=== PATIENT | female | born 1955 | race Caucasian/White ===

== ENCOUNTER 2016-10-23 13:17 | Emergency (ER) | payer BC ==
[~2016-10-23] VITALS: Ht 162.6 cm; Wt 80.7 kg
[~2016-10-23 13:17] MED LIST: /ESOM40CA OR; ADVIL PM PO; ALEV220C2 PO; ANAS1TAB PO; ATEN25TA OR; CALC-204 PO; CLAR5CHW OR; COLA50CA PO; FLEC1.3D TD; FLECTOR1.3 TOP; HERBAL SUPPLEMENT PO; ICY HOT TOP; LIDO2JELLY TOP; MULTCAP PO; NEUR600T OR; OMEG100011 PO; OMEPPOW18 PO; OXYC1TAB30 PO; PENN1.5S2 TD; PENNSAID EXT; SOMA350T PO; SYNT175T OR; TRAM50TA2 OR; TRAZ50TA OR; ULTRTA PO; VIT D 2000 PO; VITA100L PO; VITACAP8 PO; VITAD1000T PO; [UNRECOGNIZED DRUG - OTHER] TOP; compound cream EXT
[2016-10-23] MEDS ORDERED: ESCI10TA2 PO (13:39)
[2016-10-23] MEDS ORDERED: AMOX-CLAV (13:39)
[2016-10-23] MEDS ORDERED: PRED20TA PO (13:39)
[2016-10-23] MEDS ORDERED: ASPIRIN 81 MG CHEW TABLET PO ONE (14:00)
[2016-10-23] MEDS ORDERED: IPRATROPIUM 0.5MG/ALBUTEROL 2.5MG INH SOL UD 3ML (DUONEB)(J7620) NEB ONE (14:15)
[2016-10-23] MEDS ORDERED: ALBUTEROL SULFATE 2.5 MG/0.5 ML INH NEB SOLN INH ONE (14:15)
[2016-10-23 14:19] LABS: BASO % 0.3 % (0.0-1.0); EOS # 0.1 K/mm3 (0.0-0.50); EOS % 0.7 % (0.0-3.0); LARGE UNSTAINED CELL # 0.2 K/mm3 (0.0-0.4); LARGE UNSTAINED CELL % 1.5 % (0.0-4.0); LYMPH # 2.8 K/mm3 (1.5-4.5); LYMPH % 22.6 % (24.0-44.0); MEAN CORPUSCULAR HEMOGLOBIN 29.5 pg (27.0-33.0); MEAN CORPUSCULAR HGB CONC 33.3 g/dl (32.0-36.5); MEAN CORPUSCULAR VOLUME 88.6 fl (80.0-96.0); MONO # 0.6 K/mm3 (0.0-0.8); MONO % 4.8 % (0.0-5.0); NEUTROPHILS # 8.1 K/mm3 (1.8-7.7); NEUTROPHILS % 70.1 % (36.0-66.0); PLATELET COUNT, AUTOMATED 329 k/mm3 (150-450); RED CELL DISTRIBUTION WIDTH 13.2 % (11.5-14.5); WHITE BLOOD COUNT 11.5 K/mm3 (4.0-10.0)
--- NOTE | 2016-10-23 14:30 | REP ---
Chest two views HISTORY: Chest pain Comparison: 01/10/2014 The lungs are clear. The heart is normal in size. The pulmonary vasculature is normal in appearance. The bony structure is intact. IMPRESSION: No acute disease. Signed by Armando Salgado MD 10/23/2016 02:21 P
[2016-10-23 14:36] LABS: ALBUMIN 3.9 GM/DL (3.2-5.2); ALBUMIN/GLOBULIN RATIO 1.15 (1.00-1.93); ALKALINE PHOSPHATASE 53 U/L (45-117); ALT/SGPT 25 U/L (12-78); ANION GAP 7 MEQ/L (8-16); AST/SGOT 4 U/L (15-37); BILIRUBIN,DIRECT 0.1 MG/DL (0.0-0.2); BILIRUBIN,TOTAL 0.4 MG/DL (0.2-1.0); BLOOD UREA NITROGEN 15 MG/DL (7-18); CALCIUM LEVEL 9.9 MG/DL (8.5-10.1); CARBON DIOXIDE LEVEL 28 MEQ/L (21-32); CHLORIDE LEVEL 104 MEQ/L (98-107); CREATININE FOR GFR 0.73 MG/DL (0.55-1.02); GLOMERULAR FILTRATION RATE > 60.0 (>51); GLUCOSE, FASTING 139 MG/DL (70-105); POTASSIUM SERUM 3.4 MEQ/L (3.5-5.1); SODIUM LEVEL 139 MEQ/L (136-145); TOTAL PROTEIN 7.3 GM/DL (6.4-8.2)
[2016-10-23 14:41] LABS: VENOUS BASE EXCESS 3.3 (-2.0-2.0); VENOUS O2 SATURATION 65.8 % (60.0-80.0); VENOUS PARTIAL PRESSURE O2 30.6 mmHg (30.0-50.0); VENOUS STANDARD HCO3 26.7 MEQ/L; VENOUS TOTAL CO2 29.3 MEQ/L (24.0-28.0)
[2016-10-23] MEDS ORDERED: NS 1,000 ML IV ONE (14:45)
[2016-10-23] MEDS ORDERED: ISOVUE-370 76% 100ML VIAL (Q9967) As Ordered ONE (16:01)
--- NOTE | 2016-10-23 16:31 | REP ---
Clinical: Wheezing and shortness of breath. Technique: Axial contrast enhanced images from the thoracic inlet to the upper abdomen using 100 ml Isovue 370 intravenous contrast material with coronal and sagittal re-formations. Findings: Bilateral lung sam are well-aerated and clear. No consolidation, nodule or mass lesion. No pleural effusion/reaction or pneumothorax. Tracheobronchial tree is patent. Mediastinum demonstrates normal thoracic aorta and heart/pericardium. No axillary, hilar, or mediastinal adenopathy. Status post bilateral mammoplasty. Limited upper abdomen is unremarkable. Incidental note is made of a 9 mm left renal cyst. Impression: No acute mediastinal or pleuroparenchymal process. Signed by Anish Serrato MD 10/23/2016 04:23 P
[2016-10-23 17:18] VITALS: BP 128/63
[2016-10-23] MEDS ORDERED: COMBAER6 INH (17:35)
--- NOTE | 2016-10-24 20:50 | ECGEPIP ---
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
== END 2016-10-23 17:43 | disposition home or self-care (01) ==
LOC: M ED 14:53
DX: J20.8 Acute bronchitis due to other specified organisms (principal); E03.9 Hypothyroidism, unspecified; M54.9 Dorsalgia, unspecified; G89.29 Other chronic pain; F17.210 Nicotine dependence, cigarettes, uncomplicated; Z88.5 Allergy status to narcotic agent; Z88.2 Allergy status to sulfonamides; Z91.048 Other nonmedicinal substance allergy status; Z79.899 Other long term (current) drug therapy; Z79.52 Long term (current) use of systemic steroids
CPT/HCPCS: 71020; 71260; 80048; 80076; 82550; 82553; 82803; 83690; 85025; 85379; 87040; 87486; 87581; 87633; 87798; 93005; 93041; 94640; 99285; Q9967

== ENCOUNTER → 2016-11-06 | Outpatient (CLI) | payer BC ==
[~2016-11-06] MED LIST changes: +AMOX-CLAV; +BUPIVACAINE HCL 0.25% 10 ML VIAL As Ordered ONE; +BUPIVACAINE HCL 0.25% 30 ML VIAL As Ordered ONE; +COMBAER6 INH; +ESCI10TA2 PO; +PRED20TA PO; +TRIAMCINOLONE ACETONIDE SUSP 40 MG/ML VIAL (J3301) As Ordered ONE; +diazePAM 5 MG TAB As Ordered ONE; +oxyCODONE 5MG TAB As Ordered ONE
--- NOTE | 2016-11-10 23:23 | ECWPNPC ---
PATIENT NAME: TERESE DAMON : 1955 GENDER: FEMALE VISIT DATE: 11/06/2016 DISCHARGE DATE: 11/06/16 1434 VISIT LOCKED DATE TIME: PHYSICIAN: SVITLANA MEDRANO RESOURCE: SVITLANA MEDRANO REASON FOR APPOINTMENT 1. TPI HISTORY OF PRESENT ILLNESS HISTORY OF PRESENT ILLNESS: PAIN THE PATIENT DESCRIBES THE PAIN... FALL RISK SCREENING: SCREENING :NO FALLS IN THE PAST YEAR CURRENT MEDICATIONS TAKING CLONAZEPAM 0.25 MG TABLET DISPERSIBLE 1 TABLET ON THE TONGUE AND ALLOW TO DISSOLVE ORALLY EVERY 12 HOURS NEEDED FOR ANXIETY, NOTES: 2 WEEKS AGO TAKING KETOCONAZOLE 2 % CREAM 1 APPLICATION TO FEET EXTERNALLY TWICE A DAY NEEDED, NOTES: 10/06 9AM TAKING SOMA 350 MG TABLET 1 TABLET NEEDED FOR SPASMS AND PAIN ORALLY BEFORE BEDTIME, NOTES: 2 WEEKS TAKING TRAZODONE HCL 50 MG TABLET 1 TABLET AT BEDTIME NEEDED ORALLY ONCE A DAY, NOTES: 11/05 10PM TAKING VENTOLIN HFA 90 MCG/ACT AEROSOL SOLUTION 2 PUFFS INHALATION EVERY 4 HRS NEEDED SHORTNESS OF BREATH, NOTES: 11/05 10PM TAKING VITAMIN B-12 1000 MCG TABLET 4 TABLETS ORALLY ONCE A DAY, NOTES: 11/06 9AM TAKING CLARITIN 10 MG TABLET 1 TABLET ORALLY DAILY NEEDED, NOTES: 11/06 9AM TAKING MULTIVITAMINS OTC TABLET 1 ORALLY ONCE A DAY, NOTES: 11/06 9AM TAKING VITAMIN D HIGH POTENCY 5000 _ 5000UNITS ORALLY ONCE A DAY, NOTES: 11/06 9AM TAKING OXYCODONE HCL 5 MG TABLET 1 ORALLY DAILY NEEDED MDD1, NOTES: 2 WEEKS TAKING TRAMADOL HCL 50 MG TABLET 1 TABLET NEEDED ORALLY EVERY 6 HRS, NOTES: 2 WEEKS TAKING LEVOTHYROXINE SODIUM 175 MG TABLET 1 TABLET ORALLY ONCE A DAY, NOTES: 11/06 9AM TAKING LIDOCAINE 5 % GEL 1 INCH EXTERNALLY THREE TIMES A DAY PRN FOR PAIN AT LOWER BACK AREA, NOTES: 11/06 9AM TAKING GABAPENTIN 300 MG CAPSULE 2 CAPSULE ORALLY THREE TIMES A DAY, NOTES: 11/06 9AM TAKING EXEMESTANE 25 MG TABLET 1 TABLET WITH A MEAL ORALLY ONCE A DAY, NOTES: 11/06 9AM TAKING OMEPRAZOLE 40 MG CAPSULE DELAYED RELEASE 1 CAPSULE ORALLY ONCE A DAY, NOTES: 11/06 9AM TAKING NEBULIZER - DEVICE DIRECTED DX: J45.909 DIRECTED, NOTES: 11/06 9AM TAKING MAY HAVE - - NEBULIZER TUBING DX: J45.909 DIRECTED WITH NEBULIZER TAKING ALBUTEROL SULFATE (2.5 MG/3ML) 0.083% NEBULIZATION SOLUTION 3 ML INHALATION EVERY 4 HOURS NEEDED FOR SOB, NOTES: 11/06 9AM NOT-TAKING CICLOPIROX OLAMINE 0.77 % CREAM 1 APPLICATION EXTERNALLY TWICE A DAY TO FEET NOT-TAKING PREDNISONE 20 MG TABLET 2 TABLET ORALLY ONCE A DAY NOT-TAKING COQ10 30 MG CAPSULE 1 ORALLY ONCE A DAY MEDICATION LIST REVIEWED AND RECONCILED WITH THE PATIENT PAST MEDICAL HISTORY FX 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 OF HYPERLIPIDEMIA FIBROCYSTIC BREAST DISEASE DDD/DD MVP CHRONIC BACK DISCOM'T LEFT BREAST CANCER 10/11/14 EYE INJECTIONS ALLERGIES SULFA (FOR ALLERGY USE ONLY): NAUSEA/VOMITING: SIDE EFFECTS CODEINE PHOSPHATE: NAUSEA/VOMITING: SIDE EFFECTS LATEX: RASH: ALLERGY RUBBER: RASH: ALLERGY MELOXICAM: HEADACHE: SIDE EFFECTS ANASTROZOLE: WEAKNESS, SCHES, DRY COUGH : SIDE EFFECTS SOCIAL HISTORY GENERAL: PAIN CLINIC PFS, CLERGY, PUBLIC HEALTH REFERRALS CLERGY REFERRAL NEEDED?NO WAS THE PROVIDER NOTIFIED OF ANY PERTINENT INFO?NO PFS REFERRAL NEEDED?NO PUBLIC HEALTH REFERRAL NEEDED?NO PATIENT: ____. REVIEW OF SYSTEMS CONSTITUTIONAL: ANY CHANGE IN YOUR MEDICAL CONDITION? NO . CHILLS NO . FEVER NO . INFECTION: DO YOU HAVE NEW INFECTIONS? NO . DO YOU HAVE HISTORY OF MRSA? NO . MUSCULOSKELETAL: ANY NEW PATTERNS OF PAIN OR NUMBNESS? NO . GASTROENTEROLOGY: ANY NEW CHANGE IN BOWEL CONTROL? NO . GENITOURINARY: ANY NEW CHANGE IN BLADDER CONTROL? NO . IS THERE A CHANCE YOU COULD BE ? NO . HEMATOLOGY/LYMPH: DO YOU TAKE ANY BLOOD THINNERS? (FOR EXAMPLE- COUMADIN, PLAVIX, AGGRENOX, PLATEL, PRADAXA, OR XARELTO) NO . WHEN WAS YOUR LAST DOSE? DATE: TIME: . NEUROLOGY: HAVE YOU FALLEN IN THE PAST 6 MONTHS? NO . ANY NEW EXTREMITY NUMBNESS OR WEAKNESS? NO . CARDIOLOGY: DO YOU HAVE A PACEMAKER OR DEFIBRILLATOR? NO . RESPIRATORY: HAVE YOU BEEN SICK IN THE PAST WEEK? NO . FEVER NO . FLU LIKE SYMPTOMS? NO . COUGH NO . INTEGUMENTARY: DO YOU HAVE ANY RASHES OR OPEN SORES? NO . ALLERGIC/IMMUNO: ARE YOU ALLERGIC TO SHELLFISH OR IV DYE? NO . ANY NEW ALLERGIES? NO . PSYCHIATRIC: DO YOU HAVE THOUGHTS OF HURTING YOURSELF OR SOMEONE ELSE? NO . ARE YOU ABUSED, NEGLECTED, OR IN AN UNSAFE ENVIRONMENT? NO . ENDOCRINOLOGY: ARE YOU DIABETIC? NO . OTHER: DO YOU NEED ANY PRESCRIPTIONS? NO . IF YES, PLEASE LIST: ____ . ANY NEW PROBLEMS WITH YOUR MEDICATIONS? NO . WHEN DID YOU LAST EAT? 6AM . WHEN DID YOU LAST DRINK? 10AM . WHAT DID YOU LAST DRINK? WATER . NAME OF PERSON DRIVING YOU HOME? WM DAMON . DO YOU HAVE ANY OTHER QUESTIONS OR CONCERNS PT STATES THAT SHE IS A CURRENT SMOKER, REFUSING ANY SMOKING CESSATION COUNSELING AT THIS TIME. ELISA . REVIEWED BY: PROVIDER: . VITAL SIGNS WT 178 LBS, HT 64.5 IN, BMI 30.08 INDEX, BP 119/62 MM HG, HR 99 /MIN, RR 16 /MIN, TEMP 97.6 F, OXYGEN SAT % 97%, SAFE IN ENV? (Y/N) Y, NA INITIALS SC 13:20, REVIEWED BY: ELISA. ASSESSMENTS MYALGIA - M79.1 (PRIMARY) PROCEDURES PN TRIGGER POINT INJECTION WITH STEROIDS PRE PROCEDURE DIAGNOSIS 1. MYALGIA 2. PAIN AT BILATERAL LOWER BACK AREA POST PROCEDURE DIAGNOSIS 1. MYALGIA 2. PAIN AT BILATERAL LOWER BACK AREA PROCEDURE TRIGGER POINT INJECTION AT BILATERAL LOWER BACK AREA SURGEON DR. SVITLANA MEDRANO CAPSULE FILLING MACHINE OPERATOR NONE ANESTHESIA LOCAL PRE PROCEDURE NOTE THE PATIENT HAS A HISTORY OF CHRONIC PAIN AT THE RIGHT AND LEFT LOWER BACK AREA. I EVALUATE THE PATIENT AND REVIEWED THE CHART. THERE IS EVIDENCE OF BANDS OF TISSUE WITH RESTRICTION OF MOVEMENT AND PRESENCE OF TRIGGER POINT AT THE AFFECTED AREA. I WENT OVER THE RISKS, ALTERNATIVES, AND BENEFITS ASSOCIATED WITH THIS PROCEDURE. THE PATIENT WOULD LIKE TO PROCEED AND GIVE CONSENT TO PERFORMED THE PROCEDURE. THE PATIENT DENIES UNEXPLAINABLE WEIGHT LOSS, FEVER, CHILLS, OR NEW CHANGES IN URINARY OR BOWEL CONTROL DESCRIPTION OF PROCEDURE THE PATIENT WAS BROUGHT TO THE PROCEDURE ROOM AND PLACED IN THE SITTING POSITION. THE AREA WAS CLEANED WITH ALCOHOL. THE PROCEDURE WAS DONE USING ASEPTIC STERILE TECHNIQUE. I CHECKED LATERALITY AND THE LEVEL WHERE THE PROCEDURE WAS GOING TO BE PERFORMED WITH THE PATIENT AND THE SUPPORTING STAFF AT THE MOMENT OF THE TIME OUT IN THE PROCEDURE ROOM. USING A 25-GAUGE NEEDLE, TRIGGER POINTS WERE INJECTED AT THE RIGHT AND LEFT LOWER BACK AREA WITH A TOTAL OF 40 ML OF BUPIVACAINE 0.25% AND KENALOG 40 MG. THERE WAS NO EVIDENCE OF BLOOD, PARESTHESIA OR CEREBROSPINAL FLUID DURING THE PROCEDURE. THE PATIENT WAS SENT TO THE RECOVERY ROOM. THE PATIENT WAS MOVING THE EXTREMITIES AND DOING WELL. THERE WAS NO COMPLICATION DURING THE PROCEDURE POST PROCEDURE NOTE THE PATIENT WILL BE SEEN IN A FOLLOW UP IN THE NEXT FEW WEEKS. INSTRUCTIONS WERE GIVEN, QUESTIONS WERE ANSWERED, AND THE PATIENT EXPRESSED UNDERSTANDING AND AGREES WITH THE PLAN. I, JAVY HERRERA, DOCUMENTED THE ABOVE INFORMATION ACTING A SCRIBE FOR DR. MEDRANO. I, DR. MEDRANO, HAVE REVIEWED THE ABOVE DOCUMENT, SCRIBED BY JAVY HERRERA, AND I VERIFY THAT IT IS ACCURATE PROCEDURE CODES 78777 INJ TRIGGER POINT 08/05 [facility] [place] DISPOSITION & COMMUNICATION FOLLOW UP 3 WEEKS ELECTRONICALLY SIGNED BY SVITLANA MEDRANO MD ON 11/10/2016 AT 09:07 PM EDT DISCLAIMER : THIS IS A VISIT SUMMARY EXTRACTED FROM THE [employer] CHART. IT IS NOT A COPY OF THE [employer] PROGRESS NOTE. MIKE
== END ==
LOC: M PAIN 13:00
PROVIDERS: ATTEND Anesthesiology
DX: G89.29 Other chronic pain (principal); M54.5 Low back pain; M79.1 Myalgia; Z79.891 Long term (current) use of opiate analgesic; Z79.899 Other long term (current) drug therapy; Z88.2 Allergy status to sulfonamides; Z88.5 Allergy status to narcotic agent; Z88.8 Allergy status to other drugs, medicaments and biological substances; Z91.040 Latex allergy status; Z91.048 Other nonmedicinal substance allergy status; E78.5 Hyperlipidemia, unspecified; E03.9 Hypothyroidism, unspecified; F17.200 Nicotine dependence, unspecified, uncomplicated; E55.9 Vitamin D deficiency, unspecified; F41.9 Anxiety disorder, unspecified
CPT/HCPCS: 20552; J3301

== ENCOUNTER → 2016-11-28 | Outpatient (CLI) | payer BC ==
[~2016-11-28] MED LIST changes: -diazePAM 5 MG TAB As Ordered ONE; -oxyCODONE 5MG TAB As Ordered ONE
--- NOTE | 2016-12-01 23:37 | ECWPNPC ---
PATIENT NAME: TERESE DAMON : 1955 GENDER: FEMALE VISIT DATE: 11/28/2016 DISCHARGE DATE: 11/28/16 1100 VISIT LOCKED DATE TIME: PHYSICIAN: SVITLANA MEDRANO RESOURCE: SVITLANA MEDRANO REASON FOR APPOINTMENT 1. TRIGGER POINT INJECTION HISTORY OF PRESENT ILLNESS HISTORY OF PRESENT ILLNESS: PAIN THE PATIENT DESCRIBES THE PAIN... FALL RISK SCREENING: SCREENING :NO FALLS IN THE PAST YEAR CURRENT MEDICATIONS TAKING CLONAZEPAM 0.25 MG TABLET DISPERSIBLE 1 TABLET ON THE TONGUE AND ALLOW TO DISSOLVE ORALLY EVERY 12 HOURS NEEDED FOR ANXIETY, NOTES: NONE YET TAKING KETOCONAZOLE 2 % CREAM 1 APPLICATION TO FEET EXTERNALLY TWICE A DAY NEEDED, NOTES: 11/28 7AM TAKING SOMA 350 MG TABLET 1 TABLET NEEDED FOR SPASMS AND PAIN ORALLY BEFORE BEDTIME, NOTES: 3 DAYS TAKING TRAZODONE HCL 50 MG TABLET 1 TABLET AT BEDTIME NEEDED ORALLY ONCE A DAY, NOTES: 11/27 9PM TAKING VENTOLIN HFA 90 MCG/ACT AEROSOL SOLUTION 2 PUFFS INHALATION EVERY 4 HRS NEEDED SHORTNESS OF BREATH, NOTES: 11/28 9AM TAKING VITAMIN B-12 1000 MCG TABLET 4 TABLETS ORALLY ONCE A DAY, NOTES: 11/28 7AM TAKING CLARITIN 10 MG TABLET 1 TABLET ORALLY DAILY NEEDED, NOTES: 11/28 7AM TAKING MULTIVITAMINS OTC TABLET 1 ORALLY ONCE A DAY, NOTES: 11/27 7AM TAKING OXYCODONE HCL 5 MG TABLET 1 ORALLY DAILY NEEDED MDD1, NOTES: 2 DAYS AGO TAKING TRAMADOL HCL 50 MG TABLET 1 TABLET NEEDED ORALLY EVERY 6 HRS, NOTES: 1 MONTH AGO TAKING LEVOTHYROXINE SODIUM 175 MG TABLET 1 TABLET ORALLY ONCE A DAY, NOTES: 11/28 7AM TAKING LIDOCAINE 5 % GEL 1 INCH EXTERNALLY THREE TIMES A DAY PRN FOR PAIN AT LOWER BACK AREA, NOTES: 2 DAYS AGO TAKING GABAPENTIN 300 MG CAPSULE 2 CAPSULE ORALLY THREE TIMES A DAY, NOTES: 11/28 7AM TAKING EXEMESTANE 25 MG TABLET 1 TABLET WITH A MEAL ORALLY ONCE A DAY, NOTES: 11/28 7AM TAKING OMEPRAZOLE 40 MG CAPSULE DELAYED RELEASE 1 CAPSULE ORALLY ONCE A DAY, NOTES: 11/28 7AM TAKING NEBULIZER - DEVICE DIRECTED DX: J45.909 DIRECTED, NOTES: 11/28 7AM TAKING MAY HAVE - - NEBULIZER TUBING DX: J45.909 DIRECTED WITH NEBULIZER TAKING ALBUTEROL SULFATE (2.5 MG/3ML) 0.083% NEBULIZATION SOLUTION 3 ML INHALATION EVERY 4 HOURS NEEDED FOR SOB, NOTES: 11/28 7AM NOT-TAKING VITAMIN D HIGH POTENCY 5000 _ 5000UNITS ORALLY ONCE A DAY NOT-TAKING CICLOPIROX OLAMINE 0.77 % CREAM 1 APPLICATION EXTERNALLY TWICE A DAY TO FEET NOT-TAKING PREDNISONE 20 MG TABLET 2 TABLET ORALLY ONCE A DAY NOT-TAKING COQ10 30 MG CAPSULE 1 ORALLY ONCE A DAY MEDICATION LIST REVIEWED AND RECONCILED WITH THE PATIENT PAST MEDICAL HISTORY FX 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 OF HYPERLIPIDEMIA FIBROCYSTIC BREAST DISEASE DDD/DD MVP CHRONIC BACK DISCOM'T LEFT BREAST CANCER 10/11/14 EYE INJECTIONS ALLERGIES SULFA (FOR ALLERGY USE ONLY): NAUSEA/VOMITING: SIDE EFFECTS CODEINE PHOSPHATE: NAUSEA/VOMITING: SIDE EFFECTS LATEX: RASH: ALLERGY RUBBER: RASH: ALLERGY MELOXICAM: HEADACHE: SIDE EFFECTS ANASTROZOLE: WEAKNESS, SCHES, DRY COUGH : SIDE EFFECTS SOCIAL HISTORY GENERAL: PAIN CLINIC PFS, CLERGY, PUBLIC HEALTH REFERRALS PFS REFERRAL NEEDED?NO CLERGY REFERRAL NEEDED?NO PUBLIC HEALTH REFERRAL NEEDED?NO WAS THE PROVIDER NOTIFIED OF ANY PERTINENT INFO?YES PATIENT: ____. REVIEW OF SYSTEMS CONSTITUTIONAL: ANY CHANGE IN YOUR MEDICAL CONDITION? NO . CHILLS NO . FEVER NO . INFECTION: DO YOU HAVE NEW INFECTIONS? NO . DO YOU HAVE HISTORY OF MRSA? NO . MUSCULOSKELETAL: ANY NEW PATTERNS OF PAIN OR NUMBNESS? NO . GASTROENTEROLOGY: ANY NEW CHANGE IN BOWEL CONTROL? NO . GENITOURINARY: ANY NEW CHANGE IN BLADDER CONTROL? NO . IS THERE A CHANCE YOU COULD BE ? NO . HEMATOLOGY/LYMPH: DO YOU TAKE ANY BLOOD THINNERS? (FOR EXAMPLE- COUMADIN, PLAVIX, AGGRENOX, PLATEL, PRADAXA, OR XARELTO) NO . WHEN WAS YOUR LAST DOSE? DATE: TIME: . NEUROLOGY: HAVE YOU FALLEN IN THE PAST 6 MONTHS? NO . ANY NEW EXTREMITY NUMBNESS OR WEAKNESS? NO . CARDIOLOGY: DO YOU HAVE A PACEMAKER OR DEFIBRILLATOR? NO . RESPIRATORY: HAVE YOU BEEN SICK IN THE PAST WEEK? NO . FEVER NO . FLU LIKE SYMPTOMS? NO . COUGH NO . INTEGUMENTARY: DO YOU HAVE ANY RASHES OR OPEN SORES? NO . ALLERGIC/IMMUNO: ARE YOU ALLERGIC TO SHELLFISH OR IV DYE? NO . ANY NEW ALLERGIES? NO . PSYCHIATRIC: DO YOU HAVE THOUGHTS OF HURTING YOURSELF OR SOMEONE ELSE? NO . ARE YOU ABUSED, NEGLECTED, OR IN AN UNSAFE ENVIRONMENT? NO . ENDOCRINOLOGY: ARE YOU DIABETIC? NO . OTHER: DO YOU NEED ANY PRESCRIPTIONS? NO . IF YES, PLEASE LIST: ____ . ANY NEW PROBLEMS WITH YOUR MEDICATIONS? NO . WHEN DID YOU LAST EAT? 11/27 8PM . WHEN DID YOU LAST DRINK? 11/28 7:30AM . WHAT DID YOU LAST DRINK? WATER . NAME OF PERSON DRIVING YOU HOME? MW DAMON . DO YOU HAVE ANY OTHER QUESTIONS OR CONCERNS PT STATES THAT SHE IS A CURRENT SMOKER AND REFUSING ANY SMOKING CESSATION COUSELING AT THIS TIME . REVIEWED BY: PROVIDER: . VITAL SIGNS WT 179.0 LBS, HT 64.5 IN, BMI 30.25 INDEX, BP 141/80 MM HG, HR 89 /MIN, RR 16 /MIN, TEMP 97.8 F, OXYGEN SAT % 98%, NA INITIALS TL 0949. ASSESSMENTS MYALGIA - M79.1 (PRIMARY) PROCEDURES PN TRIGGER POINT INJECTION WITH STEROIDS PRE PROCEDURE DIAGNOSIS 1. MYALGIA 2. PAIN AT RIGHT LOW BACK AREA POST PROCEDURE DIAGNOSIS 1. MYALGIA 2. PAIN AT RIGHT LOW BACK AREA PROCEDURE TRIGGER POINT INJECTION AT RIGHT LOW BACK AREA SURGEON DR. SVITLANA MEDRANO CAREER ADVISOR NONE ANESTHESIA LOCAL PRE PROCEDURE NOTE THE PATIENT HAS A HISTORY OF CHRONIC PAIN AT THE RIGHT LOW BACK AREA. I EVALUATE THE PATIENT AND REVIEWED THE CHART. THERE IS EVIDENCE OF BANDS OF TISSUE WITH RESTRICTION OF MOVEMENT AND PRESENCE OF TRIGGER POINT AT THE AFFECTED AREA. I WENT OVER THE RISKS, ALTERNATIVES, AND BENEFITS ASSOCIATED WITH THIS PROCEDURE. THE PATIENT WOULD LIKE TO PROCEED AND GIVE CONSENT TO PERFORMED THE PROCEDURE. THE PATIENT DENIES UNEXPLAINABLE WEIGHT LOSS, FEVER, CHILLS, OR NEW CHANGES IN URINARY OR BOWEL CONTROL DESCRIPTION OF PROCEDURE THE PATIENT WAS BROUGHT TO THE PROCEDURE ROOM AND PLACED IN THE SITTING POSITION. THE AREA WAS CLEANED WITH ALCOHOL. THE PROCEDURE WAS DONE USING ASEPTIC STERILE TECHNIQUE. I CHECKED LATERALITY AND THE LEVEL WHERE THE PROCEDURE WAS GOING TO BE PERFORMED WITH THE PATIENT AND THE SUPPORTING STAFF AT THE MOMENT OF THE TIME OUT IN THE PROCEDURE ROOM. USING A 25-GAUGE NEEDLE, TRIGGER POINTS WERE INJECTED AT THE RIGHT LOW BACK AREA WITH A TOTAL OF 40 ML OF BUPIVACAINE 0.25% AND KENALOG 40 MG. THERE WAS NO EVIDENCE OF BLOOD, PARESTHESIA OR CEREBROSPINAL FLUID DURING THE PROCEDURE. THE PATIENT WAS SENT TO THE RECOVERY ROOM. THE PATIENT WAS MOVING THE EXTREMITIES AND DOING WELL. THERE WAS NO COMPLICATION DURING THE PROCEDURE POST PROCEDURE NOTE THE PATIENT WILL BE SEEN IN A FOLLOW UP IN THE NEXT FEW WEEKS. INSTRUCTIONS WERE GIVEN, QUESTIONS WERE ANSWERED, AND THE PATIENT EXPRESSED UNDERSTANDING AND AGREES WITH THE PLAN. I, YUMIKO CHERY, DOCUMENTED THE ABOVE INFORMATION ACTING A SCRIBE FOR DR. MEDRANO. I HAVE REVIEWED THE ABOVE DOCUMENT, WRITTEN BY YUMIKO CHERY SCRIBE AND I VERIFY THAT IT IS ACCURATE. PROCEDURE CODES 23181 INJ TRIGGER POINT / [facility] [place]UN[place] FOLLOW UP 3 WEEKS ELECTRONICALLY SIGNED BY SVITLANA MEDRANO MD ON 12/01/2016 AT 12:58 PM EDT DISCLAIMER : THIS IS A VISIT SUMMARY EXTRACTED FROM THE [employer] CHART. IT IS NOT A COPY OF THE [employer] PROGRESS NOTE. MIKE
== END ==
LOC: M PAIN 09:10
PROVIDERS: ATTEND Anesthesiology
DX: G89.29 Other chronic pain (principal); M79.1 Myalgia; E78.5 Hyperlipidemia, unspecified; E03.9 Hypothyroidism, unspecified; E55.9 Vitamin D deficiency, unspecified; E05.00 Thyrotoxicosis with diffuse goiter without thyrotoxic crisis or storm; F41.9 Anxiety disorder, unspecified; M85.80 Other specified disorders of bone density and structure, unspecified site; Z79.891 Long term (current) use of opiate analgesic; Z79.899 Other long term (current) drug therapy; Z88.2 Allergy status to sulfonamides; Z88.5 Allergy status to narcotic agent; Z91.040 Latex allergy status; Z91.048 Other nonmedicinal substance allergy status; Z88.8 Allergy status to other drugs, medicaments and biological substances
CPT/HCPCS: 20552; J3301

== ENCOUNTER → 2016-12-03 | Outpatient (CLI) | payer BC ==
[~2016-12-03] MED LIST changes: -BUPIVACAINE HCL 0.25% 10 ML VIAL As Ordered ONE; -BUPIVACAINE HCL 0.25% 30 ML VIAL As Ordered ONE; -TRIAMCINOLONE ACETONIDE SUSP 40 MG/ML VIAL (J3301) As Ordered ONE
--- NOTE | 2016-12-10 00:19 | ECWPNPC ---
PATIENT NAME: TERESE DAMON : 1955 GENDER: FEMALE VISIT DATE: 12/03/2016 DISCHARGE DATE: 12/03/16 1720 VISIT LOCKED DATE TIME: PHYSICIAN: SVITLANA MEDRANO RESOURCE: SVITLANA MEDRANO REASON FOR APPOINTMENT 1. POST TPI HISTORY OF PRESENT ILLNESS HISTORY OF PRESENT ILLNESS: PAIN THE PATIENT DESCRIBES THE PAIN... 60 YEAR OLD FEMALE PATIENT WITH HISTORY OF CHRONIC BACK PAIN. PATIENT DESCRIBES THE PAIN ACHING, SHARP, STABBING, AND IT COMES AND GOES WITH A PAIN SCORE OF 2/10 ON THE LOW BACK AND A 6/10 ON THE MID BACK ON TODAY'S VISIT. PATIENT RECEIVED A TPI IN THE LOW BACK ON 11/28/2016 AND STATES THAT THE INJECTION HAS GREATLY DECREASED HER PAIN LEVELS AND INCREASED HER MOBILITY AND FUNCTIONALITY. PATIENT REPORTS THAT HER MID BACK HURTS THE MOST TODAY. PATIENT DENIES UNEXPLAINABLE WEIGHT LOSS, FEVER, CHILLS, NEW CHANGES ON HER URINARY OR BOWEL CONTROL. FALL RISK SCREENING: SCREENING :NO FALLS IN THE PAST YEAR CURRENT MEDICATIONS TAKING CLONAZEPAM 0.25 MG TABLET DISPERSIBLE 1 TABLET ON THE TONGUE AND ALLOW TO DISSOLVE ORALLY EVERY 12 HOURS NEEDED FOR ANXIETY TAKING KETOCONAZOLE 2 % CREAM 1 APPLICATION TO FEET EXTERNALLY TWICE A DAY NEEDED TAKING SOMA 350 MG TABLET 1 TABLET NEEDED FOR SPASMS AND PAIN ORALLY BEFORE BEDTIME TAKING TRAZODONE HCL 50 MG TABLET 1 TABLET AT BEDTIME NEEDED ORALLY ONCE A DAY TAKING VENTOLIN HFA 90 MCG/ACT AEROSOL SOLUTION 2 PUFFS INHALATION EVERY 4 HRS NEEDED SHORTNESS OF BREATH TAKING VITAMIN B-12 1000 MCG TABLET 4 TABLETS ORALLY ONCE A DAY TAKING CLARITIN 10 MG TABLET 1 TABLET ORALLY DAILY NEEDED TAKING MULTIVITAMINS OTC TABLET 1 ORALLY ONCE A DAY TAKING OXYCODONE HCL 5 MG TABLET 1 ORALLY DAILY NEEDED MDD1 TAKING TRAMADOL HCL 50 MG TABLET 1 TABLET NEEDED ORALLY EVERY 6 HRS TAKING LEVOTHYROXINE SODIUM 175 MG TABLET 1 TABLET ORALLY ONCE A DAY TAKING LIDOCAINE 5 % GEL 1 INCH EXTERNALLY THREE TIMES A DAY PRN FOR PAIN AT LOWER BACK AREA TAKING GABAPENTIN 300 MG CAPSULE 2 CAPSULE ORALLY THREE TIMES A DAY TAKING EXEMESTANE 25 MG TABLET 1 TABLET WITH A MEAL ORALLY ONCE A DAY TAKING OMEPRAZOLE 40 MG CAPSULE DELAYED RELEASE 1 CAPSULE ORALLY ONCE A DAY TAKING NEBULIZER - DEVICE DIRECTED DX: J45.909 DIRECTED TAKING MAY HAVE - - NEBULIZER TUBING DX: J45.909 DIRECTED WITH NEBULIZER TAKING ALBUTEROL SULFATE (2.5 MG/3ML) 0.083% NEBULIZATION SOLUTION 3 ML INHALATION EVERY 4 HOURS NEEDED FOR SOB NOT-TAKING VITAMIN D HIGH POTENCY 5000 _ 5000UNITS ORALLY ONCE A DAY NOT-TAKING CICLOPIROX OLAMINE 0.77 % CREAM 1 APPLICATION EXTERNALLY TWICE A DAY TO FEET NOT-TAKING PREDNISONE 20 MG TABLET 2 TABLET ORALLY ONCE A DAY NOT-TAKING COQ10 30 MG CAPSULE 1 ORALLY ONCE A DAY MEDICATION LIST REVIEWED AND RECONCILED WITH THE PATIENT PAST MEDICAL HISTORY FX 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 OF HYPERLIPIDEMIA FIBROCYSTIC BREAST DISEASE DDD/DD MVP CHRONIC BACK DISCOM'T LEFT BREAST CANCER 10/11/14 EYE INJECTIONS ALLERGIES SULFA (FOR ALLERGY USE ONLY): NAUSEA/VOMITING: SIDE EFFECTS CODEINE PHOSPHATE: NAUSEA/VOMITING: SIDE EFFECTS LATEX: RASH: ALLERGY RUBBER: RASH: ALLERGY MELOXICAM: HEADACHE: SIDE EFFECTS ANASTROZOLE: WEAKNESS, SCHES, DRY COUGH : SIDE EFFECTS SURGICAL HISTORY APPENDECTOMY 1978 1985 BREAST SURGERY/CYST ASP. X 2 /LEFT EYES FOR GRAVES DISEASE HYSTERECTOMY PARTIAL 1994 LEFT FT. SURGERY 2003 RIGHT WRIST SURGERY 07/09 AND 01/02 COLONOSCOPY 2010 LUMPECTOMY 10/16 BILATERAL MASTECTOMY WITH SILICONE IMPLANTS 12/16 BREAST RECONSTRUCTION 07/18 BILATERAL BREAST IMPLANT REPLACEMENTS 12/17 FAMILY HISTORY FATHER AGE 87 IN 07/2016 OF HEART DISEASE AFTER A NECK FRACTURE AND SURGERY. MOTHER IS ELDERLY AND HAS SLE. 2 SISTERS--ONE HAS BREAST CANCER AND ANOTHER IS MENTALLY ILL. 2 BROTHERS --ONE AN AND ONE IN AN MVA. G1--P1 WITH HEALTHY DAUGHTER. SOCIAL HISTORY GENERAL: TOBACCO USE ARE YOU A:CURRENT SMOKER HOW MANY CIGARETTES A DAY DO YOU SMOKE?11-20 HOW SOON AFTER YOU WAKE UP DO YOU SMOKE YOUR FIRST CIGARETTE?6-30 MIN HOW OFTEN DO YOU SMOKE CIGARETTES?EVERY DAY PATIENT COUNSELED ON THE DANGERS OF TOBACCO USE AND URGED TO QUIT:12/03/2016 ARE YOU INTERESTED IN QUITTING?NOT READY TO QUIT COUNSELED THE PATIENT ON SMOKING EFFECTS, EDUCATION [id number]/02/2017 PAIN CLINIC PFS, CLERGY, PUBLIC HEALTH REFERRALS CLERGY REFERRAL NEEDED?NO WAS THE PROVIDER NOTIFIED OF ANY PERTINENT INFO?YES PFS REFERRAL NEEDED?NO PUBLIC HEALTH REFERRAL NEEDED?NO PATIENT: ____. HOSPITALIZATION/MAJOR DIAGNOSTIC PROCEDURE FOR ABOVE REASONS REVIEW OF SYSTEMS CONSTITUTIONAL: ANY CHANGE IN YOUR MEDICAL CONDITION? NO . CHILLS NO . FEVER NO . INFECTION: DO YOU HAVE NEW INFECTIONS? NO . DO YOU HAVE HISTORY OF MRSA? NO . MUSCULOSKELETAL: ANY NEW PATTERNS OF PAIN OR NUMBNESS? NO . GASTROENTEROLOGY: ANY NEW CHANGE IN BOWEL CONTROL? NO . GENITOURINARY: ANY NEW CHANGE IN BLADDER CONTROL? NO . IS THERE A CHANCE YOU COULD BE ? NO . HEMATOLOGY/LYMPH: DO YOU TAKE ANY BLOOD THINNERS? (FOR EXAMPLE- COUMADIN, PLAVIX, AGGRENOX, PLATEL, PRADAXA, OR XARELTO) NO . WHEN WAS YOUR LAST DOSE? DATE: TIME: . NEUROLOGY: HAVE YOU FALLEN IN THE PAST 6 MONTHS? NO . ANY NEW EXTREMITY NUMBNESS OR WEAKNESS? NO . CARDIOLOGY: DO YOU HAVE A PACEMAKER OR DEFIBRILLATOR? NO . RESPIRATORY: HAVE YOU BEEN SICK IN THE PAST WEEK? NO . FEVER NO . FLU LIKE SYMPTOMS? NO . COUGH NO . INTEGUMENTARY: DO YOU HAVE ANY RASHES OR OPEN SORES? NO . ALLERGIC/IMMUNO: ARE YOU ALLERGIC TO SHELLFISH OR IV DYE? NO . ANY NEW ALLERGIES? NO . PSYCHIATRIC: DO YOU HAVE THOUGHTS OF HURTING YOURSELF OR SOMEONE ELSE? NO . ARE YOU ABUSED, NEGLECTED, OR IN AN UNSAFE ENVIRONMENT? NO . ENDOCRINOLOGY: ARE YOU DIABETIC? NO . OTHER: DO YOU NEED ANY PRESCRIPTIONS? NO . IF YES, PLEASE LIST: ____ . ANY NEW PROBLEMS WITH YOUR MEDICATIONS? NO . WHEN DID YOU LAST EAT? ____ . WHEN DID YOU LAST DRINK? ____ . WHAT DID YOU LAST DRINK? ____ . NAME OF PERSON DRIVING YOU HOME? ____ . DO YOU HAVE ANY OTHER QUESTIONS OR CONCERNS NO . REVIEWED BY: PROVIDER: SVITLANA MEDRANO MD . VITAL SIGNS WT 172 LBS, HT 64.5 IN, BMI 29.06 INDEX, BP 127/77 MM HG, HR 105 /MIN, RR 16 /MIN, TEMP 97.2 F, OXYGEN SAT % 93%, NA INITIALS AW 1615, REVIEWED BY: AD. EXAMINATION : PATIENT IS ALERT O X 3 AND COOPERATIVE. THERE IS TENDERNESS IN THE MID BACK AREA WITH BANDS OF TISSUES, RESTRICTION OF MOVEMENT, AND PRESENCE OF TRIGGER POINTS. THERE IS TENDERNESS IN THE LOW BACK PARASPINAL MUSCLE GROUP. MRI OF THE THORACIC SPINE DONE ON 01/17/2014 SHOWS A SMALL DISC PROTRUSION AT T4-T5 AND T8-T9. MRI OF THE LUMBAR SPINE DONE ON 01/20/2013 SHOWS DISC BULGES AT L2-L3, L3-L4, AND L5-S1, AND A DISC BULGE AND A DISC PROTRUSION AT L4-L5. ASSESSMENTS MYALGIA - M79.1 (PRIMARY) SPONDYLOSIS WITHOUT MYELOPATHY OR RADICULOPATHY, LUMBAR REGION - M47.816 SPONDYLOSIS WITHOUT MYELOPATHY OR RADICULOPATHY, LUMBOSACRAL REGION - M47.817 TREATMENT MYALGIA NOTES: WE DISCUSSED SEVERAL ISSUES WITH MS. DAMON PAIN MANAGEMENT CASE. PATIENT BROUGHT HER MEDICATION ON TODAY'S VISIT. AFTER EXAMINING THE PATIENT AND REVIEWING THE MRI, PATIENT IS A GOOD CANDIDATE FOR A THORACIC TPI AND A LUMBAR FACET BLOCK DIAGNOSTIC TO DETERMINE IF A RADIOFREQUENCY WOULD BENEFIT HER. DUE TO THE THORACIC BACK HURTING THE MOST TODAY, WE WILL FIRST PROCEED WITH A TPI IN THE THORACIC BACK. WE DISCUSSED THE RISK, BENEFITS, AND ALTERNATIVES AND THE PATIENT WOULD LIKE TO PROCEED. PATIENT WILL BE BOOKED PENDING APPROVAL FOR THE TPI AND THE LFBD, PATIENT WILL CALL US TO SCHEDULE HER IN FOR THE LFBD. INSTRUCTIONS WERE GIVEN, QUESTIONS WERE ANSWERED, PATIENT REPORTS UNDERSTANDING AND AGREES WITH THE PLAN. I, YUMIKO CHERY, DOCUMENTED THE ABOVE INFORMATION ACTING A SCRIBE FOR DR. MEDRANO. I HAVE REVIEWED THE ABOVE DOCUMENT, WRITTEN BY YUMIKO GIANG AND I VERIFY THAT IT IS ACCURATE. PROCEDURE CODES FA211 ESTABILISHED PATIENT [facility] FACILITY CHARGE G8730 PAIN ASSESS POS TOOL F/U PLAN DOC G8427 DOC MEDS VERIFIED W/PT OR RE DISPOSITION & COMMUNICATION FOLLOW UP TPI PENDING APPROVAL ELECTRONICALLY SIGNED BY SVITLANA MEDRANO MD ON 12/09/2016 AT 08:29 PM EDT DISCLAIMER : THIS IS A VISIT SUMMARY EXTRACTED FROM THE [employer] CHART. IT IS NOT A COPY OF THE [employer] PROGRESS NOTE. MTDD
== END ==
LOC: M PAIN 16:00
PROVIDERS: ATTEND Anesthesiology
DX: M79.1 Myalgia (principal); M47.816 Spondylosis without myelopathy or radiculopathy, lumbar region; M47.817 Spondylosis without myelopathy or radiculopathy, lumbosacral region; G89.29 Other chronic pain; F17.210 Nicotine dependence, cigarettes, uncomplicated; E78.5 Hyperlipidemia, unspecified; E03.9 Hypothyroidism, unspecified; E55.9 Vitamin D deficiency, unspecified; M85.80 Other specified disorders of bone density and structure, unspecified site; F41.9 Anxiety disorder, unspecified; Z79.899 Other long term (current) drug therapy; Z88.2 Allergy status to sulfonamides; Z88.5 Allergy status to narcotic agent; Z88.8 Allergy status to other drugs, medicaments and biological substances; Z91.09 Other allergy status, other than to drugs and biological substances

== ENCOUNTER → 2016-12-06 | Outpatient (CLI) | payer BC ==
[~2016-12-06] MED LIST changes: +BUPIVACAINE HCL 0.25% 10 ML VIAL As Ordered ONE; +BUPIVACAINE HCL 0.25% 30 ML VIAL As Ordered ONE; +TRIAMCINOLONE ACETONIDE SUSP 40 MG/ML VIAL (J3301) As Ordered ONE
--- NOTE | 2016-12-09 23:43 | ECWPNPC ---
PATIENT NAME: TERESE DAMON : 1955 GENDER: FEMALE VISIT DATE: 12/06/2016 DISCHARGE DATE: 12/06/16958 VISIT LOCKED DATE TIME: PHYSICIAN: SVITLANA MEDRANO RESOURCE: SVITLANA MEDRANO REASON FOR APPOINTMENT 1. THORACIC TPI HISTORY OF PRESENT ILLNESS HISTORY OF PRESENT ILLNESS: PAIN THE PATIENT DESCRIBES THE PAIN... FALL RISK SCREENING: SCREENING :NO FALLS IN THE PAST YEAR CURRENT MEDICATIONS TAKING KETOCONAZOLE 2 % CREAM 1 APPLICATION TO FEET EXTERNALLY TWICE A DAY NEEDED, NOTES: NONE TAKING SOMA 350 MG TABLET 1 TABLET NEEDED FOR SPASMS AND PAIN ORALLY BEFORE BEDTIME, NOTES: COUPLE WEEKS TAKING TRAZODONE HCL 50 MG TABLET 1 TABLET AT BEDTIME NEEDED ORALLY ONCE A DAY, NOTES: 12-05-162099 TAKING VENTOLIN HFA 90 MCG/ACT AEROSOL SOLUTION 2 PUFFS INHALATION EVERY 4 HRS NEEDED SHORTNESS OF BREATH, NOTES: 12-06-16799 TAKING VITAMIN B-12 1000 MCG TABLET 4 TABLETS ORALLY ONCE A DAY, NOTES: 12-06-16699 TAKING CLARITIN 10 MG TABLET 1 TABLET ORALLY DAILY NEEDED, NOTES: 12-06-16799 TAKING MULTIVITAMINS OTC TABLET 1 ORALLY ONCE A DAY, NOTES: 12-06-16799 TAKING OXYCODONE HCL 5 MG TABLET 1 ORALLY DAILY NEEDED MDD1, NOTES: WEEK TAKING LEVOTHYROXINE SODIUM 175 MG TABLET 1 TABLET ORALLY ONCE A DAY, NOTES: 12-06-16799 TAKING LIDOCAINE 5 % GEL 1 INCH EXTERNALLY THREE TIMES A DAY PRN FOR PAIN AT LOWER BACK AREA, NOTES: NONE TAKING GABAPENTIN 300 MG CAPSULE 2 CAPSULE ORALLY THREE TIMES A DAY, NOTES: 799 TAKING EXEMESTANE 25 MG TABLET 1 TABLET WITH A MEAL ORALLY ONCE A DAY, NOTES: NONE COUPLE DAYS TAKING OMEPRAZOLE 40 MG CAPSULE DELAYED RELEASE 1 CAPSULE ORALLY ONCE A DAY, NOTES: 12-06-16799 TAKING NEBULIZER - DEVICE DIRECTED DX: J45.909 DIRECTED, NOTES: 2 DAYS AGO TAKING MAY HAVE - - NEBULIZER TUBING DX: J45.909 DIRECTED WITH NEBULIZER TAKING ALBUTEROL SULFATE (2.5 MG/3ML) 0.083% NEBULIZATION SOLUTION 3 ML INHALATION EVERY 4 HOURS NEEDED FOR SOB NOT-TAKING TRAMADOL HCL 50 MG TABLET 1 TABLET NEEDED ORALLY EVERY 6 HRS NOT-TAKING VITAMIN D HIGH POTENCY 5000 _ 5000UNITS ORALLY ONCE A DAY NOT-TAKING CICLOPIROX OLAMINE 0.77 % CREAM 1 APPLICATION EXTERNALLY TWICE A DAY TO FEET NOT-TAKING PREDNISONE 20 MG TABLET 2 TABLET ORALLY ONCE A DAY NOT-TAKING COQ10 30 MG CAPSULE 1 ORALLY ONCE A DAY DISCONTINUED CLONAZEPAM 0.25 MG TABLET DISPERSIBLE 1 TABLET ON THE TONGUE AND ALLOW TO DISSOLVE ORALLY EVERY 12 HOURS NEEDED FOR ANXIETY MEDICATION LIST REVIEWED AND RECONCILED WITH THE PATIENT PAST MEDICAL HISTORY FX 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 OF HYPERLIPIDEMIA FIBROCYSTIC BREAST DISEASE DDD/DD MVP CHRONIC BACK DISCOM'T LEFT BREAST CANCER 10/11/14 EYE INJECTIONS ALLERGIES SULFA (FOR ALLERGY USE ONLY): NAUSEA/VOMITING: SIDE EFFECTS CODEINE PHOSPHATE: NAUSEA/VOMITING: SIDE EFFECTS LATEX: RASH: ALLERGY RUBBER: RASH: ALLERGY MELOXICAM: HEADACHE: SIDE EFFECTS ANASTROZOLE: WEAKNESS, SCHES, DRY COUGH : SIDE EFFECTS REVIEW OF SYSTEMS CONSTITUTIONAL: ANY CHANGE IN YOUR MEDICAL CONDITION? NO . CHILLS NO . FEVER NO . INFECTION: DO YOU HAVE NEW INFECTIONS? NO . DO YOU HAVE HISTORY OF MRSA? NO . MUSCULOSKELETAL: ANY NEW PATTERNS OF PAIN OR NUMBNESS? NO . GASTROENTEROLOGY: ANY NEW CHANGE IN BOWEL CONTROL? NO . GENITOURINARY: ANY NEW CHANGE IN BLADDER CONTROL? NO . IS THERE A CHANCE YOU COULD BE ? NO . HEMATOLOGY/LYMPH: DO YOU TAKE ANY BLOOD THINNERS? (FOR EXAMPLE- COUMADIN, PLAVIX, AGGRENOX, PLATEL, PRADAXA, OR XARELTO) NO . WHEN WAS YOUR LAST DOSE? DATE: TIME: . NEUROLOGY: HAVE YOU FALLEN IN THE PAST 6 MONTHS? NO . ANY NEW EXTREMITY NUMBNESS OR WEAKNESS? NO . CARDIOLOGY: DO YOU HAVE A PACEMAKER OR DEFIBRILLATOR? NO . RESPIRATORY: HAVE YOU BEEN SICK IN THE PAST WEEK? NO . FEVER NO . FLU LIKE SYMPTOMS? NO . COUGH NO . INTEGUMENTARY: DO YOU HAVE ANY RASHES OR OPEN SORES? NO . ALLERGIC/IMMUNO: ARE YOU ALLERGIC TO SHELLFISH OR IV DYE? NO . ANY NEW ALLERGIES? NO . PSYCHIATRIC: DO YOU HAVE THOUGHTS OF HURTING YOURSELF OR SOMEONE ELSE? NO . ARE YOU ABUSED, NEGLECTED, OR IN AN UNSAFE ENVIRONMENT? NO . ENDOCRINOLOGY: ARE YOU DIABETIC? NO . OTHER: DO YOU NEED ANY PRESCRIPTIONS? NO . IF YES, PLEASE LIST: ____ . ANY NEW PROBLEMS WITH YOUR MEDICATIONS? NO . WHEN DID YOU LAST EAT? 12-05-16 8PM . WHEN DID YOU LAST DRINK? 12-06-16 7AM . WHAT DID YOU LAST DRINK? WATER . NAME OF PERSON DRIVING YOU HOME? WM . DO YOU HAVE ANY OTHER QUESTIONS OR CONCERNS NO . REVIEWED BY: PROVIDER: . VITAL SIGNS WT 172.0 LBS, HT 64.5 IN, BMI 29.06 INDEX, BP 135/85 MM HG, HR 86 /MIN, RR 16 /MIN, TEMP 97.4 F, OXYGEN SAT % 97%, NA INITIALS TL 0920. ASSESSMENTS MYALGIA - M79.1 (PRIMARY) PROCEDURES PN TRIGGER POINT INJECTION WITH STEROIDS PRE PROCEDURE DIAGNOSIS 1. MYALGIA 2. PAIN AT BILATERAL THORACIC AREA POST PROCEDURE DIAGNOSIS 1. MYALGIA 2. PAIN AT BILATERAL THORACIC AREA PROCEDURE TRIGGER POINT INJECTION AT BILATERAL THORACIC AREA SURGEON DR. SVITLANA MEDRANO PAINT BOOTH OPERATOR NONE ANESTHESIA LOCAL PRE PROCEDURE NOTE THE PATIENT HAS A HISTORY OF CHRONIC PAIN AT THE RIGHT AND LEFT THORACIC AREA. I EVALUATE THE PATIENT AND REVIEWED THE CHART. THERE IS EVIDENCE OF BANDS OF TISSUE WITH RESTRICTION OF MOVEMENT AND PRESENCE OF TRIGGER POINT AT THE AFFECTED AREA. I WENT OVER THE RISKS, ALTERNATIVES, AND BENEFITS ASSOCIATED WITH THIS PROCEDURE. THE PATIENT WOULD LIKE TO PROCEED AND GIVE CONSENT TO PERFORMED THE PROCEDURE. THE PATIENT DENIES UNEXPLAINABLE WEIGHT LOSS, FEVER, CHILLS, OR NEW CHANGES IN URINARY OR BOWEL CONTROL DESCRIPTION OF PROCEDURE THE PATIENT WAS BROUGHT TO THE PROCEDURE ROOM AND PLACED IN THE SITTING POSITION. THE AREA WAS CLEANED WITH ALCOHOL. THE PROCEDURE WAS DONE USING ASEPTIC STERILE TECHNIQUE. I CHECKED LATERALITY AND THE LEVEL WHERE THE PROCEDURE WAS GOING TO BE PERFORMED WITH THE PATIENT AND THE SUPPORTING STAFF AT THE MOMENT OF THE TIME OUT IN THE PROCEDURE ROOM. USING A 25-GAUGE NEEDLE, TRIGGER POINTS WERE INJECTED AT THE RIGHT AND LEFT THORACIC AREA WITH A TOTAL OF 40 ML OF BUPIVACAINE 0.25% AND KENALOG 40 MG. THERE WAS NO EVIDENCE OF BLOOD, PARESTHESIA OR CEREBROSPINAL FLUID DURING THE PROCEDURE. THE PATIENT WAS SENT TO THE RECOVERY ROOM. THE PATIENT WAS MOVING THE EXTREMITIES AND DOING WELL. THERE WAS NO COMPLICATION DURING THE PROCEDURE POST PROCEDURE NOTE THE PATIENT WILL BE SEEN IN A FOLLOW UP IN THE NEXT FEW WEEKS. INSTRUCTIONS WERE GIVEN, QUESTIONS WERE ANSWERED, AND THE PATIENT EXPRESSED UNDERSTANDING AND AGREES WITH THE PLAN. I, YUMIKO CHERY, DOCUMENTED THE ABOVE INFORMATION ACTING A SCRIBE FOR DR. MEDRANO. I HAVE REVIEWED THE ABOVE DOCUMENT, WRITTEN BY YUMIKO CHERY SCRIBE AND I VERIFY THAT IT IS ACCURATE. PROCEDURE CODES 99385 [facility] / [facility] COMMUNICATION FOLLOW UP 3 WEEKS ELECTRONICALLY SIGNED BY SVITLANA MEDRANO MD ON 12/09/2016 AT 08:09 PM EDT DISCLAIMER : THIS IS A VISIT SUMMARY EXTRACTED FROM THE [employer] CHART. IT IS NOT A COPY OF THE [employer] PROGRESS NOTE. MIKE
== END ==
LOC: M PAIN 08:50
PROVIDERS: ATTEND Anesthesiology
DX: G89.29 Other chronic pain (principal); M54.6 Pain in thoracic spine; M79.1 Myalgia; Z79.891 Long term (current) use of opiate analgesic; Z79.899 Other long term (current) drug therapy; Z88.2 Allergy status to sulfonamides; Z88.5 Allergy status to narcotic agent; Z88.8 Allergy status to other drugs, medicaments and biological substances; Z91.040 Latex allergy status; Z91.09 Other allergy status, other than to drugs and biological substances
CPT/HCPCS: 20552; J3301

== ENCOUNTER → 2017-01-07 | Outpatient (CLI) | payer BC ==
[~2017-01-07] MED LIST changes: -BUPIVACAINE HCL 0.25% 10 ML VIAL As Ordered ONE; -BUPIVACAINE HCL 0.25% 30 ML VIAL As Ordered ONE; -TRIAMCINOLONE ACETONIDE SUSP 40 MG/ML VIAL (J3301) As Ordered ONE
--- NOTE | 2017-01-21 00:50 | ECWPNPC ---
PATIENT NAME: TERESE DAMON : 1955 GENDER: FEMALE VISIT DATE: 01/07/2017 DISCHARGE DATE: 01/07/17 1530 VISIT LOCKED DATE TIME: PHYSICIAN: SVITLANA MEDRANO RESOURCE: SVITLANA MEDRANO REASON FOR APPOINTMENT 1. POST INJ HISTORY OF PRESENT ILLNESS HISTORY OF PRESENT ILLNESS: PAIN THE PATIENT DESCRIBES THE PAIN... 61 YEAR OLD FEMALE PATIENT WITH HISTORY OF CHRONIC BACK PAIN. PATIENT DESCRIBES THE PAIN ACHING, BURNING, SHARP, STABBING, TENDER, THROBBING, SORE, SHOOTING, IT COMES AND GOES, AND HAVING IT ALL THE TIME WITH A PAIN SCORE OF 3/10 ON TODAY'S VISIT. PATIENT RECEIVED A TPI ON 12/06/2016 AND STATES THAT IT IS PROVIDING PAIN RELIEF FOR HER. PATIENT STATES THAT SHE IS DOING GOOD AT THIS TIME. PATIENT INQUIRED WHETHER SOMETHING MORE PERMANENT CAN BE DONE TO HELP WITH HER PAIN AND MENTIONED A PROCEDURE INVOLVING CEMENT BEING INJECTED INTO THE SPINE. PATIENT DENIES UNEXPLAINABLE WEIGHT LOSS, FEVER, CHILLS, NEW CHANGES ON HER URINARY OR BOWEL CONTROL. FALL RISK SCREENING: SCREENING :NO FALLS IN THE PAST YEAR CURRENT MEDICATIONS TAKING KETOCONAZOLE 2 % CREAM 1 APPLICATION TO FEET EXTERNALLY TWICE A DAY NEEDED TAKING SOMA 350 MG TABLET 1 TABLET NEEDED FOR SPASMS AND PAIN ORALLY BEFORE BEDTIME TAKING TRAZODONE HCL 50 MG TABLET 1 TABLET AT BEDTIME NEEDED ORALLY ONCE A DAY TAKING VENTOLIN HFA 90 MCG/ACT AEROSOL SOLUTION 2 PUFFS INHALATION EVERY 4 HRS NEEDED SHORTNESS OF BREATH TAKING VITAMIN B-12 1000 MCG TABLET 4 TABLETS ORALLY ONCE A DAY TAKING CLARITIN 10 MG TABLET 1 TABLET ORALLY DAILY NEEDED TAKING MULTIVITAMINS OTC TABLET 1 ORALLY ONCE A DAY TAKING OXYCODONE HCL 5 MG TABLET 1 ORALLY DAILY NEEDED MDD1 TAKING LEVOTHYROXINE SODIUM 175 MG TABLET 1 TABLET ORALLY ONCE A DAY TAKING LIDOCAINE 5 % GEL 1 INCH EXTERNALLY THREE TIMES A DAY PRN FOR PAIN AT LOWER BACK AREA, NOTES: NONE TAKING GABAPENTIN 300 MG CAPSULE 2 CAPSULE ORALLY THREE TIMES A DAY TAKING EXEMESTANE 25 MG TABLET 1 TABLET WITH A MEAL ORALLY ONCE A DAY TAKING NEBULIZER - DEVICE DIRECTED DX: J45.909 DIRECTED TAKING MAY HAVE - - NEBULIZER TUBING DX: J45.909 DIRECTED WITH NEBULIZER TAKING ALBUTEROL SULFATE (2.5 MG/3ML) 0.083% NEBULIZATION SOLUTION 3 ML INHALATION EVERY 4 HOURS NEEDED FOR SOB TAKING OMEPRAZOLE 40 MG CAPSULE DELAYED RELEASE 1 CAPSULE ORALLY ONCE A DAY NOT-TAKING TRAMADOL HCL 50 MG TABLET 1 TABLET NEEDED ORALLY EVERY 6 HRS NOT-TAKING VITAMIN D HIGH POTENCY 5000 _ 5000UNITS ORALLY ONCE A DAY NOT-TAKING CICLOPIROX OLAMINE 0.77 % CREAM 1 APPLICATION EXTERNALLY TWICE A DAY TO FEET NOT-TAKING PREDNISONE 20 MG TABLET 2 TABLET ORALLY ONCE A DAY NOT-TAKING COQ10 30 MG CAPSULE 1 ORALLY ONCE A DAY MEDICATION LIST REVIEWED AND RECONCILED WITH THE PATIENT PAST MEDICAL HISTORY FX 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 OF HYPERLIPIDEMIA FIBROCYSTIC BREAST DISEASE DDD/DD MVP CHRONIC BACK DISCOM'T LEFT BREAST CANCER 10/11/14 EYE INJECTIONS ALLERGIES SULFA (FOR ALLERGY USE ONLY): NAUSEA/VOMITING: SIDE EFFECTS CODEINE PHOSPHATE: NAUSEA/VOMITING: SIDE EFFECTS LATEX: RASH: ALLERGY RUBBER: RASH: ALLERGY MELOXICAM: HEADACHE: SIDE EFFECTS ANASTROZOLE: WEAKNESS, SCHES, DRY COUGH : SIDE EFFECTS SURGICAL HISTORY APPENDECTOMY 1978 1985 BREAST SURGERY/CYST ASP. X 2 /LEFT EYES FOR GRAVES DISEASE HYSTERECTOMY PARTIAL 1994 LEFT FT. SURGERY 2003 RIGHT WRIST SURGERY 07/09 AND 01/02 COLONOSCOPY 2010 LUMPECTOMY 10/16 BILATERAL MASTECTOMY WITH SILICONE IMPLANTS 12/16 BREAST RECONSTRUCTION 07/18 BILATERAL BREAST IMPLANT REPLACEMENTS 12/17 FAMILY HISTORY FATHER AGE 87 IN 07/2016 OF HEART DISEASE AFTER A NECK FRACTURE AND SURGERY. MOTHER IS ELDERLY AND HAS SLE. 2 SISTERS--ONE HAS BREAST CANCER AND ANOTHER IS MENTALLY ILL. 2 BROTHERS --ONE AN INFANT AND ONE IN AN MVA. G1--P1 WITH HEALTHY DAUGHTER. SOCIAL HISTORY GENERAL: TOBACCO USE ARE YOU A:CURRENT SMOKER HOW MANY CIGARETTES A DAY DO YOU SMOKE?11-20 HOW SOON AFTER YOU WAKE UP DO YOU SMOKE YOUR FIRST CIGARETTE?6-30 MIN HOW OFTEN DO YOU SMOKE CIGARETTES?EVERY DAY PATIENT COUNSELED ON THE DANGERS OF TOBACCO USE AND URGED TO QUIT:12/03/2016 ARE YOU INTERESTED IN QUITTING?NOT READY TO QUIT COUNSELED THE PATIENT ON SMOKING EFFECTS, EDUCATION [id number]/02/2017 PAIN CLINIC PFS, CLERGY, PUBLIC HEALTH REFERRALS CLERGY REFERRAL NEEDED?NO WAS THE PROVIDER NOTIFIED OF ANY PERTINENT INFO?YES PFS REFERRAL NEEDED?NO PUBLIC HEALTH REFERRAL NEEDED?NO PATIENT: ____. HOSPITALIZATION/MAJOR DIAGNOSTIC PROCEDURE FOR ABOVE REASONS REVIEW OF SYSTEMS CONSTITUTIONAL: ANY CHANGE IN YOUR MEDICAL CONDITION? NO . CHILLS NO . FEVER NO . INFECTION: DO YOU HAVE NEW INFECTIONS? NO . DO YOU HAVE HISTORY OF MRSA? NO . MUSCULOSKELETAL: ANY NEW PATTERNS OF PAIN OR NUMBNESS? NO . GASTROENTEROLOGY: ANY NEW CHANGE IN BOWEL CONTROL? NO . GENITOURINARY: ANY NEW CHANGE IN BLADDER CONTROL? NO . IS THERE A CHANCE YOU COULD BE ? NO . HEMATOLOGY/LYMPH: DO YOU TAKE ANY BLOOD THINNERS? (FOR EXAMPLE- COUMADIN, PLAVIX, AGGRENOX, PLATEL, PRADAXA, OR XARELTO) NO . WHEN WAS YOUR LAST DOSE? DATE: TIME: . NEUROLOGY: HAVE YOU FALLEN IN THE PAST 6 MONTHS? YES, LEG FELL ASLEEP AND SHE FELL WHEN SHE STOOD UP. SPRINED HER LEFT ANKLE. . ANY NEW EXTREMITY NUMBNESS OR WEAKNESS? NO . CARDIOLOGY: DO YOU HAVE A PACEMAKER OR DEFIBRILLATOR? NO . RESPIRATORY: HAVE YOU BEEN SICK IN THE PAST WEEK? NO . FEVER NO . FLU LIKE SYMPTOMS? NO . COUGH NO . INTEGUMENTARY: DO YOU HAVE ANY RASHES OR OPEN SORES? NO . ALLERGIC/IMMUNO: ARE YOU ALLERGIC TO SHELLFISH OR IV DYE? NO . ANY NEW ALLERGIES? NO . PSYCHIATRIC: DO YOU HAVE THOUGHTS OF HURTING YOURSELF OR SOMEONE ELSE? NO . ARE YOU ABUSED, NEGLECTED, OR IN AN UNSAFE ENVIRONMENT? NO . ENDOCRINOLOGY: ARE YOU DIABETIC? NO . OTHER: DO YOU NEED ANY PRESCRIPTIONS? NO . IF YES, PLEASE LIST: ____ . ANY NEW PROBLEMS WITH YOUR MEDICATIONS? NO . WHEN DID YOU LAST EAT? ____ . WHEN DID YOU LAST DRINK? ____ . WHAT DID YOU LAST DRINK? ____ . NAME OF PERSON DRIVING YOU HOME? ____ . DO YOU HAVE ANY OTHER QUESTIONS OR CONCERNS NO . REVIEWED BY: PROVIDER: SVITLANA MEDRANO MD . VITAL SIGNS WT 178.0 LBS, HT 64.5 IN, BMI 30.08 INDEX, BP 148/83 MM HG, HR 106 /MIN, RR 16 /MIN, TEMP 97.4 F, OXYGEN SAT % 98%, NA INITIALS TL 1416, REVIEWED BY: CM. EXAMINATION : PATIENT IS ALERT O X 3 AND COOPERATIVE. THERE IS TENDERNESS IN THE MID BACK AREA WITH BANDS OF TISSUES, RESTRICTION OF MOVEMENT, AND PRESENCE OF TRIGGER POINTS. THERE IS TENDERNESS IN THE LOW BACK PARASPINAL MUSCLE GROUP. MRI OF THE THORACIC SPINE DONE ON 01/17/2014 SHOWS A SMALL DISC PROTRUSION AT T4-T5 AND T8-T9. MRI OF THE LUMBAR SPINE DONE ON 01/20/2013 SHOWS DISC BULGES AT L2-L3, L3-L4, AND L5-S1, AND A DISC BULGE AND A DISC PROTRUSION AT L4-L5. ASSESSMENTS MYALGIA - M79.1 (PRIMARY) TREATMENT MYALGIA NOTES: WE DISCUSSED SEVERAL ISSUES WITH MS. DAMON PAIN MANAGEMENT CASE. AT THIS TIME THE PATIENT WILL CONTINUE ON THE SAME MEDICATION REGIMEN BEFORE. IN REGARDS TO HER INQUIRY I DISCUSSED WITH THE PATIENT THAT I CAN REFER HER DOWN TO [facility] FOR AN OPINION ON WHETHER SHE IS A CANDIDATE FOR EITHER A VERTEBROPLASTY OR A KYPHOPLASTY, PATIENT EXPRESSED THAT SHE WOULD LIKE AN OPINION, PATIENT WILL BE REFERRED TO [facility]. MS. DAMON WILL FOLLOW UP WITH ME IN 2 MONTHS. INSTRUCTIONS WERE GIVEN, QUESTIONS WERE ANSWERED, PATIENT REPORTS UNDERSTANDING AND AGREES WITH THE PLAN. I, YUMIKO CHERY, DOCUMENTED THE ABOVE INFORMATION ACTING A SCRIBE FOR DR. MEDRANO. I HAVE REVIEWED THE ABOVE DOCUMENT, WRITTEN BY YUMIKO CHERY SCRIBE AND I VERIFY THAT IT IS ACCURATE. PROCEDURE CODES FA211 ESTABILISHED PATIENT [facility] FACILITY CHARGE G8730 PAIN ASSESS POS TOOL F/U PLAN DOC G8427 DOC MEDS VERIFIED W/PT OR RE DISPOSITION & COMMUNICATION FOLLOW UP 2 MONTHS ELECTRONICALLY SIGNED BY SVITLANA MEDRANO MD ON 01/20/2017 AT 03:05 PM EDT DISCLAIMER : THIS IS A VISIT SUMMARY EXTRACTED FROM THE [employer] CHART. IT IS NOT A COPY OF THE [employer] PROGRESS NOTE. MTDD
== END ==
LOC: M PAIN 14:00
PROVIDERS: ATTEND Anesthesiology
DX: M79.1 Myalgia (principal); Z79.891 Long term (current) use of opiate analgesic; Z79.899 Other long term (current) drug therapy; F17.210 Nicotine dependence, cigarettes, uncomplicated; Z88.2 Allergy status to sulfonamides; Z88.5 Allergy status to narcotic agent; Z91.040 Latex allergy status; Z88.8 Allergy status to other drugs, medicaments and biological substances; Z91.048 Other nonmedicinal substance allergy status; E78.5 Hyperlipidemia, unspecified; E03.9 Hypothyroidism, unspecified; M79.7 Fibromyalgia; E55.9 Vitamin D deficiency, unspecified; E05.00 Thyrotoxicosis with diffuse goiter without thyrotoxic crisis or storm; M85.80 Other specified disorders of bone density and structure, unspecified site; F41.9 Anxiety disorder, unspecified

== ENCOUNTER → 2017-01-07 | Outpatient (CLI) | payer BC | LOC: M LAB 15:59 | PROVIDERS: ATTEND Internal Medicine Endocrinology, Diabetes & Metabolism | DX: E03.9 Hypothyroidism, unspecified (principal) ==

== ENCOUNTER → 2017-02-17 | Outpatient (CLI) | payer BC ==
[~2017-02-17] MED LIST changes: +BUPIVACAINE HCL 0.25% 10 ML VIAL As Ordered ONE; +BUPIVACAINE HCL 0.25% 30 ML VIAL As Ordered ONE; +TRIAMCINOLONE ACETONIDE SUSP 40 MG/ML VIAL (J3301) As Ordered ONE; +diazePAM 5 MG TAB As Ordered ONE; +oxyCODONE 5MG TAB As Ordered ONE
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
== END ==
LOC: M PAIN 11:00
PROVIDERS: ATTEND Anesthesiology
DX: G89.29 Other chronic pain (principal); M79.1 Myalgia; Z79.891 Long term (current) use of opiate analgesic; Z79.899 Other long term (current) drug therapy; F17.210 Nicotine dependence, cigarettes, uncomplicated; Z88.2 Allergy status to sulfonamides; Z88.5 Allergy status to narcotic agent; Z88.8 Allergy status to other drugs, medicaments and biological substances; Z88.3 Allergy status to other anti-infective agents; Z91.040 Latex allergy status; Z91.09 Other allergy status, other than to drugs and biological substances
CPT/HCPCS: 20552; J3301

== ENCOUNTER → 2017-02-25 | Outpatient (CLI) | payer BC ==
[~2017-02-25] MED LIST changes: -BUPIVACAINE HCL 0.25% 10 ML VIAL As Ordered ONE; -BUPIVACAINE HCL 0.25% 30 ML VIAL As Ordered ONE; -TRIAMCINOLONE ACETONIDE SUSP 40 MG/ML VIAL (J3301) As Ordered ONE; -diazePAM 5 MG TAB As Ordered ONE; -oxyCODONE 5MG TAB As Ordered ONE
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
== END ==
LOC: M PAIN 15:40
PROVIDERS: ATTEND Anesthesiology
DX: G89.29 Other chronic pain (principal); M47.816 Spondylosis without myelopathy or radiculopathy, lumbar region; M47.817 Spondylosis without myelopathy or radiculopathy, lumbosacral region; M51.16 Intervertebral disc disorders with radiculopathy, lumbar region; M51.17 Intervertebral disc disorders with radiculopathy, lumbosacral region; M79.1 Myalgia; E03.9 Hypothyroidism, unspecified; K21.9 Gastro-esophageal reflux disease without esophagitis; F17.210 Nicotine dependence, cigarettes, uncomplicated; Z88.2 Allergy status to sulfonamides; Z88.5 Allergy status to narcotic agent; Z88.8 Allergy status to other drugs, medicaments and biological substances; Z91.040 Latex allergy status; Z79.899 Other long term (current) drug therapy

== ENCOUNTER → 2017-02-28 | Outpatient (CLI) | payer BC ==
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
== END ==
LOC: M PAIN 13:00
PROVIDERS: ATTEND Anesthesiology
DX: G89.29 Other chronic pain (principal); M47.816 Spondylosis without myelopathy or radiculopathy, lumbar region; M47.817 Spondylosis without myelopathy or radiculopathy, lumbosacral region; E03.9 Hypothyroidism, unspecified; K21.9 Gastro-esophageal reflux disease without esophagitis; Z88.2 Allergy status to sulfonamides; Z88.5 Allergy status to narcotic agent; Z88.8 Allergy status to other drugs, medicaments and biological substances; Z91.040 Latex allergy status; Z72.0 Tobacco use; E78.5 Hyperlipidemia, unspecified; E55.9 Vitamin D deficiency, unspecified; F41.9 Anxiety disorder, unspecified; Z79.899 Other long term (current) drug therapy

== ENCOUNTER → 2017-02-28 | Outpatient (CLI) | payer BC ==
--- NOTE | 2017-02-28 17:35 | REP ---
MRI LUMBAR SPINE: HISTORY: Low back pain. History of lumbar compression fracture. COMPARISON: 01/20/2013, the latest prior. Prior lumbar CT showed a grade 1 superior endplate concave compression deformity of L1. Note is made of an old grade 1 superior endplate concave deformity involving L1. There is universal L4-5 disc space narrowing and loss of hydrational signal in conjunction with Modic type 2 endplate changes. This represents a change from the prior MRI. Loss of disc hydrational signal is seen at all levels with loss of posterior disc space height. No abnormal signal has developed in the imaged portion of the spinal cord. At the T12-L1 level, there is a mild broad-based annular bulge. There is no disc herniation, foraminal narrowing or central canal stenosis. At the L1-2 level, there is a minimal broad-based annular bulge. There is no disc herniation, foraminal narrowing or central canal stenosis. At the L2-3 level, there is a minimal broad-based annular bulge. There is no disc herniation, foraminal narrowing or central canal stenosis. At the L3-4 level, there is a mild broad-based annular bulge. There is no disc herniation, foraminal narrowing or central canal stenosis. The broad-based bulge does minimally compress the anterior thecal sac. At the L4-5 level, there is a large asymmetric broad-based annular bulge seen in conjunction with a small right paracentral disc extrusion. The extruded disc material causes mild compression on the right L4 nerve and mild compression of the right intrathecal L5 nerve. Degenerative facet joint changes seen bilaterally with thickening of the ligamentum flava. There is no foraminal stenosis. There is mild central canal stenosis causes by the aforementioned discogenic changes and degenerative facet joint changes. There is no evidence of migration of the extruded disc material. At the L5-S1 level, there is a mild to moderate broad-based annular bulge which contacts and minimally compresses the anterior thecal sac. Degenerative facet joint changes are seen and minimally compresses the anterior thecal sac. Degenerative facet joint changes are seen bilaterally with mild thickening of the ligamentum flava. There is no foraminal stenosis or central canal stenosis. There is no evidence of an acute disc extrusion. IMPRESSION: 1. Old L1 compression fracture as described above. 2. Multilevel discogenic changes as described above. 3. Small right paracentral disc extrusion at L4-5 with related findings as described above. Signed by Miki Quezada DO 02/28/2017 05:57 P
== END ==
LOC: M PLARAD 15:17
PROVIDERS: ATTEND Anesthesiology
DX: M51.25 Other intervertebral disc displacement, thoracolumbar region (principal); M51.26 Other intervertebral disc displacement, lumbar region; M51.27 Other intervertebral disc displacement, lumbosacral region

== ENCOUNTER → 2017-03-04 | Outpatient (CLI) | payer BC ==
--- NOTE | 2017-03-17 23:48 | ECWPNPC ---
PATIENT NAME: TERESE DAMON : 1955 GENDER: FEMALE VISIT DATE: 03/04/2017 DISCHARGE DATE: 03/04/17 0000 VISIT LOCKED DATE TIME: PHYSICIAN: SVITLANA MEDRANO RESOURCE: SVITLANA MEDRANO REASON FOR APPOINTMENT 1. BACK PAIN HISTORY OF PRESENT ILLNESS HISTORY OF PRESENT ILLNESS: PAIN THE PATIENT DESCRIBES THE PAIN... 61 YEAR OLD FEMALE PATENT WITH HISTORY OF CHRONIC LOW BACK PAIN. PATIENT DESCRIBES THE PAIN ACHING, BURNING, SHARP, STABBING, TENDER, THROBBING, SORE, SHOOTING, AND SORE WITH HAVING THE PAIN ALL THE TIME AND A CURRENTLY PAIN SCORE OF 9.5/10. PATIENT HAD A NEW PATTERN OF PAIN THAT IS MORE THEN SEVERE THEN WHAT SHE USUALLY FEELS. MRS. DAMON STATES SHE NEEDS TO CONSTANTLY MOVE AROUND OR HER PAIN IS INCREASED. CURRENTLY THE PATIENT IS USING OXYCODONE, GABAPENTIN AND IBUPROFEN TO AID IN PAIN RELIEF. PATIENT DENIES UNEXPLAINABLE WEIGHT LOSS, FEVER, CHILLS, NEW CHANGES ON HER URINARY OR BOWEL CONTROL. FALL RISK SCREENING: SCREENING :NO FALLS IN THE PAST YEAR CURRENT MEDICATIONS TAKING TRAZODONE HCL 50 MG TABLET 1 TABLET AT BEDTIME NEEDED ORALLY ONCE A DAY TAKING VENTOLIN HFA 90 MCG/ACT AEROSOL SOLUTION 2 PUFFS INHALATION EVERY 4 HRS NEEDED SHORTNESS OF BREATH TAKING VITAMIN B-12 5000 MCG TABLET DISPERSIBLE 1 TABLET ORALLY ONCE A DAY TAKING CLARITIN 10 MG TABLET 1 TABLET ORALLY DAILY NEEDED TAKING MULTIVITAMINS OTC TABLET 1 ORALLY ONCE A DAY TAKING LEVOTHYROXINE SODIUM 175 MG TABLET 1 TABLET ORALLY ONCE A DAY TAKING EXEMESTANE 25 MG TABLET 1 TABLET WITH A MEAL ORALLY ONCE A DAY TAKING NEBULIZER - DEVICE DIRECTED DX: J45.909 DIRECTED TAKING MAY HAVE - - NEBULIZER TUBING DX: J45.909 DIRECTED WITH NEBULIZER TAKING ALBUTEROL SULFATE (2.5 MG/3ML) 0.083% NEBULIZATION SOLUTION 3 ML INHALATION EVERY 4 HOURS NEEDED FOR SOB TAKING OMEPRAZOLE 40 MG CAPSULE DELAYED RELEASE 1 CAPSULE ORALLY ONCE A DAY TAKING KETOCONAZOLE 2 % CREAM 1 APPLICATION TO FEET EXTERNALLY TWICE A DAY NEEDED TAKING FLUCONAZOLE 200 MG TABLET 1 TABLET ORALLY ONCE A MONTH TAKING VOLTAREN 1 % GEL DIRECTED TRANSDERMAL FOR PAIN AT AFFECTED AREA FOUR TIMES DAILY NEEDED TAKING KETOROLAC TROMETHAMINE 10 MG TABLET 1 TABLET WITH FOOD OR MILK NEEDED ORALLY EVERY 6 HRS PRN FOR PAIN MDD3 TAKING SOMA 350 MG TABLET 1 TABLET NEEDED FOR SPASMS AND PAIN ORALLY BEFORE BEDTIME MDD1 TAKING OXYCODONE HCL 5 MG TABLET 1 ORALLY EVERY 8 HOURS NEEDED FOR PAIN MDD2 TAKING GABAPENTIN 300 MG CAPSULE 2 CAPSULE ORALLY THREE TIMES A DAY MDD6 TAKING IBUPROFEN 800 MG TABLET 1 TABLET WITH FOOD OR MILK ORALLY THREE TIMES A DAY NEEDED FOR PAIN MDD3 NOT-TAKING LIDOCAINE 5 % GEL 1 INCH EXTERNALLY THREE TIMES A DAY PRN FOR PAIN AT LOWER BACK AREA, NOTES: NONE NOT-TAKING TRAMADOL HCL 50 MG TABLET 1 TABLET NEEDED ORALLY EVERY 6 HRS NOT-TAKING VITAMIN D HIGH POTENCY 5000 _ 5000UNITS ORALLY ONCE A DAY NOT-TAKING CICLOPIROX OLAMINE 0.77 % CREAM 1 APPLICATION EXTERNALLY TWICE A DAY TO FEET NOT-TAKING PREDNISONE 20 MG TABLET 2 TABLET ORALLY ONCE A DAY NOT-TAKING COQ10 30 MG CAPSULE 1 ORALLY ONCE A DAY MEDICATION LIST REVIEWED AND RECONCILED WITH THE PATIENT PAST MEDICAL HISTORY FX 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 OF HYPERLIPIDEMIA FIBROCYSTIC BREAST DISEASE DDD/DD MVP CHRONIC BACK DISCOM'T LEFT BREAST CANCER 10/11/14 EYE INJECTIONS ALLERGIES SULFA (FOR ALLERGY USE ONLY): NAUSEA/VOMITING: SIDE EFFECTS CODEINE PHOSPHATE: NAUSEA/VOMITING: SIDE EFFECTS LATEX: RASH: ALLERGY RUBBER: RASH: ALLERGY MELOXICAM: HEADACHE: SIDE EFFECTS ANASTROZOLE: WEAKNESS, SCHES, DRY COUGH : SIDE EFFECTS SOCIAL HISTORY GENERAL: TOBACCO USE ARE YOU A:CURRENT SMOKER HOW MANY CIGARETTES A DAY DO YOU SMOKE?11-20 HOW SOON AFTER YOU WAKE UP DO YOU SMOKE YOUR FIRST CIGARETTE?6-30 MIN HOW OFTEN DO YOU SMOKE CIGARETTES?EVERY DAY PATIENT COUNSELED ON THE DANGERS OF TOBACCO USE AND URGED TO QUIT:03/04/2017 ARE YOU INTERESTED IN QUITTING?NOT READY TO QUIT COUNSELED THE PATIENT ON SMOKING EFFECTS, EDUCATION [id number]/01/2017 BUDDHIST [id number] RELIGION LEARNING BARRIERS / SPECIAL NEEDS CHANGE FROM LAST VISIT?NO BARRIERS TO LEARNING?NO HEARING IMPAIRED?NO VISION IMPAIRED?YES :CORRECTIVE LENSES COGNITIVELY IMPAIRED?NO READINESS TO LEARN?YES LEARNING PREFERENCES?NO LEARNING CAPABILITIES PRESENT?YES EMOTIONAL BARRIERS?NO SPECIAL DEVICES?NO PAIN CLINIC PFS, CLERGY, PUBLIC HEALTH REFERRALS HAS THE PATIENT BEEN EDUCATED REGARDING HIS/HER PLAN OF CARE?YES HAS THE PATIENT BEEN EDUCATED REGARDING PAIN, THE RISK FOR PAIN, THE IMPORTANCE OF EFFECTIVE PAIN MANAGEMENT, AND THE PAIN ASSESSMENT PROCESS?YES PATIENT: ____. [facility]VANCE DIRECTIVES HEALTH CARE PROXY?YES CONTACT # FOR HCP [phone] OR [phone] () [place] [phone] EDMAR [phone] DO YOU HAVE A COPY WITH YOU?NO POWER OF HAND WOOD SANDER?YES NAME OF POA? WM DAMON EMPLOYED - SELF EMPLOYED--PRESIDENT OF [employer] AND LIVING WITH SPOUSE. REVIEW OF SYSTEMS REVIEWED BY: PROVIDER: SVITLANA MEDRANO MD . CONSTITUTIONAL: ANY CHANGE IN YOUR MEDICAL CONDITION? NO . CHILLS NO . FEVER NO . INFECTION: DO YOU HAVE NEW INFECTIONS? NO . DO YOU HAVE HISTORY OF MRSA? NO . MUSCULOSKELETAL: ANY NEW PATTERNS OF PAIN OR NUMBNESS? YES, BURNING SENSATION AND STABBING PAIN DOWN FRONT AND BACK OF LEGS AND RIGHT ANKLE, AND STRAIGHT UP HER BACK. THIS HAS BEEN GOING ON FOR THE PAST 2 WEEKS AND HAS PROGRESSIVELY GOTTEN WORSE. . GASTROENTEROLOGY: ANY NEW CHANGE IN BOWEL CONTROL? NO . GENITOURINARY: ANY NEW CHANGE IN BLADDER CONTROL? NO . IS THERE A CHANCE YOU COULD BE ? NO . HEMATOLOGY/LYMPH: DO YOU TAKE ANY BLOOD THINNERS? (FOR EXAMPLE- COUMADIN, PLAVIX, AGGRENOX, PLATEL, PRADAXA, OR XARELTO) NO . WHEN WAS YOUR LAST DOSE? DATE: TIME: . NEUROLOGY: HAVE YOU FALLEN IN THE PAST 6 MONTHS? YES . ANY NEW EXTREMITY NUMBNESS OR WEAKNESS? NO . CARDIOLOGY: DO YOU HAVE A PACEMAKER OR DEFIBRILLATOR? NO . RESPIRATORY: HAVE YOU BEEN SICK IN THE PAST WEEK? NO . FEVER NO . FLU LIKE SYMPTOMS? NO . COUGH NO . INTEGUMENTARY: DO YOU HAVE ANY RASHES OR OPEN SORES? NO . ALLERGIC/IMMUNO: ARE YOU ALLERGIC TO SHELLFISH OR IV DYE? NO . ANY NEW ALLERGIES? NO . PSYCHIATRIC: DO YOU HAVE THOUGHTS OF HURTING YOURSELF OR SOMEONE ELSE? NO . ARE YOU ABUSED, NEGLECTED, OR IN AN UNSAFE ENVIRONMENT? NO . ENDOCRINOLOGY: ARE YOU DIABETIC? NO . OTHER: DO YOU NEED ANY PRESCRIPTIONS? NO . IF YES, PLEASE LIST: ____ . ANY NEW PROBLEMS WITH YOUR MEDICATIONS? NO . WHEN DID YOU LAST EAT? ____ . WHEN DID YOU LAST DRINK? ____ . WHAT DID YOU LAST DRINK? ____ . NAME OF PERSON DRIVING YOU HOME? ____ . DO YOU HAVE ANY OTHER QUESTIONS OR CONCERNS NO . VITAL SIGNS WT 180 LBS, HT 64.5 IN, BMI 30.42 INDEX, BP 140/76 MM HG, HR 75 /MIN, RR 16 /MIN, TEMP 97.9 F, OXYGEN SAT % 97, NA INITIALS SC 1640, REVIEWED BY: AD. EXAMINATION : PATIENT IS ALERT O X 3 AND COOPERATIVE. THERE IS TENDERNESS IN THE MID BACK AREA WITH BANDS OF TISSUES, RESTRICTION OF MOVEMENT, AND PRESENCE OF TRIGGER POINTS. THERE IS TENDERNESS IN THE LOW BACK PARASPINAL MUSCLE GROUP. MRI OF THE THORACIC SPINE DONE ON 01/17/2014 SHOWS A SMALL DISC PROTRUSION AT T4-T5 AND T8-T9. MRI OF THE LUMBAR SPINE DONE ON 02/28/17 SHOWS MULTIPLE DISC BULGES FROM L1-L2 TO L5-S1 AND AN OLD L1 COMPRESSION. ASSESSMENTS SPONDYLOSIS WITHOUT MYELOPATHY OR RADICULOPATHY, LUMBAR REGION - M47.816 (PRIMARY) SPONDYLOSIS WITHOUT MYELOPATHY OR RADICULOPATHY, LUMBOSACRAL REGION - M47.817 INTERVERTEBRAL DISC DISORDERS WITH RADICULOPATHY, LUMBAR REGION - M51.16 INTERVERTEBRAL DISC DISORDERS WITH RADICULOPATHY, LUMBOSACRAL REGION - M51.17 TREATMENT SPONDYLOSIS WITHOUT MYELOPATHY OR RADICULOPATHY, LUMBAR REGION NOTES: WE DISCUSSED SEVERAL ISSUES WITH MRS. DAMON'S PAIN MANAGEMENT CASE. PATIENT WILL CONTINUE TO USE OXYCODONE FOR THE SOMATIC PAIN AND GABAPENTIN FOR THE NEUROPATHIC PAIN. PATIENT REPORTS THE IBUPROFEN HELPING THROUGHOUT THE DAY BUT SHE STILL HAS SEVERE PAIN. PATIENT DENIES ABUSE OF ANY MEDICATION, DENIES USE OF ILLEGAL SUBSTANCES, AND STATES SHE IS ONLY USING THE MEDICATION FOR PAIN MANAGEMENT. AFTER THE MRI WAS REVIEWED I WOULD LIKE TO MOVE FORWARD WITH A LUMBAR EPIDURAL. URINE TOXICOLOGY DONE ON 11/29/16 SHOWS CONSISTENT RESULTS WITH THE PATIENT'S MEDICATION LIST. WE DISCUSSED THE RISKS, BENENFITS, AND ALTNERATIVES OF THE EPIDURAL AND THE PATIENT WOULD LIKE TO PROCEED. INSTRUCTIONS WERE GIVEN, QUESTIONS WERE ANSWERED, PATIENT REPORTS UNDERSTANDING AND AGREES WITH THE PLAN. I, JAVY HERRERA, DOCUMENTED THE ABOVE INFORMATION ACTING A SCRIBE FOR DR. MEDRANO. I HAVE REVIEWED THE ABOVE DOCUMENT, WRITTEN BY JAVY GIANG AND I VERIFY THAT IT IS ACCURATE. PREVENTIVE MEDICINE PAIN CLINIC TEACHING: PROCEDURE TEACHING PATIENT DECLINED PRINTED INFORMATION ON LEST STATING SHE WAS FAMILIAR WITH IT, PRE-PROCEDURE INSTRUCTIONS REVIEWED WITH PT. AND SHE VERBALIZED UNDERSTANDING.. PROCEDURE CODES G8427 DOC MEDS VERIFIED W/PT OR RE G8730 PAIN ASSESS POS TOOL F/U PLAN DOC FA211 ESTABILISHED PATIENT [facility] CHARGE DISPOSITION & COMMUNICATION FOLLOW UP LESI AFTER APPROVAL ELECTRONICALLY SIGNED BY SVITLANA MEDRANO MD ON 03/17/2017 AT 08:31 PM EDT DISCLAIMER : THIS IS A VISIT SUMMARY EXTRACTED FROM THE [facility] CHART. IT IS NOT A COPY OF THE [facility] PROGRESS NOTE. MIKE
== END ==
LOC: M PAIN 16:30
PROVIDERS: ATTEND Anesthesiology
DX: G89.29 Other chronic pain (principal); M47.816 Spondylosis without myelopathy or radiculopathy, lumbar region; M47.817 Spondylosis without myelopathy or radiculopathy, lumbosacral region; M51.16 Intervertebral disc disorders with radiculopathy, lumbar region; M51.17 Intervertebral disc disorders with radiculopathy, lumbosacral region; E03.9 Hypothyroidism, unspecified; K21.9 Gastro-esophageal reflux disease without esophagitis; F17.210 Nicotine dependence, cigarettes, uncomplicated; Z88.2 Allergy status to sulfonamides; Z88.5 Allergy status to narcotic agent; Z91.040 Latex allergy status; Z88.8 Allergy status to other drugs, medicaments and biological substances; Z79.899 Other long term (current) drug therapy

== ENCOUNTER → 2017-03-05 | Outpatient (CLI) | payer BC ==
[~2017-03-05] MED LIST changes: +ISOVUE-M 300 61% 15ML VIAL (Q9967) As Ordered ONE; +LIDOCAINE 1% SDV INJ 30 ML VIAL As Ordered ONE; +diazePAM 5 MG TAB As Ordered ONE; +methylPREDNISolone SUSP 40 MG/ML (DEPO-medrol) VIAL (J1030) As Ordered ONE; +oxyCODONE 5MG TAB As Ordered ONE
--- NOTE | 2017-03-05 17:14 | REP ---
FLUOROSCOPIC GUIDED SPINAL INJECTION: The films were reviewed with Dr. Tirado. The patient has a history of low back pain. The portable C-ARM was provided in the OR by Dr. Sams for fluoroscopic guidance. 3 intraoperative fluoroscopic spot films were obtained using last image hold technology for needle placement verification for lumbar epidural injection. The films are on the PACS system and are available for review. 19 seconds of fluoroscopic time was utilized for this procedure. Reviewed by ADALBERTO Bo 03/06/2017 05:45 PEdited and Signed by Nando Tirado MD 03/06/2017 06:49 P
--- NOTE | 2017-03-17 23:37 | ECWPNPC ---
PATIENT NAME: TERESE DAMON : 1955 GENDER: FEMALE VISIT DATE: 03/05/2017 DISCHARGE DATE: 03/05/171652 VISIT LOCKED DATE TIME: PHYSICIAN: SVITLANA MEDRANO RESOURCE: SVITLANA MEDRANO REASON FOR APPOINTMENT 1. LESI HISTORY OF PRESENT ILLNESS HISTORY OF PRESENT ILLNESS: PAIN THE PATIENT DESCRIBES THE PAIN... FALL RISK SCREENING: SCREENING :NO FALLS IN THE PAST YEAR CURRENT MEDICATIONS TAKING TRAZODONE HCL 50 MG TABLET 1 TABLET AT BEDTIME NEEDED ORALLY ONCE A DAY, NOTES: 03-04-172099 TAKING VENTOLIN HFA 90 MCG/ACT AEROSOL SOLUTION 2 PUFFS INHALATION EVERY 4 HRS NEEDED SHORTNESS OF BREATH, NOTES: NOT LATELY TAKING VITAMIN B-12 5000 MCG TABLET DISPERSIBLE 1 TABLET ORALLY ONCE A DAY, NOTES: 03-05-17899 TAKING CLARITIN 10 MG TABLET 1 TABLET ORALLY DAILY NEEDED, NOTES: 03-05-17899 TAKING MULTIVITAMINS OTC TABLET 1 ORALLY ONCE A DAY, NOTES: 03-05-17899 TAKING LEVOTHYROXINE SODIUM 175 MG TABLET 1 TABLET ORALLY ONCE A DAY, NOTES: 03-05-17899 TAKING EXEMESTANE 25 MG TABLET 1 TABLET WITH A MEAL ORALLY ONCE A DAY, NOTES: 03-05-17899 TAKING NEBULIZER - DEVICE DIRECTED DX: J45.909 DIRECTED, NOTES: NOT LATELY TAKING MAY HAVE - - NEBULIZER TUBING DX: J45.909 DIRECTED WITH NEBULIZER TAKING ALBUTEROL SULFATE (2.5 MG/3ML) 0.083% NEBULIZATION SOLUTION 3 ML INHALATION EVERY 4 HOURS NEEDED FOR SOB TAKING OMEPRAZOLE 40 MG CAPSULE DELAYED RELEASE 1 CAPSULE ORALLY ONCE A DAY, NOTES: 03-05-17899 TAKING KETOCONAZOLE 2 % CREAM 1 APPLICATION TO FEET EXTERNALLY TWICE A DAY NEEDED, NOTES: 03-05-17899 TAKING FLUCONAZOLE 200 MG TABLET 1 TABLET ORALLY ONCE A MONTH, NOTES: 02-07-17899 TAKING VOLTAREN 1 % GEL DIRECTED TRANSDERMAL FOR PAIN AT AFFECTED AREA FOUR TIMES DAILY NEEDED TAKING KETOROLAC TROMETHAMINE 10 MG TABLET 1 TABLET WITH FOOD OR MILK NEEDED ORALLY EVERY 6 HRS PRN FOR PAIN MDD3, NOTES: 899 TAKING SOMA 350 MG TABLET 1 TABLET NEEDED FOR SPASMS AND PAIN ORALLY BEFORE BEDTIME MDD1, NOTES: 03-04-172099 TAKING OXYCODONE HCL 5 MG TABLET 1 ORALLY EVERY 8 HOURS NEEDED FOR PAIN MDD2, NOTES: 03-04-17 0900 TAKING GABAPENTIN 300 MG CAPSULE 2 CAPSULE ORALLY THREE TIMES A DAY MDD6, NOTES: 03-05-172099 TAKING IBUPROFEN 800 MG TABLET 1 TABLET WITH FOOD OR MILK ORALLY THREE TIMES A DAY NEEDED FOR PAIN MDD3, NOTES: 03-04-17 09 NOT-TAKING LIDOCAINE 5 % GEL 1 INCH EXTERNALLY THREE TIMES A DAY PRN FOR PAIN AT LOWER BACK AREA, NOTES: NONE NOT-TAKING TRAMADOL HCL 50 MG TABLET 1 TABLET NEEDED ORALLY EVERY 6 HRS NOT-TAKING VITAMIN D HIGH POTENCY 5000 _ 5000UNITS ORALLY ONCE A DAY NOT-TAKING CICLOPIROX OLAMINE 0.77 % CREAM 1 APPLICATION EXTERNALLY TWICE A DAY TO FEET NOT-TAKING PREDNISONE 20 MG TABLET 2 TABLET ORALLY ONCE A DAY NOT-TAKING COQ10 30 MG CAPSULE 1 ORALLY ONCE A DAY MEDICATION LIST REVIEWED AND RECONCILED WITH THE PATIENT PAST MEDICAL HISTORY FX 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 OF HYPERLIPIDEMIA FIBROCYSTIC BREAST DISEASE DDD/DD MVP CHRONIC BACK DISCOM'T LEFT BREAST CANCER 10/11/14 EYE INJECTIONS ALLERGIES SULFA (FOR ALLERGY USE ONLY): NAUSEA/VOMITING: SIDE EFFECTS CODEINE PHOSPHATE: NAUSEA/VOMITING: SIDE EFFECTS LATEX: RASH: ALLERGY RUBBER: RASH: ALLERGY MELOXICAM: HEADACHE: SIDE EFFECTS ANASTROZOLE: WEAKNESS, SCHES, DRY COUGH : SIDE EFFECTS SOCIAL HISTORY GENERAL: TOBACCO USE ARE YOU A:CURRENT SMOKER HOW MANY CIGARETTES A DAY DO YOU SMOKE?11-20 HOW SOON AFTER YOU WAKE UP DO YOU SMOKE YOUR FIRST CIGARETTE?6-30 MIN HOW OFTEN DO YOU SMOKE CIGARETTES?EVERY DAY PATIENT COUNSELED ON THE DANGERS OF TOBACCO USE AND URGED TO QUIT:03/04/2017 ARE YOU INTERESTED IN QUITTING?NOT READY TO QUIT COUNSELED THE PATIENT ON SMOKING EFFECTS, EDUCATION [id number]/01/2017 SMOKING CESSATION INFORMATION GIVEN03/05/2017 CHRISTIANITY [id number] YAZIDISM LEARNING BARRIERS / SPECIAL NEEDS CHANGE FROM LAST VISIT?NO BARRIERS TO LEARNING?NO HEARING IMPAIRED?NO VISION IMPAIRED?YES :CORRECTIVE LENSES COGNITIVELY IMPAIRED?NO READINESS TO LEARN?YES LEARNING PREFERENCES?NO LEARNING CAPABILITIES PRESENT?YES EMOTIONAL BARRIERS?NO SPECIAL DEVICES?NO PAIN CLINIC PFS, CLERGY, PUBLIC HEALTH REFERRALS HAS THE PATIENT BEEN EDUCATED REGARDING HIS/HER PLAN OF CARE?YES HAS THE PATIENT BEEN EDUCATED REGARDING PAIN, THE RISK FOR PAIN, THE IMPORTANCE OF EFFECTIVE PAIN MANAGEMENT, AND THE PAIN ASSESSMENT PROCESS?YES PATIENT: ____. ADVANCE DIRECTIVES HEALTH CARE PROXY?YES CONTACT # FOR HCP [phone] OR [phone] () [place] [phone] EDMAR [phone] DO YOU HAVE A COPY WITH YOU?NO POWER OF FOOD QUALITY TECHNICIAN?YES NAME OF POA? WM DAMON EMPLOYED - SELF EMPLOYED--PRESIDENT OF [employer]. AND LIVING WITH SPOUSE. REVIEW OF SYSTEMS REVIEWED BY: PROVIDER: . CONSTITUTIONAL: ANY CHANGE IN YOUR MEDICAL CONDITION? NO . CHILLS NO . FEVER NO . INFECTION: DO YOU HAVE NEW INFECTIONS? NO . DO YOU HAVE HISTORY OF MRSA? NO . MUSCULOSKELETAL: ANY NEW PATTERNS OF PAIN OR NUMBNESS? NO . GASTROENTEROLOGY: ANY NEW CHANGE IN BOWEL CONTROL? NO . GENITOURINARY: ANY NEW CHANGE IN BLADDER CONTROL? NO . IS THERE A CHANCE YOU COULD BE ? NO . HEMATOLOGY/LYMPH: DO YOU TAKE ANY BLOOD THINNERS? (FOR EXAMPLE- COUMADIN, PLAVIX, AGGRENOX, PLATEL, PRADAXA, OR XARELTO) NO . WHEN WAS YOUR LAST DOSE? DATE: TIME: . NEUROLOGY: HAVE YOU FALLEN IN THE PAST 6 MONTHS? NO . ANY NEW EXTREMITY NUMBNESS OR WEAKNESS? NO . CARDIOLOGY: DO YOU HAVE A PACEMAKER OR DEFIBRILLATOR? NO . RESPIRATORY: HAVE YOU BEEN SICK IN THE PAST WEEK? NO . FEVER NO . FLU LIKE SYMPTOMS? NO . COUGH NO . INTEGUMENTARY: DO YOU HAVE ANY RASHES OR OPEN SORES? NO . ALLERGIC/IMMUNO: ARE YOU ALLERGIC TO SHELLFISH OR IV DYE? NO . ANY NEW ALLERGIES? NO . PSYCHIATRIC: DO YOU HAVE THOUGHTS OF HURTING YOURSELF OR SOMEONE ELSE? NO . ARE YOU ABUSED, NEGLECTED, OR IN AN UNSAFE ENVIRONMENT? NO . ENDOCRINOLOGY: ARE YOU DIABETIC? NO . OTHER: DO YOU NEED ANY PRESCRIPTIONS? NO . IF YES, PLEASE LIST: ____ . ANY NEW PROBLEMS WITH YOUR MEDICATIONS? NO . WHEN DID YOU LAST EAT? ____ . WHEN DID YOU LAST DRINK? ____ . WHAT DID YOU LAST DRINK? ____ . NAME OF PERSON DRIVING YOU HOME? ____ . DO YOU HAVE ANY OTHER QUESTIONS OR CONCERNS NO . ASSESSMENTS INTERVERTEBRAL DISC DISORDERS WITH RADICULOPATHY, LUMBAR REGION - M51.16 (PRIMARY) PROCEDURES PRE PROCEDURE DIAGNOSIS LUMBAR DISC DISORDER WITH RADICULOPATHY POST PROCEDURE DIAGNOSIS LUMBAR DISC DISORDER WITH RADICULOPATHY PROCEDURE LUMBAR EPIDURAL STEROID INJECTION UNDER FLUOROSCOPIC GUIDANCE SURGEON DR. SVITLANA MEDRANO BRASS WIND INSTRUMENT MAKER NONE ANESTHESIA LOCAL PRE PROCEDURE NOTE THE PATIENT HAS A HISTORY OF CHRONIC LOW BACK PAIN. I EVALUATE THE PATIENT AND REVIEWED THE CHART. I WENT OVER THE RISKS, ALTERNATIVES, AND BENEFITS ASSOCIATED WITH THIS PROCEDURE. THE PATIENT WOULD LIKE TO PROCEED AND GIVE CONSENT TO PERFORMED THE PROCEDURE. THE PATIENT DENIES UNEXPLAINABLE WEIGHT LOSS, FEVER, CHILLS, OR NEW CHANGES IN URINARY OR BOWEL CONTROL. DESCRIPTION OF PROCEDURE THE PATIENT WAS BROUGHT TO THE PROCEDURE ROOM AND PLACED IN THE PRONE POSITION. THE LUMBOSACRAL AREA WAS CLEANED WITH BETADINE SOLUTION AND DRAPED ASEPTICALLY. THE PROCEDURE WAS DONE UNDER STERILE CONDITIONS. I CHECKED LATERALITY AND THE LEVEL WHERE THE PROCEDURE WAS GOING TO BE PERFORMED WITH THE PATIENT AND THE SUPPORTING STAFF AT THE MOMENT OF THE TIME OUT IN THE PROCEDURE ROOM. UNDER FLUOROSCOPIC GUIDANCE, THE TARGET POINT WAS SELECTED AT THE INTERLAMINAR LEVEL OF L4-L5. LIDOCAINE WAS USED TO NUMB THE SKIN AND THE SUBCUTANEOUS TISSUE BELOW IT. EPIDURAL TUOHY NEEDLE, 17-GAUGE, WAS ADVANCED UNDER FLUOROSCOPIC GUIDANCE AND FOLLOWING PATIENT FEEDBACK UNTIL THE EPIDURAL SPACE WAS REACHED, 7 CM DEEP INTO THE SKIN BY THE LOSS OF RESISTANCE TECHNIQUE. ISOVUE M DYE 30%, 0.25 ML, WAS INJECTED SHOWING ADEQUATE SPREAD OF THE DYE. THEN, A SOLUTION OF 3 ML OF NORMAL SALINE WITH DEPO-MEDROL 60 MG WAS INJECTED SLOWLY FOLLOWING PATIENT FEEDBACK. THERE WAS NO EVIDENCE OF BLOOD, PARESTHESIA OR CEREBROSPINAL FLUID DURING THE PROCEDURE. THE PATIENT WAS SENT TO THE RECOVERY ROOM. THE PATIENT WAS MOVING THE EXTREMITIES AND DOING WELL. THERE WAS NO COMPLICATION DURING THE PROCEDURE. FLUOROSCOPY TIME WAS 19 SECONDS. POST PROCEDURE NOTE THE PATIENT WILL BE SEEN IN A FOLLOW UP IN THE NEXT FEW WEEKS. INSTRUCTIONS WERE GIVEN, QUESTIONS WERE ANSWERED, AND THE PATIENT EXPRESSED UNDERSTANDING AND AGREES WITH THE PLAN. I, JAVY HERRERA, DOCUMENTED THE ABOVE INFORMATION ACTING A SCRIBE FOR DR. MEDRANO. I HAVE REVIEWED THE ABOVE DOCUMENT, WRITTEN BY JAVY GIANG AND I VERIFY THAT IT IS ACCURATE DIAGNOSTIC IMAGING [facility] FLUORO GUIDE SPINE INJECTION (PAIN)[id number] PROCEDURE CODES 17223 LUMBAR/SACRAL W/ IMAGING 6045F RADXPS IN END [id number] PXD DISPOSITION & COMMUNICATION FOLLOW UP 3 WEEKS ELECTRONICALLY SIGNED BY SVITLANA MEDRANO MD ON 03/17/2017 AT 08:27 PM EDT DISCLAIMER : THIS IS A VISIT SUMMARY EXTRACTED FROM THE [facility] CHART. IT IS NOT A COPY OF THE [facility] PROGRESS NOTE. MTDD
== END ==
LOC: M PAIN 15:15
PROVIDERS: ATTEND Anesthesiology
DX: G89.29 Other chronic pain (principal); M51.16 Intervertebral disc disorders with radiculopathy, lumbar region; M54.5 Low back pain; F17.210 Nicotine dependence, cigarettes, uncomplicated; F41.9 Anxiety disorder, unspecified; M85.80 Other specified disorders of bone density and structure, unspecified site; E55.9 Vitamin D deficiency, unspecified; E03.9 Hypothyroidism, unspecified; C50.919 Malignant neoplasm of unspecified site of unspecified female breast; E78.5 Hyperlipidemia, unspecified; E05.00 Thyrotoxicosis with diffuse goiter without thyrotoxic crisis or storm; Z79.891 Long term (current) use of opiate analgesic; Z79.899 Other long term (current) drug therapy; Z88.2 Allergy status to sulfonamides; Z88.5 Allergy status to narcotic agent; Z91.040 Latex allergy status; Z91.09 Other allergy status, other than to drugs and biological substances; Z88.8 Allergy status to other drugs, medicaments and biological substances
CPT/HCPCS: 62323; J1030; Q9967

== ENCOUNTER → 2017-03-12 | Outpatient (CLI) | payer BC ==
[~2017-03-12] MED LIST changes: -ISOVUE-M 300 61% 15ML VIAL (Q9967) As Ordered ONE; -LIDOCAINE 1% SDV INJ 30 ML VIAL As Ordered ONE; -diazePAM 5 MG TAB As Ordered ONE; -methylPREDNISolone SUSP 40 MG/ML (DEPO-medrol) VIAL (J1030) As Ordered ONE; -oxyCODONE 5MG TAB As Ordered ONE
--- NOTE | 2017-04-02 01:54 | ECWPNPC ---
PATIENT NAME: TERESE DAMON : 1955 GENDER: FEMALE VISIT DATE: 03/12/2017 DISCHARGE DATE: 03/12/17 1611 VISIT LOCKED DATE TIME: PHYSICIAN: SVITLANA MEDRANO RESOURCE: SVITLANA MEDRANO REASON FOR APPOINTMENT 1. BACK PAIN HISTORY OF PRESENT ILLNESS GENERAL: 61 YEAR OLD FEMALE PATIENT WITH HISTORY OF CHRONIC LOW BACK PAIN. PATIENT DESCRIBES THE PAIN ACHING, SORE, BURNING, THROBBING, AND HAVING IT ALL THE TIME WITH A PAIN SCORE OF 4/10. PATIENT RECEIVED A LUMBAR EPIDURAL ON 03/05/17 AND STATES THAT SHE IS DOING MUCH BETTER SINCE THE INJECTION EVEN THOUGH SHE STILL HAS PAIN. PATIENT REPORTS OVER 50% RELIEF FROM THE PAIN WITH INCREASED MOBILITY AND FUNCTIONALITY. CURRENTLY THE PATIENT IS USING SOMA, TORADOL, AND OXYCODONE TO AID IN PAIN RELIEF. PATIENT STATES SHE HAS TO KEEP MOVING OR THE PAIN GETS WORSE. PATIENT DENIES UNEXPLAINABLE WEIGHT LOSS, FEVER, CHILLS, NEW CHANGES ON HER URINARY OR BOWEL CONTROL. CURRENT MEDICATIONS TAKING TRAZODONE HCL 50 MG TABLET 1 TABLET AT BEDTIME NEEDED ORALLY ONCE A DAY TAKING VENTOLIN HFA 90 MCG/ACT AEROSOL SOLUTION 2 PUFFS INHALATION EVERY 4 HRS NEEDED SHORTNESS OF BREATH TAKING VITAMIN B-12 5000 MCG TABLET DISPERSIBLE 1 TABLET ORALLY ONCE A DAY TAKING CLARITIN 10 MG TABLET 1 TABLET ORALLY DAILY NEEDED TAKING MULTIVITAMINS OTC TABLET 1 ORALLY ONCE A DAY TAKING LEVOTHYROXINE SODIUM 175 MG TABLET 1 TABLET ORALLY ONCE A DAY TAKING EXEMESTANE 25 MG TABLET 1 TABLET WITH A MEAL ORALLY ONCE A DAY TAKING NEBULIZER - DEVICE DIRECTED DX: J45.909 DIRECTED TAKING MAY HAVE - - NEBULIZER TUBING DX: J45.909 DIRECTED WITH NEBULIZER TAKING ALBUTEROL SULFATE (2.5 MG/3ML) 0.083% NEBULIZATION SOLUTION 3 ML INHALATION EVERY 4 HOURS NEEDED FOR SOB TAKING OMEPRAZOLE 40 MG CAPSULE DELAYED RELEASE 1 CAPSULE ORALLY ONCE A DAY TAKING KETOCONAZOLE 2 % CREAM 1 APPLICATION TO FEET EXTERNALLY TWICE A DAY NEEDED TAKING FLUCONAZOLE 200 MG TABLET 1 TABLET ORALLY ONCE A MONTH TAKING VOLTAREN 1 % GEL DIRECTED TRANSDERMAL FOR PAIN AT AFFECTED AREA FOUR TIMES DAILY NEEDED TAKING KETOROLAC TROMETHAMINE 10 MG TABLET 1 TABLET WITH FOOD OR MILK NEEDED ORALLY EVERY 6 HRS PRN FOR PAIN MDD3 TAKING SOMA 350 MG TABLET 1 TABLET NEEDED FOR SPASMS AND PAIN ORALLY BEFORE BEDTIME MDD1 TAKING OXYCODONE HCL 5 MG TABLET 1 ORALLY EVERY 8 HOURS NEEDED FOR PAIN MDD2 TAKING GABAPENTIN 300 MG CAPSULE 2 CAPSULE ORALLY THREE TIMES A DAY MDD6 TAKING IBUPROFEN 800 MG TABLET 1 TABLET WITH FOOD OR MILK ORALLY THREE TIMES A DAY NEEDED FOR PAIN MDD3 NOT-TAKING LIDOCAINE 5 % GEL 1 INCH EXTERNALLY THREE TIMES A DAY PRN FOR PAIN AT LOWER BACK AREA, NOTES: NONE NOT-TAKING TRAMADOL HCL 50 MG TABLET 1 TABLET NEEDED ORALLY EVERY 6 HRS NOT-TAKING VITAMIN D HIGH POTENCY 5000 _ 5000UNITS ORALLY ONCE A DAY NOT-TAKING CICLOPIROX OLAMINE 0.77 % CREAM 1 APPLICATION EXTERNALLY TWICE A DAY TO FEET NOT-TAKING PREDNISONE 20 MG TABLET 2 TABLET ORALLY ONCE A DAY NOT-TAKING COQ10 30 MG CAPSULE 1 ORALLY ONCE A DAY MEDICATION LIST REVIEWED AND RECONCILED WITH THE PATIENT PAST MEDICAL HISTORY FX 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 OF HYPERLIPIDEMIA FIBROCYSTIC BREAST DISEASE DDD/DD MVP CHRONIC BACK DISCOM'T LEFT BREAST CANCER 10/11/14 EYE INJECTIONS ALLERGIES SULFA (FOR ALLERGY USE ONLY): NAUSEA/VOMITING: SIDE EFFECTS CODEINE PHOSPHATE: NAUSEA/VOMITING: SIDE EFFECTS LATEX: RASH: ALLERGY RUBBER: RASH: ALLERGY MELOXICAM: HEADACHE: SIDE EFFECTS ANASTROZOLE: WEAKNESS, SCHES, DRY COUGH : SIDE EFFECTS VITAL SIGNS WT 180 LBS, HT 64.5 IN, BMI 30.42 INDEX, BP 121/71 MM HG, HR 119 /MIN, RR 16 /MIN, TEMP 98.7 F, OXYGEN SAT % 94%, NA INITIALS AW 1447, REVIEWED BY: DYLAN. EXAMINATION GENERAL: PATIENT IS ALERT O X 3 AND COOPERATIVE. THERE IS TENDERNESS IN THE MID BACK AREA WITH BANDS OF TISSUES, RESTRICTION OF MOVEMENT, AND PRESENCE OF TRIGGER POINTS. THERE IS TENDERNESS IN THE LOW BACK PARASPINAL MUSCLE GROUP. MRI OF THE THORACIC SPINE DONE ON 01/17/2014 SHOWS A SMALL DISC PROTRUSION AT T4-T5 AND T8-T9. MRI OF THE LUMBAR SPINE DONE ON 02/28/17 SHOWS MULTIPLE DISC BULGES FROM L1-L2 TO L5-S1 AND AN OLD L1 COMPRESSION. 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 DAMON'S PAIN MANAGEMENT CASE. PATIENT WILL CONTINUE TO USE OXYCODONE FOR THE SOMATIC PAIN, SOMA FOR THE MUSCLE SPASMS, AND GABAPENTIN FOR THE NEUROPATHIC PAIN. PATIENT DENIES ABUSE OF ANY MEDICATION, DENIES USE OF ILLEGAL SUBSTANCES, AND STATES SHE IS ONLY USING THE MEDICATION FOR PAIN MANAGEMENT. DUE TO THE PATIENT RECEIVING A LUMBAR EPIDURAL AND HAVING GOOD PAIN RELIEF I WOULD LIKE TO MOVE FORWARD WITH ANOTHER EPIDURAL. URINE TOXICOLOGY DONE ON 11/29/16 SHOWS CONSISTENT RESULTS WITH THE PATIENT'S MEDICATION LIST. WE DISCUSSED THE RISKS, BENENFITS, AND ALTNERATIVES OF THE EPIDURAL AND THE PATIENT WOULD LIKE TO PROCEED. INSTRUCTIONS WERE GIVEN, QUESTIONS WERE ANSWERED, PATIENT REPORTS UNDERSTANDING AND AGREES WITH THE PLAN. I, JAVY HERRERA, DOCUMENTED THE ABOVE INFORMATION ACTING A SCRIBE FOR DR. MEDRANO. I HAVE REVIEWED THE ABOVE DOCUMENT, WRITTEN BY JAVY GIANG AND I VERIFY THAT IT IS ACCURATE. PROCEDURE CODES FA211 ESTABILISHED PATIENT [facility] FACILITY CHARGE G8427 DOC MEDS VERIFIED W/PT OR RE G8730 PAIN ASSESS POS TOOL F/U PLAN DOC DISPOSITION & COMMUNICATION FOLLOW UP LESI AFTER ELECTRONICALLY SIGNED BY SVITLANA MEDRANO MD ON 03/31/2017 AT 11:47 AM EDT DISCLAIMER : THIS IS A VISIT SUMMARY EXTRACTED FROM THE [employer] CHART. IT IS NOT A COPY OF THE [employer] PROGRESS NOTE. MTDD
== END ==
LOC: M PAIN 14:20
PROVIDERS: ATTEND Anesthesiology
DX: M51.16 Intervertebral disc disorders with radiculopathy, lumbar region (principal); M51.17 Intervertebral disc disorders with radiculopathy, lumbosacral region; M47.816 Spondylosis without myelopathy or radiculopathy, lumbar region; M47.817 Spondylosis without myelopathy or radiculopathy, lumbosacral region; M54.5 Low back pain; G89.29 Other chronic pain; Z79.891 Long term (current) use of opiate analgesic; Z79.899 Other long term (current) drug therapy; Z88.2 Allergy status to sulfonamides; Z88.5 Allergy status to narcotic agent; Z88.8 Allergy status to other drugs, medicaments and biological substances; Z91.040 Latex allergy status; Z91.048 Other nonmedicinal substance allergy status

== ENCOUNTER → 2017-03-20 | Outpatient (CLI) | payer BC ==
[~2017-03-20] MED LIST changes: +ISOVUE-M 300 61% 15ML VIAL (Q9967) As Ordered ONE; +LIDOCAINE 1% SDV INJ 30 ML VIAL As Ordered ONE; +diazePAM 5 MG TAB As Ordered ONE; +methylPREDNISolone SUSP 40 MG/ML (DEPO-medrol) VIAL (J1030) As Ordered ONE; +oxyCODONE 5MG TAB As Ordered ONE
--- NOTE | 2017-03-20 16:22 | REP ---
Partial lumbar spine series: Four views . History: Injection procedure for pain. Nine seconds of fluoroscopy time is reported. Findings: A sequence of four fluoroscopically obtained last image hold procedural spot radiographs of the lumbar spine document needle position and contrast injection associated with injection procedure. Signed by Porfirio Liao MD 03/20/2017 04:14 P
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
== END ==
LOC: M PAIN 13:15
PROVIDERS: ATTEND Anesthesiology
DX: G89.29 Other chronic pain (principal); M51.16 Intervertebral disc disorders with radiculopathy, lumbar region; Z79.891 Long term (current) use of opiate analgesic; Z79.899 Other long term (current) drug therapy; Z88.2 Allergy status to sulfonamides; Z88.5 Allergy status to narcotic agent; Z91.040 Latex allergy status; Z88.8 Allergy status to other drugs, medicaments and biological substances; Z91.09 Other allergy status, other than to drugs and biological substances
CPT/HCPCS: 62323; J1030; Q9967

== ENCOUNTER → 2017-04-23 | Outpatient (REF) | payer BC ==
[~2017-04-23] MED LIST changes: -ISOVUE-M 300 61% 15ML VIAL (Q9967) As Ordered ONE; -LIDOCAINE 1% SDV INJ 30 ML VIAL As Ordered ONE; -diazePAM 5 MG TAB As Ordered ONE; -methylPREDNISolone SUSP 40 MG/ML (DEPO-medrol) VIAL (J1030) As Ordered ONE; -oxyCODONE 5MG TAB As Ordered ONE
[2017-04-23 14:38] LABS: FREE T4 1.51 NG/DL (0.76-1.46)
== END ==
LOC: M LAB REF 09:52
PROVIDERS: ATTEND Internal Medicine Medical Oncology
DX: C50.919 Malignant neoplasm of unspecified site of unspecified female breast (principal)

== ENCOUNTER → 2017-06-24 | Outpatient (REF) | payer BC ==
[2017-06-24 20:48] LABS: ALBUMIN 3.6 GM/DL (3.2-5.2); ALBUMIN/GLOBULIN RATIO 1.33 (1.00-1.93); ALKALINE PHOSPHATASE 51 U/L (45-117); ALT/SGPT 28 U/L (12-78); ANION GAP 7 MEQ/L (8-16); AST/SGOT 12 U/L (7-37); BILIRUBIN,TOTAL 0.2 MG/DL (0.2-1.0); BLOOD UREA NITROGEN 17 MG/DL (7-18); CALCIUM LEVEL 9.1 MG/DL (8.8-10.2); CARBON DIOXIDE LEVEL 28 MEQ/L (21-32); CHLORIDE LEVEL 105 MEQ/L (98-107); CREATININE FOR GFR 0.64 MG/DL (0.55-1.02); FREE T4 1.17 NG/DL (0.76-1.46); GLOMERULAR FILTRATION RATE > 60.0 (>45); POTASSIUM SERUM 4.2 MEQ/L (3.5-5.1); SODIUM LEVEL 140 MEQ/L (136-145); TOTAL PROTEIN 6.3 GM/DL (6.4-8.2)
[2017-06-24 20:58] LABS: GLUCOSE, FASTING 105 MG/DL (80-110)
[2017-06-28 00:06] LABS: Lyme Disease IgG/IgM Antibodie <0.91 ISR (0.00-0.90); Lyme Disease IgM Ab Quantitati <0.80 index (0.00-0.79)
== END ==
LOC: M SFHCPLAZ 15:22
PROVIDERS: ATTEND Nurse Practitioner Adult Health
DX: E03.9 Hypothyroidism, unspecified (principal); W57.XXXA Bitten or stung by nonvenomous insect and other nonvenomous arthropods, initial encounter; C50.919 Malignant neoplasm of unspecified site of unspecified female breast; E55.9 Vitamin D deficiency, unspecified; Y99.8 Other external cause status

== ENCOUNTER → 2017-07-02 | Outpatient (CLI) | payer BC, OTHER ==
[2017-07-02 17:36] LABS: FREE T4 1.32 NG/DL (0.76-1.46)
== END ==
LOC: M WUC 13:25
PROVIDERS: ATTEND Internal Medicine Endocrinology, Diabetes & Metabolism
DX: E03.9 Hypothyroidism, unspecified (principal)

== ENCOUNTER → 2017-07-02 | Outpatient (CLI) | payer OTHER, BC ==
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
== END ==
LOC: M WUC 13:29
PROVIDERS: ATTEND Nurse Practitioner Adult Health
DX: M54.5 Low back pain (principal)

== ENCOUNTER → 2017-10-21 | Outpatient (REF) | payer BC ==
[2017-10-21 18:24] LABS: TOTAL 25(OH) VITAMIN D 55.8 NG/ML (30.0-100.0)
== END ==
LOC: M LAB REF 17:18
DX: C50.919 Malignant neoplasm of unspecified site of unspecified female breast (principal)
CPT/HCPCS: 82306

== ENCOUNTER → 2017-12-16 | Outpatient (CLI) | payer BC ==
[~2017-12-16] MED LIST changes: -/ESOM40CA OR; -ADVIL PM PO; -ALEV220C2 PO; -AMOX-CLAV; -ANAS1TAB PO; -ATEN25TA OR; +BUPIVACAINE HCL 0.25% 10 ML VIAL As Ordered; +BUPIVACAINE HCL 0.25% 30 ML VIAL As Ordered; -CALC-204 PO; -CLAR5CHW OR; -COLA50CA PO; -COMBAER6 INH; -ESCI10TA2 PO; -FLEC1.3D TD; -FLECTOR1.3 TOP; -HERBAL SUPPLEMENT PO; -ICY HOT TOP; -LIDO2JELLY TOP; -MULTCAP PO; -NEUR600T OR; -OMEG100011 PO; -OMEPPOW18 PO; -OXYC1TAB30 PO; -PENN1.5S2 TD; -PENNSAID EXT; -PRED20TA PO; -SOMA350T PO; -SYNT175T OR; -TRAM50TA2 OR; -TRAZ50TA OR; +TRIAMCINOLONE ACETONIDE SUSP 40 MG/ML VIAL (J3301) As Ordered; -ULTRTA PO; -VIT D 2000 PO; -VITA100L PO; -VITACAP8 PO; -VITAD1000T PO; -[UNRECOGNIZED DRUG - OTHER] TOP; -compound cream EXT; +diazePAM 5 MG TAB As Ordered; +oxyCODONE 5MG TAB As Ordered
== END ==
LOC: M PAIN 14:00
DX: G89.29 Other chronic pain (principal); M79.1 Myalgia; M54.5 Low back pain; E03.9 Hypothyroidism, unspecified; K21.9 Gastro-esophageal reflux disease without esophagitis; E78.5 Hyperlipidemia, unspecified; F17.210 Nicotine dependence, cigarettes, uncomplicated; Z79.891 Long term (current) use of opiate analgesic; Z79.899 Other long term (current) drug therapy; Z88.2 Allergy status to sulfonamides; Z88.5 Allergy status to narcotic agent; Z88.8 Allergy status to other drugs, medicaments and biological substances; Z91.040 Latex allergy status
CPT/HCPCS: J3301

== ENCOUNTER → 2017-12-25 | Outpatient (CLI) | payer BC ==
[~2017-12-25] MED LIST changes: -BUPIVACAINE HCL 0.25% 10 ML VIAL As Ordered; +ISOVUE-M 300 61% 15ML VIAL (Q9967) As Ordered; +LIDOCAINE 1% SDV INJ 30 ML VIAL As Ordered
== END ==
LOC: M PAIN 13:20
DX: G89.29 Other chronic pain (principal); M47.816 Spondylosis without myelopathy or radiculopathy, lumbar region; M47.817 Spondylosis without myelopathy or radiculopathy, lumbosacral region; E03.9 Hypothyroidism, unspecified; M79.7 Fibromyalgia; E78.5 Hyperlipidemia, unspecified; F17.210 Nicotine dependence, cigarettes, uncomplicated; Z79.51 Long term (current) use of inhaled steroids; Z79.899 Other long term (current) drug therapy; Z88.2 Allergy status to sulfonamides; Z88.5 Allergy status to narcotic agent; Z88.8 Allergy status to other drugs, medicaments and biological substances; Z91.040 Latex allergy status; Z90.13 Acquired absence of bilateral breasts and nipples; Z98.82 Breast implant status
CPT/HCPCS: J3301

== ENCOUNTER → 2018-01-01 | Outpatient (CLI) | payer BC | LOC: M PAIN 10:15 | DX: M47.816 Spondylosis without myelopathy or radiculopathy, lumbar region (principal); E03.9 Hypothyroidism, unspecified; M79.7 Fibromyalgia; K21.9 Gastro-esophageal reflux disease without esophagitis; E78.5 Hyperlipidemia, unspecified; Z79.51 Long term (current) use of inhaled steroids; Z79.899 Other long term (current) drug therapy; Z88.2 Allergy status to sulfonamides; Z88.5 Allergy status to narcotic agent; Z88.8 Allergy status to other drugs, medicaments and biological substances; Z91.040 Latex allergy status; Z80.3 Family history of malignant neoplasm of breast | CPT/HCPCS: G0463 ==

== ENCOUNTER → 2018-01-01 | Outpatient (CLI) | payer BC | LOC: M WUC 15:19 | DX: R07.9 Chest pain, unspecified (principal) | CPT/HCPCS: 71046 ==

== ENCOUNTER → 2018-01-12 | Outpatient (CLI) | payer BC ==
[2018-01-12 14:08] LABS: THYROID STIMULATING HORMONE 0.997 uIU/ML (0.358-3.740)
[2018-01-12 14:08] LABS: FREE T4 1.28 NG/DL (0.76-1.46)
== END ==
LOC: M LAB 12:31
DX: E03.9 Hypothyroidism, unspecified (principal)
CPT/HCPCS: 84443

== ENCOUNTER → 2018-01-12 | Outpatient (CLI) | payer BC ==
[~2018-01-12] MED LIST changes: -TRIAMCINOLONE ACETONIDE SUSP 40 MG/ML VIAL (J3301) As Ordered; -diazePAM 5 MG TAB As Ordered; -oxyCODONE 5MG TAB As Ordered
== END ==
LOC: M PAIN 08:45
DX: M47.816 Spondylosis without myelopathy or radiculopathy, lumbar region (principal); M47.817 Spondylosis without myelopathy or radiculopathy, lumbosacral region; E89.0 Postprocedural hypothyroidism; M79.7 Fibromyalgia; F17.210 Nicotine dependence, cigarettes, uncomplicated; K21.9 Gastro-esophageal reflux disease without esophagitis; Z85.3 Personal history of malignant neoplasm of breast; Z88.2 Allergy status to sulfonamides; Z88.5 Allergy status to narcotic agent; Z88.8 Allergy status to other drugs, medicaments and biological substances; Z91.040 Latex allergy status
CPT/HCPCS: Q9967

== ENCOUNTER → 2018-01-16 | Outpatient (CLI) | payer BC | LOC: M PAIN 09:00 | DX: G89.29 Other chronic pain (principal); S29.012A Strain of muscle and tendon of back wall of thorax, initial encounter; M47.816 Spondylosis without myelopathy or radiculopathy, lumbar region; M47.817 Spondylosis without myelopathy or radiculopathy, lumbosacral region; S39.012S Strain of muscle, fascia and tendon of lower back, sequela; E03.9 Hypothyroidism, unspecified; M79.7 Fibromyalgia; K21.9 Gastro-esophageal reflux disease without esophagitis; Z85.3 Personal history of malignant neoplasm of breast; F17.210 Nicotine dependence, cigarettes, uncomplicated; Z88.2 Allergy status to sulfonamides; Z88.5 Allergy status to narcotic agent; Z91.040 Latex allergy status; Z88.8 Allergy status to other drugs, medicaments and biological substances; X58.XXXS Exposure to other specified factors, sequela; Y92.9 Unspecified place or not applicable | CPT/HCPCS: G0463 ==

== ENCOUNTER → 2018-01-22 | Outpatient (CLI) | payer BC | LOC: M PAIN 10:00 | DX: M54.5 Low back pain (principal); E03.9 Hypothyroidism, unspecified; M79.7 Fibromyalgia; K21.9 Gastro-esophageal reflux disease without esophagitis; E78.5 Hyperlipidemia, unspecified; F17.210 Nicotine dependence, cigarettes, uncomplicated; Z79.51 Long term (current) use of inhaled steroids; Z79.899 Other long term (current) drug therapy; Z88.2 Allergy status to sulfonamides; Z88.5 Allergy status to narcotic agent; Z88.8 Allergy status to other drugs, medicaments and biological substances; Z91.040 Latex allergy status; Z85.3 Personal history of malignant neoplasm of breast; Z90.13 Acquired absence of bilateral breasts and nipples; Z98.82 Breast implant status | CPT/HCPCS: G0463 ==

== ENCOUNTER → 2018-01-27 | Outpatient (CLI) | payer BC ==
[~2018-01-27] MED LIST changes: -ISOVUE-M 300 61% 15ML VIAL (Q9967) As Ordered; +TRIAMCINOLONE ACETONIDE SUSP 40 MG/ML VIAL (J3301) As Ordered
== END ==
LOC: M PAIN 10:30
DX: G89.29 Other chronic pain (principal); M47.816 Spondylosis without myelopathy or radiculopathy, lumbar region; M47.817 Spondylosis without myelopathy or radiculopathy, lumbosacral region; E03.9 Hypothyroidism, unspecified; M79.7 Fibromyalgia; K21.9 Gastro-esophageal reflux disease without esophagitis; E78.5 Hyperlipidemia, unspecified; F17.210 Nicotine dependence, cigarettes, uncomplicated; Z79.51 Long term (current) use of inhaled steroids; Z79.899 Other long term (current) drug therapy; Z88.2 Allergy status to sulfonamides; Z88.5 Allergy status to narcotic agent; Z88.8 Allergy status to other drugs, medicaments and biological substances; Z91.040 Latex allergy status; Z85.3 Personal history of malignant neoplasm of breast
CPT/HCPCS: J3301

== ENCOUNTER → 2018-02-05 | Outpatient (CLI) | payer BC | LOC: M PAIN 09:30 | DX: M47.816 Spondylosis without myelopathy or radiculopathy, lumbar region (principal); E03.9 Hypothyroidism, unspecified; M79.7 Fibromyalgia; K21.9 Gastro-esophageal reflux disease without esophagitis; F17.210 Nicotine dependence, cigarettes, uncomplicated; Z79.51 Long term (current) use of inhaled steroids; Z79.899 Other long term (current) drug therapy; Z88.2 Allergy status to sulfonamides; Z88.5 Allergy status to narcotic agent; Z88.8 Allergy status to other drugs, medicaments and biological substances; Z91.030 Bee allergy status; Z86.39 Personal history of other endocrine, nutritional and metabolic disease; Z85.3 Personal history of malignant neoplasm of breast; Z90.13 Acquired absence of bilateral breasts and nipples; Z98.82 Breast implant status | CPT/HCPCS: G0463 ==

== ENCOUNTER → 2018-02-10 | Outpatient (CLI) | payer BC | LOC: M PAIN 13:00 | DX: G89.29 Other chronic pain (principal); M47.816 Spondylosis without myelopathy or radiculopathy, lumbar region; M47.817 Spondylosis without myelopathy or radiculopathy, lumbosacral region; E03.9 Hypothyroidism, unspecified; M79.7 Fibromyalgia; K21.9 Gastro-esophageal reflux disease without esophagitis; Z79.51 Long term (current) use of inhaled steroids; Z79.899 Other long term (current) drug therapy; Z88.2 Allergy status to sulfonamides; Z88.5 Allergy status to narcotic agent; Z88.8 Allergy status to other drugs, medicaments and biological substances; Z91.040 Latex allergy status; Z85.3 Personal history of malignant neoplasm of breast | CPT/HCPCS: J3301 ==

== ENCOUNTER → 2018-04-08 | Outpatient (CLI) | payer BC | LOC: M WUC 14:37 | DX: S20.211A Contusion of right front wall of thorax, initial encounter (principal); X58.XXXA Exposure to other specified factors, initial encounter; Y92.9 Unspecified place or not applicable | CPT/HCPCS: 71101 ==

== ENCOUNTER → 2018-05-19 | Outpatient (CLI) | payer BC ==
[2018-05-19 13:56] LABS: FREE T4 1.36 NG/DL (0.76-1.46); THYROID STIMULATING HORMONE 0.306 uIU/ML (0.358-3.740)
== END ==
LOC: M LAB 12:10
DX: E03.9 Hypothyroidism, unspecified (principal)
CPT/HCPCS: 84443

== ENCOUNTER → 2018-05-27 | Outpatient (CLI) | payer BC | LOC: M PAIN 14:30 | DX: M47.816 Spondylosis without myelopathy or radiculopathy, lumbar region (principal); G89.29 Other chronic pain; E03.9 Hypothyroidism, unspecified; M79.7 Fibromyalgia; K21.9 Gastro-esophageal reflux disease without esophagitis; F17.210 Nicotine dependence, cigarettes, uncomplicated; Z79.899 Other long term (current) drug therapy; Z88.2 Allergy status to sulfonamides; Z88.5 Allergy status to narcotic agent; Z88.8 Allergy status to other drugs, medicaments and biological substances; Z91.09 Other allergy status, other than to drugs and biological substances; Z91.040 Latex allergy status; Z90.13 Acquired absence of bilateral breasts and nipples; Z98.82 Breast implant status; Z85.3 Personal history of malignant neoplasm of breast | CPT/HCPCS: G0463 ==

== ENCOUNTER → 2018-06-18 | Outpatient (CLI) | payer BC | LOC: M PAIN 14:00 | DX: M25.561 Pain in right knee (principal); M25.562 Pain in left knee; S29.012A Strain of muscle and tendon of back wall of thorax, initial encounter; E03.9 Hypothyroidism, unspecified; M79.7 Fibromyalgia; K21.9 Gastro-esophageal reflux disease without esophagitis; F17.210 Nicotine dependence, cigarettes, uncomplicated; Z79.899 Other long term (current) drug therapy; Z88.2 Allergy status to sulfonamides; Z88.5 Allergy status to narcotic agent; Z88.8 Allergy status to other drugs, medicaments and biological substances; Z91.040 Latex allergy status; Z90.13 Acquired absence of bilateral breasts and nipples; Z98.82 Breast implant status; Z85.3 Personal history of malignant neoplasm of breast; X58.XXXA Exposure to other specified factors, initial encounter; Y92.9 Unspecified place or not applicable | CPT/HCPCS: G0463 ==

== ENCOUNTER → 2018-07-01 | Outpatient (REF) | payer BC ==
[2018-07-01 18:15] LABS: BASO % 0.4 % (0.0-1.0); EOS # 0.1 10^3/uL (0.0-0.50); EOS % 2.2 % (0.0-3.0); HEMATOCRIT 42.5 % (36.0-47.0); IMMATURE GRANULOCYTE % 0.4 % (0-3.0); LYMPH # 1.4 10^3/uL (1.5-4.5); MEAN CORPUSCULAR HEMOGLOBIN 29.5 pg (27.0-33.0); MEAN CORPUSCULAR HGB CONC 32.9 g/dl (32.0-36.5); MEAN CORPUSCULAR VOLUME 89.7 fl (80.0-96.0); MONO # 0.3 10^3/uL (0.0-0.8); MONO % 6.4 % (0.0-5.0); NEUTROPHILS # 3.1 10^3/uL (1.8-7.7); NEUTROPHILS % 62.6 % (36.0-66.0); PLATELET COUNT, AUTOMATED 267 10^3/uL (150-450); RED BLOOD COUNT 4.74 10^6/uL (4.00-5.40)
[2018-07-01 18:20] LABS: C REACTIVE PROTEIN QUANTITATIV < 0.30 MG/DL (0.00-0.30)
[2018-07-01 18:20] LABS: RHEUMATOID FACTOR QUANT < 10.0 IU/ML (<15.0)
[2018-07-01 19:25] LABS: ERYTHROCYTE SEDIMENTATION RATE 7 mm/hr (0-30)
[2018-07-04 00:57] LABS: ANTINUCLEAR ANTIBODIES DIRECT Negative (Negative); Lyme Disease IgG/IgM Antibodie <0.91 ISR (0.00-0.90); Lyme Disease IgM Ab Quantitati <0.80 index (0.00-0.79)
== END ==
LOC: M LABDRAW1 17:19
DX: M25.562 Pain in left knee (principal)
CPT/HCPCS: 86140

== ENCOUNTER → 2018-07-08 | Outpatient (REF) | payer BC ==
[2018-07-08 12:12] LABS: URIC ACID 4.4 MG/DL (2.6-6.0)
[2018-07-16 00:06] LABS: HLA-B27 Positive (.)
[2018-07-16 00:06] LABS: CYCLIC CITRULLINATED PEPTIDE 13 units (0-19)
== END ==
LOC: M SFHCPLAZ 09:06
DX: M19.90 Unspecified osteoarthritis, unspecified site (principal)

== ENCOUNTER → 2018-07-20 | Outpatient (CLI) | payer BC, SELFPAY ==
[~2018-07-20] MED LIST changes: +/ESOM40CA OR; +ADVIL PM PO; +ALEV220C2 PO; +AMOX-CLAV; +ANAS1TAB2 PO; +ATEN25TA OR; -BUPIVACAINE HCL 0.25% 30 ML VIAL As Ordered; +CALC-204 PO; +CLAR5CHW OR; +COLA50CA PO; +COMBAER6 INH; +ESCI10TA2 PO; +FLEC1.3D TD; +FLECTOR1.3 TOP; +HERBAL SUPPLEMENT PO; +ICY HOT TOP; +LIDO2JELLY TOP; -LIDOCAINE 1% SDV INJ 30 ML VIAL As Ordered; +MULTCAP PO; +NEUR600T OR; +OMEG100011 PO; +OMEPPOW18 PO; +OXYC1TAB30 PO; +PENN1.5S2 TD; +PENNSAID EXT; +PRED20TA PO; +SOMA350T PO; +SYNT175T OR; +TRAM50TA2 OR; +TRAZ50TA OR; -TRIAMCINOLONE ACETONIDE SUSP 40 MG/ML VIAL (J3301) As Ordered; +ULTRTA PO; +VIT D 2000 PO; +VITA100L PO; +VITACAP8 PO; +VITAD1000T PO; +[UNRECOGNIZED DRUG - OTHER] TOP; +compound cream EXT
--- NOTE | 2018-07-21 03:07 | REP ---
Clinical: Pain. Arthritis. Technique: AP, AP angled, and bilateral oblique views of the sacroiliac joints. Findings: Four total views for comparison demonstrates symmetric age appropriate appearance to the bilateral sacroiliac joints. Impression: Symmetric normal age appropriate appearance to the bilateral sacroiliac joints. Electronically Signed by Anish Serrato MD 07/21/2018 02:59 A
--- NOTE | 2018-07-21 03:08 | REP ---
Clinical: Arthritis. Technique: Single AP weightbearing view bilateral knees. Findings: Osseous structures, joint spaces, and surrounding soft tissues are essentially symmetric and age appropriate. No overt osteoarthritic degenerative changes are appreciated. No significant joint space narrowing noted. Impression: Symmetric, age-appropriate examination. Electronically Signed by Anish Serrato MD 07/21/2018 03:00 A
--- NOTE | 2018-07-21 03:13 | REP ---
Clinical: Arthritis. Technique: AP, lateral, bilateral oblique views of the right and left hand. Findings: Left hand demonstrate mild subchondral sclerosis, joint space narrowing and early spurring primarily involving the interphalangeal joints as well as moderate subchondral sclerosis/heterogeneity, joint space narrowing and spurring involving the first interphalangeal joint. No periarticular erosive changes or significant focal swelling noted. No acute fracture or dislocation. Right hand demonstrates advanced osteoarthritic degenerative changes involving the third and second distal interphalangeal joints with subchondral heterogeneity, joint space narrowing, marginal spurring and gull-wing deformities. Early moderate arthritic changes including subchondral sclerosis and joint space narrowing noted involving the remainder of the interphalangeal joints as well as the first metacarpophalangeal joint. No significant periarticular erosive changes or focal swelling. No acute fracture or dislocation. Impression: Overall moderate osteoarthritic degenerative changes appreciated as described above. Electronically Signed by Anish Serrato MD 07/21/2018 03:05 A
--- NOTE | 2018-07-21 03:25 | REP ---
Clinical: Arthritis. Pain. Technique: AP, lateral, bilateral oblique and sunrise views of the right knee. Findings: Five total views of the right knee demonstrates generalized age-related changes. No significant subchondral sclerosis/heterogeneity, cystic changes, significant joint space narrowing, or osteophytosis noted. No obvious effusion. No acute fracture or dislocation. Impression: Generalized age-related changes. Electronically Signed by Anish Serrato MD 07/21/2018 03:16 A
== END ==
LOC: M LAB 17:13 → M RAD 17:13
PROVIDERS: ATTEND Internal Medicine Rheumatology
DX: M19.90 Unspecified osteoarthritis, unspecified site (principal)

== ENCOUNTER → 2018-10-22 | Outpatient (CLI) | payer BC ==
[~2018-10-22] MED LIST changes: -/ESOM40CA OR; +NEXI1CAP3 OR
--- NOTE | 2018-11-06 00:53 | ECWPNPC ---
PATIENT NAME: TERESE DAMON : 1955 GENDER: FEMALE VISIT DATE: 10/22/2018 DISCHARGE DATE: 10/22/18 1125 VISIT LOCKED DATE TIME: PHYSICIAN: DARIUS SMITH RESOURCE: DARIUS SMITH HISTORY OF PRESENT ILLNESS HISTORY OF PRESENT ILLNESS: HERE FOR F/U OF CHRONIC GENERALIZED BACK PAIN.WORSE AREA OF PAIN IS MID THORACIC.LOW BACK IS DOING OK. RATING MID BACK PAIN 5/10 VAS. PAIN THE PATIENT DESCRIBES THE PAIN... FALL RISK SCREENING: SCREENING : NO FALLS IN THE PAST YEAR. CURRENT MEDICATIONS TAKING FLECTOR 1.3 % PATCH 1 PATCH TO SKIN TRANSDERMAL FOR PAIN TWICE A DAY, NOTES: USES NEEDED TAKING CLARITIN 10 MG TABLET 1 TABLET ORALLY DAILY NEEDED TAKING MULTIVITAMINS OTC TABLET 1 ORALLY ONCE A DAY TAKING LEVOTHYROXINE SODIUM 112 MCG TABLET 1 1/2 TABLET ORALLY ONCE A DAY TAKING NEBULIZER - DEVICE DIRECTED DX: J45.909 DIRECTED TAKING OMEPRAZOLE 40 MG CAPSULE DELAYED RELEASE 1 CAPSULE ORALLY ONCE A DAY TAKING VITAMIN D 1000 UNIT TABLET 1 TABLET ORALLY ONCE A DAY TAKING DRISDOL 97040 UNIT CAPSULE 1 CAPSULE ORALLY ONCE A WEEK TAKING SOMA 350 MG TABLET 1 TABLET NEEDED FOR SPASMS AND PAIN ORALLY BEFORE BEDTIME. USE VERY SPARINGLY. MDD1 TAKING RESTASIS 0.05 % EMULSION 1 DROP INTO AFFECTED EYE OPHTHALMIC TWICE A DAY TAKING TRAZODONE HCL 50 MG TABLET 1 TABLET AT BEDTIME NEEDED ORALLY ONCE A DAY TAKING COMBIVENT RESPIMAT 20-100 MCG/ACT AEROSOL SOLUTION 1 PUFF INHALATION FOUR TIMES A DAY TAKING KETOCONAZOLE 2 % CREAM 1 APPLICATION TO FEET EXTERNALLY TWICE A DAY NEEDED TAKING GABAPENTIN 300 MG CAPSULE 2 CAPSULE ORALLY THREE TIMES A DAY TAKING VOLTAREN 1 % GEL DIRECTED TRANSDERMAL FOR PAIN AT AFFECTED AREA FOUR TIMES DAILY NEEDED TAKING SULFASALAZINE 500 MG TABLET 1 TABLET ORALLY BID TAKING DICLOFENAC SODIUM 1 % GEL APPLY TO AFFECTED AREA(S) FOUR TIMES A DAY FOR PAIN NOT-TAKING VITAMIN B-12 5000 MCG TABLET DISPERSIBLE 1 TABLET ORALLY ONCE A DAY NOT-TAKING BREO ELLIPTA 100-25 MCG/INH AEROSOL POWDER BREATH ACTIVATED 1 PUFF INHALATION ONCE A DAY NOT-TAKING ALBUTEROL SULFATE (2.5 MG/3ML) 0.083% NEBULIZATION SOLUTION 3 ML INHALATION EVERY 4 HOURS NEEDED FOR SOB NOT-TAKING DULOXETINE HCL 30 MG CAPSULE DELAYED RELEASE PARTICLES 1 CAPSULE ORALLY ONCE A DAY NOT-TAKING OXYCODONE HCL 5 MG TABLET 1 TABLET NEEDED ORALLY BEFORE BEDTIME NOT-TAKING MAY HAVE - - NEBULIZER TUBING DX: J45.909 DIRECTED WITH NEBULIZER NOT-TAKING OXYCODONE HCL 5 MG TABLET 1 TABLET NEEDED ORALLY NEEDED DAILY, NOTES: 01/25 11PM MEDICATION LIST REVIEWED AND RECONCILED WITH THE PATIENT PAST MEDICAL HISTORY FX 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 OF HYPERLIPIDEMIA FIBROCYSTIC BREAST DISEASE DDD/DD MVP CHRONIC BACK DISCOM'T LEFT BREAST CANCER 10/11/14 EYE INJECTIONS ALLERGIES SULFA (FOR ALLERGY USE ONLY): NAUSEA/VOMITING - SIDE EFFECTS CODEINE PHOSPHATE: NAUSEA/VOMITING - SIDE EFFECTS LATEX: RASH - ALLERGY RUBBER: RASH - ALLERGY MELOXICAM: HEADACHE - SIDE EFFECTS ANASTROZOLE: WEAKNESS, ACHES, DRY COUGH - SIDE EFFECTS SURGICAL HISTORY APPENDECTOMY 1978 1985 BREAST SURGERY/CYST ASP. X 2 /LEFT EYES FOR GRAVES DISEASE HYSTERECTOMY PARTIAL 1994 LEFT FT. SURGERY 2003 RIGHT WRIST SURGERY 07/09 AND 01/02 COLONOSCOPY 2009 LUMPECTOMY 10/16 BILATERAL MASTECTOMY WITH SILICONE IMPLANTS 12/16 BREAST RECONSTRUCTION 07/18 BILATERAL BREAST IMPLANT REPLACEMENTS 12/17 FAT GRAFT FROM ABDOMEN TO RIGHT BREAST 09/2017 FAMILY HISTORY MOTHER: LUPUS (UNKNOWN WHAT TYPE), HYPERTENSION MATERNAL GRAND MOTHER: RHEUMATOID FATHER: DIAGNOSED WITH HEART DISEASE, CANCER PATERNAL AUNT- RA\NSISTER () BREAST CANCER. SOCIAL HISTORY GENERAL: TOBACCO USE ARE YOU A:CURRENT SMOKER ARE YOU INTERESTED IN QUITTING?THINKING ABOUT QUITTING PREVIOUS QUIT ATTEMPTS?YES, MORE THAN 6 MONTHS AGO. COUNSELED THE PATIENT ON SMOKING CESSATION, EDUCATION [id number]/05/2018 HOW MANY CIGARETTES A DAY DO YOU SMOKE?11-20 HOW SOON AFTER YOU WAKE UP DO YOU SMOKE YOUR FIRST CIGARETTE?6-30 MIN HOW OFTEN DO YOU SMOKE CIGARETTES?EVERY DAY PATIENT COUNSELED ON THE DANGERS OF TOBACCO USE AND URGED TO QUIT:06/18/2018 GOING TO HYPNOTIST SMOKING CESSATION INFORMATION GIVEN10/22/2018 LATEX QUESTIONNAIRE LATEX ALLERGY : HAVE YOU EVER DEVELOPED ANY TYPE OF REACTION AFTER HANDLING LATEX PRODUCTS SUCH RUBBER GLOVES, CONDOMS, DIAPHRAGMS, BALLOONS, SOCKS, OR UNDERWEAR?YES - PLEASE INDICATE :RUBBER GLOVES, OTHER (DOCUMENT IN NOTES) BANDAIDS LATEX ALLERGY : HAVE YOU EVER DEVELOPED ANY TYPE OF REACTION DURING OR AFTER DENTAL APPOINTMENT, VAGINAL/RECTAL EXAMINATION, SURGICAL PROCEDURE, OR ANY OTHER EXPOSURE?NO LATEX RISK : HAVE YOU EVER HAD ANY DIFFICULTY BREATHING OR HIVES AFTER EATING OR HANDLING ANY FRUITS, OR VEGETABLES; SUCH KIWI, BANANAS, STONE FRUITS, OR CHESTNUTSNO LATEX RISK : DO YOU HAVE A PREVIOUS PERSONAL HISTORY OF MORE THAN NINE SURGERIES, SPINA BIFIDA, OR REPEATED CATHERTIZATIONS? NO LATEX RISK : ARE YOU FREQUENTLY EXPOSED TO LATEX PRODUCTS IN YOUR OCCUPATION?NO DATE ASKED : 10/22/2018 ALCOHOL SCREENING DID YOU HAVE A DRINK CONTAINING ALCOHOL IN THE PAST YEAR?YES HOW OFTEN DID YOU HAVE SIX OR MORE DRINKS ON ONE OCCASION IN THE PAST YEAR?NEVER (0 POINTS) HOW MANY DRINKS DID YOU HAVE ON A TYPICAL DAY WHEN YOU WERE DRINKING IN THE PAST YEAR?1 OR 2 (0 POINTS) HOW OFTEN DID YOU HAVE A DRINK CONTAINING ALCOHOL IN THE PAST YEAR?MONTHLY OR LESS (1 POINT) POINTS1 INTERPRETATIONNEGATIVE RECREATIONAL DRUG USE DRUG USE?NO CAFFEINE CAFFEINE USE?NO SEXUAL HX HAD SEX IN THE LAST 12 MONTHS (VAGINAL, ORAL, OR ANAL)?YES WITHMEN ONLY PREVENTION STRATEGIES DISCUSSED:OTHER USE PROTECTION?NO HAVE YOU EVER HAD AN STD?NO HIV / HEP-C SCREENING HIV TEST OFFERED TO PATIENT:YES DATE OFFERED:06/24/2017 TEST ACCEPTED:YES HEP-C TEST OFFERED TO PATIENT:YES DATE OFFERED:06/24/2017 TEST ACCEPTED:NO REASON:PATIENT DECLINED BROCHURE PROVIDED TO PATIENTYES JAIN [id number] [employer] LANGUAGES SPOKEN:[place]ALL[place] EDUCATION LEVEL OF EDUCATION:HIGH SCHOOL COLLEGE CLASSES LEARNING BARRIERS / SPECIAL NEEDS CHANGE FROM LAST VISIT?NO BARRIERS TO LEARNING?NO HEARING IMPAIRED?NO VISION IMPAIRED?YES COGNITIVELY IMPAIRED?NO :CORRECTIVE LENSES READINESS TO LEARN?YES LEARNING PREFERENCES?NO LEARNING CAPABILITIES PRESENT?YES EMOTIONAL BARRIERS?NO SPECIAL DEVICES?NO DOMESTIC VIOLENCE DO YOU FEEL SAFE IN YOUR ENVIRONMENT?YES 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 DIET: REGULAR. EXERCISE: DAILY. MARITAL STATUS: . PAIN CLINIC PFS, CLERGY, PUBLIC HEALTH REFERRALS WAS THE PROVIDER NOTIFIED OF ANY PERTINENT INFO?YES HAS THE PATIENT BEEN EDUCATED REGARDING HIS/HER PLAN OF CARE?YES HAS THE PATIENT BEEN EDUCATED REGARDING PAIN, THE RISK FOR PAIN, THE IMPORTANCE OF EFFECTIVE PAIN MANAGEMENT, AND THE PAIN ASSESSMENT PROCESS?YES HOUSING: OWNS HOME. ADVANCE DIRECTIVE ADVANCE DIRECTIVE DISCUSSED WITH PATIENT:YES STATES SHE HAS HCP -WM [id number](C), (W) , (H) PT ASKED TO BRING A COPY IN FOR OUR FILES AD 12/16/17 1440 REVIEWED WITH PT. 12/25/17 1520 REVIEWED WITH PT. AD01/22/18 1034 REVIEWED WITH PT. ADREVIEWED WITH PT 05/27/18 1503 BV. HOSPITALIZATION/MAJOR DIAGNOSTIC PROCEDURE FOR ABOVE REASONS LEGIONAIRRE'S DISEASE 1994 REVIEW OF SYSTEMS REVIEWED BY: PROVIDER: DARIUS SIERRA . CONSTITUTIONAL: ANY CHANGE IN YOUR MEDICAL CONDITION? NO . CHILLS NO . FEVER NO . INFECTION: DO YOU HAVE NEW INFECTIONS? NO . DO YOU HAVE HISTORY OF MRSA? NO . MUSCULOSKELETAL: ANY NEW PATTERNS OF PAIN OR NUMBNESS? NO . GASTROENTEROLOGY: ANY NEW CHANGE IN BOWEL CONTROL? NO . GENITOURINARY: ANY NEW CHANGE IN BLADDER CONTROL? NO . IS THERE A CHANCE YOU COULD BE ? NO . HEMATOLOGY/LYMPH: DO YOU TAKE ANY BLOOD THINNERS? (FOR EXAMPLE- COUMADIN, PLAVIX, AGGRENOX, PLATEL, PRADAXA, OR XARELTO) NO . WHEN WAS YOUR LAST DOSE? DATE: TIME: . NEUROLOGY: HAVE YOU FALLEN IN THE PAST 12 MONTHS? NO . ANY NEW EXTREMITY NUMBNESS OR WEAKNESS? NO . CARDIOLOGY: DO YOU HAVE A PACEMAKER OR DEFIBRILLATOR? NO . RESPIRATORY: HAVE YOU BEEN SICK IN THE PAST WEEK? NO . FEVER NO . FLU LIKE SYMPTOMS? NO . COUGH NO . INTEGUMENTARY: DO YOU HAVE ANY RASHES OR OPEN SORES? NO . ALLERGIC/IMMUNO: ARE YOU ALLERGIC TO IV DYE? NO . ANY NEW ALLERGIES? NO . PSYCHIATRIC: DO YOU HAVE THOUGHTS OF HURTING YOURSELF OR SOMEONE ELSE? NO . ARE YOU ABUSED, NEGLECTED, OR IN AN UNSAFE ENVIRONMENT? NO . ENDOCRINOLOGY: ARE YOU DIABETIC? NO . OTHER: DO YOU NEED ANY PRESCRIPTIONS? PATCHES . IF YES, PLEASE LIST: ____ . ANY NEW PROBLEMS WITH YOUR MEDICATIONS? NO . WHEN DID YOU LAST EAT? ____ . WHEN DID YOU LAST DRINK? ____ . WHAT DID YOU LAST DRINK? ____ . NAME OF PERSON DRIVING YOU HOME? ____ . DO YOU HAVE ANY OTHER QUESTIONS OR CONCERNS SHINGLES VACCINATION 10/15/18 . VITAL SIGNS WT 174.6 LBS, HT 64.5 IN, BMI 29.50 INDEX, BP 152/75 MM HG, HR 105 /MIN, RR 18 /MIN, TEMP 96.2 F, OXYGEN SAT % 97%, SAFE IN ENV? (Y/N) Y, NA INITIALS AW 1050, REVIEWED BY: ELISA. EXAMINATION GENERAL EXAMINATION: GENERAL APPEARANCE: COMFORTABLE . PSYCH AFFECT NORMAL. LUNGS: LUNG CARTWRIGHT ARE CLEAR TO AUSCULTATION BILATERALLY. GOOD MOVEMENT OF AIR. HEART: S1, S2 IN A REGULAR RATE AND RHYTHM. NO SIGNIFICANT MURMURS, RUBS OR GALLOPS NOTED. THORACIC SPINE TENDER WITH PALPATION OVER MID THORACIC FACETS BILAT. DIAGNOSTIC TESTS REVIEWED MRI THORACIC SPINE 14. ASSESSMENTS FACET ARTHROPATHY, THORACIC - M47.814 (PRIMARY) TREATMENT FACET ARTHROPATHY, THORACIC REFILL FLECTOR PATCH, 1.3 %, 1 PATCH TO SKIN, TRANSDERMAL FOR PAIN, TWICE A DAY, 15 DAYS, 30, REFILLS 0, NOTES: USES NEEDED NOTES: T6/7-T8/9 THERAPEUTIC FACET BLOCK BILAT. PREVENTIVE MEDICINE PAIN CLINIC TEACHING: PROCEDURE TEACHING REVIEWED FACET BLOCK PROCEDURE INFORMATION WITH PATIENT. PATIENT DECLINED PRINTED MATERIAL SHE HAS HAD THE PROCEDURE IN THE PAST. ALSO REVIEWED PRE-PROCEDURE INSTRUCTIONS. PATIENT VERBALIZED AN UNDERSTANDING. MELBA DUNHAM 10/22/2018 11:29:35 AM > . PROCEDURE CODES FA211 ESTABILISHED PATIENT [facility] CHARGE DISPOSITION & COMMUNICATION FOLLOW UP POST (REASON: T6/7-T8/9 THERAPEUTIC FACET BLOCK BILAT.) ELECTRONICALLY SIGNED BY MARIELA CLINTON ON 11/05/2018 AT 02:26 PM EDT DISCLAIMER : THIS IS A VISIT SUMMARY EXTRACTED FROM THE [employer] CHART. IT IS NOT A COPY OF THE [employer] PROGRESS NOTE. MIKE
== END ==
LOC: M PAIN 10:30
PROVIDERS: ATTEND Nurse Practitioner Family
DX: M47.814 Spondylosis without myelopathy or radiculopathy, thoracic region (principal); G89.29 Other chronic pain; E03.9 Hypothyroidism, unspecified; M79.7 Fibromyalgia; K21.9 Gastro-esophageal reflux disease without esophagitis; Z86.39 Personal history of other endocrine, nutritional and metabolic disease; Z85.3 Personal history of malignant neoplasm of breast; F17.210 Nicotine dependence, cigarettes, uncomplicated; Z88.2 Allergy status to sulfonamides; Z88.5 Allergy status to narcotic agent; Z88.6 Allergy status to analgesic agent; Z88.8 Allergy status to other drugs, medicaments and biological substances; Z91.040 Latex allergy status; Z79.899 Other long term (current) drug therapy

== ENCOUNTER → 2018-11-09 | Outpatient (CLI) | payer BC ==
--- NOTE | 2018-11-10 09:30 | REP ---
Clinical: Abdominal pain. Technique: Two supine views of the abdomen and pelvis. Findings: Bowel gas pattern is nonspecific although mild fecal stasis and constipation cannot be excluded. No organomegaly. No abnormal calcifications. Skeletal structures are intact. Phleboliths noted in the pelvis. Impression: Nonspecific bowel gas pattern. Mild fecal stasis cannot be excluded. Electronically Signed by Anish Serrato MD 11/10/2018 09:21 A
--- NOTE | 2018-11-10 09:32 | REP ---
Clinical: Left-sided rib pain without trauma. Technique: Frontal view of the chest with for views of the left hemithorax. Findings: Frontal view of the chest demonstrates no acute cardiopulmonary process. Multiple views of the left hemithorax demonstrates no obvious acute rib fracture or pathology. Impression: Normal left rib series Electronically Signed by Anish Serrato MD 11/10/2018 09:23 A
== END ==
LOC: M WUC 12:42
PROVIDERS: ATTEND Physician Assistant
DX: R14.3 Flatulence (principal)

== ENCOUNTER → 2018-11-17 | Outpatient (CLI) | payer BC ==
[2018-11-17 15:30] LABS: FREE T4 1.56 NG/DL (0.76-1.46); THYROID STIMULATING HORMONE 0.376 uIU/ML (0.358-3.740)
== END ==
LOC: M WUC 11:39
PROVIDERS: ATTEND Internal Medicine Endocrinology, Diabetes & Metabolism
DX: E03.9 Hypothyroidism, unspecified (principal)

== ENCOUNTER → 2018-11-20 | Outpatient (REF) | payer BC | LOC: M SFHCPLAZ 09:45 | PROVIDERS: ATTEND Dermatology | DX: R21 Rash and other nonspecific skin eruption (principal) ==

== ENCOUNTER → 2018-11-24 | Outpatient (CLI) | payer BC ==
[~2018-11-24] MED LIST changes: +BUPIVACAINE HCL 0.25% 30 ML VIAL As Ordered ONE; +ISOVUE-M 300 61% 15ML VIAL (Q9967) As Ordered ONE; +LIDOCAINE 1% SDV INJ 30 ML VIAL As Ordered ONE; +TRIAMCINOLONE ACETONIDE SUSP 40 MG/ML VIAL (J3301) As Ordered ONE; +diazePAM 5 MG TAB As Ordered ONE; +oxyCODONE 5MG TAB As Ordered ONE
--- NOTE | 2018-11-25 07:29 | REP ---
Chest x-ray: Three views. History: Rule out pneumothorax. The patient is status post bilateral thoracic facet block. Comparison study: November 09, 2018. Findings: Inspiration, expiration PA and lateral views are obtained. These show no evidence of pneumothorax on either side. No hydrothorax is seen. No infiltrate is noted. Cardiomediastinal silhouette is unremarkable. No bony abnormality is appreciated. Impression: No active disease. No pneumothorax seen. Electronically Signed by Porfirio Liao MD 11/25/2018 09:09 A
--- NOTE | 2018-11-25 07:59 | REP ---
Partial thoracic spine series: Two views. History: Bilateral thoracic facet block for pain. 68 seconds of fluoroscopy time is reported. Findings: A sequence of two last image hold fluoroscopically obtained spot radiographs of the thoracic spine document needle positions and contrast injections associated with injection procedure. Electronically Signed by Porfirio Liao MD 11/25/2018 09:10 A
--- NOTE | 2018-12-08 01:13 | ECWPNPC ---
PATIENT NAME: TERESE DAMON : 1955 GENDER: FEMALE VISIT DATE: 11/24/2018 DISCHARGE DATE: 11/24/181650 VISIT LOCKED DATE TIME: PHYSICIAN: SVITLANA MEDRANO MD RESOURCE: SVITLANA MEDRANO MD REASON FOR APPOINTMENT 1. T6/7-T8/9 THERAPEUTIC FACET BLOCK BILAT. HISTORY OF PRESENT ILLNESS HISTORY OF PRESENT ILLNESS: PAIN THE PATIENT DESCRIBES THE PAIN... THE PATIENT DESCRIBES THE PAIN... PAIN THE PATIENT DESCRIBES THE PAIN... THE PATIENT DESCRIBES THE PAIN... FALL RISK SCREENING: SCREENING :NO FALLS REPORTED IN THE LAST YEAR :NO FALLS REPORTED IN THE LAST YEAR SCREENING :NO FALLS REPORTED IN THE LAST YEAR :NO FALLS REPORTED IN THE LAST YEAR CURRENT MEDICATIONS TAKING CLARITIN 10 MG TABLET 1 TABLET ORALLY DAILY NEEDED, NOTES: 11-24-18899 TAKING MULTIVITAMINS OTC TABLET 1 ORALLY ONCE A DAY, NOTES: 11-24-18899 TAKING LEVOTHYROXINE SODIUM 112 MCG TABLET 1 1/2 TABLET ORALLY ONCE A DAY, NOTES: 11-24-18899 TAKING NEBULIZER - DEVICE DIRECTED DX: J45.909 DIRECTED, NOTES: NOT LATELY TAKING VITAMIN D 1000 UNIT TABLET 1 TABLET ORALLY ONCE A DAY TAKING RESTASIS 0.05 % EMULSION 1 DROP INTO AFFECTED EYE OPHTHALMIC TWICE A DAY, NOTES: 11-23-182099 TAKING TRAZODONE HCL 50 MG TABLET 1 TABLET AT BEDTIME NEEDED ORALLY ONCE A DAY, NOTES: 11-23-182099 TAKING COMBIVENT RESPIMAT 20-100 MCG/ACT AEROSOL SOLUTION 1 PUFF INHALATION FOUR TIMES A DAY, NOTES: NOT LATELY TAKING KETOCONAZOLE 2 % CREAM 1 APPLICATION TO FEET EXTERNALLY TWICE A DAY NEEDED, NOTES: 11-24-18 TAKING GABAPENTIN 300 MG CAPSULE 2 CAPSULE ORALLY THREE TIMES A DAY, NOTES: 11-24-18899 TAKING SULFASALAZINE 500 MG TABLET 1 TABLET ORALLY BID, NOTES: 11-24-18899 TAKING FLECTOR 1.3 % PATCH 1 PATCH TO SKIN TRANSDERMAL FOR PAIN TWICE A DAY, NOTES: 11-22-182099 TAKING OMEPRAZOLE 40 MG CAPSULE DELAYED RELEASE 1 CAPSULE ORALLY ONCE A DAY, NOTES: 11-24-18799 TAKING DRISDOL 29665 UNIT CAPSULE 1 CAPSULE ORALLY ONCE A WEEK, NOTES: FRIDAY TAKING EVISTA 60 MG TABLET 1 TABLET ORALLY ONCE A DAY, NOTES: 11-24-18 TAKING MIRALAX - PACKET 1 PACKET MIXED WITH 8 OUNCES OF FLUID ORALLY ONCE A DAY, NOTES: 11-16-18 2100 NOT-TAKING SOMA 350 MG TABLET 1 TABLET NEEDED FOR SPASMS AND PAIN ORALLY BEFORE BEDTIME. USE VERY SPARINGLY. MDD1, NOTES: NOT LATELY NOT-TAKING VOLTAREN 1 % GEL DIRECTED TRANSDERMAL FOR PAIN AT AFFECTED AREA FOUR TIMES DAILY NEEDED NOT-TAKING DICLOFENAC SODIUM 1 % GEL APPLY TO AFFECTED AREA(S) FOUR TIMES A DAY FOR PAIN NOT-TAKING VITAMIN B-12 5000 MCG TABLET DISPERSIBLE 1 TABLET ORALLY ONCE A DAY NOT-TAKING BREO ELLIPTA 100-25 MCG/INH AEROSOL POWDER BREATH ACTIVATED 1 PUFF INHALATION ONCE A DAY NOT-TAKING ALBUTEROL SULFATE (2.5 MG/3ML) 0.083% NEBULIZATION SOLUTION 3 ML INHALATION EVERY 4 HOURS NEEDED FOR SOB NOT-TAKING DULOXETINE HCL 30 MG CAPSULE DELAYED RELEASE PARTICLES 1 CAPSULE ORALLY ONCE A DAY NOT-TAKING OXYCODONE HCL 5 MG TABLET 1 TABLET NEEDED ORALLY BEFORE BEDTIME NOT-TAKING MAY HAVE - - NEBULIZER TUBING DX: J45.909 DIRECTED WITH NEBULIZER NOT-TAKING OXYCODONE HCL 5 MG TABLET 1 TABLET NEEDED ORALLY NEEDED DAILY, NOTES: 01/25 11PM MEDICATION LIST REVIEWED AND RECONCILED WITH THE PATIENT PAST MEDICAL HISTORY FX 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 OF HYPERLIPIDEMIA FIBROCYSTIC BREAST DISEASE DDD/DD MVP CHRONIC BACK DISCOM'T LEFT BREAST CANCER 10/11/14 EYE INJECTIONS ALLERGIES SULFA (FOR ALLERGY USE ONLY): NAUSEA/VOMITING - SIDE EFFECTS CODEINE PHOSPHATE: NAUSEA/VOMITING - SIDE EFFECTS LATEX: RASH - ALLERGY RUBBER: RASH - ALLERGY MELOXICAM: HEADACHE - SIDE EFFECTS ANASTROZOLE: WEAKNESS, ACHES, DRY COUGH - SIDE EFFECTS SURGICAL HISTORY APPENDECTOMY 1978 1985 BREAST SURGERY/CYST ASP. X 2 /LEFT EYES FOR GRAVES DISEASE HYSTERECTOMY PARTIAL 1994 LEFT FT. SURGERY 2003 RIGHT WRIST SURGERY 07/09 AND 01/02 COLONOSCOPY 2009 LUMPECTOMY 10/16 BILATERAL MASTECTOMY WITH SILICONE IMPLANTS 12/16 BREAST RECONSTRUCTION 07/18 BILATERAL BREAST IMPLANT REPLACEMENTS 12/17 FAT GRAFT FROM ABDOMEN TO RIGHT BREAST 09/2017 PUNCH BIOPSY RIGHT HEEL FAMILY HISTORY MOTHER: LUPUS (UNKNOWN WHAT TYPE), HYPERTENSION MATERNAL GRAND MOTHER: RHEUMATOID FATHER: DIAGNOSED WITH HEART DISEASE, CANCER PATERNAL AUNT- RA\\\\\\\\NSISTER () BREAST CANCER\\NDENIES FAMILY HX OF PANCREATIC CANCER OR MELANOMA. SOCIAL HISTORY GENERAL: TOBACCO USE ARE YOU A:CURRENT SMOKER ARE YOU INTERESTED IN QUITTING?THINKING ABOUT QUITTING PREVIOUS QUIT ATTEMPTS?YES, MORE THAN 6 MONTHS AGO. COUNSELED THE PATIENT ON SMOKING CESSATION, EDUCATION [id number]/05/2018 HOW MANY CIGARETTES A DAY DO YOU SMOKE?11-20 HOW SOON AFTER YOU WAKE UP DO YOU SMOKE YOUR FIRST CIGARETTE?6-30 MIN HOW OFTEN DO YOU SMOKE CIGARETTES?EVERY DAY PATIENT COUNSELED ON THE DANGERS OF TOBACCO USE AND URGED TO QUIT:11/24/2018 GOING TO HYPNOTIST SMOKING CESSATION INFORMATION GIVEN10/22/2018 LATEX QUESTIONNAIRE LATEX ALLERGY : HAVE YOU EVER DEVELOPED ANY TYPE OF REACTION AFTER HANDLING LATEX PRODUCTS SUCH RUBBER GLOVES, CONDOMS, DIAPHRAGMS, BALLOONS, SOCKS, OR UNDERWEAR?YES LATEX ALLERGY : HAVE YOU EVER DEVELOPED ANY TYPE OF REACTION DURING OR AFTER DENTAL APPOINTMENT, VAGINAL/RECTAL EXAMINATION, SURGICAL PROCEDURE, OR ANY OTHER EXPOSURE?NO - PLEASE INDICATE :RUBBER GLOVES, OTHER (DOCUMENT IN NOTES) BANDAIDS DATE ASKED : 10/22/2018 LATEX RISK : HAVE YOU EVER HAD ANY DIFFICULTY BREATHING OR HIVES AFTER EATING OR HANDLING ANY FRUITS, OR VEGETABLES; SUCH KIWI, BANANAS, STONE FRUITS, OR CHESTNUTSNO LATEX RISK : DO YOU HAVE A PREVIOUS PERSONAL HISTORY OF MORE THAN NINE SURGERIES, SPINA BIFIDA, OR REPEATED CATHERTIZATIONS? NO LATEX RISK : ARE YOU FREQUENTLY EXPOSED TO LATEX PRODUCTS IN YOUR OCCUPATION?NO ALCOHOL SCREENING DID YOU HAVE A DRINK CONTAINING ALCOHOL IN THE PAST YEAR?YES HOW OFTEN DID YOU HAVE SIX OR MORE DRINKS ON ONE OCCASION IN THE PAST YEAR?NEVER (0 POINTS) HOW MANY DRINKS DID YOU HAVE ON A TYPICAL DAY WHEN YOU WERE DRINKING IN THE PAST YEAR?1 OR 2 (0 POINTS) HOW OFTEN DID YOU HAVE A DRINK CONTAINING ALCOHOL IN THE PAST YEAR?MONTHLY OR LESS (1 POINT) POINTS1 INTERPRETATIONNEGATIVE RECREATIONAL DRUG USE DRUG USE?NO CAFFEINE CAFFEINE USE?NO SEXUAL HX HAD SEX IN THE LAST 12 MONTHS (VAGINAL, ORAL, OR ANAL)?YES WITHMEN ONLY PREVENTION STRATEGIES DISCUSSED:OTHER USE PROTECTION?NO HAVE YOU EVER HAD AN STD?NO HIV / HEP-C SCREENING HIV TEST OFFERED TO PATIENT:YES DATE OFFERED:06/24/2017 TEST ACCEPTED:YES HEP-C TEST OFFERED TO PATIENT:YES DATE OFFERED:06/24/2017 TEST ACCEPTED:NO REASON:PATIENT DECLINED BROCHURE PROVIDED TO PATIENTYES BUDDHISM [id number] CHEONDOISM LANGUAGE LANGUAGES SPOKEN:SETSWANA EDUCATION LEVEL OF EDUCATION:HIGH SCHOOL COLLEGE CLASSES LEARNING BARRIERS / SPECIAL NEEDS CHANGE FROM LAST VISIT?NO BARRIERS TO LEARNING?NO HEARING IMPAIRED?NO VISION IMPAIRED?YES COGNITIVELY IMPAIRED?NO :CORRECTIVE LENSES READINESS TO LEARN?YES LEARNING PREFERENCES?NO LEARNING CAPABILITIES PRESENT?YES EMOTIONAL BARRIERS?NO SPECIAL DEVICES?NO DOMESTIC VIOLENCE DO YOU FEEL SAFE IN YOUR ENVIRONMENT?YES 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 DIET: REGULAR. EXERCISE: DAILY. MARITAL STATUS: . PAIN CLINIC PFS, CLERGY, PUBLIC HEALTH REFERRALS WAS THE PROVIDER NOTIFIED OF ANY PERTINENT INFO?YES HAS THE PATIENT BEEN EDUCATED REGARDING HIS/HER PLAN OF CARE?YES HAS THE PATIENT BEEN EDUCATED REGARDING PAIN, THE RISK FOR PAIN, THE IMPORTANCE OF EFFECTIVE PAIN MANAGEMENT, AND THE PAIN ASSESSMENT PROCESS?YES HOUSING: OWNS HOME. ADVANCE DIRECTIVE ADVANCE DIRECTIVE DISCUSSED WITH PATIENT:YES STATES SHE HAS HCP -WM [phone](C), (W) , (H) PT ASKED TO BRING A COPY IN FOR OUR FILES AD 12/16/17 1440 REVIEWED WITH PT. 12/25/17 1520 REVIEWED WITH PT. AD01/22/18 1034 REVIEWED WITH PT. ADREVIEWED WITH PT 05/27/18 1503 BV. HOSPITALIZATION/MAJOR DIAGNOSTIC PROCEDURE FOR ABOVE REASONS [facility]IONAIRRE'S DISEASE 1994 REVIEW OF SYSTEMS REVIEWED BY: PROVIDER: , . CONSTITUTIONAL: ANY CHANGE IN YOUR MEDICAL CONDITION? NO, NO . CHILLS NO, NO . FEVER NO, NO . INFECTION: DO YOU HAVE NEW INFECTIONS? NO, NO . DO YOU HAVE HISTORY OF MRSA? NO, NO . MUSCULOSKELETAL: ANY NEW PATTERNS OF PAIN OR NUMBNESS? NO, NO . GASTROENTEROLOGY: ANY NEW CHANGE IN BOWEL CONTROL? NO, NO . GENITOURINARY: ANY NEW CHANGE IN BLADDER CONTROL? NO, NO . IS THERE A CHANCE YOU COULD BE ? NO, NO . HEMATOLOGY/LYMPH: DO YOU TAKE ANY BLOOD THINNERS? (FOR EXAMPLE- COUMADIN, PLAVIX, AGGRENOX, PLATEL, PRADAXA, OR XARELTO) NO, NO . WHEN WAS YOUR LAST DOSE? DATE: TIME: , DATE: TIME: . NEUROLOGY: HAVE YOU FALLEN IN THE PAST 12 MONTHS? NO, NO . ANY NEW EXTREMITY NUMBNESS OR WEAKNESS? NO, NO . CARDIOLOGY: DO YOU HAVE A PACEMAKER OR DEFIBRILLATOR? NO, NO . RESPIRATORY: HAVE YOU BEEN SICK IN THE PAST WEEK? NO, NO . FEVER NO, NO . FLU LIKE SYMPTOMS? NO, NO . COUGH NO, NO . INTEGUMENTARY: DO YOU HAVE ANY RASHES OR OPEN SORES? NO, NO . ALLERGIC/IMMUNO: ARE YOU ALLERGIC TO IV DYE? NO, NO . ANY NEW ALLERGIES? NO, NO . PSYCHIATRIC: DO YOU HAVE THOUGHTS OF HURTING YOURSELF OR SOMEONE ELSE? NO, NO . ARE YOU ABUSED, NEGLECTED, OR IN AN UNSAFE ENVIRONMENT? NO, NO . ENDOCRINOLOGY: ARE YOU DIABETIC? NO, NO . OTHER: DO YOU NEED ANY PRESCRIPTIONS? NO, NO . IF YES, PLEASE LIST: ____, ____ . ANY NEW PROBLEMS WITH YOUR MEDICATIONS? NO, NO . WHEN DID YOU LAST EAT? ____, ____9 PM LAST NIGHT . WHEN DID YOU LAST DRINK? ____, ____THIS MORNING 8 AM . WHAT DID YOU LAST DRINK? ____, ____WATER . NAME OF PERSON DRIVING YOU HOME? ____, ____ . DO YOU HAVE ANY OTHER QUESTIONS OR CONCERNS NO, NO . VITAL SIGNS WT 172.4 LBS, HT 64.5 IN, BMI 29.13 INDEX, BP 138/77 MM HG, HR 94 /MIN, RR 16 /MIN, TEMP 98.8 F, REVIEWED BY: DIOR. ASSESSMENTS SPONDYLOSIS OF THORACIC REGION WITHOUT MYELOPATHY OR RADICULOPATHY - M47.814 (PRIMARY) TREATMENT SPONDYLOSIS OF THORACIC REGION WITHOUT MYELOPATHY OR RADICULOPATHY [facility] FACET BLOCK (PAIN)[id number] PROCEDURES PN LUMBAR FACET BLOCK THERAPEUTIC PRE PROCEDURE DIAGNOSIS THORACIC SPONDYLOSIS. POST PROCEDURE DIAGNOSIS THORACIC SPONDYLOSIS. PROCEDURE BILATERAL T5-T6, BILATERAL T6-T7, AND BILATERAL T7-T8 THERAPEUTIC FACET BLOCK. SURGEON DR. SVITLANA MEDRANO RESEARCH ANIMAL FACILITY SUPERVISOR NONE ANESTHESIA LOCAL PRE PROCEDURE NOTE THE PATIENT HAS A HISTORY OF CHRONIC LOW BACK PAIN. I EVALUATED THE PATIENT AND REVIEWED THE CHART. I WENT OVER THE RISKS, ALTERNATIVES, AND BENEFITS ASSOCIATED WITH THIS PROCEDURE. THE PATIENT WOULD LIKE TO PROCEED AND GIVE CONSENT TO PERFORMED THE PROCEDURE. THE PATIENT DENIES UNEXPLAINABLE WEIGHT LOSS, FEVER, CHILLS, OR NEW CHANGES IN URINARY OR BOWEL CONTROL DESCRIPTION OF PROCEDURE THE PATIENT WAS BROUGHT TO THE PROCEDURE ROOM AND PLACED IN THE PRONE POSITION. THE LUMBOSACRAL AREA WAS CLEANED WITH CHLORAPREP SOLUTION AND DRAPED ASEPTICALLY. THE PROCEDURE WAS DONE UNDER STERILE CONDITIONS. I CHECKED LATERALITY AND THE LEVEL WHERE THE PROCEDURE WAS GOING TO BE PERFORMED WITH THE PATIENT AND THE SUPPORTING STAFF AT THE MOMENT OF THE TIME OUT IN THE PROCEDURE ROOM. UNDER FLUOROSCOPIC GUIDANCE, THE TARGET POINT WAS SELECTED AT THE RIGHT AND LEFT T5-T6, RIGHT AND LEFT T6-T7, AND RIGHT AND LEFT T7-T8 FACET JOINTS. TARGET POINT WAS SELECTED AFTER LATERAL ROTATION AND TILT OF THE MAGNIFIER OF THE C-ARM. LIDOCAINE 0.5% WAS USED TO NUMB THE SKIN AND THE SUBCUTANEOUS TISSUE BELOW IT. SPINAL NEEDLES, 22-GAUGE, WERE ADVANCED UNDER FLUOROSCOPIC GUIDANCE AND FOLLOWING PATIENT FEEDBACK UNTIL THE TARGETS WERE TOUCHED. THE POSITION OF THE NEEDLES WAS VERIFIED WITH AP AND LATERAL VIEWS. AFTER PROPER POSITION OF THE NEEDLES WAS ACHIEVED, ISOVUE-M DYE 30% 0.1 ML WAS INJECTED SHOWING ADEQUATE SPREAD OF THE DYE. THEN A SOLUTION OF 1.9 ML OF BUPIVACAINE 0.125% OF KENALOG 10 MG WAS INJECTED AT EACH SITE. THERE WAS NO EVIDENCE OF BLOOD, PARESTHESIA OR CEREBROSPINAL FLUID DURING THE PROCEDURE. THE PATIENT WAS SENT TO THE RECOVERY ROOM. THE PATIENT WAS MOVING THE EXTREMITIES AND DOING WELL. THERE WAS NO COMPLICATION DURING THE PROCEDURE. FLUOROSCOPY TIME WAS 68 SECONDS. POST PROCEDURE NOTE THE PATIENT WILL BE SEEN IN A FOLLOW UP IN THE NEXT FEW WEEKS. INSTRUCTIONS WERE GIVEN, QUESTIONS WERE ANSWERED, AND THE PATIENT EXPRESSED UNDERSTANDING AND AGREES WITH THE PLAN. I, ROSA M ATWOOD, DOCUMENTED THE ABOVE INFORMATION ACTING A SCRIBE FOR DR. MEDRANO. I HAVE REVIEWED THE ABOVE DOCUMENT, WRITTEN BY ROSA M ATWOOD SCRIBDiego AND I VERIFY THAT IT IS ACCURATE. PROCEDURE CODES 15228 INJ PARAVERT F JNT C/T 1 LEV, MODIFIERS: 50 21779 INJ PARAVERT F JNT C/T 2 LEV, MODIFIERS: 50 39167 INJ PARAVERT F JNT C/T 3 LEV, MODIFIERS: 50 [id number] RADXPS IN END [id number] PXD DISPOSITION & COMMUNICATION FOLLOW UP 3 WEEKS ELECTRONICALLY SIGNED BY SVITLANA MEDRANO MD, MD ON 12/07/2018 AT 07:02 PM EDT DISCLAIMER : THIS IS A VISIT SUMMARY EXTRACTED FROM THE [employer] CHART. IT IS NOT A COPY OF THE [employer] PROGRESS NOTE. MIKE
== END ==
LOC: M PAIN 12:45
PROVIDERS: ATTEND Anesthesiology
DX: G89.29 Other chronic pain (principal); M47.814 Spondylosis without myelopathy or radiculopathy, thoracic region; E03.9 Hypothyroidism, unspecified; M79.7 Fibromyalgia; K21.9 Gastro-esophageal reflux disease without esophagitis; F17.210 Nicotine dependence, cigarettes, uncomplicated; Z79.899 Other long term (current) drug therapy; Z88.2 Allergy status to sulfonamides; Z88.5 Allergy status to narcotic agent; Z88.8 Allergy status to other drugs, medicaments and biological substances; Z91.040 Latex allergy status; Z91.09 Other allergy status, other than to drugs and biological substances; Z85.3 Personal history of malignant neoplasm of breast; Z86.19 Personal history of other infectious and parasitic diseases
CPT/HCPCS: 64490; 64491; 64492; 71046; J3301; Q9967

== ENCOUNTER → 2018-12-04 | Outpatient (REF) | payer BC ==
[~2018-12-04] MED LIST changes: -BUPIVACAINE HCL 0.25% 30 ML VIAL As Ordered ONE; -ISOVUE-M 300 61% 15ML VIAL (Q9967) As Ordered ONE; -LIDOCAINE 1% SDV INJ 30 ML VIAL As Ordered ONE; -TRIAMCINOLONE ACETONIDE SUSP 40 MG/ML VIAL (J3301) As Ordered ONE; -diazePAM 5 MG TAB As Ordered ONE; -oxyCODONE 5MG TAB As Ordered ONE
[2018-12-04 16:32] LABS: HEMOGLOBIN 14.5 g/dl (12.0-15.5); MEAN CORPUSCULAR HEMOGLOBIN 29.5 pg (27.0-33.0); MEAN CORPUSCULAR VOLUME 89.6 fl (80.0-96.0); PLATELET COUNT, AUTOMATED 343 10^3/uL (150-450); RED BLOOD COUNT 4.91 10^6/uL (4.00-5.40); WHITE BLOOD COUNT 12.2 10^3/uL (4.0-10.0)
[2018-12-04 16:34] LABS: ALBUMIN 4.2 GM/DL (3.2-5.2); ALT/SGPT 20 U/L (12-78); BILIRUBIN,TOTAL 0.7 MG/DL (0.2-1.0); BLOOD UREA NITROGEN 22 MG/DL (7-18); CALCIUM LEVEL 9.5 MG/DL (8.8-10.2); CARBON DIOXIDE LEVEL 26 MEQ/L (21-32); CHLORIDE LEVEL 106 MEQ/L (98-107); CHOLESTEROL LEVEL 210 MG/DL (<200); CHOLESTEROL RISK RATIO 5.121 (<5); CREATININE FOR GFR 0.68 MG/DL (0.55-1.30); GLOMERULAR FILTRATION RATE > 60.0 (>45); GLUCOSE, FASTING 86 MG/DL (70-100); HDL CHOLESTEROL 41 MG/DL (>40); LDL CHOLESTEROL 121 MG/DL (<100); NON-HDL-C 169 MG/DL; POTASSIUM SERUM 3.9 MEQ/L (3.5-5.1); SODIUM LEVEL 138 MEQ/L (136-145); THYROID STIMULATING HORMONE 0.086 uIU/ML (0.358-3.740); TRIGLYCERIDES LEVEL 241 MG/DL (<150)
[2018-12-04 16:36] LABS: TOTAL 25(OH) VITAMIN D 58.7 NG/ML (30.0-100.0)
== END ==
LOC: M SFHCPLAZ 15:34
PROVIDERS: ATTEND Internal Medicine
DX: C50.919 Malignant neoplasm of unspecified site of unspecified female breast (principal); E78.5 Hyperlipidemia, unspecified; E03.9 Hypothyroidism, unspecified; M85.50 Aneurysmal bone cyst, unspecified site

== ENCOUNTER → 2018-12-16 | Outpatient (CLI) | payer BC ==
[~2018-12-16] MED LIST changes: +GASTROGRAFIN SOLUTION 30ML (Q9963) As Ordered ONE; +ISOVUE-370 76% 100ML VIAL (Q9967) As Ordered ONE
--- NOTE | 2018-12-17 05:33 | REP ---
Clinical: Left upper quadrant pain. Technique: Axial contrast enhanced images from the lung bases to the pubic symphysis using oral (per protocol) and 100 ml Isovue 370 intravenous contrast material with coronal and sagittal re-formations. Findings: Liver includes subcentimeter hypodensity in the left lobe (image 21) which may represent small hemangioma. Spleen, pancreas, gallbladder, bilateral adrenal glands and kidneys are normal. Small incidental simple renal cysts are identified measuring up to 1 cm in left kidney. Evaluation of the visualized enteric system including stomach, small, and large bowel is relatively normal. Colonic diverticulosis noted without acute diverticulitis. No ascites. No free air. No obvious adenopathy. Abdominal aorta demonstrates atherosclerotic changes without aneurysm or dissection. Surrounding musculoskeletal structures are intact and without focal osseous abnormality. Lung bases are relatively clear. Impression: No acute abdominal pathology appreciated. Suspected subcentimeter left hepatic hemangioma. Small simple appearing renal cysts. Colonic diverticulosis without acute diverticulitis. Electronically Signed by Anish Serrato MD 12/17/2018 05:24 A
== END ==
LOC: M RAD 14:57
PROVIDERS: ATTEND Internal Medicine
DX: N28.1 Cyst of kidney, acquired (principal); K57.30 Diverticulosis of large intestine without perforation or abscess without bleeding
CPT/HCPCS: 74160; Q9963; Q9967

== ENCOUNTER → 2019-01-25 | Outpatient (CLI) | payer BC ==
[~2019-01-25] MED LIST changes: +ASPI81TA85 PO; +COQ-100C5 PO; +DICL13PA TD; +GABA-843 PO; -GASTROGRAFIN SOLUTION 30ML (Q9963) As Ordered ONE; +ICAPTAB PO; -ISOVUE-370 76% 100ML VIAL (Q9967) As Ordered ONE; +LEVO112T2 PO; +NAPR220C14 PO; +OMEP40CA2 PO; +SULF500T2 PO; +TRAZ-252 PO; +evista PO; +tylenol pm PO
--- NOTE | 2019-01-28 01:08 | ECWPNPC ---
PATIENT NAME: TERESE DAMON : 1955 GENDER: FEMALE VISIT DATE: 01/25/2019 DISCHARGE DATE: 01/25/19 1131 VISIT LOCKED DATE TIME: PHYSICIAN: DARIUS SMITH RESOURCE: DARIUS SMITH REASON FOR APPOINTMENT 1. POST PROC HISTORY OF PRESENT ILLNESS HISTORY OF PRESENT ILLNESS: HERE FOR F/U OF CHRONIC LBP.PAIN HAS ESCALATED OVER THE PAST MONTH.REPORTING CONSTANT AND SOMETIMES INCAPACITATING LBP R>L.SHE IS STATUS POST BILAT. THORACIC FACET BLOCK ON 11/24/18.RATING PAIN VAS 6-9/10.USES FLECTOR PATCH X7 DAYS TO LOW BACK FOR SEVERE FLARE UPS X7 DAYS WITH GOOD EFFECT. PAIN THE PATIENT DESCRIBES THE PAIN... FALL RISK SCREENING: SCREENING :NO FALLS REPORTED IN THE LAST YEAR CURRENT MEDICATIONS TAKING CLARITIN 10 MG TABLET 1 TABLET ORALLY DAILY NEEDED TAKING MULTIVITAMINS OTC TABLET 1 ORALLY ONCE A DAY TAKING LEVOTHYROXINE SODIUM 112 MCG TABLET 1 1/2 TABLET ORALLY ONCE A DAY TAKING NEBULIZER - DEVICE DIRECTED DX: J45.909 DIRECTED TAKING RESTASIS 0.05 % EMULSION 1 DROP INTO AFFECTED EYE OPHTHALMIC TWICE A DAY TAKING TRAZODONE HCL 50 MG TABLET 1 TABLET AT BEDTIME NEEDED ORALLY ONCE A DAY TAKING COMBIVENT RESPIMAT 20-100 MCG/ACT AEROSOL SOLUTION 1 PUFF INHALATION FOUR TIMES A DAY TAKING SULFASALAZINE 500 MG TABLET 1 TABLET ORALLY BID TAKING FLECTOR 1.3 % PATCH 1 PATCH TO SKIN TRANSDERMAL FOR PAIN TWICE A DAY TAKING OMEPRAZOLE 40 MG CAPSULE DELAYED RELEASE 1 CAPSULE ORALLY ONCE A DAY TAKING DRISDOL 23827 UNIT CAPSULE 1 CAPSULE ORALLY ONCE A WEEK TAKING EVISTA 60 MG TABLET 1 TABLET ORALLY ONCE A DAY TAKING MIRALAX - PACKET 1 PACKET MIXED WITH 8 OUNCES OF FLUID ORALLY ONCE A DAY TAKING CICLOPIROX 0.77 % GEL 1 APPLICATION TO AFFECTED AREA EXTERNALLY TWICE A DAY TO FEET TAKING SULFASALAZINE 500 MG TABLET 1 TABLET ORALLY BID TAKING GABAPENTIN 300 MG CAPSULE 2 CAPSULE ORALLY THREE TIMES A DAY NOT-TAKING VITAMIN D 1000 UNIT TABLET 1 TABLET ORALLY ONCE A DAY NOT-TAKING TERBINAFINE HCL 250 MG TABLET 1 TABLET ORALLY ONCE A DAY X 7 DAYS THEN STOP X 7 DAYS THEN REPEAT FOR 7 MORE DAYS THEN NO MORE MEDICATION NOT-TAKING VITAMIN B-12 5000 MCG TABLET DISPERSIBLE 1 TABLET ORALLY ONCE A DAY NOT-TAKING BREO ELLIPTA 100-25 MCG/INH AEROSOL POWDER BREATH ACTIVATED 1 PUFF INHALATION ONCE A DAY NOT-TAKING ALBUTEROL SULFATE (2.5 MG/3ML) 0.083% NEBULIZATION SOLUTION 3 ML INHALATION EVERY 4 HOURS NEEDED FOR SOB NOT-TAKING DULOXETINE HCL 30 MG CAPSULE DELAYED RELEASE PARTICLES 1 CAPSULE ORALLY ONCE A DAY MEDICATION LIST REVIEWED AND RECONCILED WITH THE PATIENT PAST MEDICAL HISTORY HYPERLIPIDEMIA TOBACCO ABUSE BREAST CANCER HYPOTHYROIDISM FIBROMYALGIA VITAMIN D DEFICIENCY GRAVES DISEASE OSTEOPENIA BACK PAIN ALLERGIES SULFA (FOR ALLERGY USE ONLY): NAUSEA/VOMITING - SIDE EFFECTS CODEINE PHOSPHATE: NAUSEA/VOMITING - SIDE EFFECTS LATEX: RASH - ALLERGY RUBBER: RASH - ALLERGY MELOXICAM: HEADACHE - SIDE EFFECTS ANASTROZOLE: WEAKNESS, ACHES, DRY COUGH - SIDE EFFECTS SURGICAL HISTORY APPENDECTOMY 1978 1985 BREAST SURGERY/CYST ASP. X 2 /LEFT EYES FOR GRAVES DISEASE HYSTERECTOMY PARTIAL 1994 LEFT FT. SURGERY 2003 RIGHT WRIST SURGERY 07/09 AND 01/02 COLONOSCOPY 2009 LUMPECTOMY 10/16 BILATERAL MASTECTOMY WITH SILICONE IMPLANTS 12/16 BREAST RECONSTRUCTION 07/18 BILATERAL BREAST IMPLANT REPLACEMENTS 12/17 FAT GRAFT FROM ABDOMEN TO RIGHT BREAST 09/2017 PUNCH BIOPSY RIGHT HEEL FAMILY HISTORY MOTHER: LUPUS (UNKNOWN WHAT TYPE), HYPERTENSION MATERNAL GRAND MOTHER: RHEUMATOID FATHER: DIAGNOSED WITH HEART DISEASE, CANCER PATERNAL AUNT- RA SISTER () BREAST CANCER DENIES FAMILY HX OF PANCREATIC CANCER OR MELANOMA. SOCIAL HISTORY GENERAL: TOBACCO USE ARE YOU A:CURRENT SMOKER ARE YOU INTERESTED IN QUITTING?THINKING ABOUT QUITTING PREVIOUS QUIT ATTEMPTS?YES, MORE THAN 6 MONTHS AGO. COUNSELED THE PATIENT ON SMOKING CESSATION, EDUCATION COOXQFII10/24/2019 HOW MANY CIGARETTES A DAY DO YOU SMOKE?11-20 HOW SOON AFTER YOU WAKE UP DO YOU SMOKE YOUR FIRST CIGARETTE?6-30 MIN HOW OFTEN DO YOU SMOKE CIGARETTES?EVERY DAY PATIENT COUNSELED ON THE DANGERS OF TOBACCO USE AND URGED TO QUIT:01/25/2019 GOING TO HYPNOTIST SMOKING CESSATION INFORMATION GIVEN10/22/2018 HIV / HEP-C SCREENING HIV TEST OFFERED TO PATIENT:YES DATE OFFERED:06/24/2017 TEST ACCEPTED:YES HEP-C TEST OFFERED TO PATIENT:YES DATE OFFERED:06/24/2017 TEST ACCEPTED:NO REASON:PATIENT DECLINED BROCHURE PROVIDED TO PATIENTYES HOUSING: OWNS HOME. 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 LANGUAGE LANGUAGES SPOKEN:URDU DOMESTIC VIOLENCE DO YOU FEEL SAFE IN YOUR ENVIRONMENT?YES RECREATIONAL DRUG USE DRUG USE?NO EXERCISE: DAILY. LEARNING BARRIERS / SPECIAL NEEDS CHANGE FROM LAST VISIT?NO BARRIERS TO LEARNING?NO HEARING IMPAIRED?NO VISION IMPAIRED?YES COGNITIVELY IMPAIRED?NO :CORRECTIVE LENSES READINESS TO LEARN?YES LEARNING PREFERENCES?NO LEARNING CAPABILITIES PRESENT?YES EMOTIONAL BARRIERS?NO SPECIAL DEVICES?NO PAIN CLINIC PFS, CLERGY, PUBLIC HEALTH REFERRALS WAS THE PROVIDER NOTIFIED OF ANY PERTINENT INFO?YES HAS THE PATIENT BEEN EDUCATED REGARDING HIS/HER PLAN OF CARE?YES HAS THE PATIENT BEEN EDUCATED REGARDING PAIN, THE RISK FOR PAIN, THE IMPORTANCE OF EFFECTIVE PAIN MANAGEMENT, AND THE PAIN ASSESSMENT PROCESS?YES LATEX QUESTIONNAIRE LATEX ALLERGY : HAVE YOU EVER DEVELOPED ANY TYPE OF REACTION AFTER HANDLING LATEX PRODUCTS SUCH RUBBER GLOVES, CONDOMS, DIAPHRAGMS, BALLOONS, SOCKS, OR UNDERWEAR?YES - PLEASE INDICATE :RUBBER GLOVES, OTHER (DOCUMENT IN NOTES) BANDAIDS LATEX ALLERGY : HAVE YOU EVER DEVELOPED ANY TYPE OF REACTION DURING OR AFTER DENTAL APPOINTMENT, VAGINAL/RECTAL EXAMINATION, SURGICAL PROCEDURE, OR ANY OTHER EXPOSURE?NO LATEX RISK : HAVE YOU EVER HAD ANY DIFFICULTY BREATHING OR HIVES AFTER EATING OR HANDLING ANY FRUITS, OR VEGETABLES; SUCH KIWI, BANANAS, STONE FRUITS, OR CHESTNUTSNO LATEX RISK : DO YOU HAVE A PREVIOUS PERSONAL HISTORY OF MORE THAN NINE SURGERIES, SPINA BIFIDA, OR REPEATED CATHERTIZATIONS? NO LATEX RISK : ARE YOU FREQUENTLY EXPOSED TO LATEX PRODUCTS IN YOUR OCCUPATION?NO DATE ASKED : 01/25/2019 LATEX ALLERGY CAFFEINE CAFFEINE USE?NO ADVANCE DIRECTIVE ADVANCE DIRECTIVE DISCUSSED WITH PATIENT:YES STATES SHE HAS HCP -WM [phone](C), (W) , (H) PT ASKED TO BRING A COPY IN FOR OUR FILES RASTAFARIAN [id number] CONFUCIANISM MARITAL STATUS: . 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 SEXUAL HX HAD SEX IN THE LAST 12 MONTHS (VAGINAL, ORAL, OR ANAL)?YES WITHMEN ONLY PREVENTION STRATEGIES DISCUSSED:OTHER USE PROTECTION?NO HAVE YOU EVER HAD AN STD?NO 12/16/17 1440 REVIEWED WITH PT. 12/25/17 1520 REVIEWED WITH PT. AD01/22/18 1034 REVIEWED WITH PT. ADREVIEWED WITH PT 05/27/18 1503 BVREVIEWED WITH PATIENT 01/25/19 1110 JS. HOSPITALIZATION/MAJOR DIAGNOSTIC PROCEDURE FOR ABOVE REASONS LEGIONAIRRE'S DISEASE 1994 REVIEW OF SYSTEMS REVIEWED BY: PROVIDER: DARIUS SIERRA . CONSTITUTIONAL: ANY CHANGE IN YOUR MEDICAL CONDITION? NO . CHILLS NO . FEVER NO . INFECTION: DO YOU HAVE NEW INFECTIONS? NO . DO YOU HAVE HISTORY OF MRSA? NO . MUSCULOSKELETAL: ANY NEW PATTERNS OF PAIN OR NUMBNESS? NO . GASTROENTEROLOGY: ANY NEW CHANGE IN BOWEL CONTROL? NO . GENITOURINARY: ANY NEW CHANGE IN BLADDER CONTROL? NO . IS THERE A CHANCE YOU COULD BE ? NO . HEMATOLOGY/LYMPH: DO YOU TAKE ANY BLOOD THINNERS? (FOR EXAMPLE- COUMADIN, PLAVIX, AGGRENOX, PLATEL, PRADAXA, OR XARELTO) NO . WHEN WAS YOUR LAST DOSE? DATE: TIME: . NEUROLOGY: HAVE YOU FALLEN IN THE PAST 12 MONTHS? YES, STATES SHE TRIPS AND FALLS OFTEN. STATES NO INJURIED, NO ED VISITS . ANY NEW EXTREMITY NUMBNESS OR WEAKNESS? NO . CARDIOLOGY: DO YOU HAVE A PACEMAKER OR DEFIBRILLATOR? NO . RESPIRATORY: HAVE YOU BEEN SICK IN THE PAST WEEK? YES, STATES NAUSEA AND FEVER FOR A DAY - RESOLVED ON ITS OWN . FEVER YES . FLU LIKE SYMPTOMS? NO . COUGH NO . INTEGUMENTARY: DO YOU HAVE ANY RASHES OR OPEN SORES? NO . ALLERGIC/IMMUNO: ARE YOU ALLERGIC TO IV DYE? NO . ANY NEW ALLERGIES? NO . PSYCHIATRIC: DO YOU HAVE THOUGHTS OF HURTING YOURSELF OR SOMEONE ELSE? NO . ARE YOU ABUSED, NEGLECTED, OR IN AN UNSAFE ENVIRONMENT? NO . ENDOCRINOLOGY: ARE YOU DIABETIC? NO . OTHER: IF YES, PLEASE LIST: ____FLECTOR PATCH . ANY NEW PROBLEMS WITH YOUR MEDICATIONS? NO . WHEN DID YOU LAST EAT? ____ . WHEN DID YOU LAST DRINK? ____ . WHAT DID YOU LAST DRINK? ____ . NAME OF PERSON DRIVING YOU HOME? ____ . DO YOU HAVE ANY OTHER QUESTIONS OR CONCERNS NO . VITAL SIGNS WT 160.8 LBS, HT 64.5 IN, BMI 27.17 INDEX, BP 143/89 MM HG, REPEAT BP 130/84 MANUAL, HR 94 /MIN, RR 18 /MIN, TEMP 97.8 F, OXYGEN SAT % 96%, SAFE IN ENV? (Y/N) YES, NA INITIALS WA 10:54, REVIEWED BY: ARY. EXAMINATION GENERAL EXAMINATION: GENERAL APPEARANCE: ALERT,NO DISTRESS . PSYCH AFFECT NORMAL . LUNGS: LUNG SOUNDS ARE CLEAR . HEART: HEART RATE REGULAR . MUSCULOSKELETAL: MST 5/5 BILAT. LOWER EXTREMITIES . LUMBAR SACRAL SPINETENDERNESS BILAT. SIJ R>L.POSITIVE BETTY TEST -RIGHT LEG. DIAGNOSTIC TESTS REVIEWED L/S [id number] . ASSESSMENTS SACROILIITIS - M46.1 (PRIMARY) BACK STRAIN, SUBSEQUENT ENCOUNTER - S39.012D TREATMENT SACROILIITIS REFILL FLECTOR PATCH, 1.3 %, 1 PATCH TO SKIN, TRANSDERMAL FOR PAIN, TWICE A DAY, 15 DAYS, 30, REFILLS 2 NOTES: RIGHT SIJWE ARE RECOMMENDING CONTINUED,INTERMITTENT USE OF FLECTOR PATCH X7 DAYS FOR SEVERE LBP EPISODES. PROCEDURE CODES FA211 ESTABILISHED PATIENT [facility] FACILITY CHARGE DISPOSITION & COMMUNICATION FOLLOW UP POST (REASON: RIGHT SIJ) ELECTRONICALLY SIGNED BY MARIELA CLINTON ON 01/27/2019 AT 10:44 AM EDT DISCLAIMER : THIS IS A VISIT SUMMARY EXTRACTED FROM THE [employer] CHART. IT IS NOT A COPY OF THE [employer] PROGRESS NOTE. MIKE
== END ==
LOC: M PAIN 10:45
PROVIDERS: ATTEND Nurse Practitioner Family
DX: M46.1 Sacroiliitis, not elsewhere classified (principal); S39.012D Strain of muscle, fascia and tendon of lower back, subsequent encounter; E78.5 Hyperlipidemia, unspecified; E03.9 Hypothyroidism, unspecified; M79.7 Fibromyalgia; E55.9 Vitamin D deficiency, unspecified; E05.00 Thyrotoxicosis with diffuse goiter without thyrotoxic crisis or storm; M85.80 Other specified disorders of bone density and structure, unspecified site; F17.210 Nicotine dependence, cigarettes, uncomplicated; Z79.899 Other long term (current) drug therapy; Z90.13 Acquired absence of bilateral breasts and nipples; Z98.82 Breast implant status; Z88.2 Allergy status to sulfonamides; Z88.5 Allergy status to narcotic agent; Z88.6 Allergy status to analgesic agent; Z91.040 Latex allergy status; Z91.048 Other nonmedicinal substance allergy status; X58.XXXD Exposure to other specified factors, subsequent encounter; Y92.9 Unspecified place or not applicable

== ENCOUNTER 2019-02-15 06:46 | Day surgery (SDC) | payer BC ==
[~2019-02-15] VITALS: Ht 162.6 cm; Wt 73.0 kg
[2019-02-15] MEDS ORDERED: PROPOFOL 200 MG/20 ML VIAL As Ordered ONE (07:00)
[2019-02-15] MEDS ORDERED: LIDOCAINE 2% INJ 100 MG/5 ML SDV (FOR ANES.) As Ordered ONE ×2 (07:01→07:02)
[2019-02-15] MEDS ORDERED: NS 1,000 ML IV ONE (07:15)
--- NOTE | 2019-02-15 08:05 | ROOR ---
Patient Name: Jalen Wynn Procedure Date: 02/15/2019 7:37 AM Date of : 1955 Age: 63 Room: [facility] Gender: Female Note Status: Finalized Procedure: Colonoscopy Indications: Abdominal pain in the left upper quadrant, Constipation Providers: Marquise SANTANA MD Referring MD: Jorge Shore MD Requesting Provider: Medicines: Monitored Anesthesia Care Complications: No immediate complications. Procedure: Pre-Anesthesia Assessment: - The heart rate, respiratory rate, oxygen saturations, blood pressure, adequacy of pulmonary ventilation, and response to care were monitored throughout the procedure. The Colonoscope was introduced through the anus and advanced to the cecum, identified by appendiceal orifice and ileocecal valve. The colonoscopy was performed without difficulty. The patient tolerated the procedure well. The quality of the bowel preparation was fair. Findings: The perianal and digital rectal examinations were normal. Three sessile polyps were found in the sigmoid colon, ascending colon and cecum. The polyps were 4 to 8 mm in size. These polyps were removed with a hot snare. Resection and retrieval were complete. Mild sigmoid diverticulosis and small internal hemorrhoids. The exam was otherwise without abnormality on direct and retroflexion views. (EXAM: Complete, PREP: Suboptimal) Impression: - (EXAM: Complete, PREP: Suboptimal) - Three 4 to 8 mm polyps in the sigmoid colon, in the ascending colon and in the cecum, removed with a hot snare. Resected and retrieved. - Mild sigmoid diverticulosis and small internal hemorrhoids. - The examination was otherwise normal on direct and retroflexion views. Recommendation: - Repeat colonoscopy in 2 years because the bowel preparation was suboptimal and for surveillance. - Telephone endoscopist for pathology results in 2 weeks. - Miralax 1 capful (17 grams) in 8 ounces of water daily. Marquise Santana MD Marquise SANTANA MD 02/15/2019 8:05:03 AM Electronically signed by Marquise SANTANA MD Number of Addenda: 0 Note Initiated On: 02/15/2019 7:37 AM Estimated Blood Loss: Estimated blood loss: none.
[2019-02-15 08:30] VITALS: BP 136/81
== END 2019-02-15 08:30 | disposition home or self-care (01) ==
LOC: M OPP 06:46
PROVIDERS: ATTEND Internal Medicine Gastroenterology
DX: K59.00 Constipation, unspecified (principal); D12.5 Benign neoplasm of sigmoid colon; D12.2 Benign neoplasm of ascending colon; D12.0 Benign neoplasm of cecum; R10.12 Left upper quadrant pain; K57.30 Diverticulosis of large intestine without perforation or abscess without bleeding; K64.9 Unspecified hemorrhoids; F17.210 Nicotine dependence, cigarettes, uncomplicated; Z79.899 Other long term (current) drug therapy; Z88.2 Allergy status to sulfonamides; Z88.5 Allergy status to narcotic agent; Z91.040 Latex allergy status

== ENCOUNTER → 2019-04-13 | Outpatient (CLI) | payer BC ==
--- NOTE | 2019-04-29 01:41 | ECWPNPC ---
PATIENT NAME: TERESE DAMON : 1955 GENDER: FEMALE VISIT DATE: 04/13/2019 DISCHARGE DATE: 04/13/19 1151 VISIT LOCKED DATE TIME: PHYSICIAN: DARIUS SMITH RESOURCE: DARIUS SMITH REASON FOR APPOINTMENT 1. DISCUSS PROC HISTORY OF PRESENT ILLNESS HISTORY OF PRESENT ILLNESS: BEING SEEN ON AN URGENT BASIS.LAST VISIT WAS IN JANUARY.WE HAD PLANNED ON SEEING HER BACK IN FOR RIGHT SIJ STEROID INJECTION.SHE FEELS THAT AREA OF PAIN HAS RESOLVED AND WOULD LIKE TO BE CONSIDERED FOR RADIOFREQUENCY.RATING PAIN VAS 7.5/10. PAIN THE PATIENT DESCRIBES THE PAIN... FALL RISK SCREENING: SCREENING :NO FALLS REPORTED IN THE LAST YEAR CURRENT MEDICATIONS TAKING CLARITIN 10 MG TABLET 1 TABLET ORALLY DAILY NEEDED TAKING MULTIVITAMINS OTC TABLET 1 ORALLY ONCE A DAY TAKING LEVOTHYROXINE SODIUM 112 MCG TABLET 1 1/2 TABLET ORALLY ONCE A DAY TAKING NEBULIZER - DEVICE DIRECTED DX: J45.909 DIRECTED TAKING RESTASIS 0.05 % EMULSION 1 DROP INTO AFFECTED EYE OPHTHALMIC TWICE A DAY TAKING TRAZODONE HCL 50 MG TABLET 1 TABLET AT BEDTIME NEEDED ORALLY ONCE A DAY TAKING COMBIVENT RESPIMAT 20-100 MCG/ACT AEROSOL SOLUTION 1 PUFF INHALATION FOUR TIMES A DAY TAKING OMEPRAZOLE 40 MG CAPSULE DELAYED RELEASE 1 CAPSULE ORALLY ONCE A DAY TAKING DRISDOL 59549 UNIT CAPSULE 1 CAPSULE ORALLY ONCE A WEEK TAKING EVISTA 60 MG TABLET 1 TABLET ORALLY ONCE A DAY TAKING MIRALAX - PACKET 1 PACKET MIXED WITH 8 OUNCES OF FLUID ORALLY ONCE A DAY TAKING CICLOPIROX 0.77 % GEL 1 APPLICATION TO AFFECTED AREA EXTERNALLY TWICE A DAY TO FEET TAKING SULFASALAZINE 500 MG TABLET 1 TABLET ORALLY BID TAKING GABAPENTIN 300 MG CAPSULE 2 CAPSULE ORALLY THREE TIMES A DAY TAKING FLECTOR 1.3 % PATCH 1 PATCH TO SKIN TRANSDERMAL FOR PAIN TWICE A DAY NOT-TAKING VITAMIN D 1000 UNIT TABLET 1 TABLET ORALLY ONCE A DAY NOT-TAKING VITAMIN B-12 5000 MCG TABLET DISPERSIBLE 1 TABLET ORALLY ONCE A DAY NOT-TAKING ALBUTEROL SULFATE (2.5 MG/3ML) 0.083% NEBULIZATION SOLUTION 3 ML INHALATION EVERY 4 HOURS NEEDED FOR SOB MEDICATION LIST REVIEWED AND RECONCILED WITH THE PATIENT PAST MEDICAL HISTORY HYPERLIPIDEMIA TOBACCO ABUSE BREAST CANCER HYPOTHYROIDISM FIBROMYALGIA VITAMIN D DEFICIENCY GRAVES DISEASE OSTEOPENIA BACK PAIN ALLERGIES SULFA (FOR ALLERGY USE ONLY): NAUSEA/VOMITING - SIDE EFFECTS CODEINE PHOSPHATE: NAUSEA/VOMITING - SIDE EFFECTS LATEX: RASH - ALLERGY RUBBER: RASH - ALLERGY MELOXICAM: HEADACHE - SIDE EFFECTS ANASTROZOLE: WEAKNESS, ACHES, DRY COUGH - SIDE EFFECTS SURGICAL HISTORY APPENDECTOMY 1978 1985 BREAST SURGERY/CYST ASP. X 2 /LEFT EYES FOR GRAVES DISEASE HYSTERECTOMY PARTIAL 1994 LEFT FT. SURGERY 2003 RIGHT WRIST SURGERY 07/09 AND 01/02 COLONOSCOPY 2009 LUMPECTOMY 10/16 BILATERAL MASTECTOMY WITH SILICONE IMPLANTS 12/16 BREAST RECONSTRUCTION 07/18 BILATERAL BREAST IMPLANT REPLACEMENTS 12/17 FAT GRAFT FROM ABDOMEN TO RIGHT BREAST 09/2017 PUNCH BIOPSY RIGHT HEEL TORN MANISCUS REPAIR RIGHT KNEE 03/2019 FAMILY HISTORY MOTHER: LUPUS (UNKNOWN WHAT TYPE), HYPERTENSION MATERNAL GRAND MOTHER: RHEUMATOID FATHER: DIAGNOSED WITH UNSPECIFIED HEART DISEASE, OTHER MALIGNANT NEOPLASM OF UNSPECIFIED SITE PATERNAL AUNT- RA SISTER () BREAST CANCER DENIES FAMILY HX OF PANCREATIC CANCER OR MELANOMA. SOCIAL HISTORY GENERAL: TOBACCO USE ARE YOU A:CURRENT SMOKER ARE YOU INTERESTED IN QUITTING?THINKING ABOUT QUITTING PREVIOUS QUIT ATTEMPTS?YES, MORE THAN 6 MONTHS AGO. COUNSELED THE PATIENT ON SMOKING CESSATION, EDUCATION [id number]/24/2019 HOW MANY CIGARETTES A DAY DO YOU SMOKE?11-20 HOW SOON AFTER YOU WAKE UP DO YOU SMOKE YOUR FIRST CIGARETTE?6-30 MIN HOW OFTEN DO YOU SMOKE CIGARETTES?EVERY DAY PATIENT COUNSELED ON THE DANGERS OF TOBACCO USE AND URGED TO QUIT:04/13/2019 GOING TO HYPNOTIST SMOKING CESSATION INFORMATION GIVEN10/22/2018 HIV / HEP-C SCREENING HIV TEST OFFERED TO PATIENT:YES DATE OFFERED:06/24/2017 TEST ACCEPTED:YES HEP-C TEST OFFERED TO PATIENT:YES DATE OFFERED:06/24/2017 TEST ACCEPTED:NO REASON:PATIENT DECLINED BROCHURE PROVIDED TO PATIENTYES HOUSING: OWNS HOME. 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 LANGUAGE LANGUAGES SPOKEN:BRITISH DOMESTIC VIOLENCE DO YOU FEEL SAFE IN YOUR ENVIRONMENT?YES RECREATIONAL DRUG USE DRUG USE?NO EXERCISE: DAILY. LEARNING BARRIERS / SPECIAL NEEDS CHANGE FROM LAST VISIT?NO BARRIERS TO LEARNING?NO HEARING IMPAIRED?NO VISION IMPAIRED?YES COGNITIVELY IMPAIRED?NO :CORRECTIVE LENSES READINESS TO LEARN?YES LEARNING PREFERENCES?NO LEARNING CAPABILITIES PRESENT?YES EMOTIONAL BARRIERS?NO SPECIAL DEVICES?NO PAIN CLINIC PFS, CLERGY, PUBLIC HEALTH REFERRALS WAS THE PROVIDER NOTIFIED OF ANY PERTINENT INFO?YES HAS THE PATIENT BEEN EDUCATED REGARDING HIS/HER PLAN OF CARE?YES HAS THE PATIENT BEEN EDUCATED REGARDING PAIN, THE RISK FOR PAIN, THE IMPORTANCE OF EFFECTIVE PAIN MANAGEMENT, AND THE PAIN ASSESSMENT PROCESS?YES LATEX QUESTIONNAIRE LATEX ALLERGY : HAVE YOU EVER DEVELOPED ANY TYPE OF REACTION AFTER HANDLING LATEX PRODUCTS SUCH RUBBER GLOVES, CONDOMS, DIAPHRAGMS, BALLOONS, SOCKS, OR UNDERWEAR?YES - PLEASE INDICATE :RUBBER GLOVES, OTHER (DOCUMENT IN NOTES) BANDAIDS LATEX ALLERGY : HAVE YOU EVER DEVELOPED ANY TYPE OF REACTION DURING OR AFTER DENTAL APPOINTMENT, VAGINAL/RECTAL EXAMINATION, SURGICAL PROCEDURE, OR ANY OTHER EXPOSURE?NO LATEX RISK : HAVE YOU EVER HAD ANY DIFFICULTY BREATHING OR HIVES AFTER EATING OR HANDLING ANY FRUITS, OR VEGETABLES; SUCH KIWI, BANANAS, STONE FRUITS, OR CHESTNUTSNO LATEX RISK : DO YOU HAVE A PREVIOUS PERSONAL HISTORY OF MORE THAN NINE SURGERIES, SPINA BIFIDA, OR REPEATED CATHERIZATIONS? YES - PLEASE INDICATE : > 9 SURGERIES LATEX RISK : ARE YOU FREQUENTLY EXPOSED TO LATEX PRODUCTS IN YOUR OCCUPATION?NO DATE ASKED : 04/13/2019 LATEX ALLERGY CAFFEINE CAFFEINE USE?NO ADVANCE DIRECTIVE ADVANCE DIRECTIVE DISCUSSED WITH PATIENT:YES STATES SHE HAS HCP -WM [phone](C), (W) , (H) PT ASKED TO BRING A COPY IN FOR OUR FILES ALEVISM [id number] PROTESTANT MARITAL STATUS: . 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 SEXUAL HX HAD SEX IN THE LAST 12 MONTHS (VAGINAL, ORAL, OR ANAL)?YES WITHMEN ONLY PREVENTION STRATEGIES DISCUSSED:OTHER USE PROTECTION?NO HAVE YOU EVER HAD AN STD?NO 12/16/17 1440 REVIEWED WITH PT. 12/25/17 1520 REVIEWED WITH PT. AD01/22/18 1034 REVIEWED WITH PT. ADREVIEWED WITH PT 05/27/18 1503 BVREVIEWED WITH PATIENT 01/25/19 1110 JS. HOSPITALIZATION/MAJOR DIAGNOSTIC PROCEDURE FOR ABOVE REASONS LEGIONAIRRE'S DISEASE 1994 REVIEW OF SYSTEMS REVIEWED BY: PROVIDER: DARIUS SIERRA . CONSTITUTIONAL: ANY CHANGE IN YOUR MEDICAL CONDITION? NO . CHILLS NO . FEVER NO . INFECTION: DO YOU HAVE NEW INFECTIONS? NO . DO YOU HAVE HISTORY OF MRSA? NO . MUSCULOSKELETAL: ANY NEW PATTERNS OF PAIN OR NUMBNESS? PT STATES THAT PAIN IN LUMBAR AREA HAS RETURNED, WOULD LIKE TO HAVE RADIOFREQUENCY SCHEDULED AGAIN . GASTROENTEROLOGY: ANY NEW CHANGE IN BOWEL CONTROL? NO . GENITOURINARY: ANY NEW CHANGE IN BLADDER CONTROL? NO . IS THERE A CHANCE YOU COULD BE ? NO . HEMATOLOGY/LYMPH: DO YOU TAKE ANY BLOOD THINNERS? (FOR EXAMPLE- COUMADIN, PLAVIX, AGGRENOX, PLATEL, PRADAXA, OR XARELTO) NO . WHEN WAS YOUR LAST DOSE? DATE: TIME: . NEUROLOGY: HAVE YOU FALLEN IN THE PAST 12 MONTHS? YES, PT STATES THAT SHE FELL POST KNEE SURGERY WHILE ON CRUTCHES. NO INJURY, NO REPORT TO ED . ANY NEW EXTREMITY NUMBNESS OR WEAKNESS? NO . CARDIOLOGY: DO YOU HAVE A PACEMAKER OR DEFIBRILLATOR? NO . RESPIRATORY: HAVE YOU BEEN SICK IN THE PAST WEEK? NO . FEVER NO . FLU LIKE SYMPTOMS? NO . COUGH NO . INTEGUMENTARY: DO YOU HAVE ANY RASHES OR OPEN SORES? NO . ALLERGIC/IMMUNO: ARE YOU ALLERGIC TO IV DYE? NO . ANY NEW ALLERGIES? NO . PSYCHIATRIC: DO YOU HAVE THOUGHTS OF HURTING YOURSELF OR SOMEONE ELSE? NO . ARE YOU ABUSED, NEGLECTED, OR IN AN UNSAFE ENVIRONMENT? NO . ENDOCRINOLOGY: ARE YOU DIABETIC? NO . OTHER: DO YOU NEED ANY PRESCRIPTIONS? NO . IF YES, PLEASE LIST: ____ . ANY NEW PROBLEMS WITH YOUR MEDICATIONS? NO . WHEN DID YOU LAST EAT? ____ . WHEN DID YOU LAST DRINK? ____ . WHAT DID YOU LAST DRINK? ____ . NAME OF PERSON DRIVING YOU HOME? ____ . DO YOU HAVE ANY OTHER QUESTIONS OR CONCERNS PT WOULD LIKE RADIOFREQUENCY SOON POSSIBLE . VITAL SIGNS WT 159 LBS, HT 64.5 IN, BMI 26.87 INDEX, BP 148/81 MM HG, HR 78 /MIN, RR 18 /MIN, TEMP 97.4 F, OXYGEN SAT % 97%, SAFE IN ENV? (Y/N) Y, NA INITIALS [place] 11:20, REVIEWED BY: ELISA. EXAMINATION GENERAL EXAMINATION: GENERAL AWAKE,ALERT ,PLEAASANT . PSYCH AFFECT NORMAL . LUNGS: LUNG CARTWRIGHT ARE CLEAR TO AUSCULTATION BILATERALLY. GOOD MOVEMENT OF AIR . HEART: S1, S2 IN A REGULAR RATE AND RHYTHM. NO SIGNIFICANT MURMURS, RUBS OR GALLOPS NOTED . LUMBAR SACRAL SPINEPALPATION:TENDER OVER BILAT. L4/5-L5/S1 LUMBAR FACETS WITH FACET LOADING.. DIAGNOSTIC TESTS REVIEWED MRI L/S SPINE-02/28/17. ASSESSMENTS SPONDYLOSIS OF LUMBAR REGION WITHOUT MYELOPATHY OR RADICULOPATHY - M47.816 (PRIMARY) TREATMENT SPONDYLOSIS OF LUMBAR REGION WITHOUT MYELOPATHY OR RADICULOPATHY NOTES: BILAT L4/5-L5/S1 LFB DX . PROCEDURE CODES FA211 ESTABILISHED PATIENT [facility] FACILITY CHARGE DISPOSITION & COMMUNICATION FOLLOW UP CHANGE 04/15 PROCEDURE TO KARLEY LFB DX (REASON: BILAT L4/5-L5/S1 LFB DX) ELECTRONICALLY SIGNED BY MARIELA CLINTON ON 04/28/2019 AT 01:32 PM EDT DISCLAIMER : THIS IS A VISIT SUMMARY EXTRACTED FROM THE [employer] CHART. IT IS NOT A COPY OF THE [employer] PROGRESS NOTE. MIKE
== END ==
LOC: M PAIN 10:45
PROVIDERS: ATTEND Nurse Practitioner Family
DX: M47.816 Spondylosis without myelopathy or radiculopathy, lumbar region (principal); E78.5 Hyperlipidemia, unspecified; E03.9 Hypothyroidism, unspecified; M79.7 Fibromyalgia; E55.9 Vitamin D deficiency, unspecified; E05.00 Thyrotoxicosis with diffuse goiter without thyrotoxic crisis or storm; M85.88 Other specified disorders of bone density and structure, other site; F17.210 Nicotine dependence, cigarettes, uncomplicated; Z88.2 Allergy status to sulfonamides; Z88.5 Allergy status to narcotic agent; Z88.8 Allergy status to other drugs, medicaments and biological substances; Z91.040 Latex allergy status; Z91.09 Other allergy status, other than to drugs and biological substances; Z79.899 Other long term (current) drug therapy

== ENCOUNTER → 2019-04-15 | Outpatient (CLI) | payer BC ==
[~2019-04-15] MED LIST changes: +BUPIVACAINE HCL 0.25% 30 ML VIAL As Ordered ONE; +ISOVUE-M 300 61% 15ML VIAL (Q9967) As Ordered ONE; +LIDOCAINE 1% SDV INJ 30 ML VIAL As Ordered ONE; -OMEP40CA2 PO; +OMEP40CA97 PO
--- NOTE | 2019-04-15 14:10 | REP ---
Partial lumbar spine series: Two views . History: Injection procedure for pain. 33 seconds of fluoroscopy time is reported. Findings: A sequence of two fluoroscopically obtained last image hold procedural spot radiographs of the lumbar spine document needle position and contrast injection associated with injection procedure. Electronically Signed by Porfirio Liao MD 04/15/2019 02:02 P
--- NOTE | 2019-04-24 01:14 | ECWPNPC ---
PATIENT NAME: TERESE DAMON : 1955 GENDER: FEMALE VISIT DATE: 04/15/2019 DISCHARGE DATE: 04/15/19 1400 VISIT LOCKED DATE TIME: PHYSICIAN: SVITLANA MEDRANO MD RESOURCE: SVITLANA MEDRANO MD REASON FOR APPOINTMENT 1. BILAT L4/5-L5/S1 LFB DX HISTORY OF PRESENT ILLNESS HISTORY OF PRESENT ILLNESS: PAIN THE PATIENT DESCRIBES THE PAIN... FALL RISK SCREENING: SCREENING :NO FALLS REPORTED IN THE LAST YEAR CURRENT MEDICATIONS TAKING CLARITIN 10 MG TABLET 1 TABLET ORALLY DAILY NEEDED TAKING MULTIVITAMINS OTC TABLET 1 ORALLY ONCE A DAY TAKING LEVOTHYROXINE SODIUM 112 MCG TABLET 1 1/2 TABLET ORALLY ONCE A DAY TAKING NEBULIZER - DEVICE DIRECTED DX: J45.909 DIRECTED TAKING RESTASIS 0.05 % EMULSION 1 DROP INTO AFFECTED EYE OPHTHALMIC TWICE A DAY TAKING TRAZODONE HCL 50 MG TABLET 1 TABLET AT BEDTIME NEEDED ORALLY ONCE A DAY, NOTES: 04/14/19 1900 TAKING COMBIVENT RESPIMAT 20-100 MCG/ACT AEROSOL SOLUTION 1 PUFF INHALATION FOUR TIMES A DAY TAKING OMEPRAZOLE 40 MG CAPSULE DELAYED RELEASE 1 CAPSULE ORALLY ONCE A DAY TAKING DRISDOL 67680 UNIT CAPSULE 1 CAPSULE ORALLY ONCE A WEEK TAKING EVISTA 60 MG TABLET 1 TABLET ORALLY ONCE A DAY TAKING MIRALAX - PACKET 1 PACKET MIXED WITH 8 OUNCES OF FLUID ORALLY ONCE A DAY TAKING CICLOPIROX 0.77 % GEL 1 APPLICATION TO AFFECTED AREA EXTERNALLY TWICE A DAY TO FEET TAKING SULFASALAZINE 500 MG TABLET 1 TABLET ORALLY BID TAKING GABAPENTIN 300 MG CAPSULE 2 CAPSULE ORALLY THREE TIMES A DAY TAKING FLECTOR 1.3 % PATCH 1 PATCH TO SKIN TRANSDERMAL FOR PAIN TWICE A DAY, NOTES: NEEDED NOT-TAKING VITAMIN D 1000 UNIT TABLET 1 TABLET ORALLY ONCE A DAY NOT-TAKING VITAMIN B-12 5000 MCG TABLET DISPERSIBLE 1 TABLET ORALLY ONCE A DAY NOT-TAKING ALBUTEROL SULFATE (2.5 MG/3ML) 0.083% NEBULIZATION SOLUTION 3 ML INHALATION EVERY 4 HOURS NEEDED FOR SOB MEDICATION LIST REVIEWED AND RECONCILED WITH THE PATIENT PAST MEDICAL HISTORY HYPERLIPIDEMIA TOBACCO ABUSE BREAST CANCER HYPOTHYROIDISM FIBROMYALGIA VITAMIN D DEFICIENCY GRAVES DISEASE OSTEOPENIA BACK PAIN ALLERGIES SULFA (FOR ALLERGY USE ONLY): NAUSEA/VOMITING - SIDE EFFECTS CODEINE PHOSPHATE: NAUSEA/VOMITING - SIDE EFFECTS LATEX: RASH - ALLERGY RUBBER: RASH - ALLERGY MELOXICAM: HEADACHE - SIDE EFFECTS ANASTROZOLE: WEAKNESS, ACHES, DRY COUGH - SIDE EFFECTS SURGICAL HISTORY APPENDECTOMY 1978 1985 BREAST SURGERY/CYST ASP. X 2 /LEFT EYES FOR GRAVES DISEASE HYSTERECTOMY PARTIAL 1994 LEFT FT. SURGERY 2003 RIGHT WRIST SURGERY 07/09 AND 01/02 COLONOSCOPY 2010 LUMPECTOMY 10/16 BILATERAL MASTECTOMY WITH SILICONE IMPLANTS 12/16 BREAST RECONSTRUCTION 07/18 BILATERAL BREAST IMPLANT REPLACEMENTS 12/17 FAT GRAFT FROM ABDOMEN TO RIGHT BREAST 09/2017 PUNCH BIOPSY RIGHT HEEL TORN MANISCUS REPAIR RIGHT KNEE 03/2019 FAMILY HISTORY MOTHER: LUPUS (UNKNOWN WHAT TYPE), HYPERTENSION MATERNAL GRAND MOTHER: RHEUMATOID FATHER: DIAGNOSED WITH UNSPECIFIED HEART DISEASE, OTHER MALIGNANT NEOPLASM OF UNSPECIFIED SITE PATERNAL AUNT- RA SISTER () BREAST CANCER DENIES FAMILY HX OF PANCREATIC CANCER OR MELANOMA. SOCIAL HISTORY GENERAL: TOBACCO USE ARE YOU A:CURRENT SMOKER HOW OFTEN DO YOU SMOKE CIGARETTES?EVERY DAY HOW SOON AFTER YOU WAKE UP DO YOU SMOKE YOUR FIRST CIGARETTE?6-30 MIN HOW MANY CIGARETTES A DAY DO YOU SMOKE?11-20 ARE YOU INTERESTED IN QUITTING?THINKING ABOUT QUITTING PATIENT COUNSELED ON THE DANGERS OF TOBACCO USE AND URGED TO QUIT:04/13/2019 GOING TO HYPNOTIST COUNSELED THE PATIENT ON SMOKING CESSATION, EDUCATION [id number]/24/2019 SMOKING CESSATION INFORMATION GIVEN10/22/2018 PREVIOUS QUIT ATTEMPTS?YES, MORE THAN 6 MONTHS AGO. HIV / HEP-C SCREENING HIV TEST OFFERED TO PATIENT:YES DATE OFFERED:06/24/2017 TEST ACCEPTED:YES HEP-C TEST OFFERED TO PATIENT:YES DATE OFFERED:06/24/2017 TEST ACCEPTED:NO REASON:PATIENT DECLINED BROCHURE PROVIDED TO PATIENTYES HOUSING: OWNS HOME. 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 LANGUAGE LANGUAGES SPOKEN:ITALIAN DOMESTIC VIOLENCE DO YOU FEEL SAFE IN YOUR ENVIRONMENT?YES RECREATIONAL DRUG USE DRUG USE?NO EXERCISE: DAILY. LEARNING BARRIERS / SPECIAL NEEDS CHANGE FROM LAST VISIT?NO BARRIERS TO LEARNING?NO HEARING IMPAIRED?NO VISION IMPAIRED?YES COGNITIVELY IMPAIRED?NO :CORRECTIVE LENSES READINESS TO LEARN?YES LEARNING PREFERENCES?NO LEARNING CAPABILITIES PRESENT?YES EMOTIONAL BARRIERS?NO SPECIAL DEVICES?NO PAIN CLINIC PFS, CLERGY, PUBLIC HEALTH REFERRALS WAS THE PROVIDER NOTIFIED OF ANY PERTINENT INFO?YES HAS THE PATIENT BEEN EDUCATED REGARDING HIS/HER PLAN OF CARE?YES HAS THE PATIENT BEEN EDUCATED REGARDING PAIN, THE RISK FOR PAIN, THE IMPORTANCE OF EFFECTIVE PAIN MANAGEMENT, AND THE PAIN ASSESSMENT PROCESS?YES LATEX QUESTIONNAIRE LATEX ALLERGY : HAVE YOU EVER DEVELOPED ANY TYPE OF REACTION AFTER HANDLING LATEX PRODUCTS SUCH RUBBER GLOVES, CONDOMS, DIAPHRAGMS, BALLOONS, SOCKS, OR UNDERWEAR?YES LATEX ALLERGY : HAVE YOU EVER DEVELOPED ANY TYPE OF REACTION DURING OR AFTER DENTAL APPOINTMENT, VAGINAL/RECTAL EXAMINATION, SURGICAL PROCEDURE, OR ANY OTHER EXPOSURE?NO - PLEASE INDICATE :RUBBER GLOVES, OTHER (DOCUMENT IN NOTES) BANDAIDS DATE ASKED : 04/13/2019 LATEX ALLERGY LATEX RISK : HAVE YOU EVER HAD ANY DIFFICULTY BREATHING OR HIVES AFTER EATING OR HANDLING ANY FRUITS, OR VEGETABLES; SUCH KIWI, BANANAS, STONE FRUITS, OR CHESTNUTSNO LATEX RISK : DO YOU HAVE A PREVIOUS PERSONAL HISTORY OF MORE THAN NINE SURGERIES, SPINA BIFIDA, OR REPEATED CATHERIZATIONS? YES - PLEASE INDICATE : > 9 SURGERIES LATEX RISK : ARE YOU FREQUENTLY EXPOSED TO LATEX PRODUCTS IN YOUR OCCUPATION?NO CAFFEINE CAFFEINE USE?NO ADVANCE DIRECTIVE ADVANCE DIRECTIVE DISCUSSED WITH PATIENT:YES STATES SHE HAS HCP -WM [phone](C), (W) , (H) PT ASKED TO BRING A COPY IN FOR OUR FILES VOODOO [id number] BUDDHIST MARITAL STATUS: . 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 SEXUAL HX HAD SEX IN THE LAST 12 MONTHS (VAGINAL, ORAL, OR ANAL)?YES WITHMEN ONLY PREVENTION STRATEGIES DISCUSSED:OTHER USE PROTECTION?NO HAVE YOU EVER HAD AN STD?NO 12/16/17 1440 REVIEWED WITH PT. 12/25/17 1520 REVIEWED WITH PT. AD01/22/18 1034 REVIEWED WITH PT. ADREVIEWED WITH PT 05/27/18 1503 BVREVIEWED WITH PATIENT 01/25/19 1110 JSREVIEWED WITH PATIENT 04/15/19 1253 BV. HOSPITALIZATION/MAJOR DIAGNOSTIC PROCEDURE FOR ABOVE REASONS LEGIONAIRRE'S DISEASE 1994 REVIEW OF SYSTEMS REVIEWED BY: PROVIDER: . CONSTITUTIONAL: ANY CHANGE IN YOUR MEDICAL CONDITION? NO . CHILLS NO . FEVER NO . INFECTION: DO YOU HAVE NEW INFECTIONS? NO . DO YOU HAVE HISTORY OF MRSA? NO . MUSCULOSKELETAL: ANY NEW PATTERNS OF PAIN OR NUMBNESS? NO . GASTROENTEROLOGY: ANY NEW CHANGE IN BOWEL CONTROL? NO . GENITOURINARY: ANY NEW CHANGE IN BLADDER CONTROL? NO . IS THERE A CHANCE YOU COULD BE ? NO . HEMATOLOGY/LYMPH: DO YOU TAKE ANY BLOOD THINNERS? (FOR EXAMPLE- COUMADIN, PLAVIX, AGGRENOX, PLATEL, PRADAXA, OR XARELTO) NO . WHEN WAS YOUR LAST DOSE? DATE: TIME: . NEUROLOGY: HAVE YOU FALLEN IN THE PAST 12 MONTHS? PT HAS NOT HAD ANY FALLS SINCE LAST VISIT. STATES PREVIOUS FALLS HAVE BEEN DOCUMENTED AT PREVIOUS VISIT. . ANY NEW EXTREMITY NUMBNESS OR WEAKNESS? NO . CARDIOLOGY: DO YOU HAVE A PACEMAKER OR DEFIBRILLATOR? NO . RESPIRATORY: HAVE YOU BEEN SICK IN THE PAST WEEK? NO . FEVER NO . FLU LIKE SYMPTOMS? NO . COUGH NO . INTEGUMENTARY: DO YOU HAVE ANY RASHES OR OPEN SORES? NO . ALLERGIC/IMMUNO: ARE YOU ALLERGIC TO IV DYE? NO . ANY NEW ALLERGIES? NO . PSYCHIATRIC: DO YOU HAVE THOUGHTS OF HURTING YOURSELF OR SOMEONE ELSE? NO . ARE YOU ABUSED, NEGLECTED, OR IN AN UNSAFE ENVIRONMENT? NO . ENDOCRINOLOGY: ARE YOU DIABETIC? NO . OTHER: DO YOU NEED ANY PRESCRIPTIONS? NO . IF YES, PLEASE LIST: ____ . ANY NEW PROBLEMS WITH YOUR MEDICATIONS? NO . WHEN DID YOU LAST EAT? 04/14/19 2200 . WHEN DID YOU LAST DRINK? 04/15/19 0730 . WHAT DID YOU LAST DRINK? WATER . NAME OF PERSON DRIVING YOU HOME? WM- . DO YOU HAVE ANY OTHER QUESTIONS OR CONCERNS NO . VITAL SIGNS WT 159 LBS, HT 64.5 IN, BMI 26.87 INDEX, BP 133/84 MM HG, HR 84 /MIN, RR 18 /MIN, TEMP 97.3 F, OXYGEN SAT % 98%, NA INITIALS SC 11:59, REVIEWED BY: BV. ASSESSMENTS SPONDYLOSIS OF LUMBAR REGION WITHOUT MYELOPATHY OR RADICULOPATHY - M47.816 (PRIMARY) SPONDYLOSIS OF LUMBOSACRAL REGION WITHOUT MYELOPATHY OR RADICULOPATHY - M47.817 TREATMENT SPONDYLOSIS OF LUMBAR REGION WITHOUT MYELOPATHY OR RADICULOPATHY SMC FACET BLOCK (PAIN)[id number] PROCEDURES PN LUMBAR FACET BLOCK DIAGNOSTIC PRE PROCEDURE DIAGNOSIS LUMBAR SPONDYLOSIS, LUMBOSACRAL SPONDYLOSIS POST PROCEDURE DIAGNOSIS LUMBAR SPONDYLOSIS, LUMBOSACRAL SPONDYLOSIS PROCEDURE BILATERAL L4-L5 AND L5-S1 LUMBAR FACET BLOCK DIAGNOSTIC NUMBER [address] SVITLANA MEDRAN[address] PACKER OPERATOR NONE ANESTHESIA LOCAL PRE PROCEDURE NOTE THE PATIENT WITH HISTORY OF CHRONIC LOW BACK PAIN. I EVALUATED THE PATIENT AND REVIEWED THE CHART. I WENT OVER THE RISKS, ALTERNATIVES, AND BENEFITS ASSOCIATED WITH THIS PROCEDURE. THE PATIENT WOULD LIKE TO PROCEED AND GAVE CONSENT TO PERFORM THE PROCEDURE. AGREED WITH THE PATIENT WE ARE DOING THIS PROCEDURE TO DETERMINE IF THE PATIENT IS A CANDIDATE FOR A RADIOFREQUENCY ABLATION OF THE FACETS JOINTS. THE PATIENT DENIES UNEXPLAINABLE WEIGHT LOSS, FEVER, CHILLS, OR NEW CHANGES IN URINARY OR BOWEL CONTROL DESCRIPTION OF PROCEDURE THE PATIENT WAS BROUGHT TO THE PROCEDURE ROOM AND PLACED IN THE PRONE POSITION. THE LUMBOSACRAL AREA WAS CLEANED WITH CHLORAPREP SOLUTION AND DRAPED ASEPTICALLY. THE PROCEDURE WAS DONE UNDER STERILE CONDITIONS. I CHECKED LATERALITY AND THE LEVEL WHERE THE PROCEDURE WAS GOING TO BE PERFORMED WITH THE PATIENT AND THE SUPPORTING STAFF AT THE MOMENT OF THE TIME OUT IN THE PROCEDURE ROOM. UNDER FLUOROSCOPIC GUIDANCE, TARGETS WERE SELECTED AT THE INTERSECTION OF THE RIGHT AND LEFT TRANSVERSE PROCESS OF L4, L5 AND ALA OF S1 WITH ITS RESPECTIVE SUPERIOR ARTICULAR PROCESS. LIDOCAINE WAS USED TO NUMB THE SKIN AND THE SUBCUTANEOUS TISSUE BELOW IT. SPINAL NEEDLE, 22-GAUGE WAS ADVANCED UNDER FLUOROSCOPIC GUIDANCE AND FOLLOWING PATIENT FEEDBACK UNTIL THE TARGETS WERE REACHED. POSITION OF THE NEEDLES WAS VERIFIED WITH AP AND LATERAL VIEWS. AFTER PROPER POSITION OF THE NEEDLES WAS ACHIEVED, ISOVUE-M DYE 30% 0.1 ML WAS INJECTED AT EACH SITE SHOWING ADEQUATE SPREAD OF THE DYE. THEN A SOLUTION OF 0.4 ML OF BUPIVACAINE 0.25% WAS INJECTED AT EACH SITE. THERE WAS NO EVIDENCE OF BLOOD, PARESTHESIA OR CEREBROSPINAL FLUID DURING THE PROCEDURE. THE PATIENT WAS SENT TO THE RECOVERY ROOM. THE PATIENT WAS MOVING THE EXTREMITIES AND DOING WELL. THERE WAS NO COMPLICATION DURING THE PROCEDURE. FLUOROSCOPY TIME WAS 33 SECONDS POST PROCEDURE NOTE THE PATIENT WILL DOCUMENT HIS PAIN LEVEL AND RESPONSE TO THIS PROCEDURE EVERY 30 MINUTES. THE PATIENT WILL BE SEEN IN A FOLLOW UP IN THE NEXT FEW WEEKS. FURTHER DETERMINATION FOR HIS CASE WILL BE DONE AT THE NEXT VISIT. INSTRUCTIONS WERE GIVEN, QUESTIONS WERE ANSWERED, AND THE PATIENT EXPRESSED UNDERSTANDING AND AGREED WITH THE PLAN. I, ROSA M ATWOOD, DOCUMENTED THE ABOVE INFORMATION ACTING A SCRIBE FOR DR. MEDRANO. I HAVE REVIEWED THE ABOVE DOCUMENT, WRITTEN BY ROSA M HEMRIC SCRIBE AND I VERIFY THAT IT IS ACCURATE. PROCEDURE CODES 30737 INJ PARAVERT F JNT L/S 1 LEV, MODIFIERS: 50 [id number] INJ PARAVERT F JNT L/S 2 LEV, MODIFIERS: 50 [id number] RADXPS IN END [id number] PXD DISPOSITION & COMMUNICATION FOLLOW UP 3 WEEKS ELECTRONICALLY SIGNED BY SVITLANA MEDRANO MD, MD ON 04/23/2019 AT 05:22 PM EDT DISCLAIMER : THIS IS A VISIT SUMMARY EXTRACTED FROM THE [employer] CHART. IT IS NOT A COPY OF THE [employer] [facility] PROGRESS NOTE. MTDD
== END ==
LOC: M PAIN 11:45
PROVIDERS: ATTEND Anesthesiology
DX: M47.816 Spondylosis without myelopathy or radiculopathy, lumbar region (principal); M47.817 Spondylosis without myelopathy or radiculopathy, lumbosacral region; E78.5 Hyperlipidemia, unspecified; E03.9 Hypothyroidism, unspecified; M79.7 Fibromyalgia; E55.9 Vitamin D deficiency, unspecified; M85.80 Other specified disorders of bone density and structure, unspecified site; F17.210 Nicotine dependence, cigarettes, uncomplicated; Z90.13 Acquired absence of bilateral breasts and nipples; E05.00 Thyrotoxicosis with diffuse goiter without thyrotoxic crisis or storm; Z79.899 Other long term (current) drug therapy; Z88.2 Allergy status to sulfonamides; Z88.5 Allergy status to narcotic agent; Z88.6 Allergy status to analgesic agent; Z88.8 Allergy status to other drugs, medicaments and biological substances; Z91.040 Latex allergy status; Z91.048 Other nonmedicinal substance allergy status
CPT/HCPCS: 64493; 64494; Q9967

== ENCOUNTER → 2019-04-21 | Outpatient (CLI) | payer BC ==
[~2019-04-21] MED LIST changes: -BUPIVACAINE HCL 0.25% 30 ML VIAL As Ordered ONE; -ISOVUE-M 300 61% 15ML VIAL (Q9967) As Ordered ONE; -LIDOCAINE 1% SDV INJ 30 ML VIAL As Ordered ONE; +OMEP40CA2 PO; -OMEP40CA97 PO
== END ==
LOC: M PAIN 11:45
PROVIDERS: ATTEND Nurse Practitioner Family
DX: M47.816 Spondylosis without myelopathy or radiculopathy, lumbar region (principal); M47.817 Spondylosis without myelopathy or radiculopathy, lumbosacral region; E78.5 Hyperlipidemia, unspecified; E03.9 Hypothyroidism, unspecified; M79.7 Fibromyalgia; E55.9 Vitamin D deficiency, unspecified; M85.88 Other specified disorders of bone density and structure, other site; F17.210 Nicotine dependence, cigarettes, uncomplicated; Z88.2 Allergy status to sulfonamides; Z88.5 Allergy status to narcotic agent; Z88.8 Allergy status to other drugs, medicaments and biological substances; Z91.040 Latex allergy status; Z91.09 Other allergy status, other than to drugs and biological substances; Z79.899 Other long term (current) drug therapy

== ENCOUNTER → 2019-05-05 | Outpatient (CLI) | payer BC ==
[~2019-05-05] MED LIST changes: +BUPIVACAINE HCL 0.25% 30 ML VIAL As Ordered ONE; +ISOVUE-M 300 61% 15ML VIAL (Q9967) As Ordered ONE; +LIDOCAINE 1% SDV INJ 30 ML VIAL As Ordered ONE; +TRIAMCINOLONE ACETONIDE SUSP 40 MG/ML VIAL (J3301) As Ordered ONE
--- NOTE | 2019-05-05 16:46 | REP ---
Partial lumbar spine series: Three views . History: Injection procedure for pain. 56 seconds of fluoroscopy time is reported. Findings: A sequence of three fluoroscopically obtained last image hold procedural spot radiographs of the lumbar spine document needle position and contrast injection associated with injection procedure. Electronically Signed by Porfirio Liao MD 05/05/2019 04:38 P
== END ==
LOC: M PAIN 14:15
PROVIDERS: ATTEND Anesthesiology
DX: M47.816 Spondylosis without myelopathy or radiculopathy, lumbar region (principal); M47.817 Spondylosis without myelopathy or radiculopathy, lumbosacral region; E78.5 Hyperlipidemia, unspecified; F17.210 Nicotine dependence, cigarettes, uncomplicated; E03.9 Hypothyroidism, unspecified; M79.7 Fibromyalgia; E55.9 Vitamin D deficiency, unspecified; M85.80 Other specified disorders of bone density and structure, unspecified site; E05.00 Thyrotoxicosis with diffuse goiter without thyrotoxic crisis or storm; Z90.13 Acquired absence of bilateral breasts and nipples; Z98.82 Breast implant status; Z85.3 Personal history of malignant neoplasm of breast; Z79.899 Other long term (current) drug therapy; Z88.2 Allergy status to sulfonamides; Z88.5 Allergy status to narcotic agent; Z88.6 Allergy status to analgesic agent; Z91.040 Latex allergy status; Z88.8 Allergy status to other drugs, medicaments and biological substances; Z91.048 Other nonmedicinal substance allergy status
CPT/HCPCS: 64635; 64636; J3301; Q9967

== ENCOUNTER → 2019-05-21 | Outpatient (REF) | payer BC ==
[~2019-05-21] MED LIST changes: -BUPIVACAINE HCL 0.25% 30 ML VIAL As Ordered ONE; -ISOVUE-M 300 61% 15ML VIAL (Q9967) As Ordered ONE; -LIDOCAINE 1% SDV INJ 30 ML VIAL As Ordered ONE; -OMEP40CA2 PO; +OMEP40CA97 PO; -TRIAMCINOLONE ACETONIDE SUSP 40 MG/ML VIAL (J3301) As Ordered ONE
[2019-05-21 18:49] LABS: FREE T4 1.09 NG/DL (0.76-1.46); THYROID STIMULATING HORMONE 2.22 uIU/ML (0.358-3.740)
== END ==
LOC: M LABDRAW1 16:45
PROVIDERS: ATTEND Internal Medicine Endocrinology, Diabetes & Metabolism
DX: E03.9 Hypothyroidism, unspecified (principal)

== ENCOUNTER → 2019-05-26 | Outpatient (CLI) | payer BC ==
[~2019-05-26] MED LIST changes: +BUPIVACAINE HCL 0.25% 30 ML VIAL As Ordered ONE; +ISOVUE-M 300 61% 15ML VIAL (Q9967) As Ordered ONE; +LIDOCAINE 1% SDV INJ 30 ML VIAL As Ordered ONE; +TRIAMCINOLONE ACETONIDE SUSP 40 MG/ML VIAL (J3301) As Ordered ONE
--- NOTE | 2019-05-27 09:28 | REP ---
C-ARM VIEWS LUMBAR SPINE: Three C-arm views lumbar spine performed during injection by Dr. Sams. [place] are seen along the lower lumbar spine region. 44 seconds fluoroscopy time utilized. Electronically Signed by Sae Lanza MD 05/29/2019 10:17 A
--- NOTE | 2019-05-29 23:09 | ECWPNPC ---
PATIENT NAME: TERESE DAMON : 1955 GENDER: FEMALE VISIT DATE: 05/26/2019 DISCHARGE DATE: 05/26/19 1332 VISIT LOCKED DATE TIME: PHYSICIAN: SVITLANA MEDRANO MD RESOURCE: SVITLANA MEDRANO MD REASON FOR APPOINTMENT 1. LEFT LUMBAR RADIOFREQUENCY FACET BLOCK PER CLAIRE HISTORY OF PRESENT ILLNESS HISTORY OF PRESENT ILLNESS: PAIN THE PATIENT DESCRIBES THE PAIN... FALL RISK SCREENING: SCREENING :NO FALLS REPORTED IN THE LAST YEAR CURRENT MEDICATIONS TAKING CLARITIN 10 MG TABLET 1 TABLET ORALLY DAILY NEEDED, NOTES: 05/26 800 TAKING MULTIVITAMINS OTC TABLET 1 ORALLY ONCE A DAY, NOTES: 05/25 900 TAKING LEVOTHYROXINE SODIUM 112 MCG TABLET 1 1/2 TABLET ORALLY ONCE A DAY, NOTES: 05/26 700 TAKING NEBULIZER - DEVICE DIRECTED DX: J45.909 DIRECTED TAKING RESTASIS 0.05 % EMULSION 1 DROP INTO AFFECTED EYE OPHTHALMIC TWICE A DAY, NOTES: 05/25 900 TAKING TRAZODONE HCL 50 MG TABLET 1 TABLET AT BEDTIME NEEDED ORALLY ONCE A DAY, NOTES: 05/25 2300 TAKING COMBIVENT RESPIMAT 20-100 MCG/ACT AEROSOL SOLUTION 1 PUFF INHALATION FOUR TIMES A DAY, NOTES: 05/26 1117 TAKING OMEPRAZOLE 40 MG CAPSULE DELAYED RELEASE 1 CAPSULE ORALLY ONCE A DAY, NOTES: 05/26 800 TAKING DRISDOL 83937 UNIT CAPSULE 1 CAPSULE ORALLY ONCE A WEEK, NOTES: 05/24 TAKING MIRALAX - PACKET 1 PACKET MIXED WITH 8 OUNCES OF FLUID ORALLY ONCE A DAY, NOTES: WEEKS AGO TAKING SULFASALAZINE 500 MG TABLET 1 TABLET ORALLY BID, NOTES: 05/26 800 TAKING GABAPENTIN 300 MG CAPSULE 2 CAPSULE ORALLY THREE TIMES A DAY, NOTES: 05/26 800 TAKING FLECTOR 1.3 % PATCH 1 PATCH TO SKIN TRANSDERMAL FOR PAIN TWICE A DAY, NOTES: 05/25 OFF NOW TAKING TYLENOL PM EXTRA STRENGTH 500-25 MG TABLET 1 TABLET AT BEDTIME NEEDED ORALLY ONCE A DAY, NOTES: 05/25 2300 TAKING ALEVE 220 MG TABLET 1 TABLET WITH FOOD OR MILK NEEDED ORALLY EVERY 12 HRS, NOTES: 05/25 NOT-TAKING EVISTA 60 MG TABLET 1 TABLET ORALLY ONCE A DAY NOT-TAKING CICLOPIROX 0.77 % GEL 1 APPLICATION TO AFFECTED AREA EXTERNALLY TWICE A DAY TO FEET NOT-TAKING VITAMIN D 1000 UNIT TABLET 1 TABLET ORALLY ONCE A DAY NOT-TAKING VITAMIN B-12 5000 MCG TABLET DISPERSIBLE 1 TABLET ORALLY ONCE A DAY NOT-TAKING ALBUTEROL SULFATE (2.5 MG/3ML) 0.083% NEBULIZATION SOLUTION 3 ML INHALATION EVERY 4 HOURS NEEDED FOR SOB MEDICATION LIST REVIEWED AND RECONCILED WITH THE PATIENT PAST MEDICAL HISTORY HYPERLIPIDEMIA TOBACCO ABUSE BREAST CANCER HYPOTHYROIDISM FIBROMYALGIA VITAMIN D DEFICIENCY GRAVES DISEASE OSTEOPENIA BACK PAIN FACET ARTHROPATHY, THORACIC SACROILIITIS LEFT UPPER QUAD PAIN ALLERGIES SULFA (FOR ALLERGY USE ONLY): NAUSEA/VOMITING - SIDE EFFECTS CODEINE PHOSPHATE: NAUSEA/VOMITING - SIDE EFFECTS LATEX: RASH - ALLERGY RUBBER: RASH - ALLERGY MELOXICAM: HEADACHE - SIDE EFFECTS ANASTROZOLE: WEAKNESS, ACHES, DRY COUGH - SIDE EFFECTS SURGICAL HISTORY APPENDECTOMY 1978 1985 BREAST SURGERY/CYST ASP. X 2 /LEFT EYES FOR GRAVES DISEASE HYSTERECTOMY PARTIAL 1994 LEFT FT. SURGERY 2003 RIGHT WRIST SURGERY 07/09 AND 01/02 COLONOSCOPY 2009 LUMPECTOMY 10/16 BILATERAL MASTECTOMY WITH SILICONE IMPLANTS 12/16 BREAST RECONSTRUCTION 07/18 BILATERAL BREAST IMPLANT REPLACEMENTS 12/17 FAT GRAFT FROM ABDOMEN TO RIGHT BREAST 09/2017 PUNCH BIOPSY RIGHT HEEL TORN MANISCUS REPAIR RIGHT KNEE 02/2019 FAMILY HISTORY MOTHER: LUPUS (UNKNOWN WHAT TYPE), HYPERTENSION MATERNAL GRAND MOTHER: RHEUMATOID FATHER: DIAGNOSED WITH UNSPECIFIED HEART DISEASE, OTHER MALIGNANT NEOPLASM OF UNSPECIFIED SITE PATERNAL AUNT- RA SISTER () BREAST CANCER DENIES FAMILY HX OF PANCREATIC CANCER OR MELANOMA. SOCIAL HISTORY GENERAL: TOBACCO USE ARE YOU A:CURRENT SMOKER ARE YOU INTERESTED IN QUITTING?THINKING ABOUT QUITTING PREVIOUS QUIT ATTEMPTS?YES, MORE THAN 6 MONTHS AGO. COUNSELED THE PATIENT ON SMOKING CESSATION, EDUCATION [id number]/23/2019 HOW MANY CIGARETTES A DAY DO YOU SMOKE?11-20 HOW SOON AFTER YOU WAKE UP DO YOU SMOKE YOUR FIRST CIGARETTE?6-30 MIN HOW OFTEN DO YOU SMOKE CIGARETTES?EVERY DAY PATIENT COUNSELED ON THE DANGERS OF TOBACCO USE AND URGED TO QUIT:05/26/2019 GOING TO HYPNOTIST SMOKING CESSATION INFORMATION GIVEN10/22/2018 HIV / HEP-C SCREENING HIV TEST OFFERED TO PATIENT:YES DATE OFFERED:06/24/2017 TEST ACCEPTED:YES HEP-C TEST OFFERED TO PATIENT:YES DATE OFFERED:06/24/2017 TEST ACCEPTED:NO REASON:PATIENT DECLINED BROCHURE PROVIDED TO PATIENTYES HOUSING: OWNS HOME. 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 LANGUAGE LANGUAGES SPOKEN:TURKISH DOMESTIC VIOLENCE DO YOU FEEL SAFE IN YOUR ENVIRONMENT?YES RECREATIONAL DRUG USE DRUG USE?NO EXERCISE: DAILY. LEARNING BARRIERS / SPECIAL NEEDS CHANGE FROM LAST VISIT?NO BARRIERS TO LEARNING?NO HEARING IMPAIRED?NO VISION IMPAIRED?YES :CORRECTIVE LENSES COGNITIVELY IMPAIRED?NO READINESS TO LEARN?YES LEARNING PREFERENCES?NO LEARNING CAPABILITIES PRESENT?YES EMOTIONAL BARRIERS?NO SPECIAL DEVICES?NO REPORT CLERK NEEDED?NO PAIN CLINIC PFS, CLERGY, PUBLIC HEALTH REFERRALS WAS THE PROVIDER NOTIFIED OF ANY PERTINENT INFO? N/A HAS THE PATIENT BEEN EDUCATED REGARDING HIS/HER PLAN OF CARE?YES HAS THE PATIENT BEEN EDUCATED REGARDING PAIN, THE RISK FOR PAIN, THE IMPORTANCE OF EFFECTIVE PAIN MANAGEMENT, AND THE PAIN ASSESSMENT PROCESS?YES LATEX QUESTIONNAIRE LATEX ALLERGY : HAVE YOU EVER DEVELOPED ANY TYPE OF REACTION AFTER HANDLING LATEX PRODUCTS SUCH RUBBER GLOVES, CONDOMS, DIAPHRAGMS, BALLOONS, SOCKS, OR UNDERWEAR?YES - PLEASE INDICATE :RUBBER GLOVES, OTHER (DOCUMENT IN NOTES) BANDAIDS LATEX ALLERGY : HAVE YOU EVER DEVELOPED ANY TYPE OF REACTION DURING OR AFTER DENTAL APPOINTMENT, VAGINAL/RECTAL EXAMINATION, SURGICAL PROCEDURE, OR ANY OTHER EXPOSURE?NO LATEX RISK : HAVE YOU EVER HAD ANY DIFFICULTY BREATHING OR HIVES AFTER EATING OR HANDLING ANY FRUITS, OR VEGETABLES; SUCH KIWI, BANANAS, STONE FRUITS, OR CHESTNUTSNO LATEX RISK : DO YOU HAVE A PREVIOUS PERSONAL HISTORY OF MORE THAN NINE SURGERIES, SPINA BIFIDA, OR REPEATED CATHERIZATIONS? YES - PLEASE INDICATE : > 9 SURGERIES LATEX RISK : ARE YOU FREQUENTLY EXPOSED TO LATEX PRODUCTS IN YOUR OCCUPATION?NO DATE ASKED : 05/26/2019 LATEX ALLERGY CAFFEINE CAFFEINE USE?NO ADVANCE DIRECTIVE ADVANCE DIRECTIVE DISCUSSED WITH PATIENT:YES 05/26/19 STATES SHE HAS HCP -WM [phone](C), (W) , (H) ALSO HAS POA AND LIVING WILL. PT ASKED TO BRING A COPY IN FOR OUR FILES. AD HOLINESS [id number] MANDAEISM MARITAL STATUS: . 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 SEXUAL HX HAD SEX IN THE LAST 12 MONTHS (VAGINAL, ORAL, OR ANAL)?YES WITHMEN ONLY PREVENTION STRATEGIES DISCUSSED:OTHER USE PROTECTION?NO HAVE YOU EVER HAD AN STD?NO 12/16/17 1440 REVIEWED WITH PT. 12/25/17 1520 REVIEWED WITH PT. AD01/22/18 1034 REVIEWED WITH PT. ADREVIEWED WITH PT 05/27/18 1503 BVREVIEWED WITH PATIENT 01/25/19 1110 JSREVIEWED WITH PATIENT 04/15/19 1253 BVREVIEWED WITH PT 04/21/19 1207 BV. HOSPITALIZATION/MAJOR DIAGNOSTIC PROCEDURE FOR ABOVE REASONS LEGIONAIRRE'S DISEASE 1995 STATES MANY HOSPITALIZATIONS REVIEW OF SYSTEMS REVIEWED BY: PROVIDER: . CONSTITUTIONAL: ANY CHANGE IN YOUR MEDICAL CONDITION? NO . CHILLS NO . FEVER NO . INFECTION: DO YOU HAVE NEW INFECTIONS? NO . DO YOU HAVE HISTORY OF MRSA? NO . MUSCULOSKELETAL: ANY NEW PATTERNS OF PAIN OR NUMBNESS? NO . GASTROENTEROLOGY: ANY NEW CHANGE IN BOWEL CONTROL? NO . GENITOURINARY: ANY NEW CHANGE IN BLADDER CONTROL? NO . IS THERE A CHANCE YOU COULD BE ? NO . HEMATOLOGY/LYMPH: DO YOU TAKE ANY BLOOD THINNERS? (FOR EXAMPLE- COUMADIN, PLAVIX, AGGRENOX, PLATEL, PRADAXA, OR XARELTO) NO . WHEN WAS YOUR LAST DOSE? DATE: TIME: . NEUROLOGY: HAVE YOU FALLEN IN THE PAST 12 MONTHS? YES, AFTER KNEE SURG HER CRUTCHES GOT CAUGHT CAUSING HER TO LOSE HER BALANCE AND FALL. NO INJURY AND NOTED BEFORE. . ANY NEW EXTREMITY NUMBNESS OR WEAKNESS? NO . CARDIOLOGY: DO YOU HAVE A PACEMAKER OR DEFIBRILLATOR? NO . RESPIRATORY: HAVE YOU BEEN SICK IN THE PAST WEEK? NO . FEVER NO . FLU LIKE SYMPTOMS? NO . COUGH NO . INTEGUMENTARY: DO YOU HAVE ANY RASHES OR OPEN SORES? NO . ALLERGIC/IMMUNO: ARE YOU ALLERGIC TO IV DYE? NO . ANY NEW ALLERGIES? NO . PSYCHIATRIC: DO YOU HAVE THOUGHTS OF HURTING YOURSELF OR SOMEONE ELSE? NO . ARE YOU ABUSED, NEGLECTED, OR IN AN UNSAFE ENVIRONMENT? NO . ENDOCRINOLOGY: ARE YOU DIABETIC? NO . OTHER: DO YOU NEED ANY PRESCRIPTIONS? NO . IF YES, PLEASE LIST: ____ . ANY NEW PROBLEMS WITH YOUR MEDICATIONS? NO . WHEN DID YOU LAST EAT? 05/25 1830 . WHEN DID YOU LAST DRINK? 05/26 730 . WHAT DID YOU LAST DRINK? WATER . NAME OF PERSON DRIVING YOU HOME? ____ . DO YOU HAVE ANY OTHER QUESTIONS OR CONCERNS YES, HOW DOES THIS PROCEDURE AFFECT ME CARE HOME AND ALSO STEROID- HOW LANGE IT AFFECT ME CARE HOME? DR. MEDRANO ANSWERED THESE QUESTIONS FOR HER. SHE PLANS ON GETTING THE FLU VACCINE AND SHINGLES VACCINE WHEN WE TELL HER IT IS OKAY. THE TIMING WAS DISCUSSED WITH PT. IN RELATIONSHIP TO WHEN SHE RECIEVES THE STEROIDS. SHE VERBALIZED UNDERSTANDING. . VITAL SIGNS WT 159.0 LBS, HT 64.5 IN, BMI 26.87 INDEX, BP 153/72 MM HG, HR 83 /MIN, RR 18 /MIN, TEMP 96.6 F, OXYGEN SAT % 96%, SAFE IN ENV? (Y/N) Y, NA INITIALS AW 1100, REVIEWED BY: AD. ASSESSMENTS SPONDYLOSIS OF LUMBAR REGION WITHOUT MYELOPATHY OR RADICULOPATHY - M47.816 (PRIMARY) SPONDYLOSIS WITHOUT MYELOPATHY OR RADICULOPATHY, LUMBOSACRAL REGION - M47.817 TREATMENT SPONDYLOSIS OF LUMBAR REGION WITHOUT MYELOPATHY OR RADICULOPATHY SMC FACET BLOCK (PAIN)[id number] PROCEDURES PN RADIOFREQUENCY PRE PROCEDURE DIAGNOSES 1. LUMBAR SPONDYLOSIS. 2. LUMBOSACRAL SPONDYLOSIS POST PROCEDURE DIAGNOSES 1. LUMBAR SPONDYLOSIS. 2. LUMBOSACRAL SPONDYLOSIS PROCEDURE LEFT L4-L5 AND LEFT L5-S1 LUMBAR FACET RADIOFREQUENCY SURGEON DR. SVITLANA MEDRANO END MATCHER NONE ANESTHESIA LOCAL PRE PROCEDURE REPORT THE PATIENT HAS HISTORY OF CHRONIC LOW BACK PAIN. I EVALUATED THE PATIENT AND REVIEWED THE CHART. I WENT OVER THE RISKS, ALTERNATIVES, AND BENEFITS ASSOCIATED WITH THIS PROCEDURE. THE PATIENT WOULD LIKE TO PROCEED AND GIVES CONSENT TO PERFORM THE PROCEDURE. THE PATIENT DENIES UNEXPLAINABLE WEIGHT LOSS, FEVER, CHILLS, OR NEW CHANGES IN URINARY OR BOWEL CONTROL DESCRIPTION OF PROCEDURE THE PATIENT WAS BROUGHT TO THE PROCEDURE ROOM AND PLACED IN THE PRONE POSITION. THE LUMBOSACRAL AREA WAS CLEANED WITH CHLORAPREP SOLUTION AND DRAPED ASEPTICALLY. THE PROCEDURE WAS DONE UNDER STERILE CONDITIONS. I CHECKED LATERALITY AND THE LEVEL WHERE THE PROCEDURE WAS GOING TO BE PERFORMED WITH THE PATIENT AND THE SUPPORTING STAFF AT THE MOMENT OF THE TIME OUT IN THE PROCEDURE ROOM. UNDER FLUOROSCOPIC GUIDANCE, TARGETS WERE SELECTED AT THE INTERSECTION OF THE LEFT TRANSVERSE PROCESS OF L4, L5 AND ALA OF S1 WITH ITS RESPECTIVE SUPERIOR ARTICULAR PROCESS. LIDOCAINE WAS USED TO NUMB THE SKIN AND THE SUBCUTANEOUS TISSUE BELOW IT. RADIOFREQUENCY NEEDLES 22-GAUGE 15 CM LONG WITH 10 MM ACTIVE CURVE TIP WERE ADVANCED UNDER FLUOROSCOPIC GUIDANCE AND FOLLOWING PATIENT FEEDBACK UNTIL THE TARGET AREA WAS REACHED. POSITION OF THE NEEDLES WAS VERIFIED WITH AP AND LATERAL VIEWS. AFTER PROPER POSITION OF THE NEEDLE WAS ACHIEVED, WE WORKED WITH THE LEFT SELECTED MEDIAN BRANCHES OF L3, L4 AND THE DORSAL RAMI OF L5. WE MEASURED THE CORRESPONDING IMPEDANCES, SENSORY STIMULATION AND MOTOR RESPONSES INDICATED IN THE RADIOFREQUENCY WORKSHEET. POSITION OF THE NEEDLES WAS VERIFIED AGAIN WITH AP AND LATERAL VIEWS. LIDOCAINE 1%, 2 ML, WAS INJECTED AT EACH LEVEL. RADIOFREQUENCY WAS DONE AT EACH LEVEL AT 80 DEGREES FOR 90 SECONDS. AFTER RADIOFREQUENCY WAS DONE, THE PATIENT RECEIVED BUPIVACAINE 0.125% 1 CC WITH KENALOG 5 MG AT EACH SITE. THERE WAS NO EVIDENCE OF BLOOD, PARESTHESIA OR CEREBROSPINAL FLUID DURING THE PROCEDURE. THE PATIENT WAS SENT TO THE RECOVERY ROOM. THE PATIENT WAS MOVING THE EXTREMITIES AND DOING WELL. THERE WAS NO COMPLICATION DURING THE PROCEDURE. FLUOROSCOPY TIME WAS 44 SECONDS POST PROCEDURE NOTE THE PATIENT WILL BE SEEN IN A FOLLOW UP IN THE NEXT FEW WEEKS. INSTRUCTIONS WERE GIVEN, QUESTIONS WERE ANSWERED, AND THE PATIENT EXPRESSED UNDERSTANDING AND AGREES WITH THE PLAN. I, ROSA M ATWOOD, DOCUMENTED THE ABOVE INFORMATION ACTING A SCRIBE FOR DR. MEDRANO. I HAVE REVIEWED THE ABOVE DOCUMENT, WRITTEN BY ROSA M GIANG AND I VERIFY THAT IT IS ACCURATE. PROCEDURE CODES 05866 DESTROY LUMB/SAC FACET JNT, [place]: [place] [address] DESTROY L/S FACET JNT ADDL, MODIFIERS: LT 6045F RADXPS IN END [id number] PXD DISPOSITION & COMMUNICATION FOLLOW UP 3 WEEKS ELECTRONICALLY SIGNED BY SVITLANA MEDRANO MD, MD ON 05/29/2019 AT 03:50 PM EDT DISCLAIMER : THIS IS A VISIT SUMMARY EXTRACTED FROM THE [employer] CHART. IT IS NOT A COPY OF THE [employer] PROGRESS NOTE. MTDD
== END ==
LOC: M PAIN 10:30
PROVIDERS: ATTEND Anesthesiology
DX: M47.816 Spondylosis without myelopathy or radiculopathy, lumbar region (principal); M47.817 Spondylosis without myelopathy or radiculopathy, lumbosacral region; E78.5 Hyperlipidemia, unspecified; F17.210 Nicotine dependence, cigarettes, uncomplicated; E03.9 Hypothyroidism, unspecified; M79.7 Fibromyalgia; E55.9 Vitamin D deficiency, unspecified; E05.00 Thyrotoxicosis with diffuse goiter without thyrotoxic crisis or storm; M85.80 Other specified disorders of bone density and structure, unspecified site; M46.1 Sacroiliitis, not elsewhere classified; M46.94 Unspecified inflammatory spondylopathy, thoracic region; Z85.3 Personal history of malignant neoplasm of breast; Z90.13 Acquired absence of bilateral breasts and nipples; Z79.899 Other long term (current) drug therapy; Z88.2 Allergy status to sulfonamides; Z88.5 Allergy status to narcotic agent; Z88.6 Allergy status to analgesic agent; Z91.040 Latex allergy status; Z88.8 Allergy status to other drugs, medicaments and biological substances
CPT/HCPCS: 64635; 64636; J3301; Q9967

== ENCOUNTER → 2019-06-03 | Outpatient (REF) | payer BC ==
[~2019-06-03] MED LIST changes: -BUPIVACAINE HCL 0.25% 30 ML VIAL As Ordered ONE; -ISOVUE-M 300 61% 15ML VIAL (Q9967) As Ordered ONE; -LIDOCAINE 1% SDV INJ 30 ML VIAL As Ordered ONE; -TRIAMCINOLONE ACETONIDE SUSP 40 MG/ML VIAL (J3301) As Ordered ONE
[2019-06-03 13:35] LABS: ALBUMIN 4.2 GM/DL (3.2-5.2); ALT/SGPT 25 U/L (12-78); BILIRUBIN,TOTAL 0.8 MG/DL (0.2-1.0); BLOOD UREA NITROGEN 19 MG/DL (7-18); CALCIUM LEVEL 10.2 MG/DL (8.8-10.2); CARBON DIOXIDE LEVEL 29 MEQ/L (21-32); CHLORIDE LEVEL 103 MEQ/L (98-107); CHOLESTEROL LEVEL 216 MG/DL (<200); CHOLESTEROL RISK RATIO 4.235 (<5); CREATININE FOR GFR 0.73 MG/DL (0.55-1.30); GLOMERULAR FILTRATION RATE > 60.0 (>45); GLUCOSE, FASTING 85 MG/DL (70-100); HDL CHOLESTEROL 51 MG/DL (>40); LDL CHOLESTEROL 129 MG/DL (<100); NON-HDL-C 165 MG/DL; SODIUM LEVEL 137 MEQ/L (136-145); TOTAL PROTEIN 7.2 GM/DL (6.4-8.2); TRIGLYCERIDES LEVEL 182 MG/DL (<150)
== END ==
LOC: M SFHCPLAZ 10:34
PROVIDERS: ATTEND Internal Medicine
DX: E78.5 Hyperlipidemia, unspecified (principal); E03.9 Hypothyroidism, unspecified

== ENCOUNTER → 2019-07-05 | Outpatient (CLI) | payer BC ==
--- NOTE | 2019-07-21 04:40 | ECWPNPC ---
PATIENT NAME: TERESE DAMON : 1955 GENDER: FEMALE VISIT DATE: 07/05/2019 DISCHARGE DATE: 07/05/19 1204 VISIT LOCKED DATE TIME: PHYSICIAN: DARIUS SMITH RESOURCE: DARIUS SMITH REASON FOR APPOINTMENT 1. POST PROC HISTORY OF PRESENT ILLNESS HISTORY OF PRESENT ILLNESS: HERE FOR POST PROCEDURE F/U.HAD LEFT L4/5-L5/S1 RF ON 05/26/19.DOING WELL POST PROCEDURE.REPORTING 0/10 VAS IN LOW BACK.CHIEF AREA OF PAIN MID THORACIC.RATING PAIN IN THIS REGION 1/10. PAIN THE PATIENT DESCRIBES THE PAIN... FALL RISK SCREENING: SCREENING :NO FALLS REPORTED IN THE LAST YEAR CURRENT MEDICATIONS TAKING PROPRANOLOL HCL 10 MG TABLET 1 TABLET ORALLY EVERY 4 HOURS NEEDED FOR PALPITATIONS TAKING WELLBUTRIN XL 150 MG TABLET EXTENDED RELEASE 24 HOUR 1 TABLET IN THE MORNING ORALLY ONCE A DAY TAKING CLARITIN 10 MG TABLET 1 TABLET ORALLY DAILY NEEDED TAKING MULTIVITAMINS OTC TABLET 1 ORALLY ONCE A DAY TAKING LEVOTHYROXINE SODIUM 112 MCG TABLET 1 1/2 TABLET ORALLY ONCE A DAY TAKING NEBULIZER - DEVICE DIRECTED DX: J45.909 DIRECTED TAKING RESTASIS 0.05 % EMULSION 1 DROP INTO AFFECTED EYE OPHTHALMIC TWICE A DAY TAKING TRAZODONE HCL 50 MG TABLET 1 TABLET AT BEDTIME ORALLY ONCE A DAY TAKING COMBIVENT RESPIMAT 20-100 MCG/ACT AEROSOL SOLUTION 1 PUFF INHALATION FOUR TIMES A DAY TAKING OMEPRAZOLE 40 MG CAPSULE DELAYED RELEASE 1 CAPSULE ORALLY ONCE A DAY TAKING DRISDOL 90217 UNIT CAPSULE 1 CAPSULE ORALLY ONCE A WEEK TAKING MIRALAX - PACKET 1 PACKET MIXED WITH 8 OUNCES OF FLUID ORALLY ONCE A DAY TAKING SULFASALAZINE 500 MG TABLET 1 TABLET ORALLY BID TAKING GABAPENTIN 300 MG CAPSULE 2 CAPSULE ORALLY THREE TIMES A DAY TAKING FLECTOR 1.3 % PATCH 1 PATCH TO SKIN TRANSDERMAL FOR PAIN TWICE A DAY TAKING TYLENOL PM EXTRA STRENGTH 500-25 MG TABLET 1 TABLET AT BEDTIME NEEDED ORALLY ONCE A DAY TAKING ALEVE 220 MG TABLET 1 TABLET WITH FOOD OR MILK NEEDED ORALLY EVERY 12 HRS TAKING CICLOPIROX 0.77 % GEL 1 APPLICATION TO AFFECTED AREA EXTERNALLY TWICE A DAY TO FEET NOT-TAKING ALBUTEROL SULFATE (2.5 MG/3ML) 0.083% NEBULIZATION SOLUTION 3 ML INHALATION EVERY 4 HOURS NEEDED FOR SOB MEDICATION LIST REVIEWED AND RECONCILED WITH THE PATIENT PAST MEDICAL HISTORY HYPERLIPIDEMIA TOBACCO ABUSE BREAST CANCER HYPOTHYROIDISM FIBROMYALGIA VITAMIN D DEFICIENCY GRAVES DISEASE OSTEOPENIA BACK PAIN FACET ARTHROPATHY, THORACIC SACROILIITIS LEFT UPPER QUAD PAIN ALLERGIES SULFA (FOR ALLERGY USE ONLY): NAUSEA/VOMITING - SIDE EFFECTS CODEINE PHOSPHATE: NAUSEA/VOMITING - SIDE EFFECTS RUBBER: RASH - ALLERGY MELOXICAM: HEADACHE - SIDE EFFECTS ANASTROZOLE: WEAKNESS, ACHES, DRY COUGH - SIDE EFFECTS LATEX (FOR ALLERGY USE ONLY): RASH - ALLERGY - ONSET DATE 06/09/2019 SURGICAL HISTORY APPENDECTOMY 1978 1985 BREAST SURGERY/CYST ASP. X 2 /LEFT EYES FOR GRAVES DISEASE HYSTERECTOMY PARTIAL 1994 LEFT FT. SURGERY 2003 RIGHT WRIST SURGERY 07/09 AND 01/02 COLONOSCOPY 2009 LUMPECTOMY 10/16 BILATERAL MASTECTOMY WITH SILICONE IMPLANTS 12/16 BREAST RECONSTRUCTION 07/18 BILATERAL BREAST IMPLANT REPLACEMENTS 12/17 FAT GRAFT FROM ABDOMEN TO RIGHT BREAST 09/2017 PUNCH BIOPSY RIGHT HEEL ARTHROSCOPIC REPAIR OF A TORN MEDIAL MENISCUS OF THE RIGHT KNEE 02/2019 COLONOSCOPY WITH ADENOMATOUS POLYPS 02/2019 FAMILY HISTORY MOTHER: LUPUS (UNKNOWN WHAT TYPE), HYPERTENSION MATERNAL GRAND MOTHER: RHEUMATOID FATHER: DIAGNOSED WITH UNSPECIFIED HEART DISEASE, OTHER MALIGNANT NEOPLASM OF UNSPECIFIED SITE PATERNAL AUNT- RA SISTER () BREAST CANCER DENIES FAMILY HX OF PANCREATIC CANCER OR MELANOMA. SOCIAL HISTORY GENERAL: TOBACCO USE ARE YOU A:CURRENT SMOKER ARE YOU INTERESTED IN QUITTING?THINKING ABOUT QUITTING PREVIOUS QUIT ATTEMPTS?YES, MORE THAN 6 MONTHS AGO. COUNSELED THE PATIENT ON SMOKING CESSATION, EDUCATION [id number]/02/2019 HOW MANY CIGARETTES A DAY DO YOU SMOKE?11-20 HOW SOON AFTER YOU WAKE UP DO YOU SMOKE YOUR FIRST CIGARETTE?6-30 MIN HOW OFTEN DO YOU SMOKE CIGARETTES?EVERY DAY PATIENT COUNSELED ON THE DANGERS OF TOBACCO USE AND URGED TO QUIT:07/05/2019 GOING TO HYPNOTIST SMOKING CESSATION INFORMATION GIVEN10/22/2018 HIV / HEP-C SCREENING HIV TEST OFFERED TO PATIENT:YES DATE OFFERED:06/24/2017 TEST ACCEPTED:YES HEP-C TEST OFFERED TO PATIENT:YES DATE OFFERED:06/24/2017 TEST ACCEPTED:NO REASON:PATIENT DECLINED BROCHURE PROVIDED TO PATIENTYES HOUSING: OWNS HOME. 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 LANGUAGE LANGUAGES SPOKEN:SYRIAC DOMESTIC VIOLENCE DO YOU FEEL SAFE IN YOUR ENVIRONMENT?YES RECREATIONAL DRUG USE DRUG USE?NO EXERCISE: DAILY. LEARNING BARRIERS / SPECIAL NEEDS CHANGE FROM LAST VISIT?NO BARRIERS TO LEARNING?NO HEARING IMPAIRED?NO VISION IMPAIRED?YES COGNITIVELY IMPAIRED?NO :CORRECTIVE LENSES READINESS TO LEARN?YES LEARNING PREFERENCES?NO LEARNING CAPABILITIES PRESENT?YES EMOTIONAL BARRIERS?NO SPECIAL DEVICES?NO GRAPHIC COORDINATOR NEEDED?NO PAIN CLINIC PFS, CLERGY, PUBLIC HEALTH REFERRALS WAS THE PROVIDER NOTIFIED OF ANY PERTINENT INFO? N/A HAS THE PATIENT BEEN EDUCATED REGARDING HIS/HER PLAN OF CARE?YES HAS THE PATIENT BEEN EDUCATED REGARDING PAIN, THE RISK FOR PAIN, THE IMPORTANCE OF EFFECTIVE PAIN MANAGEMENT, AND THE PAIN ASSESSMENT PROCESS?YES LATEX QUESTIONNAIRE LATEX ALLERGY : HAVE YOU EVER DEVELOPED ANY TYPE OF REACTION AFTER HANDLING LATEX PRODUCTS SUCH RUBBER GLOVES, CONDOMS, DIAPHRAGMS, BALLOONS, SOCKS, OR UNDERWEAR?YES - PLEASE INDICATE :RUBBER GLOVES, OTHER (DOCUMENT IN NOTES) BANDAIDS LATEX ALLERGY : HAVE YOU EVER DEVELOPED ANY TYPE OF REACTION DURING OR AFTER DENTAL APPOINTMENT, VAGINAL/RECTAL EXAMINATION, SURGICAL PROCEDURE, OR ANY OTHER EXPOSURE?NO LATEX RISK : HAVE YOU EVER HAD ANY DIFFICULTY BREATHING OR HIVES AFTER EATING OR HANDLING ANY FRUITS, OR VEGETABLES; SUCH KIWI, BANANAS, STONE FRUITS, OR CHESTNUTSNO LATEX RISK : DO YOU HAVE A PREVIOUS PERSONAL HISTORY OF MORE THAN NINE SURGERIES, SPINA BIFIDA, OR REPEATED CATHERIZATIONS? YES - PLEASE INDICATE : > 9 SURGERIES LATEX RISK : ARE YOU FREQUENTLY EXPOSED TO LATEX PRODUCTS IN YOUR OCCUPATION?NO DATE ASKED : 05/26/2019 LATEX ALLERGY CAFFEINE CAFFEINE USE?NO ADVANCE DIRECTIVE ADVANCE DIRECTIVE DISCUSSED WITH PATIENT:YES STATES SHE HAS HCP -WM [phone](C), (W) , (H) ALSO HAS POA AND LIVING WILL. PT ASKED TO BRING A COPY IN FOR OUR FILES. [facility] [employer] [id number] SCIENTOLOGY MARITAL STATUS: . 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 SEXUAL HX HAD SEX IN THE LAST 12 MONTHS (VAGINAL, ORAL, OR ANAL)?YES WITHMEN ONLY PREVENTION STRATEGIES DISCUSSED:OTHER USE PROTECTION?NO HAVE YOU EVER HAD AN STD?NO 12/16/17 1440 REVIEWED WITH PT. 12/25/17 1520 REVIEWED WITH PT. AD01/22/18 1034 REVIEWED WITH PT. ADREVIEWED WITH PT 05/27/18 1503 BVREVIEWED WITH PATIENT 01/25/19 1110 JSREVIEWED WITH PATIENT 04/15/19 1253 BVREVIEWED WITH PT 04/21/19 1207 BVREVIEWED WITH PATIENT 07/05/19 1144 JS. HOSPITALIZATION/MAJOR DIAGNOSTIC PROCEDURE FOR ABOVE REASONS [facility]'S DISEASE 1994 STATES MANY HOSPITALIZATIONS REVIEW OF SYSTEMS REVIEWED BY: PROVIDER: DARIUS SIERRA . CONSTITUTIONAL: ANY CHANGE IN YOUR MEDICAL CONDITION? NO . CHILLS NO . FEVER NO . INFECTION: DO YOU HAVE NEW INFECTIONS? NO . DO YOU HAVE HISTORY OF MRSA? NO . MUSCULOSKELETAL: ANY NEW PATTERNS OF PAIN OR NUMBNESS? NO . GASTROENTEROLOGY: ANY NEW CHANGE IN BOWEL CONTROL? NO . GENITOURINARY: ANY NEW CHANGE IN BLADDER CONTROL? NO . IS THERE A CHANCE YOU COULD BE ? NO . HEMATOLOGY/LYMPH: DO YOU TAKE ANY BLOOD THINNERS? (FOR EXAMPLE- COUMADIN, PLAVIX, AGGRENOX, PLATEL, PRADAXA, OR XARELTO) NO . WHEN WAS YOUR LAST DOSE? DATE: TIME: . NEUROLOGY: HAVE YOU FALLEN IN THE PAST 12 MONTHS? YES, STATES PRIOR TO LAST VISIT, DISCUSSED AT PREVIOUS VISIT . ANY NEW EXTREMITY NUMBNESS OR WEAKNESS? NO . CARDIOLOGY: DO YOU HAVE A PACEMAKER OR DEFIBRILLATOR? NO . RESPIRATORY: HAVE YOU BEEN SICK IN THE PAST WEEK? NO . FEVER NO . FLU LIKE SYMPTOMS? NO . COUGH NO . INTEGUMENTARY: DO YOU HAVE ANY RASHES OR OPEN SORES? NO . ALLERGIC/IMMUNO: ARE YOU ALLERGIC TO IV DYE? NO . ANY NEW ALLERGIES? NO . PSYCHIATRIC: DO YOU HAVE THOUGHTS OF HURTING YOURSELF OR SOMEONE ELSE? NO . ARE YOU ABUSED, NEGLECTED, OR IN AN UNSAFE ENVIRONMENT? NO . ENDOCRINOLOGY: ARE YOU DIABETIC? NO . OTHER: DO YOU NEED ANY PRESCRIPTIONS? NO . IF YES, PLEASE LIST: ____ . ANY NEW PROBLEMS WITH YOUR MEDICATIONS? NO . WHEN DID YOU LAST EAT? ____ . WHEN DID YOU LAST DRINK? ____ . WHAT DID YOU LAST DRINK? ____ . NAME OF PERSON DRIVING YOU HOME? ____ . DO YOU HAVE ANY OTHER QUESTIONS OR CONCERNS FLU & SHINGLES VACCINES 06/29/19 . VITAL SIGNS WT 155.8 LBS, HT 64.5 IN, BMI 26.33 INDEX, BP 153/79 MM HG, HR 92 /MIN, RR 18 /MIN, TEMP 96.3 F, OXYGEN SAT % 96%, SAFE IN ENV? (Y/N) YES, NA INITIALS AW 1142, REVIEWED BY: ARY. EXAMINATION GENERAL EXAMINATION: GENERAL AWAKE,ALERT ,PLEASANT . PSYCH AFFECT NORMAL . LUNGS: LUNG CARTWRIGHT ARE CLEAR TO AUSCULTATION BILATERALLY. GOOD MOVEMENT OF AIR . HEART: S1, S2 IN A REGULAR RATE AND RHYTHM. NO SIGNIFICANT MURMURS, RUBS OR GALLOPS NOTED . MUSCULOSKELETAL:MUSCLE STRENGTH TESTING 5/5 BILATERAL UPPER /LOWER EXTREMITIES. THORACIC SPINE TRIGGER POINTS ELICITED MID THORACIC PARASPINAL.ROJM ARMS INCREASES PAIN IN THIS REGION.. ASSESSMENTS MYALGIA, OTHER SITE - M79.18 (PRIMARY) TREATMENT MYALGIA, OTHER SITE NOTES: [facility]. PROCEDURE CODES FA211 ESTABILISHED PATIENT [facility] CHARGE DISPOSITION & COMMUNICATION FOLLOW UP POST (REASON: [facility]) ELECTRONICALLY SIGNED BY MARIELA CLINTON ON 07/20/2019 AT 08:44 AM EST DISCLAIMER : THIS IS A VISIT SUMMARY EXTRACTED FROM THE [employer] CHART. IT IS NOT A COPY OF THE [employer] PROGRESS NOTE. MIKE
== END ==
LOC: M PAIN 11:30
PROVIDERS: ATTEND Nurse Practitioner Family
DX: M79.18 Myalgia, other site (principal); E78.5 Hyperlipidemia, unspecified; E03.9 Hypothyroidism, unspecified; E55.9 Vitamin D deficiency, unspecified; F17.210 Nicotine dependence, cigarettes, uncomplicated; Z88.2 Allergy status to sulfonamides; Z88.5 Allergy status to narcotic agent; Z88.8 Allergy status to other drugs, medicaments and biological substances; Z91.040 Latex allergy status; Z91.09 Other allergy status, other than to drugs and biological substances; Z79.899 Other long term (current) drug therapy

== ENCOUNTER → 2019-07-15 | Outpatient (CLI) | payer BC ==
[~2019-07-15] MED LIST changes: +BUPIVACAINE HCL 0.25% 30 ML VIAL As Ordered ONE; +ISOVUE-M 300 61% 15ML VIAL (Q9967) As Ordered ONE; +LIDOCAINE 1% SDV INJ 30 ML VIAL As Ordered ONE; +TRIAMCINOLONE ACETONIDE SUSP 40 MG/ML VIAL (J3301) As Ordered ONE; +diazePAM 5 MG TAB As Ordered ONE; +oxyCODONE 5MG TAB As Ordered ONE
--- NOTE | 2019-07-15 13:28 | REP ---
Three view chest: 07/15/2019. Indication: Postprocedural assessment. Comparison: 11/24/2018. Findings: There is no pleural effusion or pneumothorax. The lungs are clear. The cardiomediastinal silhouette is unremarkable. Impression: No pneumothorax. No acute cardiopulmonary process. Electronically Signed by Cm Ortiz DO 07/15/2019 01:19 P
--- NOTE | 2019-07-15 14:00 | REP ---
Partial thoracic spine series: Single view. History: Bilateral thoracic facet block for pain. 10 seconds of fluoroscopy time is reported. Findings: A single last image hold fluoroscopically obtained spot radiograph of the lower thoracic spine documents various needle positions and contrast injections associated with injection procedure. Electronically Signed by Porfirio Liao MD 07/15/2019 01:52 P
--- NOTE | 2019-07-21 03:46 | ECWPNPC ---
PATIENT NAME: TERESE DAMON : 1955 GENDER: FEMALE VISIT DATE: 07/15/2019 DISCHARGE DATE: 07/15/19 1344 VISIT LOCKED DATE TIME: PHYSICIAN: SVITLANA MEDRANO MD RESOURCE: SVITLANA MEDRANO MD REASON FOR APPOINTMENT 1. BILATERAL THERAPUTIC FACET BLOCK T8-9, T9-10, T10-11 HISTORY OF PRESENT ILLNESS HISTORY OF PRESENT ILLNESS: PAIN THE PATIENT DESCRIBES THE PAIN... 63 YEAR OLD FEMALE PATIENT WITH A HISTORY OF CHRONIC THORACIC PAIN. THE PATIENT DESCRIBES THE PAIN ACHING, SHOOTING, SHARP, TENDER, AND DAILY WITH A PAIN SCORE OF 6-8/10 DEPENDING ON PHYSICAL ACTIVITY. THE PATIENT SAYS SHE HAS BEEN SUFFERING FROM HER THORACIC PAIN FOR MANY YEARS AND IT IS AFFECTING HER ABILITY TO PERFORM HER DAILY ACTIVITIES SUCH MOVING AROUND, COOKING, AND CLEANING HER HOUSE. PATIENT DENIES UNEXPLAINABLE WEIGHT LOSS, FEVER, CHILLS, NEW CHANGES ON HER URINARY OR BOWEL CONTROL. FALL RISK SCREENING: SCREENING :NO FALLS REPORTED IN THE LAST YEAR CURRENT MEDICATIONS TAKING PROPRANOLOL HCL 10 MG TABLET 1 TABLET ORALLY EVERY 4 HOURS NEEDED FOR PALPITATIONS, NOTES: NOT LATELY TAKING CLARITIN 10 MG TABLET 1 TABLET ORALLY DAILY NEEDED, NOTES: 07-15-19699 TAKING MULTIVITAMINS OTC TABLET 1 ORALLY ONCE A DAY, NOTES: 07-14-19699 TAKING LEVOTHYROXINE SODIUM 112 MCG TABLET 1 1/2 TABLET ORALLY ONCE A DAY, NOTES: 07-15-19699 TAKING NEBULIZER - DEVICE DIRECTED DX: J45.909 DIRECTED, NOTES: NOT ATELY TAKING RESTASIS 0.05 % EMULSION 1 DROP INTO AFFECTED EYE OPHTHALMIC TWICE A DAY, NOTES: 07-15-19699 TAKING TRAZODONE HCL 50 MG TABLET 1 TABLET AT BEDTIME ORALLY ONCE A DAY, NOTES: 07-14-192099 TAKING COMBIVENT RESPIMAT 20-100 MCG/ACT AEROSOL SOLUTION 1 PUFF INHALATION FOUR TIMES A DAY, NOTES: 07-15-19799 TAKING OMEPRAZOLE 40 MG CAPSULE DELAYED RELEASE 1 CAPSULE ORALLY ONCE A DAY, NOTES: 07-15-19699 TAKING DRISDOL 44799 UNIT CAPSULE 1 CAPSULE ORALLY ONCE A WEEK, NOTES: FRIDAY TAKING MIRALAX - PACKET 1 PACKET MIXED WITH 8 OUNCES OF FLUID ORALLY ONCE A DAY, NOTES: NOT LATELY TAKING SULFASALAZINE 500 MG TABLET 1 TABLET ORALLY BID TAKING GABAPENTIN 300 MG CAPSULE 2 CAPSULE ORALLY THREE TIMES A DAY, NOTES: 07-15-19 08 TAKING FLECTOR 1.3 % PATCH 1 PATCH TO SKIN TRANSDERMAL FOR PAIN ONCE DAILY NEEDED, NOTES: NOT ON NOW TAKING TYLENOL PM EXTRA STRENGTH 500-25 MG TABLET 1 TABLET AT BEDTIME NEEDED ORALLY ONCE A DAY, NOTES: 07-14-19 2100 TAKING ALEVE 220 MG TABLET 1 TABLET WITH FOOD OR MILK NEEDED ORALLY EVERY 12 HRS, NOTES: 07-14-19 07 TAKING CICLOPIROX 0.77 % GEL 1 APPLICATION TO AFFECTED AREA EXTERNALLY TWICE A DAY TO FEET, NOTES: NOT LATELY NOT-TAKING CHANTIX STARTING MONTH ESHA 0.5 MG X 11 & 1 MG X 42 TABLET DIRECTED ORALLY DAILY NOT-TAKING CHANTIX CONTINUING MONTH ESHA 1 MG TABLET 1 TABLET ORALLY TWICE A DAY UNKNOWN ALBUTEROL SULFATE (2.5 MG/3ML) 0.083% NEBULIZATION SOLUTION 3 ML INHALATION EVERY 4 HOURS NEEDED FOR SOB MEDICATION LIST REVIEWED AND RECONCILED WITH THE PATIENT PAST MEDICAL HISTORY HYPERLIPIDEMIA TOBACCO ABUSE BREAST CANCER HYPOTHYROIDISM FIBROMYALGIA VITAMIN D DEFICIENCY GRAVES DISEASE OSTEOPENIA BACK PAIN FACET ARTHROPATHY, THORACIC SACROILIITIS LEFT UPPER QUAD PAIN ALLERGIES SULFA (FOR ALLERGY USE ONLY): NAUSEA/VOMITING - SIDE EFFECTS CODEINE PHOSPHATE: NAUSEA/VOMITING - SIDE EFFECTS RUBBER: RASH - ALLERGY MELOXICAM: HEADACHE - SIDE EFFECTS ANASTROZOLE: WEAKNESS, ACHES, DRY COUGH - SIDE EFFECTS LATEX (FOR ALLERGY USE ONLY): RASH - ALLERGY - ONSET DATE 06/09/2019 WELLBUTRIN: BP ELEVATED 07/2019 - SIDE EFFECTS SURGICAL HISTORY APPENDECTOMY 1978 1985 BREAST SURGERY/CYST ASP. X 2 /LEFT EYES FOR GRAVES DISEASE HYSTERECTOMY PARTIAL 1994 LEFT FT. SURGERY 2003 RIGHT WRIST SURGERY 07/09 AND 01/02 COLONOSCOPY 2010 LUMPECTOMY 10/16 BILATERAL MASTECTOMY WITH SILICONE IMPLANTS 12/16 BREAST RECONSTRUCTION 07/18 BILATERAL BREAST IMPLANT REPLACEMENTS 12/17 FAT GRAFT FROM ABDOMEN TO RIGHT BREAST 09/2017 PUNCH BIOPSY RIGHT HEEL ARTHROSCOPIC REPAIR OF A TORN MEDIAL MENISCUS OF THE RIGHT KNEE 02/2019 COLONOSCOPY WITH ADENOMATOUS POLYPS 02/2019 FAMILY HISTORY FATHER: , DIAGNOSED WITH OTHER MALIGNANT NEOPLASM OF UNSPECIFIED SITE, UNSPECIFIED HEART DISEASE MOTHER: ALIVE, LUPUS (UNKNOWN WHAT TYPE), HYPERTENSION MATERNAL GRAND MOTHER: RHEUMATOID PATERNAL AUNT- RA SISTER () BREAST CANCER DENIES FAMILY HX OF PANCREATIC CANCER OR MELANOMA. SOCIAL HISTORY GENERAL: TOBACCO USE ARE YOU A:CURRENT SMOKER ARE YOU INTERESTED IN QUITTING?THINKING ABOUT QUITTING PREVIOUS QUIT ATTEMPTS?YES, MORE THAN 6 MONTHS AGO. COUNSELED THE PATIENT ON SMOKING CESSATION, EDUCATION SUJENPST47/02/2019 HOW MANY CIGARETTES A DAY DO YOU SMOKE?11-20 HOW SOON AFTER YOU WAKE UP DO YOU SMOKE YOUR FIRST CIGARETTE?6-30 MIN HOW OFTEN DO YOU SMOKE CIGARETTES?EVERY DAY PATIENT COUNSELED ON THE DANGERS OF TOBACCO USE AND URGED TO QUIT:07/05/2019 GOING TO HYPNOTI SMOKING CESSATION INFORMATION GIVEN07/08/2019 HIV / HEP-C SCREENING HIV TEST OFFERED TO PATIENT:YES DATE OFFERED:06/24/2017 TEST ACCEPTED:YES HEP-C TEST OFFERED TO PATIENT:YES DATE OFFERED:06/24/2017 TEST ACCEPTED:NO REASON:PATIENT DECLINED BROCHURE PROVIDED TO PATIENTYES HOUSING: OWNS HOME. 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 LANGUAGE LANGUAGES SPOKEN:DANISH DOMESTIC VIOLENCE DO YOU FEEL SAFE IN YOUR ENVIRONMENT?YES RECREATIONAL DRUG USE DRUG USE?NO EXERCISE: DAILY. LEARNING BARRIERS / SPECIAL NEEDS CHANGE FROM LAST VISIT?NO BARRIERS TO LEARNING?NO HEARING IMPAIRED?NO VISION IMPAIRED?YES :CORRECTIVE LENSES COGNITIVELY IMPAIRED?NO READINESS TO LEARN?YES LEARNING PREFERENCES?NO LEARNING CAPABILITIES PRESENT?YES EMOTIONAL BARRIERS?NO SPECIAL DEVICES?NO CONDENSER OPERATOR NEEDED?NO PAIN CLINIC PFS, CLERGY, PUBLIC HEALTH REFERRALS WAS THE PROVIDER NOTIFIED OF ANY PERTINENT INFO? N/A HAS THE PATIENT BEEN EDUCATED REGARDING HIS/HER PLAN OF CARE?YES HAS THE PATIENT BEEN EDUCATED REGARDING PAIN, THE RISK FOR PAIN, THE IMPORTANCE OF EFFECTIVE PAIN MANAGEMENT, AND THE PAIN ASSESSMENT PROCESS?YES LATEX QUESTIONNAIRE LATEX ALLERGY : HAVE YOU EVER DEVELOPED ANY TYPE OF REACTION AFTER HANDLING LATEX PRODUCTS SUCH RUBBER GLOVES, CONDOMS, DIAPHRAGMS, BALLOONS, SOCKS, OR UNDERWEAR?YES LATEX ALLERGY : HAVE YOU EVER DEVELOPED ANY TYPE OF REACTION DURING OR AFTER DENTAL APPOINTMENT, VAGINAL/RECTAL EXAMINATION, SURGICAL PROCEDURE, OR ANY OTHER EXPOSURE?NO - PLEASE INDICATE :RUBBER GLOVES, OTHER (DOCUMENT IN NOTES) BANDAIDS DATE ASKED : 05/26/2019 LATEX ALLERGY LATEX RISK : HAVE YOU EVER HAD ANY DIFFICULTY BREATHING OR HIVES AFTER EATING OR HANDLING ANY FRUITS, OR VEGETABLES; SUCH KIWI, BANANAS, STONE FRUITS, OR CHESTNUTSNO LATEX RISK : DO YOU HAVE A PREVIOUS PERSONAL HISTORY OF MORE THAN NINE SURGERIES, SPINA BIFIDA, OR REPEATED CATHERIZATIONS? YES - PLEASE INDICATE : > 9 SURGERIES LATEX RISK : ARE YOU FREQUENTLY EXPOSED TO LATEX PRODUCTS IN YOUR OCCUPATION?NO CAFFEINE CAFFEINE USE?NO ADVANCE DIRECTIVE ADVANCE DIRECTIVE DISCUSSED WITH PATIENT:YES STATES SHE HAS HCP -WM [phone](C), (W) , (H) ALSO HAS POA AND LIVING WILL. PT ASKED TO BRING A COPY IN FOR OUR FILES. ORTHODOXY [id number] SABIANIST MARITAL STATUS: . 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 SEXUAL HX HAD SEX IN THE LAST 12 MONTHS (VAGINAL, ORAL, OR ANAL)?YES WITHMEN ONLY PREVENTION STRATEGIES DISCUSSED:OTHER USE PROTECTION?NO HAVE YOU EVER HAD AN STD?NO 12/16/17 1440 REVIEWED WITH PT. 12/25/17 1520 REVIEWED WITH PT. AD01/22/18 1034 REVIEWED WITH PT. ADREVIEWED WITH PT 05/27/18 1503 BVREVIEWED WITH PATIENT 01/25/19 1110 JSREVIEWED WITH PATIENT 04/15/19 1253 BVPRE-ADMISSION TESTING COMPLETE 07/07/19 DSREVIEWED WITH PT 04/21/19 1207 BVREVIEWED WITH PATIENT 07/05/19 1144 JS. HOSPITALIZATION/MAJOR DIAGNOSTIC PROCEDURE FOR ABOVE REASONS [facility]'S DISEASE 1995 STATES MANY HOSPITALIZATIONS REVIEW OF SYSTEMS REVIEWED BY: PROVIDER: SVITLANA MEDRANO MD . CONSTITUTIONAL: ANY CHANGE IN YOUR MEDICAL CONDITION? NO . CHILLS NO . FEVER NO . INFECTION: DO YOU HAVE NEW INFECTIONS? NO . DO YOU HAVE HISTORY OF MRSA? NO . MUSCULOSKELETAL: ANY NEW PATTERNS OF PAIN OR NUMBNESS? YES INCREASED IN THORACIC AREA . GASTROENTEROLOGY: ANY NEW CHANGE IN BOWEL CONTROL? NO . GENITOURINARY: ANY NEW CHANGE IN BLADDER CONTROL? NO . IS THERE A CHANCE YOU COULD BE ? NO . HEMATOLOGY/LYMPH: DO YOU TAKE ANY BLOOD THINNERS? (FOR EXAMPLE- COUMADIN, PLAVIX, AGGRENOX, PLATEL, PRADAXA, OR XARELTO) NO . WHEN WAS YOUR LAST DOSE? DATE: TIME: . NEUROLOGY: HAVE YOU FALLEN IN THE PAST 12 MONTHS? YES PT FELL ON HER DECK A WEEK AGO AND HAS A BRUICE UNDER HER CHIN , NO URGENT CARE . ANY NEW EXTREMITY NUMBNESS OR WEAKNESS? NO . CARDIOLOGY: DO YOU HAVE A PACEMAKER OR DEFIBRILLATOR? NO . RESPIRATORY: HAVE YOU BEEN SICK IN THE PAST WEEK? NO . FEVER NO . FLU LIKE SYMPTOMS? NO . COUGH NO . INTEGUMENTARY: DO YOU HAVE ANY RASHES OR OPEN SORES? NO . ALLERGIC/IMMUNO: ARE YOU ALLERGIC TO IV DYE? NO . ANY NEW ALLERGIES? NO . PSYCHIATRIC: DO YOU HAVE THOUGHTS OF HURTING YOURSELF OR SOMEONE ELSE? NO . ARE YOU ABUSED, NEGLECTED, OR IN AN UNSAFE ENVIRONMENT? NO . ENDOCRINOLOGY: ARE YOU DIABETIC? NO . OTHER: DO YOU NEED ANY PRESCRIPTIONS? NO . IF YES, PLEASE LIST: ____ . ANY NEW PROBLEMS WITH YOUR MEDICATIONS? NO . WHEN DID YOU LAST EAT? ____[phone] . WHEN DID YOU LAST DRINK? ____[phone] . WHAT DID YOU LAST DRINK? ____WATER . NAME OF PERSON DRIVING YOU HOME? ____WM DAMON . DO YOU HAVE ANY OTHER QUESTIONS OR CONCERNS NO . VITAL SIGNS WT 157.6 LBS, HT 64.5 IN, BMI 26.63 INDEX, BP 153/88 MM HG, HR 88 /MIN, RR 18 /MIN, TEMP 97.6 F, OXYGEN SAT % 96%, SAFE IN ENV? (Y/N) YES, NA INITIALS SC 10:31, REVIEWED BY: KG. EXAMINATION GENERAL EXAMINATION: PATIENT IS ALERT O X 3 AND COOPERATIVE. 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 DAMON'S PAIN MANAGEMENT CASE. I WOULD LIKE TO ORDER FOR AN UPDATED THORACIC MRI SINCE HER LAST THORACIC MRI WAS DONE ON 01/17/2014. THE PATIENT IS HAVING SEVERE THORACIC PAIN FOR SEVERAL YEARS SO I WOULD LIKE FOR AN UPDATED STUDY TO SEE WHAT IS CAUSING HER PAIN. THE PATIENT WILL FOLLOW UP IN SEVERAL WEEKS TO REVIEW HER MRI RESULTS. INSTRUCTIONS WERE GIVEN, QUESTIONS WERE ANSWERED, PATIENT REPORTS UNDERSTANDING AND AGREES WITH THE PLAN. I, ROSA M ATWOOD, DOCUMENTED THE ABOVE INFORMATION ACTING A SCRIBE FOR DR. MEDRANO. I HAVE REVIEWED THE ABOVE DOCUMENT, WRITTEN BY ROSA M ATWOOD SCRIBE AND I VERIFY THAT IT IS ACCURATE. . OTHER CHRONIC PAIN [facility] MRI SPINE,THORACIC WITHOUT [id number] PAIN IN THORACIC SPINE [facility] MRI SPINE,THORACIC WITHOUT [id number] PROCEDURES PN THORACIC FACET BLOCK THERAPEUTIC PRE PROCEDURE DIAGNOSIS THORACIC SPONDYLOSIS POST PROCEDURE DIAGNOSIS THORACIC SPONDYLOSIS PROCEDURE BILATERAL T8-T9, T9-T10, AND T10-T11 THORACIC THERAPEUTIC FACET BLOCK. SURGEON DR. SVITLANA MEDRANO [employer] PROFESSIONAL NONE ANESTHESIA LOCAL PRE PROCEDURE NOTE THE PATIENT WITH HISTORY OF CHRONIC THORACIC PAIN. I EVALUATED THE PATIENT AND REVIEWED THE CHART. I WENT OVER THE RISKS, ALTERNATIVES, AND BENEFITS ASSOCIATED WITH THIS PROCEDURE. THE PATIENT WOULD LIKE TO PROCEED AND GAVE CONSENT TO PERFORM THE PROCEDURE. THE PATIENT DENIES UNEXPLAINABLE WEIGHT LOSS, FEVER, CHILLS, OR NEW CHANGES IN URINARY OR BOWEL CONTROL. DESCRIPTION OF PROCEDURE THE PATIENT WAS BROUGHT TO THE PROCEDURE ROOM AND PLACED IN THE PRONE POSITION. THE THORACIC AREA WAS CLEANED WITH CHLORAPREP SOLUTION AND DRAPED ASEPTICALLY. THE PROCEDURE WAS DONE UNDER STERILE CONDITIONS. I CHECKED LATERALITY AND THE LEVEL WHERE THE PROCEDURE WAS GOING TO BE PERFORMED WITH THE PATIENT AND THE SUPPORTING STAFF AT THE MOMENT OF THE TIME OUT IN THE PROCEDURE ROOM. UNDER FLUOROSCOPIC GUIDANCE, THE TARGET POINT WAS SELECTED AT THE RIGHT AND LEFT T8-T9, RIGHT AND LEFT T9-T10, AND RIGHT AND LEFT T10-T11 THORACIC FACETS. TARGET POINT WAS SELECTED AFTER LATERAL ROTATION AND TILT OF THE MAGNIFIER OF THE C-ARM. LIDOCAINE 0.5% WAS USED TO NUMB THE SKIN AND THE SUBCUTANEOUS TISSUE BELOW IT. SPINAL NEEDLES, 22-GAUGE, WERE ADVANCED UNDER FLUOROSCOPIC GUIDANCE AND FOLLOWING PATIENT FEEDBACK UNTIL THE TARGETS WERE TOUCHED. THE POSITION OF THE NEEDLES WAS VERIFIED WITH MULTIPLE X-RAY VIEWS. AFTER PROPER POSITION OF THE NEEDLES WAS ACHIEVED, ISOVUE-M DYE 30% 0.1 ML WAS INJECTED SHOWING ADEQUATE SPREAD OF THE DYE. THEN A SOLUTION OF 0.9 ML OF BUPIVACAINE 0.125% OF KENALOG 10 MG WAS INJECTED AT EACH SITE. THERE WAS NO EVIDENCE OF BLOOD, PARESTHESIA OR CEREBROSPINAL FLUID DURING THE PROCEDURE. THE PATIENT WAS SENT TO THE RECOVERY ROOM. THE PATIENT WAS MOVING THE EXTREMITIES AND DOING WELL. THERE WAS NO COMPLICATION DURING THE PROCEDURE. FLUOROSCOPY TIME WAS 10 SECONDS POST PROCEDURE NOTE I AM LOOKING FOR LONG LASTING PAIN RELIEF WITH THIS INTERVENTION. THE PATIENT WILL BE SEEN IN A FOLLOW UP IN THE NEXT FEW WEEKS. INSTRUCTIONS WERE GIVEN, QUESTIONS WERE ANSWERED, AND THE PATIENT EXPRESSED UNDERSTANDING AND AGREED WITH THE PLAN. I, ROSA M ATWOOD, DOCUMENTED THE ABOVE INFORMATION ACTING A SCRIBE FOR DR. MEDRANO. I HAVE REVIEWED THE ABOVE DOCUMENT, WRITTEN BY ROSA M ATWOOD SCRIBDiego AND I VERIFY THAT IT IS ACCURATE. PROCEDURE CODES 60669 INJ PARAVERT F JNT C/T 1 LEV, MODIFIERS: 50 51002 INJ PARAVERT F JNT C/T 2 LEV, MODIFIERS: 50 66267 INJ PARAVERT F JNT C/T 3 LEV, MODIFIERS: 50 6045F RADXPS IN END [id number] PXD DISPOSITION & COMMUNICATION FOLLOW UP 3 WEEKS (REASON: ORDERED THORACIC MRI) ELECTRONICALLY SIGNED BY SVITLANA MEDRANO MD, MD ON 07/20/2019 AT 05:13 PM EST DISCLAIMER : THIS IS A VISIT SUMMARY EXTRACTED FROM THE [employer] CHART. IT IS NOT A COPY OF THE [employer] PROGRESS NOTE. MTDD
== END ==
LOC: M PAIN 10:00
PROVIDERS: ATTEND Anesthesiology
DX: M47.814 Spondylosis without myelopathy or radiculopathy, thoracic region (principal); M54.6 Pain in thoracic spine; G89.29 Other chronic pain; E78.5 Hyperlipidemia, unspecified; E03.9 Hypothyroidism, unspecified; M79.7 Fibromyalgia; E55.9 Vitamin D deficiency, unspecified; F17.210 Nicotine dependence, cigarettes, uncomplicated; Z88.2 Allergy status to sulfonamides; Z88.5 Allergy status to narcotic agent; Z88.8 Allergy status to other drugs, medicaments and biological substances; Z91.040 Latex allergy status; Z91.09 Other allergy status, other than to drugs and biological substances; Z79.899 Other long term (current) drug therapy
CPT/HCPCS: 64490; 64491; 64492; 71046; J3301; Q9967

== ENCOUNTER → 2019-08-20 | Outpatient (CLI) | payer BC ==
[~2019-08-20] MED LIST changes: -BUPIVACAINE HCL 0.25% 30 ML VIAL As Ordered ONE; -ISOVUE-M 300 61% 15ML VIAL (Q9967) As Ordered ONE; -LIDOCAINE 1% SDV INJ 30 ML VIAL As Ordered ONE; -TRIAMCINOLONE ACETONIDE SUSP 40 MG/ML VIAL (J3301) As Ordered ONE; -diazePAM 5 MG TAB As Ordered ONE; -oxyCODONE 5MG TAB As Ordered ONE
--- NOTE | 2019-08-20 14:24 | REP ---
INDICATION: Chronic T-spine pain PROCEDURE: MRI of the thoracic spine on this includes axial and sagittal T1 and T2-weighted images, sagittal STIR images. COMPARISON STUDIES: MRI of the thoracic spine 01/17/2014. FINDINGS: There is [id number] multilevel degenerative disc disease with loss of disc height and disc desiccation seen diffusely throughout the thoracic spine. There are superior endplate depressions at more inferior levels, T11, and T12, L1. On the sagittal T2-weighted images, no limiting canal stenosis. No malalignments. Thoracic cord appears normal in its course, caliber and signal characteristics. On the review of axial images, no definite canal or foraminal narrowing. No focal disc herniation. On the STIR images, no significant STIR signal abnormality to suggest soft tissue or ligamentous injury. IMPRESSION: Superior endplate depressions T11, T12 and L1, with mild wedging at L1, appears progressed from the comparison study of 01/17/2014. There is no corresponding signal on the STIR images, suggests that these compressions are chronic, however may be the result of a remote injury. Evaluation of bone density may be informative. Electronically Signed by Can Ewing MD 08/20/2019 02:15 P
== END ==
LOC: M RAD 12:31
PROVIDERS: ATTEND Anesthesiology
DX: M54.6 Pain in thoracic spine (principal); G89.29 Other chronic pain

== ENCOUNTER → 2019-10-14 | Outpatient (CLI) | payer BC | LOC: M PAIN 11:00 | PROVIDERS: ATTEND Nurse Practitioner Family | DX: Z53.21 Procedure and treatment not carried out due to patient leaving prior to being seen by health care provider (principal) ==

== ENCOUNTER → 2019-10-17 | Outpatient (CLI) | payer BC ==
--- NOTE | 2019-10-17 16:19 | REP ---
REASON: Pain. COMPARISON: None. There is a distal clavicular fracture. The acromioclavicular joint is maintained. Degenerative change is seen involving the glenohumeral joint. IMPRESSION: Fracture distal clavicle. Electronically Signed by Miki Quezada DO 10/17/2019 04:23 P
== END ==
LOC: M WUC 10:58
PROVIDERS: ATTEND Physician Assistant
DX: S42.034A Nondisplaced fracture of lateral end of right clavicle, initial encounter for closed fracture (principal); X58.XXXA Exposure to other specified factors, initial encounter; Y92.9 Unspecified place or not applicable; Y93.9 Activity, unspecified

== ENCOUNTER → 2020-03-23 | Outpatient (CLI) | payer BC ==
[~2020-03-23] MED LIST changes: -ASPI81TA85 PO; +ASPI81TA86 PO
--- NOTE | 2020-05-01 07:06 | REP ---
RIGHT UPPER QUADRANT SONOGRAPHY HISTORY: Right upper quadrant pain. FINDINGS: Scanning through the right upper quadrant of the abdomen demonstrates a normal size thin walled gallbladder without evidence of stone or polyp. Common bile duct is normal measuring 0.5 cm in greatest diameter. No focal hepatic lesion is seen. Liver is not felt to be enlarged. Limited views of the pancreas show no abnormality. There is no evidence of ascites or right renal abnormality. The right kidney measures 10.8 x 4.3 x 4.7 centimeters. IMPRESSION: Negative right upper quadrant sonography. MTDD
== END ==
LOC: M RAD 07:38
PROVIDERS: ATTEND Internal Medicine
DX: R10.11 Right upper quadrant pain (principal)

== ENCOUNTER → 2020-06-22 | Outpatient (CLI) | payer BC ==
--- NOTE | 2020-06-24 08:05 | REP ---
INDICATION: TOBACCO ABUSE COMPARISON: 10/23/2016 TECHNIQUE: Axial noncontrast images from the thoracic inlet to the upper abdomen using low-dose lung screening technique (LDCT). FINDINGS: Lung sam demonstrate minimal scarring primarily noted at the left base, lingula, and medial right middle lobe. Few scattered 2 mm calcified and noncalcified nodular densities are appreciated likely representing sequelae of prior granulomatous disease. No further significant nodule or mass lesion. No consolidation, effusion, or pneumothorax. Incidental 1 cm bleb in the left lower lobe. IMPRESSION: Lung-RADS category 2. Small 2 mm noncalcified and calcified nodules likely representing sequelae of prior granulomatous disease. Management recommendations include annual low-dose CT surveillance. <Electronically signed by Anish Serrato > 06/24/20 [id number]
== END ==
LOC: M RAD 10:42
PROVIDERS: ATTEND Internal Medicine
DX: R91.8 Other nonspecific abnormal finding of lung field (principal); Z72.0 Tobacco use

== ENCOUNTER → 2021-06-06 | Outpatient (CLI) | payer BC ==
[~2021-06-06] MED LIST changes: +ECOT81TA5 PO; +ESCI10TA16 PO; -ESCI10TA2 PO; +GABA-282 PO; -GABA-843 PO; +OMEP40CA4 PO; -OMEP40CA97 PO; +VITMTA PO
[2021-06-06 15:08] LABS: BLOOD UREA NITROGEN 13 MG/DL (7-18); CALCIUM LEVEL 10.3 MG/DL (8.8-10.2); CARBON DIOXIDE LEVEL 27 MEQ/L (21-32); CHLORIDE LEVEL 102 MEQ/L (98-107); CREATININE FOR GFR 0.55 MG/DL (0.55-1.30); GLOMERULAR FILTRATION RATE > 60.0 (>45); GLUCOSE, FASTING 95 MG/DL (70-100); POTASSIUM SERUM 3.9 MEQ/L (3.5-5.1); SODIUM LEVEL 136 MEQ/L (136-145)
== END ==
LOC: M LAB 13:59
PROVIDERS: ATTEND Surgery
DX: Z01.812 Encounter for preprocedural laboratory examination (principal)

== ENCOUNTER → 2021-06-07 | Outpatient (CLI) | payer BC ==
[~2021-06-07] MED LIST changes: +GASTROGRAFIN SOLUTION 30ML (Q9963) As Ordered ONE; +ISOVUE-370 76% 100ML VIAL As Ordered ONE
--- NOTE | 2021-06-08 08:24 | REP ---
INDICATION: INVASIVE BREAST CA. COMPARISON: Low-dose screening lung CT 06/22/2020, CT 10/23/2016. TECHNIQUE: Bolus 100 mL Isovue 370 scanning through the chest with coronal and sagittal reconstructions. FINDINGS: Of the lung sam are well inflated. There is no pleural thickening, effusion or pleural based mass. I see no calcified pleural plaque. There is curvilinear fibro atelectatic change in the lateral basal segment abutting the posterior margin of the left major fissure in the lower lobe. This is unchanged minor curvilinear fibrotic changes also in the inferior lingular segment of the left upper lobe at the anterior lung base. A stable 2 mm nodule on image 41 in the right lower lobe dating back to 2017. Stable 3 mm nodule in the mid axillary line in the posterior segment of the right upper lobe also stable another a 3 mm pleural based nodule posteriorly in the right upper lobe on image 24 is again seen no new or suspicious nodules or lung masses. Patient has undergone bilateral mastectomy with reconstruction. Implants appear intact and unchanged. However, there is no bulky adenopathy in the left axilla measuring 3 x 2.4 cm. There are multiple other nodes in the 1-2 cm range on the left side and numerous sub cm lymph nodes as well. There only a few subcentimeter nodes on the right with no masses or enlarged nodes I see no supraclavicular adenopathy. The heart size is not enlarged. There is no pericardial thickening or effusion. The aorta is without aneurysm or dissection. The main, right and left pulmonary arteries in the mediastinum are without filling defect. Subcentimeter right paratracheal, precarinal, AP window, prevascular and hilar nodes are seen with no pathologic sized adenopathy. No hiatal hernia evident. Bone window shows a sternum, manubrium, visible portions of clavicles, scapulae and humeral heads without focal lesion. There are old posttraumatic changes in the lateral aspect of the right clavicle. Degenerative changes of the glenohumeral joints right greater than left. Visualized ribs intact. Superior endplate depression at T11, T12 and L1 is noted on the 2017 CT with slight progression at L1 and new superior endplate depression of L2. No sclerotic or discrete lytic lesion identified. Ribs grossly intact. Upper abdominal structures and findings will be discussed in the CT abdomen report this date. No adrenal lesion. IMPRESSION: 1. Status post bilateral mastectomy with reconstruction and now with new bulky left axillary adenopathy up to 3 by 2.4 cm for the largest. A few other nodes in the 1-2 cm range and several subcentimeter nodes present. No right axillary nodes or supraclavicular adenopathy. No chest wall muscular invasion or mass nor adjacent rib lesions. 2. The lung sam show a few small noncalcified nodules, stable. 3. No pathologic sized mediastinal or hilar adenopathy. Heart size not enlarged. No pericardial thickening or effusion. 4. Endplate depressions T11 through L2, slightly increased at L1 and new at L2 compared to CT in 2017. No sclerotic or discrete lytic lesion identified. <Electronically signed by Nando Tirado > 06/08/21 [id number]
--- NOTE | 2021-06-08 08:44 | REP ---
INDICATION: RESTAGING, RECURRENT BREAST CA. COMPARISON: CT 12/16/2018 TECHNIQUE: Oral Gastrografin mixture 10 mL in 290 mL flavum water for 2 doses per our bowel contrast protocol. Scanning through the abdomen and pelvis with coronal and sagittal reconstructions provided. FINDINGS: CT abdomen some curvilinear fibro atelectatic change in the left base abutting the posterior margin of the major fissure in the lateral basal segment. No effusion or infiltrate. Liver is homogeneous and not enlarged. There is no biliary dilatation or adjacent ascites. In the left hepatic lobe low-density nodule with peripheral nodular enhancement consistent with small hemangioma and unchanged. There is an 8 mm subcapsular hypodensity on image 17 axial and 23 coronal which is a new finding and too small to characterize. There is borderline splenomegaly with 14 cm vertical length. Splenic index calculates at 487 with normal range less than 480. No discrete lesion. Gallbladder contracted without calcified stone or mass. Pancreas was unremarkable. Adrenal glands are normal. Stomach shows no hiatal hernia or other abnormality. Kidneys show symmetric enhancement and are without stone, solid or cystic mass, hydronephrosis or perinephric edema. Ureters are seen to have a normal course the bladder without dilatation or stone. Small bowel loops are contrast filled without dilatation, wall thickening or inflammatory changes the adjacent mesentery the aorta has calcifications without aneurysm. There is no pathologic sized periaortic, mesenteric or retroperitoneal lymphadenopathy. Stool and gas are scattered throughout the colon. There is no colitis, diverticulitis stricture or mass. Lung windows show no perforation or free air. The bone windows show T11-T12 superior endplate depressions, stable, stable to slightly increased at L1. There is a subtle new endplate depression superiorly at L2 with L3 and L4 superior endplate depressions minimal and unchanged. No lytic or blastic destructive lesions noted. CT pelvis: The sacrum, SI joints, pelvis and hips show no acute findings. Small bowel loops in the deep pelvis are contrast or fluid-filled but without dilatation. No inflammatory changes about the cecum. No pelvic ascites, mass or lymphadenopathy. Vaginal cuff is intact. There is no ventral or inguinal hernia nor pathologic sized adenopathy in the pelvis or inguinal region. IMPRESSION: 1. Multiple endplate depressions from T11-L4, all grade 1 and with marginal increase at L1 and subtle new depression at L2 compared to the [address]. No lytic or blastic lesion. 2. The left lobe of the liver shows a small lesion with the nodular enhancement and unchanged consistent with benign hemangioma. There is another 8 mm subcapsular lesion near the dome of the diaphragm not present on the previous study and too small to characterize. 3. Borderline splenomegaly with length 14 cm and splenic index 487, normal range less than 480. 4. No abdominal or pelvic adenopathy, ascites or acute inflammatory change. 5. Kidneys ureters and bladder all grossly intact. 6. Small bowel loops and colon unremarkable. <Electronically signed by Nando Tirado > 06/08/21 0811
== END ==
LOC: M RAD 16:06
PROVIDERS: ATTEND Surgery
DX: C50.812 Malignant neoplasm of overlapping sites of left female breast (principal); Z17.0 Estrogen receptor positive status [ER+]; C50.912 Malignant neoplasm of unspecified site of left female breast; C77.3 Secondary and unspecified malignant neoplasm of axilla and upper limb lymph nodes; R91.8 Other nonspecific abnormal finding of lung field
CPT/HCPCS: 71260; 74177; Q9963; Q9967

== ENCOUNTER 2021-07-23 13:41 | Emergency (ER) | payer BC ==
[~2021-07-23] VITALS: Ht 160 cm; Wt 59.5 kg
[~2021-07-23 13:41] MED LIST changes: -GASTROGRAFIN SOLUTION 30ML (Q9963) As Ordered ONE; -ISOVUE-370 76% 100ML VIAL As Ordered ONE
[2021-07-23 13:51] VITALS: BP 138/92
[2021-07-23 15:45] LABS: BASO % 0.6 % (0.0-1.0); EOS # 0.1 10^3/uL (0.0-0.5); EOS % 1.4 % (0.0-3.0); HEMATOCRIT 45.8 % (36.0-47.0); HEMOGLOBIN 15.7 g/dl (12.0-15.5); LYMPH # 1.6 10^3/uL (1.5-5.0); MEAN CORPUSCULAR HEMOGLOBIN 32.3 pg (27.0-33.0); MEAN CORPUSCULAR HGB CONC 34.3 g/dl (32.0-36.5); MEAN CORPUSCULAR VOLUME 94.2 fl (80.0-96.0); MONO # 0.6 10^3/uL (0.0-0.8); MONO % 8.7 % (2.0-8.0); NEUTROPHILS # 4.2 10^3/uL (1.5-8.5); PLATELET COUNT, AUTOMATED 284 10^3/uL (150-450); RED BLOOD COUNT 4.86 10^6/uL (4.00-5.40); WHITE BLOOD COUNT 6.6 10^3/uL (4.0-10.0)
[2021-07-23 16:08] LABS: ALBUMIN 3.7 GM/DL (3.2-5.2); ALT/SGPT 25 U/L (12-78); BILIRUBIN,DIRECT 0.2 MG/DL (0.0-0.2); BILIRUBIN,TOTAL 0.5 MG/DL (0.2-1.0); BLOOD UREA NITROGEN 10 MG/DL (7-18); CALCIUM LEVEL 9.8 MG/DL (8.8-10.2); CARBON DIOXIDE LEVEL 26 MEQ/L (21-32); CHLORIDE LEVEL 107 MEQ/L (98-107); CREATININE FOR GFR 0.52 MG/DL (0.55-1.30); GLOMERULAR FILTRATION RATE > 60.0 (>45); GLUCOSE, FASTING 88 MG/DL (70-100); POTASSIUM SERUM 4.1 MEQ/L (3.5-5.1); SODIUM LEVEL 138 MEQ/L (136-145); TOTAL PROTEIN 6.9 GM/DL (6.4-8.2)
--- NOTE | 2021-07-23 16:10 | REP ---
INDICATION: left axilla/breast ?seroma from lymph node rsx. COMPARISON: CT 06/07/2021. TECHNIQUE: Real-time sonographic evaluation of left axilla performed. FINDINGS: In the region of the palpable abnormality in the left axilla there is a large complex fluid collection containing internal echoes and septations. This measures 7.3 x 4.3 x 7.2 cm. IMPRESSION: Large complex fluid collection left axilla containing internal echoes and septations measuring 7.3 x 4.3 x 7.2 cm. This may represent a seroma or hematoma. Superimposed infection cannot be excluded. RECOMMENDATION: Clinical correlation. <Electronically signed by Sae Lanza > 07/23/21 [id number]
[2021-07-23 16:15] LABS: ERYTHROCYTE SEDIMENTATION RATE 3 mm/hr (0-30)
== END 2021-07-23 18:05 | disposition home or self-care (01) ==
LOC: M ED 13:41
DX: L76.82 Other postprocedural complications of skin and subcutaneous tissue (principal); Z85.3 Personal history of malignant neoplasm of breast; E03.9 Hypothyroidism, unspecified; K21.9 Gastro-esophageal reflux disease without esophagitis; Z90.13 Acquired absence of bilateral breasts and nipples; Z79.899 Other long term (current) drug therapy; Z79.890 Hormone replacement therapy; Z88.2 Allergy status to sulfonamides; Z88.5 Allergy status to narcotic agent; F17.210 Nicotine dependence, cigarettes, uncomplicated

== ENCOUNTER → 2021-08-08 | Outpatient (CLI) | payer BC | LOC: M CARPUL 12:08 | PROVIDERS: ATTEND Internal Medicine Medical Oncology | DX: Z85.3 Personal history of malignant neoplasm of breast (principal); Z92.25 Personal history of immunosuppression therapy; Z88.2 Allergy status to sulfonamides ==

== ENCOUNTER 2021-11-19 21:50 | Inpatient (IN) | payer BC ==
[~2021-11-19] VITALS: Ht 154.9 cm; Wt 61.1 kg
[~2021-11-19 21:50] MED LIST changes: +CEPH500C PO; +DULO1CAP5 PO; +LIDO1CRE42 TOP; +MELO15TA28 PO; +NYST50SS PO
[2021-11-19 22:43] LABS: BASO # 0.1 10^3/uL (0.0-0.2); BASO % 0.7 % (0.0-1.0); EOS # 0.2 10^3/uL (0.0-0.5); EOS % 2.9 % (0.0-3.0); HEMATOCRIT 37.7 % (36.0-47.0); HEMOGLOBIN 12.5 g/dl (12.0-15.5); LYMPH # 1.1 10^3/uL (1.5-5.0); LYMPH % 14.8 % (24.0-44.0); MEAN CORPUSCULAR HEMOGLOBIN 35.3 pg (27.0-33.0); MEAN CORPUSCULAR HGB CONC 33.2 g/dl (32.0-36.5); MEAN CORPUSCULAR VOLUME 106.5 fl (80.0-96.0); MONO # 0.7 10^3/uL (0.0-0.8); MONO % 9.8 % (2.0-8.0); NEUTROPHILS # 5.1 10^3/uL (1.5-8.5); NEUTROPHILS % 69.6 % (36.0-66.0); PLATELET COUNT, AUTOMATED 186 10^3/uL (150-450); RED BLOOD COUNT 3.54 10^6/uL (4.00-5.40); WHITE BLOOD COUNT 7.3 10^3/uL (4.0-10.0)
[2021-11-19] MEDS: HYDROMORPHONE HCL 0.5 MG/ 0.5 ML SYRINGE (J1170 PER 1) IV PRN ×2 (22:45→23:51)
[2021-11-19 22:54] LABS: INR 1.01; PROTHROMBIN TIME 13.7 SECONDS (12.7-14.5)
[2021-11-19 22:55] LABS: PARTIAL THROMBOPLASTIN TIME 31.7 SECONDS (25.9-37.0)
[2021-11-19 23:06] LABS: BLOOD UREA NITROGEN 6 MG/DL (7-18); CALCIUM LEVEL 9.2 MG/DL (8.8-10.2); CARBON DIOXIDE LEVEL 24 MEQ/L (21-32); CHLORIDE LEVEL 105 MEQ/L (98-107); CREATININE FOR GFR 0.36 MG/DL (0.55-1.30); ETHYL ALCOHOL (ETHANOL) 0.296 % (0.000-0.010); GLOMERULAR FILTRATION RATE > 60.0 (>45); GLUCOSE, FASTING 103 MG/DL (70-100); POTASSIUM SERUM 3.6 MEQ/L (3.5-5.1); SODIUM LEVEL 138 MEQ/L (136-145)
[2021-11-20] VITALS (9 sets, daily range): BP systolic 137–159; BP diastolic 79–86
[2021-11-20 00:14] LABS: RSV AMPLIFICATION NEGATIVE (NEGATIVE)
[2021-11-20] MEDS ORDERED: HYDROMORPHONE HCL 0.5 MG/ 0.5 ML SYRINGE (J1170 PER 1) IV PRN (01:20)
[2021-11-20] MEDS ORDERED: fentaNYL 100 MCG/2 ML INJECTION IV ONE (01:30)
[2021-11-20] MEDS ORDERED: LIDO1CRE42 TOP (01:41)
[2021-11-20] MEDS ORDERED: DULO30CA9 PO (01:41)
[2021-11-20] MEDS ORDERED: COMBAER6 INH (01:41)
[2021-11-20] MEDS ORDERED: ACET-907 PO (04:22)
[2021-11-20] MEDS ORDERED: CICL0.7733 EXT (04:22)
[2021-11-20] MEDS ORDERED: ALEV220T22 PO (04:22)
[2021-11-20] MEDS ORDERED: NYST50SS SS (04:22)
[2021-11-20] MEDS ORDERED: MELO15TA28 PO (04:22)
[2021-11-20] MEDS ORDERED: NYSTATIN 500,000 U/5 ML SUSP UDC SS PRN (05:05)
[2021-11-20] MEDS ORDERED: COMBIVENT RESPIMAT 100-20MCG INHALER 4GM INH PRN (05:05)
[2021-11-20] MEDS: NS 1,000 ML IV SCH ×2 (05:10→13:14)
[2021-11-20] MEDS ORDERED: ALBUTEROL 90 MCG/ACT 8GM HFA INHALER INH PRN (05:45)
[2021-11-20] MEDS ORDERED: PILL CUTTER 1 EACH XX PRN (05:45)
[2021-11-20] MEDS ORDERED: HEPARIN SOD (PORCINE) 5000UNITS/ML 1ML VIAL/SYRINGE SQ ONE (06:00)
[2021-11-20] MEDS: HYDROMORPHONE HCL 0.5 MG/ 0.5 ML SYRINGE (J1170 PER 1) IV PRN ×4 (06:04→22:35)
[2021-11-20] MEDS ORDERED: HOME MED LIST COMPLETE! XX SCH ×2 (06:35→21:00)
[2021-11-20] MEDS: LEVOTHYROXINE 112MCG TABLET (0.112MG) PO SCH (06:50)
[2021-11-20] MEDS: OMEPRAZOLE 20MG CAP PO SCH (08:16)
[2021-11-20] MEDS: FOLIC ACID 1 MG TAB PO SCH (08:16)
[2021-11-20] MEDS: MULTIVITAMINS/MINERALS THERAP 1 TAB PO SCH (08:16)
[2021-11-20] MEDS: THIAMINE 100 MG TAB PO SCH (08:16)
[2021-11-20] MEDS: NICOTINE 14 MG/24 HR TRANSDERMAL TD SCH (08:17)
[2021-11-20] MEDS: ACETAMINOPHEN TAB 650MG DOSE (2X325MG) PO PRN (08:21)
[2021-11-20] MEDS ORDERED: MELOXICAM (MOBIC) 7.5 MG TAB PO SCH (09:00)
[2021-11-20] MEDS ORDERED: BUPIVACAINE HCL 0.25% 30ML VIAL As Ordered ONE (14:00)
[2021-11-20] MEDS ORDERED: TRANEXAMIC ACID 100 MG/ML 10ML VIAL As Ordered ONE ×2 (14:00→16:10)
[2021-11-20] MEDS ORDERED: VANCOMYCIN 500MG/10ML VIAL As Ordered ONE (14:00)
[2021-11-20] MEDS ORDERED: BUPIVACAINE LIPOSOME/PF 1.3% 20ML VIAL (13.3MG/ML)(EXPAREL) As Ordered ONE (14:01)
[2021-11-20] MEDS ORDERED: ceFAZolin 2 GM/D5W 50 ML IV BAG (J0690 PER 500MG) As Ordered ONE (16:10)
[2021-11-20] MEDS ORDERED: LIDOCAINE W/EPINEPHRINE 1% 20ML VIAL As Ordered ONE (16:12)
[2021-11-20] MEDS ORDERED: fentaNYL 100 MCG/2 ML INJECTION As Ordered ONE ×2 (16:21→16:59)
[2021-11-20] MEDS ORDERED: PHENYLEPHRINE 10MG/ML 1ML VIAL (J2370 PER 1) As Ordered ONE (16:50)
[2021-11-20] MEDS ORDERED: MIDAZOLAM INJ 2MG/2ML VIAL (J2250 PER 1MG) As Ordered ONE (16:59)
[2021-11-20] MEDS ORDERED: LIDOCAINE 2% 100MG/5ML SDV (FOR ANES.) As Ordered ONE (16:59)
[2021-11-20] MEDS ORDERED: KETAMINE HCL 200 MG/20 ML VIAL As Ordered ONE (16:59)
[2021-11-20] MEDS ORDERED: propofoL 200 MG/20 ML VIAL As Ordered ONE ×2 (16:59→18:05)
[2021-11-20] MEDS ORDERED: fentaNYL 100 MCG/2 ML INJECTION IV PRN (18:55)
[2021-11-20] MEDS ORDERED: ONDANSETRON 4MG/2ML VIAL IV PRN (18:55)
[2021-11-20] MEDS ORDERED: oxyCODONE 5MG TAB PO PRN (18:55)
[2021-11-20] MEDS ORDERED: LR 1,000 ML IV SCH (18:55)
[2021-11-20] MEDS: IPRATROPIUM HFA INHALER 12.9 GRAMS (ATROVENT HFA) INH SCH (20:00)
[2021-11-20] MEDS: DICLOFENAC SODIUM 1% TOP SCH (21:00)
[2021-11-20] MEDS ORDERED: DICLOFENAC EPOLAMINE 1.3 % PATCH TOP SCH (21:00)
[2021-11-20] MEDS: CICLOPIROX 0.77% TOP SCH (21:32)
[2021-11-20] MEDS: ONDANSETRON 4MG/2ML VIAL IV PRN (22:33)
[2021-11-21 00:42] VITALS: BP 138/80
[2021-11-21] MEDS: ceFAZolin SOD 2 GM in IV 1 EA IV SCH ×2 (01:28→08:24)
[2021-11-21] MEDS: HYDROMORPHONE HCL 0.5 MG/ 0.5 ML SYRINGE (J1170 PER 1) IV PRN ×6 (02:21→22:03)
[2021-11-21 06:00] VITALS: BP 141/77
[2021-11-21] MEDS: LEVOTHYROXINE 112MCG TABLET (0.112MG) PO SCH (06:04)
[2021-11-21 06:20] LABS: BLOOD UREA NITROGEN 7 MG/DL (7-18); CALCIUM LEVEL 8.8 MG/DL (8.8-10.2); CARBON DIOXIDE LEVEL 24 MEQ/L (21-32); CHLORIDE LEVEL 106 MEQ/L (98-107); CREATININE FOR GFR 0.35 MG/DL (0.55-1.30); GLOMERULAR FILTRATION RATE > 60.0 (>45); GLUCOSE, FASTING 135 MG/DL (70-100); SODIUM LEVEL 137 MEQ/L (136-145)
[2021-11-21] MEDS: IPRATROPIUM HFA INHALER 12.9 GRAMS (ATROVENT HFA) INH SCH ×4 (07:18→20:00)
[2021-11-21] MEDS: OMEPRAZOLE 20MG CAP PO SCH (08:24)
[2021-11-21] MEDS: FOLIC ACID 1 MG TAB PO SCH (08:24)
[2021-11-21] MEDS: MULTIVITAMINS/MINERALS THERAP 1 TAB PO SCH (08:24)
[2021-11-21] MEDS: NICOTINE 14 MG/24 HR TRANSDERMAL TD SCH (08:25)
[2021-11-21] MEDS: RIVAROXABAN 10 MG TAB (XARELTO) PO SCH (08:25)
[2021-11-21] MEDS: THIAMINE 100 MG TAB PO SCH (08:25)
[2021-11-21] MEDS: CICLOPIROX 0.77% TOP SCH ×2 (08:26→22:04)
[2021-11-21] MEDS: ACETAMINOPHEN TAB 650MG DOSE (2X325MG) PO PRN ×2 (08:27→22:02)
[2021-11-21] MEDS: DICLOFENAC SODIUM 1% TOP SCH ×2 (09:00→21:00)
[2021-11-21] MEDS ORDERED: HEPARIN SOD (PORCINE) 5000UNITS/ML 1ML VIAL/SYRINGE SC SCH (09:00)
[2021-11-21] MEDS ORDERED: ENOXAPARIN 40MG/0.4ML SYRINGE (J1650 PER 10MG) SC SCH (09:00)
[2021-11-21 10:00] VITALS: BP 144/72
[2021-11-21 10:29] LABS: TOTAL 25(OH) VITAMIN D 78.5 NG/ML (30.0-100.0)
[2021-11-21] MEDS: LORATADINE 10 MG TAB PO SCH (10:32)
[2021-11-21] MEDS: ONDANSETRON 4MG/2ML VIAL IV PRN (11:40)
[2021-11-21 13:08] LABS: HEMATOCRIT 34.8 % (36.0-47.0); HEMOGLOBIN 11.7 g/dl (12.0-15.5); MEAN CORPUSCULAR HEMOGLOBIN 34.5 pg (27.0-33.0); MEAN CORPUSCULAR HGB CONC 33.6 g/dl (32.0-36.5); MEAN CORPUSCULAR VOLUME 102.7 fl (80.0-96.0); PLATELET COUNT, AUTOMATED 154 10^3/uL (150-450); RED BLOOD COUNT 3.39 10^6/uL (4.00-5.40); WHITE BLOOD COUNT 5.8 10^3/uL (4.0-10.0)
[2021-11-21] MEDS: GABAPENTIN 300 MG CAP PO SCH ×2 (13:10→22:02)
[2021-11-21 14:00] VITALS: BP 136/77
[2021-11-21 22:00] VITALS: BP_SYST 127; BP_DIAS 69; BP_DIAS 71
[2021-11-22] VITALS (7 sets, daily range): BP systolic 107–145; BP diastolic 59–70
[2021-11-22] MEDS: LEVOTHYROXINE 112MCG TABLET (0.112MG) PO SCH (05:26)
[2021-11-22] MEDS: ACETAMINOPHEN TAB 650MG DOSE (2X325MG) PO PRN ×3 (05:27→15:10)
[2021-11-22] MEDS: HYDROMORPHONE HCL 0.5 MG/ 0.5 ML SYRINGE (J1170 PER 1) IV PRN ×3 (05:27→12:36)
[2021-11-22] MEDS: IPRATROPIUM HFA INHALER 12.9 GRAMS (ATROVENT HFA) INH SCH ×4 (07:20→19:35)
[2021-11-22] MEDS: GABAPENTIN 300 MG CAP PO SCH ×2 (08:40→20:12)
[2021-11-22] MEDS: MULTIVITAMINS/MINERALS THERAP 1 TAB PO SCH (08:40)
[2021-11-22] MEDS: OMEPRAZOLE 20MG CAP PO SCH (08:40)
[2021-11-22] MEDS: RIVAROXABAN 10 MG TAB (XARELTO) PO SCH (08:40)
[2021-11-22] MEDS: LORATADINE 10 MG TAB PO SCH (08:40)
[2021-11-22] MEDS: FOLIC ACID 1 MG TAB PO SCH (08:40)
[2021-11-22] MEDS: NICOTINE 14 MG/24 HR TRANSDERMAL TD SCH (08:41)
[2021-11-22] MEDS: CICLOPIROX 0.77% TOP SCH ×2 (08:42→20:12)
[2021-11-22] MEDS: THIAMINE 100 MG TAB PO SCH (08:43)
[2021-11-22] MEDS: DICLOFENAC SODIUM 1% TOP SCH ×2 (09:00→20:12)
[2021-11-22] MEDS ORDERED: MELOXICAM (MOBIC) 7.5 MG TAB PO SCH (09:00)
[2021-11-22] MEDS ORDERED: oxyCODONE 5MG TAB PO PRN (12:30)
[2021-11-22] MEDS: traZODone 50 MG TAB PO PRN (20:11)
[2021-11-22] MEDS: ONDANSETRON 4MG/2ML VIAL IV PRN (20:25)
[2021-11-22] MEDS ORDERED: ULTRACET TAB PO PRN (22:00)
[2021-11-23 06:00] VITALS: BP 126/74
[2021-11-23] MEDS: LEVOTHYROXINE 112MCG TABLET (0.112MG) PO SCH (06:26)
[2021-11-23] MEDS: IPRATROPIUM HFA INHALER 12.9 GRAMS (ATROVENT HFA) INH SCH ×4 (07:29→19:56)
[2021-11-23] MEDS ORDERED: MORPHINE 2 MG/ML 1ML VIAL IV PRN (08:05)
[2021-11-23] MEDS ORDERED: MOM 30ML SUSPENSION UDC PO PRN (08:20)
[2021-11-23] MEDS ORDERED: MAALOX 30 ML SUSP *UDC PO PRN (08:20)
[2021-11-23 08:38] LABS: HEMATOCRIT 34.8 % (36.0-47.0); HEMOGLOBIN 11.2 g/dl (12.0-15.5); MEAN CORPUSCULAR HEMOGLOBIN 34.1 pg (27.0-33.0); MEAN CORPUSCULAR HGB CONC 32.2 g/dl (32.0-36.5); MEAN CORPUSCULAR VOLUME 106.1 fl (80.0-96.0); PLATELET COUNT, AUTOMATED 155 10^3/uL (150-450); RED BLOOD COUNT 3.28 10^6/uL (4.00-5.40); WHITE BLOOD COUNT 4.1 10^3/uL (4.0-10.0)
[2021-11-23] MEDS: DICLOFENAC SODIUM 1% TOP SCH ×2 (09:00→20:43)
[2021-11-23 09:02] LABS: BLOOD UREA NITROGEN 10 MG/DL (7-18); CALCIUM LEVEL 9.3 MG/DL (8.8-10.2); CARBON DIOXIDE LEVEL 29 MEQ/L (21-32); CHLORIDE LEVEL 102 MEQ/L (98-107); CREATININE FOR GFR 0.36 MG/DL (0.55-1.30); GLOMERULAR FILTRATION RATE > 60.0 (>45); GLUCOSE, FASTING 99 MG/DL (70-100); SODIUM LEVEL 137 MEQ/L (136-145)
[2021-11-23] MEDS: MULTIVITAMINS/MINERALS THERAP 1 TAB PO SCH (09:40)
[2021-11-23] MEDS: FOLIC ACID 1 MG TAB PO SCH (09:40)
[2021-11-23] MEDS: THIAMINE 100 MG TAB PO SCH (09:40)
[2021-11-23] MEDS: OMEPRAZOLE 20MG CAP PO SCH (09:40)
[2021-11-23] MEDS: RIVAROXABAN 10 MG TAB (XARELTO) PO SCH (09:40)
[2021-11-23] MEDS: LORATADINE 10 MG TAB PO SCH (09:40)
[2021-11-23] MEDS: GABAPENTIN 300 MG CAP PO SCH ×2 (09:40→20:34)
[2021-11-23] MEDS: NICOTINE 14 MG/24 HR TRANSDERMAL TD SCH (09:41)
[2021-11-23] MEDS: CICLOPIROX 0.77% TOP SCH ×2 (09:41→20:43)
[2021-11-23] MEDS: NORCO, ANEXSIA 5/325MG TABLET (HYDROcodone/ACETAMINOPHEN) PO PRN ×3 (09:51→22:32)
[2021-11-23 14:00] VITALS: BP 137/79
[2021-11-23 15:21] VITALS: BP 137/79
[2021-11-23] MEDS ORDERED: SODIUM CHLORIDE 0.9% INJ 10 ML SYR IV PRN ×2 (19:55)
[2021-11-23] MEDS: traZODone 50 MG TAB PO PRN (20:34)
[2021-11-23 22:00] VITALS: BP 134/80
[2021-11-24] MEDS: LEVOTHYROXINE 112MCG TABLET (0.112MG) PO SCH (04:30)
[2021-11-24] MEDS: ACETAMINOPHEN TAB 650MG DOSE (2X325MG) PO PRN (04:31)
[2021-11-24 06:00] VITALS: BP 134/79
[2021-11-24] MEDS: IPRATROPIUM HFA INHALER 12.9 GRAMS (ATROVENT HFA) INH SCH ×4 (07:22→19:50)
[2021-11-24 07:51] LABS: HEMATOCRIT 32.1 % (36.0-47.0); HEMOGLOBIN 10.6 g/dl (12.0-15.5); MEAN CORPUSCULAR HEMOGLOBIN 34.6 pg (27.0-33.0); MEAN CORPUSCULAR VOLUME 104.9 fl (80.0-96.0); PLATELET COUNT, AUTOMATED 137 10^3/uL (150-450); RED BLOOD COUNT 3.06 10^6/uL (4.00-5.40); WHITE BLOOD COUNT 2.7 10^3/uL (4.0-10.0)
[2021-11-24 08:15] LABS: BLOOD UREA NITROGEN 7 MG/DL (7-18); CALCIUM LEVEL 9.3 MG/DL (8.8-10.2); CARBON DIOXIDE LEVEL 28 MEQ/L (21-32); CHLORIDE LEVEL 106 MEQ/L (98-107); CREATININE FOR GFR 0.29 MG/DL (0.55-1.30); GLOMERULAR FILTRATION RATE > 60.0 (>45); GLUCOSE, FASTING 103 MG/DL (70-100); POTASSIUM SERUM 3.9 MEQ/L (3.5-5.1); SODIUM LEVEL 140 MEQ/L (136-145)
[2021-11-24] MEDS: THIAMINE 100 MG TAB PO SCH (08:18)
[2021-11-24] MEDS: FOLIC ACID 1 MG TAB PO SCH (08:18)
[2021-11-24] MEDS: RIVAROXABAN 10 MG TAB (XARELTO) PO SCH (08:19)
[2021-11-24] MEDS: NICOTINE 14 MG/24 HR TRANSDERMAL TD SCH (08:50)
[2021-11-24] MEDS: MULTIVITAMINS/MINERALS THERAP 1 TAB PO SCH (08:51)
[2021-11-24] MEDS: CICLOPIROX 0.77% TOP SCH ×2 (08:51→19:54)
[2021-11-24] MEDS: OMEPRAZOLE 20MG CAP PO SCH (08:51)
[2021-11-24] MEDS: DOCUSATE SODIUM 100MG CAPSULE PO PRN (08:51)
[2021-11-24] MEDS: GABAPENTIN 300 MG CAP PO SCH ×2 (08:51→19:53)
[2021-11-24] MEDS: LORATADINE 10 MG TAB PO SCH (08:51)
[2021-11-24] MEDS: DICLOFENAC SODIUM 1% TOP SCH ×2 (08:52→19:54)
[2021-11-24] MEDS ORDERED: SODIUM CHLORIDE 0.9% INJ 10 ML SYR IV SCH (09:00)
[2021-11-24 09:49] VITALS: BP 122/62
[2021-11-24 14:37] VITALS: BP 124/66
[2021-11-24] MEDS: MIRALAX *UNIT DOSE* 17GM PACKET PO PRN (14:41)
[2021-11-24] MEDS: NORCO, ANEXSIA 5/325MG TABLET (HYDROcodone/ACETAMINOPHEN) PO PRN (14:41)
[2021-11-24] MEDS: traZODone 50 MG TAB PO PRN (20:34)
[2021-11-24] MEDS ORDERED: PERCOCET 5MG/325MG TAB PO ONE (21:00)
[2021-11-24] MEDS ORDERED: ONDANSETRON 4MG TAB PO PRN (21:55)
[2021-11-24 22:00] VITALS: BP 146/86
[2021-11-25] MEDS: MIRALAX *UNIT DOSE* 17GM PACKET PO PRN (03:09)
[2021-11-25] MEDS: DOCUSATE SODIUM 100MG CAPSULE PO PRN (03:09)
[2021-11-25] MEDS: PERCOCET 5MG/325MG TAB PO PRN ×4 (03:10→21:13)
[2021-11-25 06:00] VITALS: BP 108/69
[2021-11-25] MEDS: LEVOTHYROXINE 112MCG TABLET (0.112MG) PO SCH (06:15)
[2021-11-25] MEDS: IPRATROPIUM HFA INHALER 12.9 GRAMS (ATROVENT HFA) INH SCH ×4 (07:10→20:17)
[2021-11-25] MEDS: DICLOFENAC SODIUM 1% TOP SCH ×2 (09:00→21:00)
[2021-11-25 09:20] LABS: MEAN CORPUSCULAR HGB CONC 32.4 g/dl (32.0-36.5); MEAN CORPUSCULAR VOLUME 104.8 fl (80.0-96.0); PLATELET COUNT, AUTOMATED 182 10^3/uL (150-450); RED BLOOD COUNT 3.53 10^6/uL (4.00-5.40)
[2021-11-25] MEDS: RIVAROXABAN 10 MG TAB (XARELTO) PO SCH (09:40)
[2021-11-25] MEDS: GABAPENTIN 300 MG CAP PO SCH ×2 (09:40→21:12)
[2021-11-25] MEDS: MULTIVITAMINS/MINERALS THERAP 1 TAB PO SCH (09:40)
[2021-11-25] MEDS: OMEPRAZOLE 20MG CAP PO SCH (09:40)
[2021-11-25] MEDS: LORATADINE 10 MG TAB PO SCH (09:41)
[2021-11-25] MEDS: FOLIC ACID 1 MG TAB PO SCH (09:41)
[2021-11-25] MEDS: NICOTINE 14 MG/24 HR TRANSDERMAL TD SCH (09:41)
[2021-11-25] MEDS: THIAMINE 100 MG TAB PO SCH (09:41)
[2021-11-25] MEDS: CICLOPIROX 0.77% TOP SCH ×2 (09:43→21:13)
[2021-11-25] MEDS ORDERED: BISACODYL 10 MG SUPP PR ONE (11:00)
[2021-11-25] MEDS: SENOKOT S TAB PO SCH ×2 (11:15→21:12)
[2021-11-25 14:15] VITALS: BP 111/67
[2021-11-25] MEDS: traZODone 50 MG TAB PO PRN (21:12)
[2021-11-26] MEDS: PERCOCET 5MG/325MG TAB PO PRN ×5 (01:59→21:06)
[2021-11-26 05:53] LABS: HEMATOCRIT 33.6 % (36.0-47.0); MEAN CORPUSCULAR HEMOGLOBIN 34.6 pg (27.0-33.0); MEAN CORPUSCULAR HGB CONC 32.7 g/dl (32.0-36.5); MEAN CORPUSCULAR VOLUME 105.7 fl (80.0-96.0); PLATELET COUNT, AUTOMATED 172 10^3/uL (150-450); RED BLOOD COUNT 3.18 10^6/uL (4.00-5.40); WHITE BLOOD COUNT 3.1 10^3/uL (4.0-10.0)
[2021-11-26 06:00] VITALS: BP 133/75
[2021-11-26] MEDS: LEVOTHYROXINE 112MCG TABLET (0.112MG) PO SCH (06:08)
[2021-11-26] MEDS: IPRATROPIUM HFA INHALER 12.9 GRAMS (ATROVENT HFA) INH SCH ×4 (07:32→19:50)
[2021-11-26] MEDS: DICLOFENAC SODIUM 1% TOP SCH ×2 (09:00→21:00)
[2021-11-26] MEDS: ACETAMINOPHEN TAB 650MG DOSE (2X325MG) PO PRN ×2 (09:05→20:13)
[2021-11-26] MEDS: MULTIVITAMINS/MINERALS THERAP 1 TAB PO SCH (09:05)
[2021-11-26] MEDS: GABAPENTIN 300 MG CAP PO SCH ×2 (09:05→20:13)
[2021-11-26] MEDS: NICOTINE 14 MG/24 HR TRANSDERMAL TD SCH (09:05)
[2021-11-26] MEDS: FOLIC ACID 1 MG TAB PO SCH (09:06)
[2021-11-26] MEDS: LORATADINE 10 MG TAB PO SCH (09:06)
[2021-11-26] MEDS: SENOKOT S TAB PO SCH ×2 (09:06→20:12)
[2021-11-26] MEDS: OMEPRAZOLE 20MG CAP PO SCH (09:06)
[2021-11-26] MEDS: RIVAROXABAN 10 MG TAB (XARELTO) PO SCH (09:06)
[2021-11-26] MEDS: THIAMINE 100 MG TAB PO SCH (09:06)
[2021-11-26] MEDS: CICLOPIROX 0.77% TOP SCH ×2 (09:07→21:06)
[2021-11-26] MEDS: MIRALAX *UNIT DOSE* 17GM PACKET PO PRN (09:10)
[2021-11-26 14:00] VITALS: BP 133/85
[2021-11-26] MEDS: traZODone 50 MG TAB PO PRN (20:13)
[2021-11-27] MEDS: PERCOCET 5MG/325MG TAB PO PRN ×6 (02:39→20:23)
[2021-11-27] MEDS: LEVOTHYROXINE 112MCG TABLET (0.112MG) PO SCH (06:39)
[2021-11-27] MEDS: IPRATROPIUM HFA INHALER 12.9 GRAMS (ATROVENT HFA) INH SCH ×3 (07:30→16:17)
[2021-11-27] MEDS ORDERED: BISACODYL 10 MG SUPP PR PRN (09:00)
[2021-11-27] MEDS: DICLOFENAC SODIUM 1% TOP SCH ×2 (09:00→21:34)
[2021-11-27 09:03] LABS: HEMATOCRIT 33.5 % (36.0-47.0); HEMOGLOBIN 11.1 g/dl (12.0-15.5); MEAN CORPUSCULAR HEMOGLOBIN 34.8 pg (27.0-33.0); MEAN CORPUSCULAR HGB CONC 33.1 g/dl (32.0-36.5); PLATELET COUNT, AUTOMATED 216 10^3/uL (150-450); RED BLOOD COUNT 3.19 10^6/uL (4.00-5.40)
[2021-11-27] MEDS: NICOTINE 14 MG/24 HR TRANSDERMAL TD SCH (09:10)
[2021-11-27] MEDS: CICLOPIROX 0.77% TOP SCH ×2 (09:10→20:29)
[2021-11-27] MEDS: THIAMINE 100 MG TAB PO SCH (09:11)
[2021-11-27] MEDS: GABAPENTIN 300 MG CAP PO SCH ×2 (09:11→20:23)
[2021-11-27] MEDS: LORATADINE 10 MG TAB PO SCH (09:11)
[2021-11-27] MEDS: SENOKOT S TAB PO SCH ×2 (09:11→20:23)
[2021-11-27] MEDS: FOLIC ACID 1 MG TAB PO SCH (09:11)
[2021-11-27] MEDS: RIVAROXABAN 10 MG TAB (XARELTO) PO SCH (09:11)
[2021-11-27] MEDS: OMEPRAZOLE 20MG CAP PO SCH (09:11)
[2021-11-27] MEDS: MULTIVITAMINS/MINERALS THERAP 1 TAB PO SCH (09:11)
[2021-11-27 09:33] LABS: BLOOD UREA NITROGEN 7 MG/DL (7-18); CALCIUM LEVEL 9.6 MG/DL (8.8-10.2); CARBON DIOXIDE LEVEL 26 MEQ/L (21-32); CHLORIDE LEVEL 102 MEQ/L (98-107); CREATININE FOR GFR 0.35 MG/DL (0.55-1.30); GLOMERULAR FILTRATION RATE > 60.0 (>45); GLUCOSE, FASTING 100 MG/DL (70-100); POTASSIUM SERUM 4.2 MEQ/L (3.5-5.1); SODIUM LEVEL 135 MEQ/L (136-145)
[2021-11-27] MEDS: MIRALAX *UNIT DOSE* 17GM PACKET PO PRN (11:02)
[2021-11-27 14:00] VITALS: BP 121/90
[2021-11-27] MEDS: ACETAMINOPHEN TAB 650MG DOSE (2X325MG) PO PRN (18:51)
[2021-11-27] MEDS: traZODone 50 MG TAB PO PRN (20:27)
[2021-11-27] MEDS ORDERED: oxyCODONE 5MG TAB PO ONE (21:35)
[2021-11-27] MEDS ORDERED: carisoprodoL 350 MG TAB PO PRN (21:35)
[2021-11-27 22:00] VITALS: BP 132/92
[2021-11-28] MEDS: LEVOTHYROXINE 112MCG TABLET (0.112MG) PO SCH (05:59)
[2021-11-28 06:00] VITALS: BP 130/90
[2021-11-28] MEDS: IPRATROPIUM HFA INHALER 12.9 GRAMS (ATROVENT HFA) INH SCH ×2 (07:48→12:00)
[2021-11-28] MEDS: OMEPRAZOLE 20MG CAP PO SCH (08:57)
[2021-11-28] MEDS: SENOKOT S TAB PO SCH (08:57)
[2021-11-28] MEDS: NICOTINE 14 MG/24 HR TRANSDERMAL TD SCH (08:57)
[2021-11-28] MEDS: LORATADINE 10 MG TAB PO SCH (08:58)
[2021-11-28] MEDS: GABAPENTIN 300 MG CAP PO SCH (08:58)
[2021-11-28] MEDS: RIVAROXABAN 10 MG TAB (XARELTO) PO SCH (08:58)
[2021-11-28] MEDS: THIAMINE 100 MG TAB PO SCH (08:59)
[2021-11-28] MEDS: MULTIVITAMINS/MINERALS THERAP 1 TAB PO SCH (08:59)
[2021-11-28] MEDS: FOLIC ACID 1 MG TAB PO SCH (09:00)
[2021-11-28] MEDS: DICLOFENAC SODIUM 1% TOP SCH (09:00)
[2021-11-28] MEDS: PERCOCET 5MG/325MG TAB PO PRN ×2 (09:00→15:06)
[2021-11-28] MEDS: CICLOPIROX 0.77% TOP SCH (09:01)
[2021-11-28] MEDS ORDERED: BISA10SU PR (11:23)
[2021-11-28] MEDS ORDERED: SENN-52 PO (11:23)
[2021-11-28] MEDS ORDERED: PERCOCET PO (11:23)
[2021-11-28] MEDS ORDERED: THIA100T7 PO (18:53)
[2021-11-28] MEDS ORDERED: ASPI-310 PO (18:53)
[2021-11-28] MEDS ORDERED: XARE10TA PO (18:53)
[2021-11-28] MEDS ORDERED: ESSETAB4 PO (18:53)
[2021-12-05] MEDS ORDERED: ASPIRIN 81MG ENTERIC TABLET PO SCH (09:00)
== END 2021-11-28 15:30 | disposition home health service (06) | DRG 301 ==
LOC: EDBD 21:50 → M ED 21:50 → M ED INP 11-20 02:14 → ENRESERV 11-20 03:57 → M MS5PR 11-20 05:00
PROVIDERS: ADMIT Internal Medicine; ATTEND Internal Medicine
PROC: 0SRS0J9 Replacement of Left Hip Joint, Femoral Surface with Synthetic Substitute, Cemented, Open Approach (ICD-10-PCS; principal; 2021-11-20 15:00)
DX: S72.042A Displaced fracture of base of neck of left femur, initial encounter for closed fracture (principal); C50.912 Malignant neoplasm of unspecified site of left female breast; Z90.13 Acquired absence of bilateral breasts and nipples; Z92.21 Personal history of antineoplastic chemotherapy; Z79.899 Other long term (current) drug therapy; Z88.2 Allergy status to sulfonamides; Z88.5 Allergy status to narcotic agent; Z91.040 Latex allergy status; E03.9 Hypothyroidism, unspecified; F17.210 Nicotine dependence, cigarettes, uncomplicated; Z20.822 Contact with and (suspected) exposure to COVID-19; F10.10 Alcohol abuse, uncomplicated; J45.909 Unspecified asthma, uncomplicated; M81.0 Age-related osteoporosis without current pathological fracture; W01.0XXA Fall on same level from slipping, tripping and stumbling without subsequent striking against object, initial encounter; Y92.9 Unspecified place or not applicable

== ENCOUNTER → 2022-01-02 | Outpatient (CLI) | payer MEDICARE, BC ==
[~2022-01-02] MED LIST changes: +ACET-1349 PO; +ACET-907 PO; +ALEV220T22 PO; +ASPI-310 PO; +BISA10SU PR; +CICL0.7733 EXT; +DULO30CA9 PO; +ESSETAB4 PO; +GABA600T4 PO; +LETR2.5T2 PO; +NYST50SS SS; +PERCOCET PO; +SENN-52 PO; +THIA100T7 PO; +XARE10TA PO
== END ==
LOC: M ONCR 12:57
PROVIDERS: ATTEND General Practice
DX: C50.912 Malignant neoplasm of unspecified site of left female breast (principal); Z88.2 Allergy status to sulfonamides; Z88.5 Allergy status to narcotic agent; Z90.12 Acquired absence of left breast and nipple; Z91.040 Latex allergy status; Z92.21 Personal history of antineoplastic chemotherapy; Z92.3 Personal history of irradiation; Z96.642 Presence of left artificial hip joint

== ENCOUNTER → 2022-01-04 | Outpatient (CLI) | payer MEDICARE, BC | LOC: M WHC 14:35 | PROVIDERS: ATTEND Internal Medicine Medical Oncology | DX: Z13.820 Encounter for screening for osteoporosis (principal); M85.88 Other specified disorders of bone density and structure, other site; M85.851 Other specified disorders of bone density and structure, right thigh; C50.919 Malignant neoplasm of unspecified site of unspecified female breast; M54.9 Dorsalgia, unspecified ==

== ENCOUNTER → 2022-01-23 | Outpatient (CLI) | payer MEDICARE, BC ==
[~2022-01-23] MED LIST changes: +ALPR0.5T3 PO
== END ==
LOC: M SOG 08:07
PROVIDERS: ATTEND Orthopaedic Surgery
DX: S72.002D Fracture of unspecified part of neck of left femur, subsequent encounter for closed fracture with routine healing (principal); X58.XXXD Exposure to other specified factors, subsequent encounter; Y92.89 Other specified places as the place of occurrence of the external cause

== ENCOUNTER → 2022-01-31 | Outpatient (RCR) | payer MEDICARE, BC | LOC: M ONCR 01-11 08:04 | PROVIDERS: ATTEND General Practice | DX: C50.412 Malignant neoplasm of upper-outer quadrant of left female breast (principal); M79.7 Fibromyalgia; M81.0 Age-related osteoporosis without current pathological fracture; F17.210 Nicotine dependence, cigarettes, uncomplicated; Z79.899 Other long term (current) drug therapy; Z79.890 Hormone replacement therapy; Z80.3 Family history of malignant neoplasm of breast; Z91.040 Latex allergy status; Z88.5 Allergy status to narcotic agent; Z88.1 Allergy status to other antibiotic agents; Z88.2 Allergy status to sulfonamides; Z98.890 Other specified postprocedural states ==

== ENCOUNTER 2022-03-01 12:09 | Outpatient (RCR) | payer MEDICARE, BC ==
[~2022-03-01 12:09] MED LIST changes: +DEXA2TA PO; +DEXA4TA PO
== END 2022-03-03 ==
LOC: M ONCR 12:09
PROVIDERS: ATTEND General Practice
DX: C50.412 Malignant neoplasm of upper-outer quadrant of left female breast (principal)

== ENCOUNTER 2022-03-06 12:15 | Outpatient (RCR) | payer MEDICARE, BC | END 2022-04-03 | LOC: M ONCR 12:15 | PROVIDERS: ATTEND General Practice | DX: C50.412 Malignant neoplasm of upper-outer quadrant of left female breast (principal) ==

== ENCOUNTER → 2022-03-15 | Outpatient (CLI) | payer BC, MEDICARE | LOC: M RAD 09:12 | PROVIDERS: ATTEND Internal Medicine Medical Oncology | DX: C50.919 Malignant neoplasm of unspecified site of unspecified female breast (principal); M51.36 Other intervertebral disc degeneration, lumbar region; M17.11 Unilateral primary osteoarthritis, right knee; R93.7 Abnormal findings on diagnostic imaging of other parts of musculoskeletal system | CPT/HCPCS: 78306; A9503 ==

== ENCOUNTER → 2022-05-27 | Outpatient (CLI) | payer MEDICARE ==
[2022-05-27 18:17] LABS: ALBUMIN 3.7 GM/DL (3.2-5.2); ALT/SGPT 27 U/L (12-78); BILIRUBIN,TOTAL 0.6 MG/DL (0.2-1.0); BLOOD UREA NITROGEN 9 MG/DL (7-18); CALCIUM LEVEL 9.4 MG/DL (8.8-10.2); CARBON DIOXIDE LEVEL 29 MEQ/L (21-32); CHLORIDE LEVEL 104 MEQ/L (98-107); CREATININE FOR GFR 0.68 MG/DL (0.55-1.30); GLOMERULAR FILTRATION RATE > 60.0 (>45); GLUCOSE, FASTING 99 MG/DL (70-100); POTASSIUM SERUM 4.5 MEQ/L (3.5-5.1); SODIUM LEVEL 137 MEQ/L (136-145); TOTAL PROTEIN 6.8 GM/DL (6.4-8.2)
== END ==
LOC: M WUC 11:38
PROVIDERS: ATTEND General Practice
DX: C50.412 Malignant neoplasm of upper-outer quadrant of left female breast (principal)

== ENCOUNTER → 2022-05-28 | Outpatient (CLI) | payer MEDICARE ==
[~2022-05-28] MED LIST changes: +GASTROGRAFIN SOLUTION 30ML (Q9963) As Ordered ONE; +ISOVUE-370 76% 100ML VIAL As Ordered ONE
== END ==
LOC: M RAD 11:30
PROVIDERS: ATTEND General Practice
DX: C50.412 Malignant neoplasm of upper-outer quadrant of left female breast (principal); Z96.642 Presence of left artificial hip joint; N28.1 Cyst of kidney, acquired; Z90.49 Acquired absence of other specified parts of digestive tract
CPT/HCPCS: 71260; 74178; Q9963; Q9967

== ENCOUNTER → 2022-06-07 | Outpatient (CLI) | payer BC, MEDICARE ==
[~2022-06-07] MED LIST changes: -GASTROGRAFIN SOLUTION 30ML (Q9963) As Ordered ONE; -ISOVUE-370 76% 100ML VIAL As Ordered ONE
== END ==
LOC: M ONCR 13:09
PROVIDERS: ATTEND General Practice
DX: C50.412 Malignant neoplasm of upper-outer quadrant of left female breast (principal); F17.210 Nicotine dependence, cigarettes, uncomplicated; M54.50 Low back pain, unspecified; Z92.21 Personal history of antineoplastic chemotherapy; Z92.3 Personal history of irradiation; Z88.2 Allergy status to sulfonamides; Z88.5 Allergy status to narcotic agent; Z91.040 Latex allergy status; Z79.891 Long term (current) use of opiate analgesic; Z79.899 Other long term (current) drug therapy; Z79.1 Long term (current) use of non-steroidal anti-inflammatories (NSAID)

== ENCOUNTER → 2022-07-30 | Outpatient (CLI) | payer MEDICARE, BC ==
[~2022-07-30] MED LIST changes: +CALC1TAB42 PO; +ICAPCAP2 PO
[2022-07-30 13:28] LABS: HEMATOCRIT 41.3 % (36.0-47.0); HEMOGLOBIN 13.4 g/dl (12.0-15.5); MEAN CORPUSCULAR HEMOGLOBIN 31.6 pg (27.0-33.0); MEAN CORPUSCULAR HGB CONC 32.4 g/dl (32.0-36.5); MEAN CORPUSCULAR VOLUME 97.4 fl (80.0-96.0); PLATELET COUNT, AUTOMATED 275 10^3/uL (150-450); RED BLOOD COUNT 4.24 10^6/uL (4.00-5.40); WHITE BLOOD COUNT 4.7 10^3/uL (4.0-10.0)
[2022-07-30 13:41] LABS: HEMOGLOBIN A1c 4.8 % (4.0-6.0)
[2022-07-30 13:57] LABS: CREATININE, URINE 58.6 MG/DL; MAU/CREAT RATIO 5.1 MCG/MG (0.0-30.0)
[2022-07-30 13:58] LABS: C REACTIVE PROTEIN QUANTITATIV < 0.40 MG/DL (<1.0)
[2022-07-30 13:59] LABS: ALBUMIN 3.8 G/DL (3.2-5.2); ALKALINE PHOSPHATASE 80 U/L (46-116); ALT/SGPT 37 U/L (7.0-40); AST/SGOT 49 U/L (<34); BILIRUBIN,TOTAL 0.7 MG/DL (0.3-1.2); BLOOD UREA NITROGEN 11 MG/DL (9-23); CALCIUM LEVEL 9.5 MG/DL (8.3-10.6); CARBON DIOXIDE LEVEL 25 MMOL/L (20-31); CHLORIDE LEVEL 102 MMOL/L (98-107); CHOLESTEROL LEVEL 146 MG/DL (<200); CHOLESTEROL RISK RATIO 2.79 (<5); CREATININE FOR GFR 0.59 MG/DL (0.55-1.30); GLOMERULAR FILTRATION RATE > 60.0 (>45); GLUCOSE, FASTING 84 MG/DL (74-106); HDL CHOLESTEROL 52.3 MG/DL (>40); LDL CHOLESTEROL 61.3 MG/DL (<100); NON-HDL-C 94 MG/DL; POTASSIUM SERUM 4.4 MMOL/L (3.5-5.1); SODIUM LEVEL 135 MMOL/L (136-145); TOTAL PROTEIN 7.1 G/DL (5.7-8.2); TRIGLYCERIDES LEVEL 162 MG/DL (<150)
[2022-07-30 14:02] LABS: THYROID STIMULATING HORMONE 0.013 uIU/ML (0.55-4.78); VITAMIN B12 LEVEL 609 PG/ML (211-911)
== END ==
LOC: M PLALAB 10:51
PROVIDERS: ATTEND Internal Medicine Hematology
DX: E78.5 Hyperlipidemia, unspecified (principal)

== ENCOUNTER → 2022-10-25 | Outpatient (CLI) | payer MEDICARE, BC ==
[~2022-10-25] MED LIST changes: +NYST-38 PO; +NYST-38 SS; -NYST50SS PO; -NYST50SS SS; +POTA-151 PO
== END ==
LOC: M PLAIMG 10:22
PROVIDERS: ATTEND Pain Medicine Interventional Pain Medicine
DX: M54.16 Radiculopathy, lumbar region (principal)

== ENCOUNTER → 2022-11-29 | Outpatient (CLI) | payer MEDICARE, BC ==
[~2022-11-29] MED LIST changes: +OXYC1TAB23 PO
== END ==
LOC: M ONCR 14:57
PROVIDERS: ATTEND General Practice
DX: Z08 Encounter for follow-up examination after completed treatment for malignant neoplasm (principal); Z85.3 Personal history of malignant neoplasm of breast; F17.210 Nicotine dependence, cigarettes, uncomplicated; Z79.811 Long term (current) use of aromatase inhibitors; Z79.899 Other long term (current) drug therapy; Z88.2 Allergy status to sulfonamides; Z88.5 Allergy status to narcotic agent; Z90.13 Acquired absence of bilateral breasts and nipples; Z91.040 Latex allergy status; Z92.21 Personal history of antineoplastic chemotherapy; Z92.3 Personal history of irradiation

== ENCOUNTER → 2023-01-31 | Outpatient (REF) | payer MEDICARE, BC ==
[2023-01-31 12:03] LABS: HEMATOCRIT 42.3 % (36.0-47.0); HEMOGLOBIN 14.4 g/dl (12.0-15.5); MEAN CORPUSCULAR HEMOGLOBIN 32.6 pg (27.0-33.0); MEAN CORPUSCULAR VOLUME 95.7 fl (80.0-96.0); PLATELET COUNT, AUTOMATED 314 10^3/uL (150-450); RED BLOOD COUNT 4.42 10^6/uL (4.00-5.40); WHITE BLOOD COUNT 10.5 10^3/uL (4.0-10.0)
[2023-01-31 12:06] LABS: CREATININE, URINE 78.5 MG/DL; MAU/CREAT RATIO 24.2 MCG/MG (0.0-30.0)
[2023-01-31 12:07] LABS: ALBUMIN 3.8 G/DL (3.2-5.2); ALKALINE PHOSPHATASE 98 U/L (46-116); ALT/SGPT 22 U/L (7.0-40); AST/SGOT 19 U/L (<34); BILIRUBIN,TOTAL 0.6 MG/DL (0.3-1.2); BLOOD UREA NITROGEN 7 MG/DL (9-23); CALCIUM LEVEL 9.1 MG/DL (8.3-10.6); CARBON DIOXIDE LEVEL 22 MMOL/L (20-31); CHLORIDE LEVEL 105 MMOL/L (98-107); CHOLESTEROL LEVEL 106 MG/DL (<200); CHOLESTEROL RISK RATIO 2.14 (<5); CREATININE FOR GFR 0.51 MG/DL (0.55-1.30); GLOMERULAR FILTRATION RATE > 60.0 (>45); GLUCOSE, FASTING 82 MG/DL (74-106); HDL CHOLESTEROL 49.4 MG/DL (>40); LDL CHOLESTEROL 42.2 MG/DL (<100); NON-HDL-C 56.6 MG/DL; POTASSIUM SERUM 3.8 MMOL/L (3.5-5.1); SODIUM LEVEL 134 MMOL/L (136-145); TRIGLYCERIDES LEVEL 72 MG/DL (<150)
[2023-01-31 12:09] LABS: THYROID STIMULATING HORMONE 1.814 uIU/ML (0.55-4.78); VITAMIN B12 LEVEL 810 PG/ML (211-911)
[2023-01-31 12:10] LABS: FREE T4 1.07 NG/DL (0.89-1.76)
[2023-01-31 12:12] LABS: TOTAL 25(OH) VITAMIN D 51.3 NG/ML (20.0-100.0)
[2023-01-31 12:28] LABS: HEMOGLOBIN A1c 4.8 % (4.0-6.0)
== END ==
LOC: M SFHCPLAZ 08:44
PROVIDERS: ATTEND Internal Medicine Hematology
DX: E78.5 Hyperlipidemia, unspecified (principal); Z79.899 Other long term (current) drug therapy

== ENCOUNTER → 2023-01-31 | Outpatient (CLI) | payer MEDICARE, BC ==
[~2023-01-31] MED LIST changes: -LIDO1CRE42 TOP; +LIDO30CR18 TOP
== END ==
LOC: M CLY 10:40
PROVIDERS: ATTEND Physician Assistant Medical
DX: R06.02 Shortness of breath (principal)

== ENCOUNTER → 2023-02-03 | Outpatient (REF) | payer MEDICARE, BC ==
[~2023-02-03] MED LIST changes: +LIDO1CRE42 TOP; -LIDO30CR18 TOP
== END ==
LOC: M SFHCCLAY 11:08
PROVIDERS: ATTEND Physician Assistant Medical
DX: J40 Bronchitis, not specified as acute or chronic (principal)

== ENCOUNTER 2023-04-02 12:07 | Day surgery (SDC) | payer MEDICARE, BC ==
[~2023-04-02] VITALS: Ht 160 cm; Wt 61.4 kg
[~2023-04-02 12:07] MED LIST changes: +ADV250INH; -LIDO1CRE42 TOP; +LIDO30CR18 TOP; +LIDOCAINE 2% 100MG/5ML SDV (FOR ANES.) As Ordered ONE; +MELO7.5T35 PO; +NS 1,000 ML IV ONE; +propofoL 200 MG/20 ML VIAL As Ordered ONE
[2023-04-02 13:59] VITALS: BP 130/90; TEMP 96.4; O2SAT 100
== END 2023-04-02 14:03 | disposition home or self-care (01) ==
LOC: M OPP 12:07
PROVIDERS: ATTEND Surgery
DX: Z12.11 Encounter for screening for malignant neoplasm of colon (principal); Z86.010 Personal history of colon polyps; K64.1 Second degree hemorrhoids; K57.30 Diverticulosis of large intestine without perforation or abscess without bleeding; K63.5 Polyp of colon; F17.200 Nicotine dependence, unspecified, uncomplicated; Z79.51 Long term (current) use of inhaled steroids; Z79.52 Long term (current) use of systemic steroids; Z79.890 Hormone replacement therapy; Z79.891 Long term (current) use of opiate analgesic; Z79.899 Other long term (current) drug therapy; Z88.2 Allergy status to sulfonamides; Z88.5 Allergy status to narcotic agent; Z91.040 Latex allergy status; Z91.048 Other nonmedicinal substance allergy status

== ENCOUNTER → 2023-06-05 | Outpatient (REF) | payer MEDICARE, BC ==
[~2023-06-05] MED LIST changes: -LIDOCAINE 2% 100MG/5ML SDV (FOR ANES.) As Ordered ONE; -NS 1,000 ML IV ONE; -propofoL 200 MG/20 ML VIAL As Ordered ONE
[2023-06-06 20:12] LABS: CLOSTRIDIUM DIFFICILE PCR NEGATIVE (NEGATIVE)
== END ==
LOC: M SFHCPLAZ 16:49
PROVIDERS: ATTEND Internal Medicine Hematology
DX: A09 Infectious gastroenteritis and colitis, unspecified (principal)

== ENCOUNTER → 2023-07-31 | Outpatient (CLI) | payer MEDICARE ==
[2023-07-31 16:24] LABS: C REACTIVE PROTEIN QUANTITATIV < 0.40 MG/DL (<1.0)
[2023-07-31 16:28] LABS: THYROID STIMULATING HORMONE 1.924 uIU/ML (0.55-4.78)
== END ==
LOC: M PLALAB 14:32
PROVIDERS: ATTEND Internal Medicine Hematology
DX: E03.9 Hypothyroidism, unspecified (principal); M79.7 Fibromyalgia; C50.919 Malignant neoplasm of unspecified site of unspecified female breast

== ENCOUNTER → 2024-01-02 | Outpatient (CLI) | payer MEDICARE | LOC: M RAD 15:33 | PROVIDERS: ATTEND Pain Medicine Interventional Pain Medicine | DX: M54.16 Radiculopathy, lumbar region (principal); M47.816 Spondylosis without myelopathy or radiculopathy, lumbar region; M48.061 Spinal stenosis, lumbar region without neurogenic claudication ==

== ENCOUNTER 2024-04-20 14:21 | Inpatient (IN) | payer MEDICARE, OTHER ==
[~2024-04-20 14:21] MED LIST changes: +GABA-1172 PO; +GABA-1490 PO; -GABA-282 PO; -GABA600T4 PO
[2024-04-20 15:32] LABS: HEMATOCRIT 25.2 % (36.0-47.0); HEMOGLOBIN 8.2 g/dl (12.0-15.5); MEAN CORPUSCULAR HEMOGLOBIN 33.3 pg (27.0-33.0); MEAN CORPUSCULAR HGB CONC 32.5 g/dl (32.0-36.5); MEAN CORPUSCULAR VOLUME 102.4 fl (80.0-96.0); PLATELET COUNT, AUTOMATED 100 10^3/uL (150-450); RED BLOOD COUNT 2.46 10^6/uL (4.00-5.40); WHITE BLOOD COUNT 7.8 10^3/uL (4.0-10.0)
[2024-04-20 15:57] LABS: CK-MB VALUE MASS < 1.0 NG/ML (<3.6)
[2024-04-20 15:59] LABS: BLOOD UREA NITROGEN 11 MG/DL (9-23); CALCIUM LEVEL 9.3 MG/DL (8.3-10.6); CARBON DIOXIDE LEVEL 24 MMOL/L (20-31); CHLORIDE LEVEL 105 MMOL/L (98-107); CREATININE FOR GFR 0.78 MG/DL (0.55-1.30); FREE T4 1.43 NG/DL (0.89-1.76); GLOMERULAR FILTRATION RATE > 60.0 (>45); GLUCOSE, FASTING 141 MG/DL (74-106); MAGNESIUM LEVEL 1.1 MG/DL (1.8-2.4); POTASSIUM SERUM 4.6 MMOL/L (3.5-5.1); SODIUM LEVEL 134 MMOL/L (136-145)
[2024-04-20 16:00] LABS: CPK CREATINE PHOSPHOKINASE 38 U/L (34-145); MB/CK RELATIVE INDEX 2.63 (< OR =4); THYROID STIMULATING HORMONE 0.196 uIU/ML (0.55-4.78)
[2024-04-20 16:06] LABS: ANISOCYTOSIS 2+; EOSINOPHILS 1 % (0-3); LYMPHOCYTES 11 % (16-44); METAMYELOCYTES 6 % (0-0); MONOCYTES 11 % (0-5); MYELOCYTES 2 % (0-0); NEUTROPHILS 59 % (28-66); PLATELET ESTIMATE DECREASED (NORMAL)
[2024-04-20] MEDS: MAG SULF 1GM/100ML (MAG RUN) 1 GM in IV 1 EA IV ONE (16:39)
[2024-04-20] MEDS ORDERED: MAALOX 30 ML SUSP *UDC PO PRN (17:00)
[2024-04-20] MEDS ORDERED: MOM 30ML SUSPENSION UDC PO PRN (17:00)
[2024-04-20] MEDS ORDERED: TYLE650T38 PO (17:34)
[2024-04-20] MEDS ORDERED: IBUP200T46 PO (17:34)
[2024-04-20] MEDS ORDERED: HOME MED LIST COMPLETE! XX SCH (17:35)
[2024-04-20] MEDS: MAG SULF 1GM/100ML (MAG RUN) 1 GM in IV 1 EA IV SCH (20:00)
[2024-04-20 20:26] LABS: IRON (FE) 132 UG/DL (50-170); PERCENT SATURATION 70.6 % (13.2-45.0); TOTAL IRON BINDING CAPACITY 187 UG/DL (250-425)
[2024-04-20 20:27] LABS: FERRITIN 1205.8 NG/ML (7.3-270.7)
[2024-04-20 20:28] LABS: VITAMIN B12 LEVEL 990 PG/ML (211-911)
[2024-04-20 20:32] LABS: PROCALCITONIN 0.44 ng/ml
[2024-04-20 20:37] LABS: ALBUMIN 2.8 G/DL (3.2-5.2); ALKALINE PHOSPHATASE 146 U/L (46-116); ALT/SGPT 11 U/L (7.0-40); AST/SGOT 40 U/L (<34); BILIRUBIN,DIRECT 0.2 MG/DL (<0.4); BILIRUBIN,TOTAL 0.4 MG/DL (0.3-1.2); TOTAL PROTEIN 5.8 G/DL (5.7-8.2)
[2024-04-20 20:43] LABS: INR 1.13; PARTIAL THROMBOPLASTIN TIME 32.3 SECONDS (24.8-34.2); PROTHROMBIN TIME 14.2 SECONDS (12.5-14.5)
[2024-04-20 20:44] LABS: ERYTHROCYTE SEDIMENTATION RATE 35 mm/hr (0-30)
[2024-04-20 20:51] LABS: HEPATITIS B SURFACE ANTIGEN NEGATIVE (NEGATIVE)
[2024-04-20] MEDS: NS 1,000 ML IV SCH (20:56)
[2024-04-20 21:12] LABS: HEPATITIS B CORE ANTIBODY IGM NEGATIVE (NEGATIVE); HEPATITIS C VIRUS ABY INDEX < 0.02 INDEX (<0.8)
[2024-04-20 21:15] LABS: FOLATE 10.75 NG/ML (>5.4)
[2024-04-20 21:22] LABS: CREATININE,RANDOM URINE 76.6 MG/DL
[2024-04-20] MEDS: DOCUSATE SODIUM 100MG CAPSULE PO SCH (22:38)
[2024-04-20] MEDS: COMBIVENT RESPIMAT 100-20MCG INHALER 4GM INH PRN (23:24)
[2024-04-20 23:49] VITALS: BP 128/65; TEMP 97.8; O2SAT 95
[2024-04-21] VITALS (13 sets, daily range): BP systolic 140–164; BP diastolic 65–95; TEMP 96.3–98.3; O2SAT 93–98
[2024-04-21] MEDS: ACETAMINOPHEN TAB 650MG DOSE (2X325MG) PO PRN (02:31)
[2024-04-21] MEDS: LEVOTHYROXINE 112MCG TABLET (0.112MG) PO SCH (05:59)
[2024-04-21] MEDS: ACETAMINOPHEN *IV* 500 MG in IV 1 EA IV ONE (06:00)
[2024-04-21] MEDS: LIDOCAINE 5% (LIDODERM) PATCH TD ONE (06:00)
[2024-04-21 08:30] LABS: HEMATOCRIT 30.7 % (36.0-47.0); HEMOGLOBIN 10.5 g/dl (12.0-15.5); MEAN CORPUSCULAR HEMOGLOBIN 32.7 pg (27.0-33.0); MEAN CORPUSCULAR HGB CONC 34.2 g/dl (32.0-36.5); MEAN CORPUSCULAR VOLUME 95.6 fl (80.0-96.0); RED BLOOD COUNT 3.21 10^6/uL (4.00-5.40); WHITE BLOOD COUNT 8.4 10^3/uL (4.0-10.0)
[2024-04-21 08:35] LABS: PLATELET COUNT, AUTOMATED 77 10^3/uL (150-450)
[2024-04-21 08:41] LABS: BLOOD UREA NITROGEN 9 MG/DL (9-23); CALCIUM LEVEL 8.4 MG/DL (8.3-10.6); CARBON DIOXIDE LEVEL 23 MMOL/L (20-31); CHLORIDE LEVEL 108 MMOL/L (98-107); CREATININE FOR GFR 0.63 MG/DL (0.55-1.30); GLOMERULAR FILTRATION RATE > 60.0 (>45); GLUCOSE, FASTING 97 MG/DL (74-106); MAGNESIUM LEVEL 1.6 MG/DL (1.8-2.4); POTASSIUM SERUM 4.4 MMOL/L (3.5-5.1); SODIUM LEVEL 135 MMOL/L (136-145)
[2024-04-21] MEDS: OMEPRAZOLE 20MG CAP PO SCH (08:59)
[2024-04-21] MEDS: GABAPENTIN 300 MG CAP PO SCH (09:00)
[2024-04-21 09:29] LABS: ANISOCYTOSIS 2+; ATYPICAL LYMPH 2 % (0-5); BASOPHILS 2 % (0-1); EOSINOPHILS 2 % (0-3); LYMPHOCYTES 10 % (16-44); METAMYELOCYTES 4 % (0-0); MONOCYTES 12 % (0-5); MYELOCYTES 2 % (0-0); NEUTROPHILS 53 % (28-66)
[2024-04-21 09:31] LABS: PLATELET ESTIMATE DECREASED (NORMAL)
[2024-04-21] MEDS: MAG SULF 1GM/100ML (MAG RUN) 1 GM in IV 1 EA IV SCH (10:23)
[2024-04-21] MEDS ORDERED: GABAPENTIN 300 MG CAP PO ONE (10:25)
[2024-04-21] MEDS ORDERED: ISOVUE-370 76% 100ML VIAL As Ordered ONE (13:34)
[2024-04-21] MEDS: NICOTINE 21MG/24HR 1 EA TRANSDERMAL TD PRN (15:19)
[2024-04-21] MEDS: PERCOCET 5MG/325MG TAB PO PRN (16:36)
[2024-04-21] MEDS: MAGNESIUM OXIDE 400MG TAB (MAG-OX) PO SCH (21:34)
[2024-04-22 04:00] VITALS: BP 149/80; TEMP 98; O2SAT 95
[2024-04-22 07:01] LABS: BASO # 0.1 10^3/uL (0.0-0.2); BASO % 1.5 % (0.0-1.0); EOS # 0.2 10^3/uL (0.0-0.5); EOS % 2.1 % (0.0-3.0); HEMATOCRIT 33.2 % (36.0-47.0); HEMOGLOBIN 11.2 g/dl (12.0-15.5); LYMPH # 0.7 10^3/uL (1.5-5.0); LYMPH % 9.1 % (24.0-44.0); MEAN CORPUSCULAR HEMOGLOBIN 32.6 pg (27.0-33.0); MEAN CORPUSCULAR HGB CONC 33.7 g/dl (32.0-36.5); MEAN CORPUSCULAR VOLUME 96.5 fl (80.0-96.0); MONO # 1.2 10^3/uL (0.0-0.8); MONO % 16.3 % (2.0-8.0); NEUTROPHILS # 3.8 10^3/uL (1.5-8.5); RED BLOOD COUNT 3.44 10^6/uL (4.00-5.40); WHITE BLOOD COUNT 7.3 10^3/uL (4.0-10.0)
[2024-04-22 07:07] LABS: PLATELET COUNT, AUTOMATED 74 10^3/uL (150-450)
[2024-04-22 07:26] LABS: BLOOD UREA NITROGEN 8 MG/DL (9-23); CALCIUM LEVEL 8.9 MG/DL (8.3-10.6); CARBON DIOXIDE LEVEL 27 MMOL/L (20-31); CHLORIDE LEVEL 105 MMOL/L (98-107); CREATININE FOR GFR 0.53 MG/DL (0.55-1.30); GLOMERULAR FILTRATION RATE > 60.0 (>45); GLUCOSE, FASTING 88 MG/DL (74-106); MAGNESIUM LEVEL 1.5 MG/DL (1.8-2.4); POTASSIUM SERUM 4.4 MMOL/L (3.5-5.1); SODIUM LEVEL 135 MMOL/L (136-145)
[2024-04-22 07:44] VITALS: BP 139/86; TEMP 98; O2SAT 94
[2024-04-22] MEDS ORDERED: LIDOCAINE 1% MDV 20ML VIAL As Ordered ONE (08:14)
[2024-04-22 08:39] VITALS: TEMP 98.7
[2024-04-22] MEDS: NS 1,000 ML IV SCH (08:55)
[2024-04-22 10:01] VITALS: BP 156/81; O2SAT 97
[2024-04-22] MEDS: MAGNESIUM OXIDE 400MG TAB (MAG-OX) PO SCH (10:25)
[2024-04-22] MEDS: MAG SULF 1GM/100ML (MAG RUN) 1 GM in IV 1 EA IV SCH (10:25)
[2024-04-22] MEDS ORDERED: MAGN400T2 PO (11:53)
[2024-04-22] MEDS ORDERED: PERCOCET PO (11:53)
[2024-05-05] MEDS ORDERED: LORA1TAB23 PO (16:53)
== END 2024-04-22 12:18 | disposition left against medical advice (07) | DRG 812 ==
LOC: EDBD 14:21 → M ED 14:21 → M ED INP 14:22 → M PCU 04-21 01:24 → INTOOBSV 04-21 14:13 → OBSVTOIN 04-21 14:13 → M PCU 04-21 22:58 → UNDODISIN 04-22 12:18
PROVIDERS: ADMIT Internal Medicine; ATTEND Internal Medicine
PROC: B246ZZZ Ultrasonography of Right and Left Heart (ICD-10-PCS; 2024-04-21)
PROC: 07DR3ZX Extraction of Iliac Bone Marrow, Percutaneous Approach, Diagnostic (ICD-10-PCS; principal; 2024-04-22 09:00)
DX: D53.9 Nutritional anemia, unspecified (principal); E87.1 Hypo-osmolality and hyponatremia; E78.5 Hyperlipidemia, unspecified; F17.200 Nicotine dependence, unspecified, uncomplicated; G89.29 Other chronic pain; M54.9 Dorsalgia, unspecified; M79.7 Fibromyalgia; E55.9 Vitamin D deficiency, unspecified; M85.80 Other specified disorders of bone density and structure, unspecified site; K21.9 Gastro-esophageal reflux disease without esophagitis; E03.9 Hypothyroidism, unspecified; R42 Dizziness and giddiness; D69.6 Thrombocytopenia, unspecified; E83.42 Hypomagnesemia; J44.9 Chronic obstructive pulmonary disease, unspecified; Z85.3 Personal history of malignant neoplasm of breast; Z92.21 Personal history of antineoplastic chemotherapy; Z98.82 Breast implant status; Z90.13 Acquired absence of bilateral breasts and nipples; Z92.3 Personal history of irradiation; Z79.1 Long term (current) use of non-steroidal anti-inflammatories (NSAID); Z79.899 Other long term (current) drug therapy; Z79.890 Hormone replacement therapy; Z88.2 Allergy status to sulfonamides; Z88.5 Allergy status to narcotic agent; Z91.040 Latex allergy status

== ENCOUNTER 2024-05-12 12:22 | Emergency (ER) | payer MEDICARE ==
[~2024-05-12] VITALS: Ht 152.4 cm; Wt 58.9 kg
[~2024-05-12 12:22] MED LIST changes: +IBUP200T46 PO; +LORA1TAB23 PO; +MAGN400T2 PO; +TYLE650T38 PO
[2024-05-12] MEDS: MORPHINE 15 MG SA TAB PO ONE (13:53)
[2024-05-12] MEDS ORDERED: MORP1TAB19 PO (17:20)
[2024-05-12 17:38] VITALS: BP 119/67; TEMP 97.7; O2SAT 97
== END 2024-05-12 17:51 | disposition home or self-care (01) ==
LOC: M ED 12:22 → EDBD 12:22 → M ED 17:51
DX: C50.919 Malignant neoplasm of unspecified site of unspecified female breast (principal); C79.51 Secondary malignant neoplasm of bone; F17.210 Nicotine dependence, cigarettes, uncomplicated; F10.10 Alcohol abuse, uncomplicated; Z88.2 Allergy status to sulfonamides; Z88.5 Allergy status to narcotic agent; Z91.040 Latex allergy status; Z79.51 Long term (current) use of inhaled steroids; Z79.899 Other long term (current) drug therapy

== ENCOUNTER 2024-05-20 13:10 | Inpatient (IN) | payer MEDICARE ==
[~2024-05-20] VITALS: Ht 160 cm; Wt 54.6 kg
[~2024-05-20 13:10] MED LIST changes: +MORP1TAB19 PO
[2024-05-20 14:14] LABS: BASO # 0.1 10^3/uL (0.0-0.2); BASO % 0.3 % (0.0-1.0); EOS # 0.1 10^3/uL (0.0-0.5); EOS % 0.4 % (0.0-3.0); HEMATOCRIT 30.2 % (36.0-47.0); HEMOGLOBIN 10.1 g/dl (12.0-15.5); LYMPH # 1.2 10^3/uL (1.5-5.0); MEAN CORPUSCULAR HEMOGLOBIN 32.7 pg (27.0-33.0); MEAN CORPUSCULAR HGB CONC 33.4 g/dl (32.0-36.5); MEAN CORPUSCULAR VOLUME 97.7 fl (80.0-96.0); MONO # 2.2 10^3/uL (0.0-0.8); MONO % 10.7 % (2.0-8.0); NEUTROPHILS # 12.1 10^3/uL (1.5-8.5); NEUTROPHILS % 60.2 % (36.0-66.0); PLATELET COUNT, AUTOMATED 175 10^3/uL (150-450); RED BLOOD COUNT 3.09 10^6/uL (4.00-5.40); WHITE BLOOD COUNT 20.2 10^3/uL (4.0-10.0)
[2024-05-20 14:34] LABS: INR 1.11; PARTIAL THROMBOPLASTIN TIME 31.7 SECONDS (24.8-34.2)
[2024-05-20 14:46] LABS: LIPASE 34 U/L (12-53)
[2024-05-20 14:48] LABS: CPK CREATINE PHOSPHOKINASE 21 U/L (34-145)
[2024-05-20 14:51] LABS: ALKALINE PHOSPHATASE 198 U/L (46-116); ALT/SGPT < 9 U/L (7.0-40); AST/SGOT 21 U/L (<34); BILIRUBIN,DIRECT 0.2 MG/DL (<0.4); BILIRUBIN,TOTAL 0.5 MG/DL (0.3-1.2); BLOOD UREA NITROGEN 15 MG/DL (9-23); CALCIUM LEVEL 9.6 MG/DL (8.3-10.6); CARBON DIOXIDE LEVEL 24 MMOL/L (20-31); CHLORIDE LEVEL 105 MMOL/L (98-107); CK-MB VALUE MASS < 1.0 NG/ML (<3.6); CREATININE FOR GFR 0.47 MG/DL (0.55-1.30); GLOMERULAR FILTRATION RATE > 60.0 (>45); GLUCOSE, FASTING 114 MG/DL (74-106); MB/CK RELATIVE INDEX 4.76 (< OR =4); POTASSIUM SERUM 3.4 MMOL/L (3.5-5.1); SODIUM LEVEL 137 MMOL/L (136-145); TOTAL PROTEIN 6.4 G/DL (5.7-8.2)
[2024-05-20] MEDS: KETOROLAC 30 MG/ML 1ML VIAL IV ONE (16:33)
[2024-05-20] MEDS: LevoFLOXacin IV 750 MG in IV 1 EA IV ONE (16:34)
[2024-05-20] MEDS ORDERED: IPRATROPIUM 0.5MG/ALBUTEROL 2.5MG INH SOL UD 3ML (DUONEB) NEB PRN (17:50)
[2024-05-20] MEDS ORDERED: MOM 30ML SUSPENSION UDC PO PRN (17:55)
[2024-05-20] MEDS ORDERED: NALOXONE INJ 0.4MG/1ML VIAL IV PRN (17:55)
[2024-05-20] MEDS ORDERED: FLEET ENEMA PR PRN (17:55)
[2024-05-20] MEDS ORDERED: BISACODYL 5MG TAB PO PRN (17:55)
[2024-05-20] MEDS ORDERED: SENOKOT S TAB PO PRN (17:55)
[2024-05-20] MEDS: NS 1,000 ML IV ONE (17:58)
[2024-05-20] MEDS: POTASSIUM CHLORIDE 10MEQ SR TABLET PO ONE (18:08)
[2024-05-20] MEDS: ONDANSETRON 4MG 2ML VIAL IV PRN (18:10)
[2024-05-20] MEDS ORDERED: MORP-69 PO (18:49)
[2024-05-20] MEDS ORDERED: CICL0.7733 TOP (18:53)
[2024-05-20] MEDS ORDERED: ACET-683 PO (18:53)
[2024-05-20] MEDS ORDERED: OXYC1TAB23 PO (18:53)
[2024-05-20] MEDS ORDERED: HOME MED LIST COMPLETE! XX SCH (18:55)
[2024-05-20] MEDS: NS 1,000 ML IV SCH (20:05)
[2024-05-20] MEDS: MORPHINE 4 MG/ML 1ML VIAL IV PRN (20:07)
[2024-05-20] MEDS: MIDODRINE 5 MG TAB PO ONE (20:17)
[2024-05-20] MEDS: DOXYCYCLINE HYCLATE 100MG TABLET PO SCH (20:56)
[2024-05-20] MEDS: cefTRIAXone SOD 2 GM in DEXTROSE 5% (D5W) ADV/MINI-BAG 50 ML IV SCH (20:56)
[2024-05-20] MEDS: GABAPENTIN 300 MG CAP PO SCH (20:56)
[2024-05-20] MEDS: guaiFENesin ER TABLET 600 MG TAB PO SCH (20:57)
[2024-05-20] MEDS ORDERED: MAGNESIUM OXIDE 400MG TAB (MAG-OX) PO SCH (21:00)
[2024-05-20] MEDS: IPRATROPIUM 0.5MG/ALBUTEROL 2.5MG INH SOL UD 3ML (DUONEB) NEB SCH (21:20)
[2024-05-20 22:00] VITALS: BP 130/58; TEMP 96.9; O2SAT 95
[2024-05-20 23:24] VITALS: BP 122/65; TEMP 97.3; O2SAT 98
[2024-05-21] VITALS (8 sets, daily range): BP systolic 125–142; BP diastolic 64–78; TEMP 97.2–98.3; O2SAT 94–100
[2024-05-21] MEDS: MORPHINE 10MG/0.5ML ORAL CONCENTRATE SOLUTION U/D SL PRN (01:21)
[2024-05-21] MEDS: LEVOTHYROXINE 112MCG TABLET (0.112MG) PO SCH (05:58)
[2024-05-21 07:36] LABS: HEMATOCRIT 25.2 % (36.0-47.0); MEAN CORPUSCULAR HEMOGLOBIN 31.6 pg (27.0-33.0); MEAN CORPUSCULAR HGB CONC 31.7 g/dl (32.0-36.5); MEAN CORPUSCULAR VOLUME 99.6 fl (80.0-96.0); PLATELET COUNT, AUTOMATED 132 10^3/uL (150-450); RED BLOOD COUNT 2.53 10^6/uL (4.00-5.40); WHITE BLOOD COUNT 14.9 10^3/uL (4.0-10.0)
[2024-05-21 08:03] LABS: BLOOD UREA NITROGEN 14 MG/DL (9-23); CALCIUM LEVEL 8.4 MG/DL (8.3-10.6); CARBON DIOXIDE LEVEL 22 MMOL/L (20-31); CHLORIDE LEVEL 113 MMOL/L (98-107); CREATININE FOR GFR 0.51 MG/DL (0.55-1.30); GLOMERULAR FILTRATION RATE > 60.0 (>45); GLUCOSE, FASTING 99 MG/DL (74-106); POTASSIUM SERUM 3.6 MMOL/L (3.5-5.1); SODIUM LEVEL 140 MMOL/L (136-145)
[2024-05-21 08:30] LABS: ATYPICAL LYMPH 1 % (0-5); EOSINOPHILS 1 % (0-3); LYMPHOCYTES 3 % (16-44); METAMYELOCYTES 8 % (0-0); MONOCYTES 1 % (0-5); MYELOCYTES 6 % (0-0); NEUTROPHILS 57 % (28-66)
[2024-05-21 08:35] LABS: PLATELET ESTIMATE NORMAL (NORMAL)
[2024-05-21] MEDS: ENOXAPARIN 40MG/0.4ML SYRINGE (J1650 PER 10MG) SC SCH (09:15)
[2024-05-21] MEDS: KETOROLAC 30 MG/ML 1ML VIAL IV ONE (09:17)
[2024-05-21] MEDS: MORPHINE 10MG/0.5ML ORAL CONCENTRATE SOLUTION U/D PO ONE (09:17)
[2024-05-21] MEDS: FIORICET TAB PO ONE (09:18)
[2024-05-21] MEDS: OMEPRAZOLE 20MG CAP PO SCH (09:19)
[2024-05-21] MEDS: LETROZOLE 2.5 MG TAB PO SCH (09:20)
[2024-05-21] MEDS: HYDROMORPHONE HCL 0.5 MG/ 0.5 ML SYRINGE IV ONE (11:27)
[2024-05-21] MEDS: LORazepam 0.5 MG TAB PO PRN (12:24)
[2024-05-21] MEDS: MORPHINE 2 MG/ML 1ML VIAL IV SCH (12:24)
[2024-05-21] MEDS ORDERED: HYDROMORPHONE HCL 0.5 MG/ 0.5 ML SYRINGE IV PRN ×2 (14:00)
[2024-05-21] MEDS: MIRALAX *UNIT DOSE* 17GM PACKET PO SCH (20:30)
[2024-05-21] MEDS: MORPHINE 2 MG/ML 1ML VIAL IV PRN (23:19)
[2024-05-22 03:40] VITALS: BP 134/80; TEMP 97.6; O2SAT 96
[2024-05-22 06:35] LABS: HEMATOCRIT 27.3 % (36.0-47.0); HEMOGLOBIN 8.7 g/dl (12.0-15.5); MEAN CORPUSCULAR HEMOGLOBIN 31.5 pg (27.0-33.0); MEAN CORPUSCULAR HGB CONC 31.9 g/dl (32.0-36.5); MEAN CORPUSCULAR VOLUME 98.9 fl (80.0-96.0); PLATELET COUNT, AUTOMATED 130 10^3/uL (150-450); RED BLOOD COUNT 2.76 10^6/uL (4.00-5.40); WHITE BLOOD COUNT 13.8 10^3/uL (4.0-10.0)
[2024-05-22 07:02] LABS: BLOOD UREA NITROGEN 10 MG/DL (9-23); CALCIUM LEVEL 8.5 MG/DL (8.3-10.6); CARBON DIOXIDE LEVEL 22 MMOL/L (20-31); CHLORIDE LEVEL 108 MMOL/L (98-107); CREATININE FOR GFR 0.52 MG/DL (0.55-1.30); GLOMERULAR FILTRATION RATE > 60.0 (>45); GLUCOSE, FASTING 89 MG/DL (74-106); MAGNESIUM LEVEL 0.8 MG/DL (1.8-2.4); POTASSIUM SERUM 3.9 MMOL/L (3.5-5.1); SODIUM LEVEL 134 MMOL/L (136-145)
[2024-05-22 07:32] VITALS: BP 128/75; TEMP 99.3; O2SAT 97
[2024-05-22 07:52] LABS: ATYPICAL LYMPH 1 % (0-5); EOSINOPHILS 2 % (0-3); LYMPHOCYTES 6 % (16-44); METAMYELOCYTES 6 % (0-0); MONOCYTES 9 % (0-5); MYELOCYTES 7 % (0-0); NEUTROPHILS 56 % (28-66); PROMYELOCYTES 1 % (0-0)
[2024-05-22 07:56] LABS: ANISOCYTOSIS 2+; PLATELET ESTIMATE DECREASED (NORMAL)
[2024-05-22 07:57] LABS: TEAR DROP CELLS 1+
[2024-05-22 07:58] LABS: POIKILOCYTOSIS 1+; POLYCHROMASIA 1+
[2024-05-22 07:59] LABS: OVALOCYTES 1+
[2024-05-22] MEDS: MAG SULF 1GM/100ML (MAG RUN) 1 GM in IV 1 EA IV SCH (08:15)
[2024-05-22] MEDS: MAGNESIUM OXIDE 400MG TAB (MAG-OX) PO ONE (08:31)
[2024-05-22] MEDS: MORPHINE 2 MG/ML 1ML VIAL IV SCH (11:48)
[2024-05-22 15:25] VITALS: BP 124/62; TEMP 98.6; O2SAT 97
[2024-05-22] MEDS: ACETAMINOPHEN 325 MG TAB PO PRN (18:01)
[2024-05-22 19:43] VITALS: BP 140/60; TEMP 98.6; O2SAT 96
[2024-05-22 22:41] VITALS: TEMP 99.4
[2024-05-22] MEDS: LORazepam 1 MG TAB PO PRN (23:10)
[2024-05-23 05:17] VITALS: BP 129/73; TEMP 98.6; O2SAT 96
[2024-05-23 05:58] LABS: BASO # 0.1 10^3/uL (0.0-0.2); BASO % 0.5 % (0.0-1.0); EOS # 0.1 10^3/uL (0.0-0.5); HEMATOCRIT 24.7 % (36.0-47.0); HEMOGLOBIN 7.9 g/dl (12.0-15.5); LYMPH # 0.8 10^3/uL (1.5-5.0); LYMPH % 6.9 % (24.0-44.0); MEAN CORPUSCULAR HEMOGLOBIN 31.1 pg (27.0-33.0); MEAN CORPUSCULAR VOLUME 97.2 fl (80.0-96.0); MONO # 1.5 10^3/uL (0.0-0.8); MONO % 13.3 % (2.0-8.0); NEUTROPHILS # 6.4 10^3/uL (1.5-8.5); NEUTROPHILS % 58.3 % (36.0-66.0); PLATELET COUNT, AUTOMATED 104 10^3/uL (150-450); RED BLOOD COUNT 2.54 10^6/uL (4.00-5.40)
[2024-05-23 06:24] VITALS: TEMP 99.3
[2024-05-23 06:30] LABS: BLOOD UREA NITROGEN 10 MG/DL (9-23); CALCIUM LEVEL 8.5 MG/DL (8.3-10.6); CARBON DIOXIDE LEVEL 23 MMOL/L (20-31); CHLORIDE LEVEL 108 MMOL/L (98-107); CREATININE FOR GFR 0.45 MG/DL (0.55-1.30); GLOMERULAR FILTRATION RATE > 60.0 (>45); GLUCOSE, FASTING 88 MG/DL (74-106); MAGNESIUM LEVEL 1.4 MG/DL (1.8-2.4); POTASSIUM SERUM 3.8 MMOL/L (3.5-5.1); SODIUM LEVEL 136 MMOL/L (136-145)
[2024-05-23] MEDS: SENNA 8.6 MG TAB (SENOKOT) PO PRN (06:31)
[2024-05-23 08:52] LABS: HEMATOCRIT 25.6 % (36.0-47.0)
[2024-05-23 09:14] LABS: PERCENT SATURATION 23.4 % (13.2-45.0)
[2024-05-23 09:16] LABS: FERRITIN 1266.5 NG/ML (7.3-270.7)
[2024-05-23] MEDS: MAGNESIUM OXIDE 400MG TAB (MAG-OX) PO SCH (10:36)
[2024-05-23] MEDS: MAG SULF 1GM/100ML (MAG RUN) 1 GM in IV 1 EA IV SCH (11:26)
[2024-05-23 12:00] VITALS: BP 119/67; TEMP 98.6; O2SAT 96
[2024-05-23 14:46] VITALS: BP 123/71
[2024-05-23] MEDS: LevoFLOXacin 750 MG TABLET PO SCH (19:06)
[2024-05-23 19:51] VITALS: BP 128/76; TEMP 99.5; O2SAT 97
[2024-05-24] VITALS (7 sets, daily range): BP systolic 100–128; BP diastolic 51–76; TEMP 98.1–99.6; O2SAT 97–100
[2024-05-24 06:34] LABS: BASO # 0.1 10^3/uL (0.0-0.2); BASO % 0.4 % (0.0-1.0); EOS # 0.1 10^3/uL (0.0-0.5); EOS % 1.1 % (0.0-3.0); HEMATOCRIT 24.7 % (36.0-47.0); HEMOGLOBIN 7.9 g/dl (12.0-15.5); LYMPH # 0.7 10^3/uL (1.5-5.0); LYMPH % 6.4 % (24.0-44.0); MEAN CORPUSCULAR HEMOGLOBIN 31.6 pg (27.0-33.0); MEAN CORPUSCULAR VOLUME 98.8 fl (80.0-96.0); MONO # 1.5 10^3/uL (0.0-0.8); MONO % 13.2 % (2.0-8.0); NEUTROPHILS # 6.5 10^3/uL (1.5-8.5); NEUTROPHILS % 58.5 % (36.0-66.0); PLATELET COUNT, AUTOMATED 104 10^3/uL (150-450); WHITE BLOOD COUNT 11.2 10^3/uL (4.0-10.0)
[2024-05-24 06:58] LABS: BLOOD UREA NITROGEN 7 MG/DL (9-23); CALCIUM LEVEL 8.5 MG/DL (8.3-10.6); CARBON DIOXIDE LEVEL 25 MMOL/L (20-31); CHLORIDE LEVEL 105 MMOL/L (98-107); CREATININE FOR GFR 0.52 MG/DL (0.55-1.30); GLOMERULAR FILTRATION RATE > 60.0 (>45); GLUCOSE, FASTING 82 MG/DL (74-106); MAGNESIUM LEVEL 1.8 MG/DL (1.8-2.4); POTASSIUM SERUM 4.1 MMOL/L (3.5-5.1); SODIUM LEVEL 134 MMOL/L (136-145)
[2024-05-24 07:00] LABS: FREE T3 2.3 PG/ML (2.3-4.2)
[2024-05-24 07:01] LABS: FREE T4 1.28 NG/DL (0.89-1.76); THYROID STIMULATING HORMONE 2.224 uIU/ML (0.55-4.78)
[2024-05-24] MEDS ORDERED: CICLOPIROX 0.77% TOP SCH (09:00)
[2024-05-24] MEDS: MORPHINE 15 MG SA TAB PO SCH (12:26)
[2024-05-24] MEDS ORDERED: MIRALAX *UNIT DOSE* 17GM PACKET PO PRN (14:05)
[2024-05-24] MEDS: NICOTINE 21MG/24HR 1 EA TRANSDERMAL TD SCH (15:23)
[2024-05-24] MEDS: oxyCODONE 5MG TAB PO PRN (16:04)
[2024-05-24] MEDS: UNRESOLVED PATIENT OWN MED ORDER XX SCH (21:00)
[2024-05-25] MEDS: CALCIUM CARBONATE 500 MG CHEW U/D PO PRN (01:11)
[2024-05-25 03:34] VITALS: BP 121/64; TEMP 97.9; O2SAT 98
[2024-05-25 06:01] LABS: HEMATOCRIT 27.9 % (36.0-47.0); HEMOGLOBIN 9.1 g/dl (12.0-15.5); MEAN CORPUSCULAR HEMOGLOBIN 31.5 pg (27.0-33.0); MEAN CORPUSCULAR HGB CONC 32.6 g/dl (32.0-36.5); MEAN CORPUSCULAR VOLUME 96.5 fl (80.0-96.0); RED BLOOD COUNT 2.89 10^6/uL (4.00-5.40); WHITE BLOOD COUNT 8.4 10^3/uL (4.0-10.0)
[2024-05-25 06:18] LABS: PLATELET COUNT, AUTOMATED 94 10^3/uL (150-450)
[2024-05-25 06:26] LABS: BLOOD UREA NITROGEN 6 MG/DL (9-23); CALCIUM LEVEL 8.6 MG/DL (8.3-10.6); CARBON DIOXIDE LEVEL 24 MMOL/L (20-31); CHLORIDE LEVEL 105 MMOL/L (98-107); CREATININE FOR GFR 0.46 MG/DL (0.55-1.30); GLOMERULAR FILTRATION RATE > 60.0 (>45); GLUCOSE, FASTING 84 MG/DL (74-106); MAGNESIUM LEVEL 1.5 MG/DL (1.8-2.4); POTASSIUM SERUM 4.1 MMOL/L (3.5-5.1); SODIUM LEVEL 133 MMOL/L (136-145)
[2024-05-25 07:53] LABS: ATYPICAL LYMPH 4 % (0-5); EOSINOPHILS 4 % (0-3); LYMPHOCYTES 4 % (16-44); METAMYELOCYTES 10 % (0-0); MONOCYTES 4 % (0-5); MYELOCYTES 4 % (0-0); NEUTROPHILS 36 % (28-66)
[2024-05-25 07:54] LABS: ANISOCYTOSIS 2+
[2024-05-25 07:55] LABS: HYPOCHROMASIA 1+
[2024-05-25 08:07] LABS: PLATELET ESTIMATE DECREASED (NORMAL)
[2024-05-25] MEDS: MAG SULF 1GM/100ML (MAG RUN) 1 GM in IV 1 EA IV SCH (10:16)
[2024-05-25] MEDS ORDERED: oxyCODONE 5MG TAB PO PRN (12:05)
[2024-05-25 12:37] VITALS: BP 115/68; TEMP 97.7; O2SAT 96
[2024-05-25] MEDS: oxyCODONE 5MG TAB PO PRN (16:36)
[2024-05-25 20:15] VITALS: BP 116/69; TEMP 98.9; O2SAT 96
[2024-05-25] MEDS: CETIRIZINE (ZyrTEC) 10 MG TAB PO SCH (21:10)
[2024-05-25] MEDS ORDERED: diphenhydrAMINE 25MG CAP PO PRN (21:10)
[2024-05-26 04:00] VITALS: BP 114/70; TEMP 99.5; O2SAT 96
[2024-05-26 05:30] LABS: HEMATOCRIT 29.8 % (36.0-47.0); HEMOGLOBIN 9.8 g/dl (12.0-15.5); MEAN CORPUSCULAR HEMOGLOBIN 31.7 pg (27.0-33.0); MEAN CORPUSCULAR HGB CONC 32.9 g/dl (32.0-36.5); MEAN CORPUSCULAR VOLUME 96.4 fl (80.0-96.0); PLATELET COUNT, AUTOMATED 100 10^3/uL (150-450); RED BLOOD COUNT 3.09 10^6/uL (4.00-5.40); WHITE BLOOD COUNT 9.2 10^3/uL (4.0-10.0)
[2024-05-26 05:56] LABS: ANISOCYTOSIS 2+; ATYPICAL LYMPH 1 % (0-5); LYMPHOCYTES 18 % (16-44); METAMYELOCYTES 6 % (0-0); MONOCYTES 17 % (0-5); MYELOCYTES 1 % (0-0); NEUTROPHILS 47 % (28-66); PLATELET ESTIMATE NORMAL (NORMAL)
[2024-05-26 05:57] LABS: POLYCHROMASIA 1+
[2024-05-26 06:28] LABS: BLOOD UREA NITROGEN < 5 MG/DL (9-23); CALCIUM LEVEL 8.5 MG/DL (8.3-10.6); CARBON DIOXIDE LEVEL 26 MMOL/L (20-31); CHLORIDE LEVEL 105 MMOL/L (98-107); CREATININE FOR GFR 0.53 MG/DL (0.55-1.30); GLOMERULAR FILTRATION RATE > 60.0 (>45); GLUCOSE, FASTING 89 MG/DL (74-106); MAGNESIUM LEVEL 1.7 MG/DL (1.8-2.4); POTASSIUM SERUM 4.2 MMOL/L (3.5-5.1); SODIUM LEVEL 134 MMOL/L (136-145)
[2024-05-26] MEDS: MAG SULF 1GM/100ML (MAG RUN) 1 GM in IV 1 EA IV SCH (09:02)
[2024-05-26] MEDS ORDERED: COMBIVENT RESPIMAT 100-20MCG INHALER 4GM INH PRN (10:35)
[2024-05-26] MEDS ORDERED: CETI10TA PO (11:51)
[2024-05-26] MEDS ORDERED: CALC200T15 PO (11:51)
[2024-05-26] MEDS ORDERED: LEVO1TAB40 PO (11:51)
[2024-05-26] MEDS ORDERED: MUCI600T31 PO (11:51)
[2024-05-26] MEDS ORDERED: MAGN400T2 PO (11:51)
[2024-05-26 12:00] VITALS: BP 127/88; TEMP 97.2; O2SAT 94
[2024-05-26 17:25] LABS: URINE STREP PNEUMONIAE ANTIGEN NOT DETECTED (NOT DETECT)
[2024-05-27] MEDS ORDERED: CALC1TAB42 PO (18:50)
[2024-05-27] MEDS ORDERED: MAGN400T2 PO (20:23)
[2024-05-27] MEDS ORDERED: LORA1TAB23 PO (20:26)
[2024-05-27] MEDS ORDERED: ACET-910 PO (20:37)
== END 2024-05-26 17:00 | disposition left against medical advice (07) | DRG 871 ==
LOC: M ED 13:10 → EDBD 13:10 → M ED INP 17:43 → M PCU 22:31 → M MSPAV 05-22 15:20
PROVIDERS: ADMIT General Practice; ATTEND Hospitalist
PROC: 30233N1 Transfusion of Nonautologous Red Blood Cells into Peripheral Vein, Percutaneous Approach (ICD-10-PCS; principal; 2024-05-24)
DX: A41.9 Sepsis, unspecified organism (principal); J18.9 Pneumonia, unspecified organism; C79.51 Secondary malignant neoplasm of bone; C78.7 Secondary malignant neoplasm of liver and intrahepatic bile duct; E87.1 Hypo-osmolality and hyponatremia; J44.0 Chronic obstructive pulmonary disease with (acute) lower respiratory infection; C78.00 Secondary malignant neoplasm of unspecified lung; E03.9 Hypothyroidism, unspecified; E78.5 Hyperlipidemia, unspecified; F17.200 Nicotine dependence, unspecified, uncomplicated; G89.3 Neoplasm related pain (acute) (chronic); M54.9 Dorsalgia, unspecified; M79.7 Fibromyalgia; E55.9 Vitamin D deficiency, unspecified; M85.80 Other specified disorders of bone density and structure, unspecified site; K21.9 Gastro-esophageal reflux disease without esophagitis; R53.1 Weakness; R19.7 Diarrhea, unspecified; R51.9 Headache, unspecified; Z66 Do not resuscitate; K59.03 Drug induced constipation; T40.2X5A Adverse effect of other opioids, initial encounter; F41.9 Anxiety disorder, unspecified; E83.42 Hypomagnesemia; Z90.13 Acquired absence of bilateral breasts and nipples; Z92.21 Personal history of antineoplastic chemotherapy; Z98.82 Breast implant status; Z92.3 Personal history of irradiation; Z96.642 Presence of left artificial hip joint; Z85.3 Personal history of malignant neoplasm of breast; Z79.890 Hormone replacement therapy; Z79.899 Other long term (current) drug therapy; Z90.49 Acquired absence of other specified parts of digestive tract; Z91.040 Latex allergy status; Z88.2 Allergy status to sulfonamides; Z88.5 Allergy status to narcotic agent

== ENCOUNTER 2024-05-27 14:51 | Inpatient (IN) | payer MEDICARE ==
[~2024-05-27] VITALS: Ht 160 cm; Wt 56.2 kg
[~2024-05-27 14:51] MED LIST changes: +ACET-683 PO; +CALC200T15 PO; +CETI10TA PO; +CICL0.7733 TOP; +LEVO1TAB40 PO; +MORP-69 PO; +MUCI600T31 PO
[2024-05-27 16:30] LABS: ABG BASE EXCESS -1.4 (-2.0-2.0); ABG O2 SATURATION 98.9 % (95.0-99.0); ABG PARTIAL PRESSURE CO2 24.3 mmHg (35.0-45.0); ABG STANDARD HCO3 23.3 MMOL/L. (22.0-26.0); ABG TOTAL CO2 20.8 MMOL/L (23.0-31.0); ABG pH (ARTERIAL) 7.534 UNITS (7.350-7.450)
[2024-05-27 16:50] LABS: HEMATOCRIT 30.3 % (36.0-47.0); HEMOGLOBIN 10.1 g/dl (12.0-15.5); MEAN CORPUSCULAR HEMOGLOBIN 31.8 pg (27.0-33.0); MEAN CORPUSCULAR HGB CONC 33.3 g/dl (32.0-36.5); MEAN CORPUSCULAR VOLUME 95.3 fl (80.0-96.0); PLATELET COUNT, AUTOMATED 118 10^3/uL (150-450); RED BLOOD COUNT 3.18 10^6/uL (4.00-5.40); WHITE BLOOD COUNT 9.8 10^3/uL (4.0-10.0)
[2024-05-27 17:10] LABS: ANISOCYTOSIS 1+; LYMPHOCYTES 19 % (16-44); METAMYELOCYTES 3 % (0-0); MONOCYTES 15 % (0-5); NEUTROPHILS 60 % (28-66); PLATELET ESTIMATE DECREASED (NORMAL)
[2024-05-27 17:11] LABS: TEAR DROP CELLS 1+
[2024-05-27] MEDS: NS 1,000 ML IV ONE (17:12)
[2024-05-27 17:20] LABS: CK-MB VALUE MASS < 1.0 NG/ML (<3.6); ETHYL ALCOHOL (ETHANOL) 0.007 % (0.000-0.010)
[2024-05-27 17:23] LABS: THYROID STIMULATING HORMONE 2.135 uIU/ML (0.55-4.78)
[2024-05-27 17:24] LABS: FREE T4 1.31 NG/DL (0.89-1.76)
[2024-05-27 17:25] LABS: ALBUMIN 2.4 G/DL (3.2-5.2); ALKALINE PHOSPHATASE 162 U/L (46-116); ALT/SGPT < 9 U/L (7.0-40); AST/SGOT 15 U/L (<34); BILIRUBIN,DIRECT 0.2 MG/DL (<0.4); BILIRUBIN,TOTAL 0.4 MG/DL (0.3-1.2); BLOOD UREA NITROGEN 9 MG/DL (9-23); CARBON DIOXIDE LEVEL 22 MMOL/L (20-31); CHLORIDE LEVEL 106 MMOL/L (98-107); CPK CREATINE PHOSPHOKINASE 17 U/L (34-145); CREATININE FOR GFR 0.49 MG/DL (0.55-1.30); GLOMERULAR FILTRATION RATE > 60.0 (>45); GLUCOSE, FASTING 96 MG/DL (74-106); MAGNESIUM LEVEL 1.9 MG/DL (1.8-2.4); MB/CK RELATIVE INDEX 5.88 (< OR =4); POTASSIUM SERUM 3.8 MMOL/L (3.5-5.1); SODIUM LEVEL 135 MMOL/L (136-145); TOTAL PROTEIN 5.5 G/DL (5.7-8.2)
[2024-05-27 18:19] LABS: AMPHETAMINES LEVEL URINE NEGATIVE (NEGATIVE)
[2024-05-27 18:20] LABS: BENZODIAZEPINES URINE NEGATIVE (NEGATIVE); CANNABINOIDS URINE NEGATIVE (NEGATIVE); COCAINE METABOLITE URINE NEGATIVE (NEGATIVE); METHADONE URINE NEGATIVE (NEGATIVE); PHENCYCLIDINE URINE NEGATIVE (NEGATIVE)
[2024-05-27 18:24] LABS: BARBITURATES URINE POSITIVE (NEGATIVE); OPIATES URINE POSITIVE (NEGATIVE)
[2024-05-27] MEDS ORDERED: CALC1TAB42 PO (18:50)
[2024-05-27] MEDS ORDERED: MED REC IN PROGRESS XX SCH (18:55)
[2024-05-27] MEDS ORDERED: HOME MED LIST COMPLETE! XX SCH (19:00)
[2024-05-27] MEDS ORDERED: MAALOX 30 ML SUSP *UDC PO PRN (19:50)
[2024-05-27] MEDS ORDERED: MOM 30ML SUSPENSION UDC PO PRN (19:50)
[2024-05-27] MEDS ORDERED: MAGN400T2 PO (20:23)
[2024-05-27] MEDS: GABAPENTIN 300 MG CAP PO SCH (20:25)
[2024-05-27] MEDS: DOCUSATE SODIUM 100MG CAPSULE PO SCH (20:26)
[2024-05-27] MEDS ORDERED: LORA1TAB23 PO (20:26)
[2024-05-27] MEDS: MORPHINE 15 MG SA TAB PO PRN (20:26)
[2024-05-27 20:34] LABS: PROCALCITONIN 0.23 ng/ml
[2024-05-27] MEDS ORDERED: ACET-910 PO (20:37)
[2024-05-27] MEDS: MAGNESIUM OXIDE 400MG TAB (MAG-OX) PO SCH (20:53)
[2024-05-27] MEDS ORDERED: ACETAMINOPHEN 500 MG TAB PO SCH (21:00)
[2024-05-27] MEDS ORDERED: CETIRIZINE (ZyrTEC) 10 MG TAB PO SCH (21:00)
[2024-05-27] MEDS: LORazepam 1 MG TAB PO PRN (21:51)
[2024-05-28 00:16] VITALS: BP 136/80; TEMP 97.7; O2SAT 95
[2024-05-28 04:32] VITALS: BP 131/78; TEMP 97.7; O2SAT 92
[2024-05-28] MEDS: LEVOTHYROXINE 112MCG TABLET (0.112MG) PO SCH (05:40)
[2024-05-28] MEDS: PERCOCET 5MG/325MG TAB PO PRN (05:41)
[2024-05-28 05:57] LABS: HEMATOCRIT 27.4 % (36.0-47.0); HEMOGLOBIN 8.9 g/dl (12.0-15.5); MEAN CORPUSCULAR HEMOGLOBIN 31.3 pg (27.0-33.0); MEAN CORPUSCULAR HGB CONC 32.5 g/dl (32.0-36.5); MEAN CORPUSCULAR VOLUME 96.5 fl (80.0-96.0); PLATELET COUNT, AUTOMATED 120 10^3/uL (150-450); RED BLOOD COUNT 2.84 10^6/uL (4.00-5.40); WHITE BLOOD COUNT 8.1 10^3/uL (4.0-10.0)
[2024-05-28 06:25] LABS: ALBUMIN 2.1 G/DL (3.2-5.2); ALKALINE PHOSPHATASE 142 U/L (46-116); ALT/SGPT < 9 U/L (7.0-40); AST/SGOT 13 U/L (<34); BILIRUBIN,TOTAL 0.3 MG/DL (0.3-1.2); BLOOD UREA NITROGEN 9 MG/DL (9-23); CALCIUM LEVEL 8.2 MG/DL (8.3-10.6); CARBON DIOXIDE LEVEL 22 MMOL/L (20-31); CHLORIDE LEVEL 110 MMOL/L (98-107); GLOMERULAR FILTRATION RATE > 60.0 (>45); GLUCOSE, FASTING 81 MG/DL (74-106); MAGNESIUM LEVEL 1.8 MG/DL (1.8-2.4); POTASSIUM SERUM 3.7 MMOL/L (3.5-5.1); SODIUM LEVEL 138 MMOL/L (136-145); TOTAL PROTEIN 4.9 G/DL (5.7-8.2)
[2024-05-28] MEDS: MELOXICAM (MOBIC) 7.5 MG TAB PO SCH (08:13)
[2024-05-28] MEDS: ACETAMINOPHEN 325 MG TAB PO PRN (08:13)
[2024-05-28] MEDS: CALCIUM/VITAMIN D 500 MG TAB PO SCH (08:13)
[2024-05-28] MEDS: OMEPRAZOLE 20MG CAP PO SCH (08:13)
[2024-05-28] MEDS: LETROZOLE 2.5 MG TAB PO SCH (08:14)
[2024-05-28] MEDS: ENOXAPARIN 40MG/0.4ML SYRINGE (J1650 PER 10MG) SC SCH (08:14)
[2024-05-28 12:45] VITALS: BP 108/66; TEMP 97.2; O2SAT 96
[2024-05-28 20:00] VITALS: O2SAT 93
[2024-05-28 20:50] VITALS: BP 105/62; TEMP 97.3; O2SAT 94
[2024-05-28] MEDS: MORPHINE 15 MG SA TAB PO SCH (21:24)
[2024-05-28 22:37] VITALS: O2SAT 93
[2024-05-29] VITALS (8 sets, daily range): BP systolic 118–123; BP diastolic 65–67; TEMP 97.3–97.9; O2SAT 88–95
[2024-05-29] MEDS: POTASSIUM CHLORIDE 10MEQ SR TABLET PO SCH (13:29)
[2024-05-29 20:49] LABS: BASO # 0.1 10^3/uL (0.0-0.2); BASO % 1.4 % (0.0-1.0); EOS # 0.1 10^3/uL (0.0-0.5); EOS % 2.1 % (0.0-3.0); HEMATOCRIT 28.2 % (36.0-47.0); LYMPH # 0.3 10^3/uL (1.5-5.0); LYMPH % 7.4 % (24.0-44.0); MEAN CORPUSCULAR HEMOGLOBIN 31.3 pg (27.0-33.0); MEAN CORPUSCULAR HGB CONC 31.9 g/dl (32.0-36.5); MEAN CORPUSCULAR VOLUME 97.9 fl (80.0-96.0); MONO # 0.6 10^3/uL (0.0-0.8); MONO % 12.9 % (2.0-8.0); NEUTROPHILS # 2.3 10^3/uL (1.5-8.5); PLATELET COUNT, AUTOMATED 131 10^3/uL (150-450); RED BLOOD COUNT 2.88 10^6/uL (4.00-5.40); WHITE BLOOD COUNT 4.3 10^3/uL (4.0-10.0)
[2024-05-29 21:14] LABS: BLOOD UREA NITROGEN 9 MG/DL (9-23); CALCIUM LEVEL 8.5 MG/DL (8.3-10.6); CARBON DIOXIDE LEVEL 24 MMOL/L (20-31); CHLORIDE LEVEL 105 MMOL/L (98-107); CREATININE FOR GFR 0.46 MG/DL (0.55-1.30); GLOMERULAR FILTRATION RATE > 60.0 (>45); GLUCOSE, FASTING 118 MG/DL (74-106); MAGNESIUM LEVEL 1.7 MG/DL (1.8-2.4); POTASSIUM SERUM 4.7 MMOL/L (3.5-5.1); SODIUM LEVEL 132 MMOL/L (136-145)
[2024-05-30 01:42] VITALS: O2SAT 92
[2024-05-30 03:40] VITALS: O2SAT 92
[2024-05-30 04:37] VITALS: BP 118/70; TEMP 97.2; O2SAT 98
[2024-05-30 06:04] LABS: HEMATOCRIT 31.9 % (36.0-47.0); HEMOGLOBIN 10.2 g/dl (12.0-15.5); MEAN CORPUSCULAR HEMOGLOBIN 31.2 pg (27.0-33.0); MEAN CORPUSCULAR VOLUME 97.6 fl (80.0-96.0); PLATELET COUNT, AUTOMATED 138 10^3/uL (150-450); RED BLOOD COUNT 3.27 10^6/uL (4.00-5.40); WHITE BLOOD COUNT 4.8 10^3/uL (4.0-10.0)
[2024-05-30 12:00] VITALS: BP 134/74; TEMP 96.6; O2SAT 97
[2024-05-30 20:30] VITALS: BP 100/72; TEMP 97; O2SAT 100
[2024-05-31] VITALS: BP 120/71
[2024-05-31] MEDS: COMBIVENT RESPIMAT 100-20MCG INHALER 4GM INH PRN (00:31)
[2024-05-31 06:00] VITALS: BP 137/78; TEMP 97.9; O2SAT 98
[2024-05-31 06:18] LABS: BLOOD UREA NITROGEN 6 MG/DL (9-23); CALCIUM LEVEL 8.8 MG/DL (8.3-10.6); CARBON DIOXIDE LEVEL 24 MMOL/L (20-31); CHLORIDE LEVEL 106 MMOL/L (98-107); CREATININE FOR GFR 0.45 MG/DL (0.55-1.30); GLOMERULAR FILTRATION RATE > 60.0 (>45); GLUCOSE, FASTING 82 MG/DL (74-106); POTASSIUM SERUM 4.6 MMOL/L (3.5-5.1); SODIUM LEVEL 136 MMOL/L (136-145)
[2024-05-31] MEDS ORDERED: oxyCODONE 5MG TAB PO PRN (11:45)
[2024-05-31 20:20] VITALS: BP 108/66; TEMP 97.7; O2SAT 95
[2024-06-01 04:00] VITALS: BP 112/64; TEMP 97.3; O2SAT 97
[2024-06-01] MEDS: oxyCODONE 5MG TAB PO PRN (06:27)
[2024-06-01 06:34] LABS: HEMATOCRIT 32.5 % (36.0-47.0); HEMOGLOBIN 10.7 g/dl (12.0-15.5); MEAN CORPUSCULAR HEMOGLOBIN 31.7 pg (27.0-33.0); MEAN CORPUSCULAR HGB CONC 32.9 g/dl (32.0-36.5); MEAN CORPUSCULAR VOLUME 96.2 fl (80.0-96.0); PLATELET COUNT, AUTOMATED 127 10^3/uL (150-450); RED BLOOD COUNT 3.38 10^6/uL (4.00-5.40); WHITE BLOOD COUNT 4.5 10^3/uL (4.0-10.0)
[2024-06-01 08:14] LABS: ATYPICAL LYMPH 1 % (0-5); BASOPHILS 1 % (0-1); EOSINOPHILS 2 % (0-3); LYMPHOCYTES 27 % (16-44); METAMYELOCYTES 5 % (0-0); MONOCYTES 11 % (0-5); MYELOCYTES 9 % (0-0); NEUTROPHILS 30 % (28-66)
[2024-06-01 08:18] LABS: PLATELET ESTIMATE DECREASED (NORMAL)
[2024-06-01 08:19] LABS: HYPOCHROMASIA 2+
[2024-06-01 08:23] LABS: ANISOCYTOSIS 1+
[2024-06-01 12:00] VITALS: BP 106/73; TEMP 97.9; O2SAT 94
[2024-06-01 20:19] VITALS: BP 102/60; TEMP 97.3; O2SAT 97
[2024-06-01] MEDS: METOCLOPRAMIDE INJ 10MG/2ML VIAL IV ONE (20:25)
[2024-06-02 04:29] VITALS: BP 122/80; TEMP 97.7; O2SAT 96
[2024-06-02 06:19] LABS: HEMOGLOBIN 10.6 g/dl (12.0-15.5); MEAN CORPUSCULAR HGB CONC 32.1 g/dl (32.0-36.5); MEAN CORPUSCULAR VOLUME 96.5 fl (80.0-96.0); PLATELET COUNT, AUTOMATED 124 10^3/uL (150-450); RED BLOOD COUNT 3.42 10^6/uL (4.00-5.40); WHITE BLOOD COUNT 3.7 10^3/uL (4.0-10.0)
[2024-06-02 07:15] VITALS: BP 109/66; TEMP 97.7; O2SAT 94
[2024-06-02 12:00] VITALS: BP 110/69; TEMP 97.2; O2SAT 93
[2024-06-02] MEDS ORDERED: LORazepam 1 MG TAB PO SCH (15:55)
[2024-06-02] MEDS ORDERED: HYOSCYAMINE SULFATE 0.125 MG SUBL TABLET PO PRN (15:55)
[2024-06-02] MEDS: LORazepam 1 MG TAB PO ONE (17:03)
[2024-06-02] MEDS: OLANZapine ORAL DISINTEGRATING TAB 5MG PO SCH (20:27)
[2024-06-02] MEDS: LORazepam 1 MG TAB PO SCH (20:27)
[2024-06-03] MEDS: MORPHINE 10MG/0.5ML ORAL CONCENTRATE SOLUTION U/D SL PRN (14:02)
[2024-06-04] MEDS: ONDANSETRON 4MG ORAL DISINTEGRATING TAB PO PRN (09:16)
[2024-06-05] MEDS: LORazepam 1 MG TAB PO PRN (01:30)
[2024-06-05] MEDS ORDERED: MYLASSUD PO (12:02)
[2024-06-05] MEDS ORDERED: OLAN5ZYD PO (12:02)
[2024-06-05] MEDS ORDERED: MORP1SOL SL (12:02)
[2024-06-05] MEDS ORDERED: HYOS125TA PO (12:02)
[2024-06-05] MEDS ORDERED: ONDA-282 PO (12:02)
== END 2024-06-05 15:34 | disposition hospice, home (50) | DRG 948 ==
LOC: M ED 14:51 → M ED INP 14:52 → M MSPAV 05-28 00:09 → OBSVTOIN 05-31 14:22
PROVIDERS: ADMIT Student in an Organized Health Care Education/Training Program; ATTEND Student in an Organized Health Care Education/Training Program
DX: R41.82 Altered mental status, unspecified (principal); C79.51 Secondary malignant neoplasm of bone; C78.7 Secondary malignant neoplasm of liver and intrahepatic bile duct; C79.11 Secondary malignant neoplasm of bladder; C78.5 Secondary malignant neoplasm of large intestine and rectum; C78.02 Secondary malignant neoplasm of left lung; G89.3 Neoplasm related pain (acute) (chronic); R53.1 Weakness; C50.912 Malignant neoplasm of unspecified site of left female breast; Z17.0 Estrogen receptor positive status [ER+]; E03.9 Hypothyroidism, unspecified; E55.9 Vitamin D deficiency, unspecified; M85.88 Other specified disorders of bone density and structure, other site; Z51.5 Encounter for palliative care; Z66 Do not resuscitate; K21.9 Gastro-esophageal reflux disease without esophagitis; T40.2X5A Adverse effect of other opioids, initial encounter; F17.200 Nicotine dependence, unspecified, uncomplicated; R51.9 Headache, unspecified; G62.9 Polyneuropathy, unspecified; M79.7 Fibromyalgia; Z90.49 Acquired absence of other specified parts of digestive tract; Z98.82 Breast implant status; Z96.642 Presence of left artificial hip joint; Z90.13 Acquired absence of bilateral breasts and nipples; Z79.890 Hormone replacement therapy; Z79.1 Long term (current) use of non-steroidal anti-inflammatories (NSAID); Z79.899 Other long term (current) drug therapy; Z91.040 Latex allergy status; Z88.2 Allergy status to sulfonamides; Z88.5 Allergy status to narcotic agent; T42.3X5A Adverse effect of barbiturates, initial encounter

== ENCOUNTER → 2024-06-03 | Outpatient (RCR) | payer MEDICARE ==
[~2024-06-03] MED LIST changes: +ACET-910 PO; +HYOS125TA PO; +MORP1SOL SL; +MYLASSUD PO; +OLAN5ZYD PO; +ONDA-282 PO
== END ==
LOC: M ONCR 05-21 12:56
PROVIDERS: ATTEND General Practice
DX: Z51.0 Encounter for antineoplastic radiation therapy (principal); C79.51 Secondary malignant neoplasm of bone

== ENCOUNTER 2024-06-16 17:31 | Inpatient (IN) | payer MEDICARE ==
[~2024-06-16] VITALS: Ht 162.6 cm; Wt 50.9 kg
[2024-06-16 17:49] VITALS: BP 108/67; TEMP 97.4; O2SAT 98
[2024-06-16] MEDS: ONDANSETRON 4MG 2ML VIAL IV ONE (17:50)
[2024-06-16] MEDS ORDERED: MORPHINE 2 MG/ML 1ML VIAL IV PRN (17:50)
[2024-06-16] MEDS ORDERED: FLEET ENEMA PR PRN (18:35)
[2024-06-16] MEDS ORDERED: BISACODYL 10MG SUPP PR PRN (18:35)
[2024-06-16] MEDS ORDERED: MORPHINE 10MG/0.5ML ORAL CONCENTRATE SOLUTION U/D SL PRN (18:35)
[2024-06-16] MEDS ORDERED: MORPHINE SULFATE ORAL SOLN 10 MG/5 ML UD PO PRN (18:35)
[2024-06-16] MEDS ORDERED: HYOSCYAMINE SULFATE 0.125 MG SUBL TABLET PO PRN (18:35)
[2024-06-16] MEDS ORDERED: ATROPINE SULFATE 1% OPHTH SOLN 2ML BTL SL PRN (18:35)
[2024-06-16] MEDS ORDERED: ONDANSETRON 4MG 2ML VIAL IV PRN (18:35)
[2024-06-16] MEDS ORDERED: LORazepam 1 MG TAB PO PRN (18:50)
[2024-06-16] MEDS: MORPHINE SULFATE ORAL SOLN 10 MG/5 ML UD PO PRN (19:05)
[2024-06-16] MEDS: MORPHINE 2 MG/ML 1ML VIAL IV PRN (21:28)
[2024-06-17] MEDS: LORazepam 2 MG/ML 1ML VIAL IV PRN (01:11)
[2024-06-18] MEDS: LORazepam 2 MG/ML 1ML VIAL IV PRN (16:44)
[2024-06-19] MEDS: SCOPOLAMINE 1MG TRANSDERMAL PATCH TOP PRN (03:50)
[2024-06-19] MEDS: MORPHINE 10MG/0.5ML ORAL CONCENTRATE SOLUTION U/D SL PRN (04:03)
== END 2024-06-19 05:13 | disposition expired | DRG 951 ==
LOC: M ED 17:31 → EDBD 17:31 → M ED INP 18:35 → M MS5PR 21:15
PROVIDERS: ADMIT Student in an Organized Health Care Education/Training Program; ATTEND Student in an Organized Health Care Education/Training Program
DX: Z51.5 Encounter for palliative care (principal); C79.51 Secondary malignant neoplasm of bone; C78.7 Secondary malignant neoplasm of liver and intrahepatic bile duct; C78.02 Secondary malignant neoplasm of left lung; J90 Pleural effusion, not elsewhere classified; C79.11 Secondary malignant neoplasm of bladder; E55.9 Vitamin D deficiency, unspecified; K21.9 Gastro-esophageal reflux disease without esophagitis; C50.912 Malignant neoplasm of unspecified site of left female breast; M79.7 Fibromyalgia; G89.3 Neoplasm related pain (acute) (chronic); Z79.890 Hormone replacement therapy; Z79.899 Other long term (current) drug therapy; Z88.2 Allergy status to sulfonamides; Z88.5 Allergy status to narcotic agent; Z91.040 Latex allergy status; Z90.13 Acquired absence of bilateral breasts and nipples